=== PATIENT | male | born 1965 | race Hispanic/Latino ===

== ENCOUNTER 2018-03-10 17:59 | Observation (INO) | payer OTHER, BC ==
[2018-03-10] MEDS ORDERED: ACETAMINOPHEN 500 MG TAB PO PRN (18:12)
[2018-03-10] MEDS ORDERED: ONDANSETRON 4 MG/2 ML VIAL IV PRN (18:12)
--- OUTSIDE RECORDS SUMMARY | 2018-03-10 18:12 | XMS REPORT | Clinical Summary ---
:1965 Author Organization [facility] Address [address] [place] [id number] Phone Care Team Providers Name Role Phone Unavailable Primary Care Provider Unavailable Allergies No Known Allergies Current Medications Prescription Sig. Disp. Refills Start Date End Date Status collagenase (SANTYL) 250 Apply 30 g topically Active units/g ointment daily Left foot wound . glimepiride (AMARYL) 4 Take 4 mg by mouth Active MG tablet every morning before breakfast. sitaGLIPtin (JANUVIA) 50 Take 50 mg by mouth Active MG tablet daily. metFORMIN (GLUMETZA) Take 1,000 mg by Active 1000 MG (MOD) 24 hr mouth daily with tablet breakfast. metoprolol (LOPRESSOR) Take 50 mg by mouth Active 50 MG tablet 2 (two) times daily. montelukast (SINGULAIR) Take 10 mg by mouth Active 10 mg tablet daily. Active Problems Problem Noted Date Foot abscess, left 06/03/2016 Toe osteomyelitis, left (HCC) 06/03/2016 Essential hypertension 06/03/2016 HIV disease ([facility]) 06/03/2016 Sepsis ([facility]) 06/02/2016 Family History Medical History Relation Name Comments Cancer Father Diabetes Father COPD Mother Diabetes Mother Diabetes Sister Diabetes Sister Relation Name Status Comments Father Mother Sister Sister Social History Tobacco Use Types Packs/Day Years Used Date Light Tobacco Smoker Alcohol Use Drinks/Week oz/Week Comments Yes socially Sex Assigned at Date Recorded Not on file Last Filed Vital Signs Not on file Plan of Treatment Not on file Results Not on fileafter 03/09/2017
--- OUTSIDE RECORDS SUMMARY | 2018-03-10 18:12 | XMS REPORT ---
:1965 Author Organization [facility] Address [address] [place] [address] Dr. [place] [address] [place] [id number] Care Team Providers Name Role Phone HILDA BURKETT Unavailable Unavailable Problems This patient has no known problems. Allergies, Adverse Reactions, Alerts This patient has no known allergies or adverse reactions. Medications This patient has no known medications. Results Test Description Test Time Test Comments Text Results Atomic Results Result Comments AFB CULTURE + SMEAR 2016-07-22 17:59:00 Test Item Value Reference Range Comments CULTURE (BEAKER) (test fcki=[id number]) No acid-fast bacilli isolated in 42 days AFB SMEAR (BEAKER) (test sjpl=395) No acid fast bacilli seen AFB CULTURE + [id number] 17:58:00 Test Item Value Reference Range Comments CULTURE (BEAKER) (test No acid-fast bacilli isolated nley=2587) in 42 days AFB SMEAR (BEAKER) (test No acid fast bacilli seen odou=106) AFB CULTURE + [id number] 17:58:00 Test Item Value Reference Range Comments CULTURE (BEAKER) (test No acid-fast bacilli isolated pkxu=4470) in 42 days AFB SMEAR (BEAKER) (test No acid fast bacilli seen owin=243)
[2018-03-10 18:53] LABS: Absolute Monocytes 0.8 K/uL (0.1-1.3); Absolute Neutrophil 5.6 K/uL (1.8-8.0); Basophils % 0.3 % (0-1.3); Eosinophils % 4.7 % (0-4.4); Hematocrit 31.1 % (39.6-49.0); Lymphocytes % 29.9 % (15.3-44.8); MCH 28.4 pg (27.0-35.0); MPV 7.1 fL (7.6-11.3); Monocytes % 8.4 % (3.3-12.3)
[2018-03-10] MEDS: NA CHLORIDE 0.9% 1,000 ML IV SCH (19:00)
[2018-03-10 19:03] LABS: Magnesium 2.3 mg/dL (1.8-2.4); Potassium 5.3 mmol/L (3.5-5.1)
[2018-03-10] MEDS ORDERED: ENOXAPARIN 40 MG/0.4 ML SQ SCH (20:00)
[2018-03-10 21:58] LABS: Urine Appearance CLEAR; Urine Bilirubin NEGATIVE (NEG); Urine Blood 1+ (NEG); Urine Color YELLOW; Urine Glucose NEGATIVE (NEG); Urine Protein 2+ (NEG); Urine Specific Gravity 1.015 (1.005-1.030); Urine Urobilinogen 0.2 mg/dL (0.2-1.0)
[2018-03-10 22:11] LABS: Urine Microscopic Reflex ORDER UMIC
[2018-03-10] MEDS ORDERED: ALBUTEROL 2.5 MG/3 ML NEB SOL NEB ONE (22:12)
[2018-03-10 22:19] LABS: Urine Bacteria <20 /HPF (NONE SEEN); Urine Culture Reflex Order NOT NEEDED
[2018-03-11 03:29] VITALS: BMI 38.0
[2018-03-11] MEDS: NA CHLORIDE 0.9% 1,000 ML IV SCH ×3 (05:00→21:44)
[2018-03-11 05:33] LABS: Albumin 3.2 g/dL (3.4-5.0); Phosphorus 4.3 mg/dL (2.5-4.9); Thyroid Stimulating Hormone 1.89 uIU/mL (0.360-3.740)
--- NOTE | 2018-03-11 08:11 | RAD REPORT ---
EXAM DESCRIPTION: US - Renal Ultrasound-Complete - 03/11/2018 7:22 am CLINICAL HISTORY: Acute kidney injury COMPARISON: October 2016 FINDINGS: The right kidney measures 10.4 x 5.4 x 5.6 cm. The left kidney measures 11.0 x 6.5 x 5.9 cm. Renal cortical thickness and echogenicity are normal. No hydronephrosis or suspicious renal mass. Bladder is mostly contracted limiting assessment. No gross evidence for mass or wall thickening. IMPRESSION: No hydronephrosis or suspicious renal mass. Renal parenchymal echogenicity within normal range.
[2018-03-11] MEDS: ENOXAPARIN 30 MG/0.3 ML SQ SCH (09:00)
--- NOTE | 2018-03-11 10:51 | P.HP ---
Certification for Inpatient Patient admitted to: Inpatient With expected LOS: >2 Midnights Patient will require the following post-hospital care: None Practitioner: I am a practitioner with admitting privileges, knowledge of patient current condition, hospital course, and medical plan of care. Services: Services provided to patient in accordance with Admission requirements found in Title 42 Section 412.3 of the Code of Federal Regulations Patient History Date of Service: 03/11/18 Primary Care Provider: Konstantin Reason for admission: acute on chronic renal failure History of Present Illness: Office patient of [facility] with a history HIV. His hiv doctor was worried about his kidney function so we refer him to Dr. Melo. He was found in Lorie' s office to have stage 4 disease and an elevated potassium of 6.3. Was sent to the hospital for admission. Started on fluids for this. This morning his potassium has resolved he does not have much of an improvement of he gfr. Have called Dr. Melo and spoken about the patient. He does have a negative biopsy. However the fear of focal segmental glomerulonephritis in an HIV patient is always present. Allergies No Known Allergies Allergy (Verified 05/22/16 02:57) Home Medications: Darunavir/Cobicistat [Prezcobix 800 mg-150 mg Tablet] 1 tab PO DAILY 05/22/16 Dolutegravir Sodium [Tivicay] 50 mg PO DAILY 05/22/16 Losartan Potassium [Cozaar] 25 mg PO BID 05/22/16 Montelukast [Singulair*] 10 mg PO DAILY 05/22/16 Metoprolol Tartrate [Lopressor*] 50 mg PO BID #60 tab 05/27/16 Liraglutide [Victoza 2-Prabhakar] 1.2 mg SQ DAILY 10/23/16 - Past Medical/Surgical History Has patient received pneumonia vaccine in the past: No Diabetic: Yes -: HTN -: HIV -: NIDDM -: Domenic. 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 - Family History Father -: Diabetes, Cancer Notes: colon cancer Mother -: Lung disease, Diabetes Notes: COPD Sister -: Diabetes - Social History Smoking Status: Former smoker Alcohol use: Yes CD- Drugs: No Caffeine use: Yes Place of Residence: Home Review of Systems 10-point ROS is otherwise unremarkable Physical Examination - Vital Signs Temperature: 97.5 F Blood Pressure: 154/68 Pulse: 73 Respirations: 16 Pulse Ox (%): 94 - Physical Exam General: Alert, In no apparent distress HEENT: Atraumatic, PERRLA, Mucous membr. moist/pink, EOMI, Sclerae nonicteric Neck: Supple, 2+ carotid pulse no bruit, No LAD, Without JVD or thyroid abnormality Respiratory: Clear to auscultation bilaterally, Normal air movement Cardiovascular: Regular rate/rhythm, Normal S1 S2 Gastrointestinal: Normal bowel sounds, No tenderness Musculoskeletal: No tenderness Integumentary: No rashes Neurological: Normal gait, Normal speech, Normal strength at 5/5 x4 extr, Normal tone, Normal affect Lymphatics: No axilla or inguinal lymphadenopathy - Studies Laboratory Data (last 24 hrs) 03/11/18 04:12: Sodium 142, Potassium 5.0, BUN 48 H, Creatinine 2.60 H, Glucose 133 H, Uric Acid 7.0, Phosphorus 4.3 03/10/18 18:39: Sodium 140, Potassium 5.3 H, BUN 49 H, Creatinine 2.80 H, Glucose 151 H, Magnesium 2.3 03/10/18 18:39: WBC 9.9, Hgb 10.5 L, Hct 31.1 L, Plt Count 322 Assessment and Plan - Problems (Diagnosis) (1) CKD (chronic kidney disease) stage 4, GFR 15-29 ml/min Current Visit: No Status: Chronic Plan: His hyperkalemia has resolved. However Dr. Melo would like to keep him to prevent him worsening and ending up on dialysis. This is a reasonable concern. Will change him to inpatient and keep him one more day. (2) Asymptomatic HIV infection Current Visit: No Status: Chronic Plan: He states his viral load is undetectable. Was not reported that way to Dr. Melo. Will recheck his viral load so we can clear up any confusion. (3) Diabetes type 2, controlled Current Visit: No Status: Chronic Plan: Is on victoza as an outpatient. Will hold. do insulin sliding scale. Qualifiers: Diabetes mellitus ferry terminal agent insulin use: without fpc use Diabetes mellitus complication status: without complication Qualified Code(s): E11.9 - Type 2 diabetes mellitus without complications - Advance Directives Does patient have a Living Will: No Does patient have a Durable POA for Healthcare: No - Code Status/Comfort Care Code Status Assessed: Yes Code Status: Full Code Physician Review: Patient Assessed, Agree with Above Assessment and Plan Critical Care: No Time Spent Managing Pts Care (In Minutes): 65
[2018-03-11] MEDS ORDERED: D50W 25 GM/50 ML SYRINGE IV PRN (10:57)
[2018-03-11] MEDS ORDERED: GLUCAGON 1 MG/VIAL IM PRN (10:57)
[2018-03-11] MEDS: INSULIN -REGULAR HUMAN 50 UNIT/0.5 ML ML SQ SCH ×3 (11:30→21:00)
[2018-03-11] MEDS ORDERED: ENOXAPARIN 40 MG/0.4 ML SQ SCH (17:00)
[2018-03-11] MEDS: METOPROLOL TAR 50 MG TAB PO SCH (21:00)
--- NOTE | 2018-03-11 23:54 | CON ---
Date of Consultation: 03/11/2018 Reason For Consultation: Elevated BUN and creatinine, hypertension, and hyperkalemia. 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 The patient was in his regular state of health, visited with his Infectious Disease doctor couple of weeks ago. At that time, his creatinine was elevated to 2.8 and elevation in viral load with significant hyperkalemia of 7.1. The patient was referred back in my office with labs done 1 week ago. His creatinine was 2.6, and his potassium was still elevated at 6.1. For that reason, we directed the patient for direct admission. The patient was on spironolactone for his nephrotic range of proteinuria on top of losartan. The patient denied any nausea, any vomiting, or any diarrhea and was completely asymptomatic. Over the night, the patient was supposed to be started on IV fluid, but the patient refused to take it. Creatinine did not improve, but his potassium has been improved down to 5. Past Medical History: Includes; 1. Diabetes. 2. Hypertension. 3. HIV, on HAART medication. 4. 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 Home Medications: Include; 1. Spironolactone. 2. Supposed to be on Velcade, but he is not taking it 3. Cozaar 25 mg. 4. Singulair. 5. Lopressor. 6. Victoza. Family History: Positive for cancer and hypertension. Social History: Ex-smoker. Denied alcohol. Denied drug abuse. Current Medications In The Hospital: Include; 1. IV fluid. 2. HIV medication. 3. Normal saline. 4. Lovenox. 5. Metoprolol. 6. Zofran. Review of Systems: Head and Neck: No red eye. No ear pain. GI: No nausea, no vomiting. : No polyuria. No dysuria. No hematuria. LICENSED MENTAL HEALTH PROFESSIONAL: Not applicable. Respiratory: No shortness of breath. Cardiovascular: No chest pain. Endocrine: No polydipsia. Skin: No rash. Neurologic: No weakness. Musculoskeletal: No joint pain. Endocrine: No polydipsia. Physical Examination: General: When I saw the patient, the patient is lying in bed, not in any distress. Vital Signs: Blood pressure 145/70, pulse of 69, afebrile. Chest: Clear to auscultation. Heart: S1, S2. Regular. Abdomen: Soft, nontender, obese. Extremities: Trace edema. Neurological: Alert and oriented x3. Nonfocal. Laboratory Data: WBC 9.9, H and H 10.5/31.1, and platelets 322. Sodium 142, potassium down to 5, bicarb of 19, chloride 116, BUN 48, creatinine down to 2.6 yesterday, potassium 5.3, creatinine 2.8. GFR today 26, up from 24 yesterday. Albumin 3.2. TSH 1.8. Urinalysis; specific gravity of 1.015, negative for infection. Has rbc's of 10 and no local uria. Renal ultrasound; no obstruction. Assessment And Plan: Acute kidney injury on chronic kidney disease, secondary to prerenal superimposed with ARB and spironolactone complicated with hyperkalemia. Obstruction has been ruled out. 1. I agree with holding the losartan and spironolactone. I am going to reinforce for the patient to agree for IV hydration, and we will monitor the patient. Given hematuria, if kidney function did not improve by tomorrow on the IV fluids, nephritis and presence of human immunodeficiency virus need to be ruled out. So, we will follow up. I am going to go ahead and send for serology. 2. Hypertension, controlled, optimal. With presence of hyperkalemia and acute kidney injury, I am going keep holding losartan and hold spironolactone. 3. Hyperkalemia, resolved. Continue hydration. Keep holding losartan and spironolactone. 4. Diabetes, as by the primary. 5. Human immunodeficiency virus, as by primary. Thank you, Dr. Pryor, for allowing us to participate in the care of your patient. PALMER Voice ID: [id number] Report ID: [id number] JANET
[2018-03-12] MEDS: NA CHLORIDE 0.9% 1,000 ML IV SCH ×3 (01:00→11:00)
[2018-03-12 05:47] LABS: Albumin 3.1 g/dL (3.4-5.0); Phosphorus 3.1 mg/dL (2.5-4.9); Potassium 5.3 mmol/L (3.5-5.1)
[2018-03-12] MEDS: INSULIN -REGULAR HUMAN 50 UNIT/0.5 ML ML SQ SCH ×2 (07:30→11:30)
[2018-03-12 07:37] LABS: Urine Protein/Creatinine Ratio 1.36 ratio (<0.15)
[2018-03-12] MEDS ORDERED: FUROSEMIDE 40 MG/4 ML VIAL IV ONE (08:40)
[2018-03-12] MEDS ORDERED: GLUCAGON 1 MG/VIAL IM PRN (08:40)
[2018-03-12] MEDS ORDERED: NA CHLORIDE 0.9% 500 ML IV PRN (08:40)
[2018-03-12] MEDS ORDERED: D50W 25 GM/50 ML SYRINGE IV PRN (08:40)
[2018-03-12] MEDS ORDERED: D50W 25 GM/50 ML SYRINGE IV ONE (08:40)
[2018-03-12] MEDS ORDERED: ALBUTEROL 2.5 MG/3 ML NEB SOL NEB ONE ×2 (08:40→10:06)
[2018-03-12] MEDS ORDERED: INSULIN -REGULAR HUMAN 50 UNIT/0.5 ML ML IV ONE (08:42)
[2018-03-12] MEDS: ENOXAPARIN 30 MG/0.3 ML SQ SCH (08:44)
[2018-03-12] MEDS ORDERED: COBICISTAT PO SCH (09:00)
[2018-03-12] MEDS: METOPROLOL TAR 50 MG TAB PO SCH (09:00)
[2018-03-12] MEDS ORDERED: DARUNAVIR PO SCH (09:00)
--- NOTE | 2018-03-12 14:58 | P.DS ---
Admission Date: 03/10/18 Discharge Date: 03/12/18 Primary Care Provider: Dr. Pryor(Covering for him) Disposition: ROUTINE DISCHARGE Discharge Condition: GOOD Reason for Admission: acute on chronic renal failure Consultations: Nephrology-Dr. Gutierres Procedures: Renal ultrasound: COMPARISON: October 2016 FINDINGS: The right kidney measures 10.4 x 5.4 x 5.6 cm. The left kidney measures 11.0 x 6.5 x 5.9 cm. Renal cortical thickness and echogenicity are normal. No hydronephrosis or suspicious renal mass. Bladder is mostly contracted limiting assessment. No gross evidence for mass or wall thickening. IMPRESSION: No hydronephrosis or suspicious renal mass. Renal parenchymal echogenicity within normal range. Medical problem list: Hyperkalemia with chronic renal disease stage III B with nephrotic range proteinuria secondary to hypertension/nephrosclerosis confirmed with biopsy with 70% sclerosed glomeruli. Diabetes mellitus type 2 HIV Hypertension Hyperlipidemia Obesity, BMI-38 Brief History of Present Illness: 52-year-old male presented as a direct admit under Dr. Pryor. Patient was seen by nephrology. He was found to have elevated creatinine and hyperkalemia with potassium 7.1. Patient was admitted for further evaluation. 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 Hospital Course: Patient presented with hyperkalemia secondary to chronic renal disease. Patient with chronic renal disease stage IIIB with nephrotic range proteinuria secondary to hypertension and nephrosclerosis. Potassium improved. Losartan discontinued. At discharge patient will continue with metoprolol 50 mg 1 pill twice daily and hydralazine 25 mg 1 pill twice daily. Recommendation is for the patient follow up with nephrology in 1 week to follow this hospitalization. Recommendation to recheck lab in 1 week to monitor potassium level. Patient is to decrease potassium in his diet. Education will be provided. Recommendation on no further use of nonsteroidal anti-inflammatories. Future medications will need to be renally dosed. Patient has diabetes type 2. Patient will continue with his medication Victoza. Recommendation is to maintain blood sugars less 140 fasting and less than 200 after meals. Further adjustment can be done by his PCP. Patient has hypertension. As mentioned above medications have been adjusted. Losartan has been discontinued at discharge. Patient will continue with metoprolol 50 mg 1 pill twice daily and hydralazine 25 mg 1 pill twice daily. Recommendation is to maintain blood pressures less 150/80. Further adjustment can be done by his PCP. Patient has HIV. Patient will continue with his medication. Patient will follow up with his HIV specialist to continue to monitor and address. Patient has hyperlipidemia. This can be monitored as an outpatient. Vital Signs/Physical Exam: Temp Pulse Resp BP Pulse Ox 97.4 F 71 18 156/74 H 95 03/12/18 08:00 03/12/18 09:59 03/12/18 08:00 03/12/18 09:59 03/12/18 08:00 General: Alert, In no apparent distress, Oriented x3, Cooperative HEENT: Atraumatic Neck: Supple Respiratory: Clear to auscultation bilaterally, Normal air movement Cardiovascular: Normal pulses, Regular rate/rhythm Gastrointestinal: Normal bowel sounds, Soft and benign, Non-distended, No tenderness, No masses, No rebound, No guarding Musculoskeletal: No erythema, No tenderness, No warmth Integumentary: No tenderness/swelling, No erythema, No warmth, No cyanosis Neurological: Normal speech, Normal strength at 5/5 x4 extr, Normal tone, Normal affect Lymphatics: No axilla or inguinal lymphadenopathy Laboratory Data at Discharge: WBC 9.9 K/uL (4.3-10.9) 03/10/18 18:39 Hgb 10.5 g/dL (13.6-17.9) L 03/10/18 18:39 Hct 31.1 % (39.6-49.0) L 03/10/18 18:39 Plt Count 322 K/uL (152-406) 03/10/18 18:39 Sodium 142 mmol/L (136-145) 03/12/18 05:10 Potassium 4.6 mmol/L (3.5-5.1) 03/12/18 12:20 BUN 37 mg/dL (7-18) H 03/12/18 05:10 Creatinine 2.20 mg/dL (0.55-1.3) H 03/12/18 05:10 Glucose 116 mg/dL (74-106) H 03/12/18 05:10 Uric Acid 7.0 mg/dL (3.5-7.2) 03/11/18 04:12 Phosphorus 3.1 mg/dL (2.5-4.9) 03/12/18 05:10 Magnesium 2.3 mg/dL (1.8-2.4) 03/10/18 18:39 Home Medications: Darunavir/Cobicistat [Prezcobix 800 mg-150 mg Tablet] 1 tab PO DAILY 05/22/16 Dolutegravir Sodium [Tivicay] 50 mg PO DAILY 05/22/16 Montelukast [Singulair*] 10 mg PO DAILY 05/22/16 Metoprolol Tartrate [Lopressor*] 50 mg PO BID #60 tab 05/27/16 Liraglutide [Victoza 2-Prabhakar] 1.2 mg SQ DAILY 10/23/16 Hydralazine [Apresoline*] 25 mg PO BID #60 tab 03/12/18 New Medications: Hydralazine [Apresoline*] 25 mg PO BID #60 tab Patient Discharge Instructions: 1. Patient will follow up with his PCP in 1 week to follow up this hospitalization. 2. Patient presented with hyperkalemia secondary to chronic renal disease. Patient with chronic renal disease stage IIIB with nephrotic range proteinuria secondary to hypertension and nephrosclerosis. Potassium improved. Losartan discontinued. At discharge patient will continue with metoprolol 50 mg 1 pill twice daily and hydralazine 25 mg 1 pill twice daily. Recommendation is for the patient follow up with nephrology in 1 week to follow this hospitalization. Recommendation to recheck lab in 1 week to monitor potassium level. Patient is to decrease potassium in his diet. Education will be provided. Recommendation on no further use of nonsteroidal anti-inflammatories. Future medications will need to be renally dosed. 3. Patient has diabetes type 2. Patient will continue with his medication Victoza. Recommendation is to maintain blood sugars less 140 fasting and less than 200 after meals. Further adjustment can be done by his PCP. 4. Patient has hypertension. As mentioned above medications have been adjusted. Losartan has been discontinued at discharge. Patient will continue with metoprolol 50 mg 1 pill twice daily and hydralazine 25 mg 1 pill twice daily. Recommendation is to maintain blood pressures less 150/80. Further adjustment can be done by his PCP. 5. Patient has HIV. Patient will continue with his medication. Patient will follow up with his HIV specialist to continue to monitor and address. 6. Patient has hyperlipidemia. This can be monitored and addressed as an outpatient. Diet: Renal Activity: Ad janina Followup: Paz Gutierres MD [ACTIVE - CAN ADMIT] - Modesto Pryor MD [Primary Care Provider] - Time spent managing pt's care (in minutes): 55
[2018-03-12 15:06] VITALS: BP 116/58; TEMP 98; O2SAT 93
[2018-03-12] MEDS ORDERED: LOPRESSOR 50 MG PO SCH (21:00)
== END 2018-03-12 16:18 | disposition home or self-care (01) ==
LOC: 2ND 18:10
PROVIDERS: ADMIT Internal Medicine; ATTEND Internal Medicine
DX: E87.5 Hyperkalemia (principal); I12.9 Hypertensive chronic kidney disease with stage 1 through stage 4 chronic kidney disease, or unspecified chronic kidney disease; E11.22 Type 2 diabetes mellitus with diabetic chronic kidney disease; N18.3 Chronic kidney disease, stage 3 (moderate); Z21 Asymptomatic human immunodeficiency virus [HIV] infection status; E78.5 Hyperlipidemia, unspecified; E66.9 Obesity, unspecified; Z68.38 Body mass index [BMI] 38.0-38.9, adult
CPT/HCPCS: 36415; 76770; 80048; 80069; 81003; 81015; 82550; 82570; 82962; 83735; 84132; 84156; 84443; 84550; 85025; 94640; G0378; J1650; J7030

== ENCOUNTER 2020-09-25 22:00 | Inpatient (IN) | payer BC, OTHER ==
--- OUTSIDE RECORDS SUMMARY | 2020-09-25 22:04 | XMS REPORT | Continuity of Care Document ---
:1965 Author Organization [facility] t Address [address] [place] [address] Care Team Providers Name Role Phone Sharpless Primary Care Physician Guy Rojo MD Attending Clinician Clint Kaye MD Attending Clinician Theresa CASPER Attending Clinician Unavailable March Attending Clinician Unavailable George CASPER Attending Clinician Unavailable Tom Gamble Attending Clinician Unavailable Tom Gamble Attending Clinician Unavailable BARI BURKETT Attending Clinician Unavailable Admitting Clinician Unavailable Tom Gamble Admitting Clinician Unavailable BARI BURKETT Admitting Clinician Unavailable Payers Payer Name Policy Type Policy Effective Date Expiration Date Sour ce Number BCBSBCBS CHOICE [id number] 2019 [place] PPO/FEDERAL 00:00:00 [place] EMPL [id number] 2019-Presen tPPO Problems Condition Condition Condition Status Onset Resolution Last Treating Co mments Source Name Details Category Date Date Treatment Clinician Date 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 type 2 Type 2 00:00: Practic diabetes Diabetes 00 e mellitus Mellitus Type 2 Type 2 Problem Active [facility] diabetes Diabetes 3-31 Family mellitus Mellitus 00:00: Practi c 00 e Hyperlipid Hyperlipid Problem Active Jan baum emia 3-31 Family 00:00: Practic 00 e Essential Essential Problem Active Rodrigue armstrong hypertensi Hypertensi 3-31 Fa dary on on 00:00: Practic 00 e Seasonal Seasonal Problem Active Nik ge allergy Allergy 3-31 Family 00:00: Practic 00 e Chronic Chronic Problem Active [facility] kidney Kidney 3-31 Family disease Disease 00:00: Practic 00 e 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 3-31 Fa dary ciency ciency 00:00: Practic virus Virus 00 e infection 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 Method i 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 age-relate 00:00: st 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 Foot Foot Disease Active 2015-[address] [facility] [address] abscess, abscess, 2- [facility] - left left 00:00: Medical 00 [place] Toe Toe Disease Active 2015-[address] [facility] osteomyeli osteomyeli 2- Traci kes - tis, left tis, left 00:00: Medi [facility]ian 00 Center Essential Essential Disease Active 2015-[address] [facility] hypertensi hypertensi - Traci kes - on on 00:00: Medical 00 [place] HIV HIV Disease Active 2015-[address] [facility] disease disease 08-04 [facility] - 00:00: Medical 00 [place] Sepsis Sepsis Disease Active 2015-[address] 2- [facility] - 00:00: Medical 00 [place] Type 2 Type 2 Diagnosis Active [facility] St diabetes diabetes [facility] - mellitus mellitus Memori a without without l complicati complicati Ou tpati on, on, ent without without Clinics long-term long-term current current use of use of insulin insulin Chronic Chronic Problem Active [facility] kidney kidney [facility] - disease, disease, Memori a unspecifie unspecifie l d CKD d CKD Outpati stage stage ent Clinics Essential Essential Problem Active [facility] (primary) (primary) Luke s - hypertensi hypertensi Me moria on on l Outpati ent Clinics HIV (human HIV (human Problem Active [facility] immunodefi immunodefi Traci kes - ciency ciency Memoria virus virus l infection) infection) Ou tpati ent Clinics Mixed Mixed Problem Active [facility] hyperlipid hyperlipid Traci kes - emia emia Memoria l Outpati ent Clinics Allergies, Adverse Reactions, Alerts Allergy Allergy Status Severity Reaction(s) Onset Inactive Treating Comm ents Source Name Type Date Date Clinician No Known DA Active [facility] - Allergie 00:00: s 00 No Known DA Active [facility] Drug 08-22 Allergie 00:00: s 00 No Known DA Active U 2019-[facility] 06-25 Allergie 00:00: s 00 Family History Family Member Diagnosis Comments Start Date Stop Date Source Natural father Cancer [facility] Natural father Diabetes [facility] Natural mother COPD [facility] Natural mother Diabetes [facility] Natural sister Diabetes [facility] Social History Social Habit Start Date Stop Date Quantity Comments Source History of Cigarette Smoker [place] [facility] tobacco use History [facility] Meth odist Alcohol Std Drinks History [facility] Meth odist Alcohol Binge Tobacco use and 2020-05-28 2020-05-28 Never used Perry Rubio ethodist exposure 00:00:00 00:00:00 Alcohol intake 2020-05-28 2020-05-28 Current drinker [place] 00:00:00 00:00:00 of alcohol (finding) History [facility] 2020-03-26 2020-03-26 3 [place] Meth odist Alcohol Frequency 00:00:00 00:00:00 Alcohol Comment 2016-06-01 2016-06-[address] [facility] - 00:00:00 00:00:00 [facility] Sex Ass[birth year] At [birth year] [place] Ramiro ethodist 00:00:00 00:00:00 Smoking Status Start Date Stop Date Source Never Smoker [facility] Current some day smoker 2020-05-28 00:00:00 [place] Light tobacco smoker 2016-06-05 00:00:00 [facility] Medications Ordered Filled Start Stop Current Ordering Indication Dosage Frequency Signature Comments Components Source Medication Medication Date Date Medication? Clinician (SIG) Name Name dolutegravi 2019-06 Yes Take by Lars traore (Tivimal) 2-12 mouth. Method i 10 mg 03:04: st tablet 03 furosemide 2019-06 Yes 20mg Q.5D Take 20 mg [place] (LASIX) 20 2-12 by mouth 2 Met hodi mg tablet 03:04: (two) st 03 times a day. montelukast 2019-06 Yes 10mg QD Take 10 mg [place] (SINGULAIR) 2-12 by mouth Meth shekhar 10 mg 03:04: nightly. st tablet 03 carvediloL 2019-06 Yes 12.5mg Q.5D Take 12.5 [place] (COREG) 2-12 mg by Methodi 12.5 MG 03:04: mouth 2 st tablet 03 (two) times a day with meals. Niaspan Niaspan 2018- No [place] [address] 4-18 10-15 Konstantin at bedtime [facility] - 00:00: 00:00 Memoria 00 :00 [facility] 2018- No [place] [address] [facility] 4-18 10-15 Konstantin [facility] - 00:00: 00:00 Memoria 00 :00 [facility] ent [facility] liraglutide Yes INJECT 1.2 [place] (VICTOZA) 4-08 MG Methodi 0.6 mg/0.1 00:00: SUBCUTANEO s t mL (18 mg/3 00 USLY EVERY mL) pen DAY injector darunavir-c Yes [place] obicistat 4-08 [facility] (PREZCOBIX) 00:00: st 800-150 00 mg-mg tablet collagenase 2015-06 Yes 30g QD Apply [address] (SANTYL) 2-30 topically [facility] - 250 units/g 14:45: daily Left Medical ointment 45 foot wound Karina Smart glimepiride 2015-06 Yes 4mg Take [address] (AMARYL) 4 2-30 by mouth [facility] - MG tablet 14:45: every Medical 45 morning Center before breakfast. sitaGLIPtin 2015-06 Yes 50mg QD Take [address] (JANUVIA) 2-30 by mouth [facility] - 50 MG 14:45: daily. Medical tablet 45 Center metFORMIN 2015-06 Yes 1000mg Take 1,[address] (GLUMETZA) 2-30 mg by [facility] - 1000 MG 14:45: mouth Medical (MOD) 24 hr 45 daily with Ce nter tablet breakfast. metoprolol 2015-06 Yes 50mg Q.5D Take [address] (LOPRESSOR) 2-30 by mouth 2 Traci kes - 50 MG 14:45: (two) Medical tablet 45 times Center daily. montelukast 2015-06 Yes 10mg QD Take [address] (SINGULAIR) 2-30 by mouth Luke s - 10 mg 14:45: daily. Medical tablet 45 Center atorvastati atorvastati No 1 Q1D atorvastat [facility] n 40 mg n 40 mg in 40 mg Famil y tablet Take tablet Take tablet Practic 1 tablet 1 tablet Take 1 e every day every day tablet by oral by oral every day route as route as by oral directed. directed. route as directed. carvedilol carvedilol No 1 BID carvedilol [facility] 12.5 mg 12.5 mg 12.5 mg Family tablet Take tablet Take tablet Practic 1 tablet 1 tablet Take 1 e twice a day twice a day tablet by oral by oral twice a route as route as day by directed. directed. oral route as directed. diphenoxyla diphenoxyla No 2 QID diphenoxyl [facility] te-atropine te-atropine ate-atropi Family 2.5 2.5 ne 2.5 Practic mg-0.025 mg mg-0.025 mg mg-0.025 e tablet Take tablet Take mg tablet 2 tablets 4 2 tablets 4 Take 2 times a day times a day tablets 4 by oral by oral times a route as route as day by directed. directed. oral route as directed. furosemide furosemide No 1 Q1D furosemide [facility] 20 mg 20 mg 20 mg Family tablet Take tablet Take tablet Practic 1 tablet 1 tablet Take 1 e every day every day tablet by oral by oral every day route as route as by oral directed. directed. route as directed. Humalog Humalog No Humalog [place] KwikPen KwikPen KwikPen Family (U-100) (U-100) (U-100) Practi c Insulin 100 Insulin 100 Insulin e unit/mL unit/mL 100 subcutaneou subcutaneou unit/mL s Give s Give subcutaneo before before us Give meals using meals using before CF 1:30:TDD CF 1:30:TDD meals 50 50 using CF 1:30:TDD 50 montelukast montelukast No 1 Q1D montelukas [facility] 10 mg 10 mg t 10 mg Family tablet Take tablet Take tablet Practic 1 tablet 1 tablet Take 1 e every day every day tablet by oral by oral every day route as route as by oral directed. directed. route as directed. Prezcobix Prezcobix No 1 Q1D Prezcobix [facility] 800 mg-150 800 mg-150 800 mg-150 Family mg tablet mg tablet mg tablet Practic Take 1 Take 1 Take 1 e tablet tablet tablet every day every day every day by oral by oral by oral route as route as route as directed. directed. directed. Soliqua Soliqua No Soliqua Vill[place] e 100/33 100 100/33 100 100/33 Family unit-33 unit-33 100 Practic mcg/mL mcg/mL unit-33 e subcutaneou subcutaneou mcg/mL s insulin s insulin subcutaneo pen Give 32 pen Give 32 us insulin units in AM units in AM pen Give and and 32 units increase as increase as in AM and directed: directed: increase TDD60 TDD60 as directed: TDD60 Tivicay 50 Tivicay 50 No 1 Q1D Tivicay 50 [place] mg tablet mg tablet mg tablet Family Take 1 Take 1 Take 1 Practic tablet tablet tablet e every day every day every day by oral by oral by oral route as route as route as directed. directed. directed. Joshtoza Joshtoza Yes [place] inject [facility] Konstantin under the [facility] - skin 1.2mg Memoria daily l [facility] BD Pen BD Pen Yes [place] USE [facility] Needle Nelida Needle Nelida Konstantin DIRECTED [facility] - U/F U/F Memoria l [facility] Metoprolol Metoprolol Yes [place] TAKE [address] [facility] Tartrate Tartrate Konstantin TABLET BY L ukes - MOUTH Memoria TWICE A l DAY [facility] Singulair Singulair Yes [place] [address] Konstantin [facility] - Memoria [facility] Immunizations Ordered Immunization Filled Immunization Date Status Commen ts Source Name Name influenza, influenza, 2018-06-[address] [facility] injectable, injectable, 00:00:00 Practice quadrivalent quadrivalent Vital Signs Vital Name Observation Time Observation Value Comments Source BP Diastolic 2020-09-05 00:00:00 91 mm[Hg] [facility] Height 2020-09-05 00:00:00 71 [in_i] [facility] Family Practice BMI (Body Mass 2020-09-05 00:00:00 35 kg/m2 [facility] BP Systolic 2020-09-05 00:00:00 163 mm[Hg] [facility] Body Weight 2020-09-05 00:00:00 251 [lb_av] [facility] 02 Sat by Pulse 2020-09-06 16:51:46 98 /min Oximetry Body Mass Index 2020-09-06 16:51:46 34.9 Height 2020-09-06 16:51:46 180.34\S\71 Pulse Rate 2020-09-06 16:51:46 98 /min Respiratory Rate 2020-09-06 16:51:46 16 /min Temperature 2020-09-06 16:51:46 36.2\S\97.2 Weight 2020-09-06 16:51:46 609264.092\S\4000 02 Sat by Pulse 2020-08-27 18:48:23 98 /min Oximetry Body Mass Index 2020-08-27 18:48:23 34.9 Height 2020-08-27 18:48:23 180.34\S\71 Pulse Rate 2020-08-27 18:48:23 98 /min Respiratory Rate 2020-08-27 18:48:23 16 /min Temperature 2020-08-27 18:48:23 36.2\S\97.2 Weight 2020-08-27 18:48:23 313535.092\S\4000 Body Mass Index 2020-08-23 22:20:59 34.9 Height 2020-08-23 22:20:59 180.34\S\71 Pulse Rate 2020-08-23 22:20:59 98 /min Respiratory Rate 2020-08-23 22:20:59 16 /min Temperature 2020-08-23 22:20:59 36.2\S\97.2 Weight 2020-08-23 22:20:59 537529.092\S\4000 02 Sat by Pulse 2020-08-23 22:20:59 98 /min Oximetry 02 Sat by Pulse 2020-08-23 15:54:12 98 /min Oximetry Body Mass Index 2020-08-23 15:54:12 34.9 Height 2020-08-23 15:54:12 180.34\S\71 Pulse Rate 2020-08-23 15:54:12 98 /min Respiratory Rate 2020-08-23 15:54:12 16 /min Temperature 2020-08-23 15:54:12 36.2\S\97.2 Weight 2020-08-23 15:54:12 497762.092\S\4000 02 Sat by Pulse 2020-08-23 13:01:04 99 /min Oximetry Body Mass Index 2020-08-23 13:01:04 34.9 Height 2020-08-23 13:01:04 180.34\S\71 Pulse Rate 2020-08-23 13:01:04 91 /min Respiratory Rate 2020-08-23 13:01:04 18 /min Temperature 2020-08-23 13:01:04 36.8\S\98.2 Weight 2020-08-23 13:01:04 126460.092\S\4000 WEIGHT 2020-08-23 12:59:00 113.012686 kg HEIGHT 2020-08-23 12:59:00 180.34 cm Systolic blood 2020-05-17 12:30:00 170 mm[Hg] [place] [facility] pressure Diastolic blood 2020-05-17 12:30:00 85 mm[Hg] [place] [facility] pressure Heart rate 2020-05-17 12:30:00 84 /min [place] [facility] Body temperature 2020-05-17 12:30:00 36.28 Dawn [place] Respiratory rate 2020-05-17 12:30:00 12 /min [place] [facility] Oxygen saturation in 2020-05-17 12:30:00 98 /min [facility] Arterial blood by Pulse oximetry Body height 2020-05-17 09:54:00 181.6 cm [facility] Body weight 2020-05-17 09:54:00 115.781 kg [facility] BMI 2020-05-17 09:54:00 35.10 kg/m2 Perry Stephen Procedures Procedure Date / Time Performed Performing Clinician Sourc e PHACOEMULSIFICATION, 2020-05-17 11:31:00 Do Rojo [place] CATARACT, WITH IOL IMPLANTATION POC GLUCOSE 2020-05-17 09:42:00 RojoDo CORNEAL TOPOGRAPHY - OU - 2020-04-19 16:37:42 Do Rojo on [place] Stephen BOTH EYES IOL BIOMETRY - OU - BOTH 2020-04-19 16:37:37 Queen Do Malin n [place] Stephen EYES Plan of Care Planned Activity Planned Date Details Comments Source Future Scheduled Test 2021-03-26 DIABETES: RETINAL H [facility] 00:00:00 EYE EXAM [code = DIABETES: RETINAL EYE EXAM] Future Scheduled Test 2021-01-06 INFLUENZA VACCINE [facility] 00:00:00 [code = INFLUENZA VACCINE] Diagnostic Test 2020-09-05 glucose, Mimi Fami ly Pending 00:00:00 fingerstick, blood Practice [code = glucose, fingerstick, blood] Diagnostic Test 2020-09-05 hemoglobin A1C, Mimi F amily Pending 00:00:00 fingerstick [code = Practice hemoglobin A1C, fingerstick] Future Scheduled Test 2014 COLONOSCOPY [place] [facility] 00:00:00 SCREENING [code = COLONOSCOPY SCREENING] Future Scheduled Test 2014 SHINGLES VACCINES [facility] 00:00:00 (#1) [code = SHINGLES VACCINES (#1)] Future Scheduled Test 1982 Hepatitis C [place] [facility] 00:00:00 screening (procedure) [code = 950760841] Future Scheduled Test 1980 COVID-19 VACCINE (1) [place] [facility] 00:00:00 [code = COVID-19 VACCINE (1)] Future Scheduled Test 1974 DIABETIC FOOT EXAM [place] [facility] 00:00:00 [code = DIABETIC FOOT EXAM] Future Appointment 2020-10-06 Anna Vega 00:00:[id number]; [address], [place] [address] Encounters Start End Encounter Admission Attending Care Care Encounter Source Date/Time Date/Time Type Type Clinicians Facility Department ID 2020-09-05 2020-09-05 Salbador SRINIVASAN [place] - [id number] [facility]age 00:00:00 00:00:00 Anatoly Main - Leonid nielson MD: [id number] VM_HOU_Shad e [address], [address], [place] [address] , Ph. 2020-05-28 2020-05-28 Outpatient , [facility] [id number] [place] 00:00:00 00:00:00 DO [address] 2020-05-17 2020-05-17 [id number] [place] 00:00:00 00:00:00 DO [address] 2020-04-19 2020-04-19 Outpatient [facility] [id number] [place] 00:00:00 00:00:[address] 2020-03-26 2020-03-26 Outpatient [facility] [id number] [place] 00:00:00 00:00:00 DO [address] 2020-01-24 2020-01-24 Outpatient 3 [facility] VANDANA [id number] St. 10:30:00 23:59:00 [facility] 2020-01-24 2020-01-24 Outpatient 3 [facility] VANDANA [id number] St. 10:30:00 10:30:00 [facility]2019 817 [facility] 2018-10-18 2018-10-18 [facility] [id number] 13:47:00 13:47:00 [facility] Medicine Outpati ent Clinics 2018-09-23 2018-09-23 [facility] [id number] 08:45:00 08:45:00 [facility] Medicine Outpati ent Clinics 2018-08-04 2018-08-04 [facility] [id number] 08:30:00 08:30:00 [facility] Medicine Outpati ent Clinics 2018-03-11 2018-03-11 [facility] [id number] 10:51:00 10:51:00 [facility] Medicine Outpati ent Clinics Results Test Description Test Time Test Comments Results Result Comments Source IOL Master - OU - Both Eyes 2020-04-23 13:23:25 Test Item Value Reference Range Interpretation Comme nts Axial Length-OD (test code = 4865) 24.87 Axial Length-OS (test code = 4866) 24.99 Anterior Chamber Depth-OD (test code = 3.48 4867) Anterior Chamber Depth-OS (test code = 3.54 4868) White to White-OD (test code = 4878) 13.3 White to White-OS (test code = 4879) 12.9 TRINY (test code = TRINY) Right EyeAxial length was 24.87. White to white was 13.3. AC Depth was 3.48. Left EyeAxial length was 24.99. White to white was 12.9. AC Depth was 3.54. NotesIOL choice denoted in patient visit progress note IOL CALCULATION ORDER SHEET DATE OF TESTIN04/19/20 DATE OF SURGERY: OD OSRK PRK LASIK SILICONE OIL SCLERAL BUCKLE PKP CONTACT LENSES: DATE LAST WORN: TYPE: RGP: SOFT: DOMINANT EYE: TARGET REFRACTION: OD OS TESTING RESULTS: OD OS K1 K2 AXIS TOTAL CYL K1 K2 AXIS TOTAL CYL AUTO K IOLMASTER 40.35 41.38 97 1.03 4064 41.93 69 1.29 ATLAS GALILEI SimK GALILEI TCP AXIAL LENGTH (in mm) OD OS IOL MASTER 24.87 24.99 SONOMED/ACCUTOME IMMERSION Dr Jonah ROJO___X FINAL IOL LENS CHOICE: OD OS BACKUP LENS : OD OS [facility], [facility] - [id number] 13:23:16IOL choice denoted in patient visit progress [facility] [id number] 11:58:15 Test Item Value Reference Range Interpretation Comments Glucose POC (test 121 mg/dL 70-115 H If you con assembler arranger your code = Glucose POC) patient critically ill, the Marshal-Accu Check Infrom II meter should not be used for Glucose determination. Draw a venous Glucose and send to the main Lab for analysis. AFB CULTURE + [id number] 17:59:00 Test Item Value Reference Range Interpretation Comments CULTURE (BEAKER) (test No acid-fast bacilli code = 1095) isolated in 42 days AFB SMEAR (BEAKER) No acid fast bacilli (test code = 994) seen AFB CULTURE + [id number] 17:58:00 Test Item Value Reference Range Interpretation Comments CULTURE (BEAKER) (test No acid-fast bacilli code = 1095) isolated in 42 days AFB SMEAR (BEAKER) No acid fast bacilli (test code = 994) seen AFB CULTURE + [id number] 17:58:00 Test Item Value Reference Range Interpretation Comments CULTURE (BEAKER) (test No acid-fast bacilli code = 1095) isolated in 42 days AFB SMEAR (BEAKER) No acid fast bacilli (test code = 994) seen
[2020-09-25] MEDS ORDERED: NA CHLORIDE 0.9% 250 ML ONE (23:50)
[2020-09-25] MEDS ORDERED: VANCOMYCIN 1 GM/VIAL ONE (23:50)
[2020-09-25] MEDS ORDERED: ACETAMINOPHEN 500 MG TAB ONE (23:51)
[2020-09-26 00:22] LABS: Protime INR 1.13
[2020-09-26 00:24] LABS: Absolute Lymphocytes (CBC) 2.4 K/uL (0.7-4.9); Basophils % 0.3 % (0-1.3); Hematocrit 31.3 % (39.6-49.0); Lymphocytes % 20.2 % (15.3-44.8); MPV 7.3 fL (7.6-11.3); RBC Red Blood Cell Count 3.72 M/uL (4.33-5.43)
[2020-09-26 00:26] LABS: ALT/SGPT 26 U/L (12-78); AST/SGOT 14 U/L (15-37); Albumin 2.4 g/dL (3.4-5.0); Alkaline Phosphatase 44 U/L (45-117); BUN Blood Urea Nitrogen 62 mg/dL (7-18); Bicarbonate 21 mmol/L (21-32); Bilirubin Direct < 0.1 mg/dL (0-0.2); Bilirubin Total 0.3 mg/dL (0.2-1.0); Creatine Phosphokinase 61 U/L (39-308); Glucose Level 100 mg/dL (74-106); Potassium 4.1 mmol/L (3.5-5.1); Protein, Total 6.2 g/dL (6.4-8.2); Sodium Level 141 mmol/L (136-145)
[2020-09-26 00:27] LABS: Amylase 111 U/L (25-115); CKMB Creatine Kinase MB 1.5 ng/mL (0.3-3.6); Lipase 248 U/L (73-393); NT PRO-BNP 638 pg/mL (<125); Troponin (Emerg Dept Use Only) < 0.02 ng/mL (0.0-0.045)
--- NOTE | 2020-09-26 00:43 | EDPHYS ---
Physician Documentation [facility] Name: Chalo Harry Age: 54 yrs Sex: Male : 1965 Arrival Date: 09/25/2020 Time: 22:01 Bed 25 Private MD: ESTEPHANIA Physician Collin Kong HPI: 09/26 00:49 This 54 yrs old Male presents to ER via Wheelchair with complaints of Leg kb Swelling, Leg Pain. 00:49 The patient presents with cellulitis of the left leg. Description: erythematous, hot, kb swollen. Onset: The symptoms/episode began/occurred 3 day(s) ago. Possible cause(s): unknown. Associated signs and symptoms: Pertinent positives: drainage, erythema, swelling. Modifying factors: the symptoms are alleviated by nothing, the symptoms are aggravated by nothing. Severity of symptoms: At their worst the symptoms were moderate, in the emergency department the symptoms are unchanged. The patient has experienced similar episodes in the past, a few times. The patient has not recently seen a physician. sore to lateral left foot for 3 days with redness, swelling and heat that traveled up to knee. Sore popped today which prompted ER visit. Historical: - Allergies: 09/25 22:50 No Known Allergies; bb - Home Meds: 22:50 montelukast 10 mg oral tab 1 tab once daily [Active]; atorvastatin 40 mg oral tab 1 tab bb once daily [Active]; diphenoxylate-atropine 2.5-0.025 mg Oral tab 2 tabs once daily [Active]; carvedilol 12.5 mg oral tab [Active]; Soliqua [Active]; insulin aspart subcutaneous subcutaneous [Active]; - PMHx: 22:50 AIDS; allergies; Diabetes - NIDDM; High Cholesterol; Hypertension; bb - PSHx: 22:50 Toe amputation; retinal detachement right eye surgery; left cataract; bb - Immunization history:: Adult Immunizations up to date, Client reports receiving the 1st dose of the Covid vaccine. - Social history:: Smoking status: Patient/guardian denies using tobacco, Stopped _ months ago 6. ROS: 09/26 00:48 Cardiovascular: Negative for chest pain, palpitations, and edema, Respiratory: Negative kb for shortness of breath, cough, wheezing, and pleuritic chest pain, Abdomen/GI: Negative for abdominal pain, nausea, vomiting, diarrhea, and constipation, Neuro: Negative for headache, weakness, numbness, tingling, and seizure. MS/extremity: Positive for erythema, pain, swelling, tenderness, of the left leg. Skin: Positive for cellulitis. Exam: 00:49 Constitutional: This is a well developed, well nourished patient who is awake, alert, kb and in no acute distress. Head/Face: Normocephalic, atraumatic. Cardiovascular: Regular rate and rhythm with a normal S1 and S2. No gallops, murmurs, or rubs. No pulse deficits. Respiratory: Respirations even and unlabored. No increased work of breathing, no retractions or nasal flaring. Abdomen/GI: Soft, non-tender. No distention MS/ Extremity: Pulses equal, no cyanosis. Neurovascular intact. Full, normal range of motion. Neuro: Awake and alert, GCS 15, oriented to person, place, time, and situation. Moves all extremities. Normal gait. 00:49 Skin: cellulitis, that is moderate, on the left leg. 01:11 ECG was reviewed by the Attending Physician. jordy Vital Signs: 09/25 22:45 BP 129 / 78; Pulse 125; Resp 20 S; Temp 100.9(O); Pulse Ox 97% on R/A; Weight 113.4 kg bb (R); Height 5 ft. 11 in. (180.34 cm) (R); Pain 8/10; 09/26 00:00 BP 121 / 75; Pulse 115; Resp 19; Pulse Ox 98% ; rr5 01:00 BP 104 / 61; Pulse 105; Resp 16; Pulse Ox 95% on R/A; jb4 02:00 BP 110 / 65; Pulse 108; Resp 18; Temp 100.1(TE); Pulse Ox 98% on R/A; jb4 09/25 22:45 Body Mass Index 34.87 (113.40 kg, 180.34 cm) bb MDM: 09/25 22:52 Patient medically screened. kb 09/26 00:35 Data reviewed: vital signs, nurses notes. Data interpreted: Pulse oximetry: on room air kb is 98 %. Interpretation: normal. Counseling: I had a detailed discussion with the patient and/or guardian regarding: the historical points, exam findings, and any diagnostic results supporting the discharge/admit diagnosis, lab results, radiology results, the need for further work-up and treatment in the hospital. Physician consultation: Filipe BAINS was contacted at 00:37, regarding admission, to the medical/surgical unit. patient's condition, and will see patient in ED. 09/25 23:05 Order name: Amylase, Serum kb 09/25 23:05 Order name: Basic Metabolic Panel kb 09/25 23:05 Order name: Blood Culture Adult (2) kb 09/25 23:05 Order name: CBC with Diff kb 09/25 23:05 Order name: Ckmb kb 09/25 23:05 Order name: CPK kb 09/25 23:05 Order name: Lactate kb 09/25 23:05 Order name: LFT's; Complete Time: 00:27 kb 09/25 23:05 Order name: Lipase; Complete Time: 00:27 kb 09/25 23:05 Order name: Procalcitonin kb 09/25 23:05 Order name: Protime (+inr); Complete Time: 00:22 kb 09/25 23:05 Order name: Ptt, Activated; Complete Time: 00:22 kb 09/25 23:05 Order name: Troponin (emerg Dept Use Only); Complete Time: 00:27 kb 09/25 23:05 Order name: BNP; Complete Time: 00:27 kb 09/25 23:06 Order name: Amylase; Complete Time: 00:27 EDMS 09/25 23:06 Order name: Basic Metabolic Panel; Complete Time: 00:27 EDMS 09/25 23:06 Order name: Blood Culture EDMS 09/25 23:06 Order name: CBC with Automated Diff; Complete Time: 00:30 EDMS 09/25 23:06 Order name: CKMB Creatine Kinase MB; Complete Time: 00:27 EDMS 09/25 23:06 Order name: Creatine Phosphokinase; Complete Time: 00:27 EDMS 09/25 23:06 Order name: Lactate; Complete Time: 00:27 EDMS 09/26 00:21 Order name: Glucose, Ancillary Testing; Complete Time: 00:22 EDMS 09/26 00:34 Order name: COVID-19 : Document "Date of Symptom Onset" if Symptomatic. mw2 09/26 01:58 Order name: Hemoglobin A1c ej 09/26 02:59 Order name: Urine Dipstick-Ancillary; Complete Time: 03:34 EDMS 09/26 03:35 Order name: Urine Microscopic Only ej 09/26 05:22 Order name: Urine Dipstick-Ancillary EDMS 09/26 05:49 Order name: Basic Metabolic Panel EDMS 09/26 05:49 Order name: CBC with Automated Diff EDMS 09/25 23:05 Order name: Chest Single View XRAY kb 09/25 23:05 Order name: Accucheck; Complete Time: 00:31 kb 09/25 23:05 Order name: Cardiac monitoring; Complete Time: 00:21 kb 09/25 23:05 Order name: EKG - Nurse/Tech; Complete Time: 01:23 kb 09/25 23:05 Order name: IV Saline Lock - Large Bore; Complete Time: 00:21 kb 09/25 23:05 Order name: Labs collected and sent; Complete Time: 00:21 kb 09/25 23:05 Order name: O2 Per Protocol; Complete Time: 00:21 kb 09/25 23:05 Order name: O2 Sat Monitoring; Complete Time: 00:18 kb 09/26 01:56 Order name: Lower Extremity Arterial Bilat US ej 09/26 01:56 Order name: Extrem Venous W Compression Domenic US ej 09/26 02:14 Order name: Diet Ada 1800 Shawn; Complete Time: 05:21 ej 09/26 05:49 Order name: CONS Physician Consult EDAZ 09/26 05:49 Order name: CONS Physician Consult EDAZ 09/26 05:52 Order name: SARS-COV-2 RT PCR EDAZ 09/26 07:55 Order name: Lactate EDAZ 09/26 07:58 Order name: T4 Free EDAZ 09/26 07:58 Order name: Thyroid Stimulating Hormone EDAZ 09/26 08:19 Order name: EDAZ 09/26 08:47 Order name: EDAZ 09/26 08:57 Order name: [facility] 09/26 09:10 Order name: Glucose, Ancillary Testing EDAZ 09/26 12:22 Order name: Glucose, Ancillary Testing EDAZ 09/26 17:40 Order name: Glucose, Ancillary Testing EDAZ EC:11 Rate is 105 beats/min. Rhythm is regular. QRS G[place] is Normal. NV interval is normal. jordy QRS interval is normal. QT interval is normal. No Q waves. T waves are Normal. No ST changes noted. Clinical impression: NSR w/ Non-specific ST/T Changes and No evidence of ischemia. Interpreted by me. Reviewed by me. Administered Medications: 09/25 23:30 Drug: Tylenol 1000 mg Route: PO; rr5 23:30 Dru grams of (vancoMYCIN 1 grams, NS 0.9% 250 ml) Route: IVPB; Infused Over: 2 hrs; rr5 Site: right hand; 09/26 01:30 Follow up: Response: No adverse reaction; IV Status: Completed infusion; IV Intake: jb4 250ml 05:02 Drug: NS 0.9% 1000 ml Route: IV; Rate: 100 ml/hr; Site: right wrist; jb4 06:46 Follow up: Response: No adverse reaction; IV Status: Order to discontinue infusion; IV jb4 Intake: 175ml Disposition: 01:12 Co-signature as Attending Physician, Collin Kong MD I agree with the assessment and jordy plan of care. Disposition: 09/26/20 00:42 Hospitalization ordered by Doni Anderson for Inpatient Admission. Preliminary diagnosis is Cellulitis of left lower limb. - Bed requested for Telemetry/MedSurg (Inpatient). - Status is Inpatient Admission. aa5 - Condition is Stable. - Problem is new. - Symptoms are unchanged. Signatures: Dispatcher [employer] [facility] Norma Guerra, CHARLOTTE COBBLER MCKAY-Shauna Juárez RN RN dw Anderson, Corey, MD MD cha Ballard, Brenda, RN RN bb Lula Hussein RN RN aa5 Nathalie Saenz RN RN cg Bryson, James, RN RN jb4 Samuel Schmitz RN RN rr5 Filipe Martinez PA PA ej Corrections: (The following items were deleted from the chart) 02:38 00:42 Hospitalization Ordered by Doni Anderson MD for Inpatient Admission. Preliminary cg diagnosis is Cellulitis of left lower limb. Bed requested for Telemetry/MedSurg (Inpatient). Status is Inpatient Admission. Condition is Stable. Problem is new. Symptoms are unchanged. 05:25 00:35 CORONAVIRUS ordered. [facility] 16:44 02:38 09/26/2020 00:42 Hospitalization Ordered by Doni Anderson MD for Inpatient dw Admission. Preliminary diagnosis is Cellulitis of left lower limb. Bed requested for [facility] ER HOLD. Status is Inpatient Admission. Condition is Stable. Problem is new. Symptoms are unchanged. cg 18:06 16:44 09/26/2020 00:42 Hospitalization Ordered by Doni Anderson MD for Inpatient aa5 Admission. Preliminary diagnosis is Cellulitis of left lower limb. Bed requested for Telemetry/MedSurg (Inpatient). Status is Inpatient Admission. Condition is Stable. Problem is new. Symptoms are unchanged. dw
--- NOTE | 2020-09-26 00:43 | ER ---
Nurse's Notes [facility] Name: Chalo Harry Age: 54 yrs Sex: Male : 1965 Arrival Date: 09/25/2020 Time: 22:01 Bed 25 Private MD: Diagnosis: Cellulitis of left lower limb Presentation: 09/25 22:45 Chief complaint: Patient states: my left foot has been swollen and has developed a bb wound in the last 3 days. Coronavirus screen: At this time, the client does not indicate any symptoms associated with coronavirus-19. Ebola Screen: No symptoms or risks identified at this time. Initial Sepsis Screen: Does the patient meet any 2 criteria? Temp <36.0*C (96.8*F)) or > 38.3*C (100.9*F). HR > 90 bpm. Yes Does the patient have a suspected source of infection? Yes: Skin breakdown/wound. Risk Assessment: Do you want to hurt yourself or someone else? Patient reports no desire to harm self or others. Onset of symptoms was September 22, 2020. 22:45 Method Of Arrival: Wheelchair bb 22:45 Acuity: KESHA 3 bb Triage Assessment: 22:50 General: Appears in no apparent distress. uncomfortable, Behavior is calm, cooperative. bb Pain: Complains of pain in right foot Pain currently is 8 out of 10 on a pain scale. Neuro: Level of Consciousness is awake, alert, obeys commands, Oriented to person, place, time, situation. Respiratory: Respiratory effort is even, unlabored, Respiratory pattern is regular. Derm: Skin is pink, warm \T\ dry. Musculoskeletal: Circulation, motion, and sensation intact. Historical: - Allergies: 22:50 No Known Allergies; bb - Home Meds: 22:50 montelukast 10 mg oral tab 1 tab once daily [Active]; atorvastatin 40 mg oral tab 1 tab bb once daily [Active]; diphenoxylate-atropine 2.5-0.025 mg Oral tab 2 tabs once daily [Active]; carvedilol 12.5 mg oral tab [Active]; Soliqua [Active]; insulin aspart subcutaneous subcutaneous [Active]; - PMHx: 22:50 AIDS; allergies; Diabetes - NIDDM; High Cholesterol; Hypertension; bb - PSHx: 22:50 Toe amputation; retinal detachement right eye surgery; left cataract; bb - Immunization history:: Adult Immunizations up to date, Client reports receiving the 1st dose of the Covid vaccine. - Social history:: Smoking status: Patient/guardian denies using tobacco, Stopped _ months ago 6. Screenin:30 Abuse screen: Denies threats or abuse. Denies injuries from another. Nutritional rr5 screening: No deficits noted. Tuberculosis screening: No symptoms or risk factors identified. Fall Risk IV access (20 points). Total Padron Fall Scale indicates No Risk (0-24 pts). Assessment: 23:30 General: Appears in no apparent distress. uncomfortable, Behavior is calm, cooperative, rr5 appropriate for age. 23:30 Pain: Complains of pain in left leg Pain currently is 8 out of 10 on a pain scale. rr5 Quality of pain is described as aching, Pain began gradually, Is intermittent. Neuro: Level of Consciousness is awake, alert, obeys commands, Oriented to person, place, time, situation. Cardiovascular: Capillary refill < 3 seconds Patient's skin is warm and dry. Respiratory: Airway is patent Respiratory effort is even, unlabored, Respiratory pattern is regular, symmetrical. GI: No signs and/or symptoms were reported involving the gastrointestinal system. : No signs and/or symptoms were reported regarding the genitourinary system. EENT: No signs and/or symptoms were reported regarding the EENT system. Derm: Skin is intact, is healthy with good turgor, Skin temperature is warm. Musculoskeletal: Swelling present in left leg and redness noted. 09/26 00:30 Reassessment: Patient appears in no apparent distress at this time. Patient and/or jb4 family updated on plan of care and expected duration. Pain level reassessed. Patient is alert, oriented x 3, equal unlabored respirations, skin warm/dry/pink. 01:30 Reassessment: Patient appears in no apparent distress at this time. Patient and/or jb4 family updated on plan of care and expected duration. Pain level reassessed. Patient is alert, oriented x 3, equal unlabored respirations, skin warm/dry/pink. 02:45 Reassessment: Patient appears in no apparent distress at this time. Patient and/or jb4 family updated on plan of care and expected duration. Pain level reassessed. Patient is alert, oriented x 3, equal unlabored respirations, skin warm/dry/pink. Pt admitted to ER hold. Vital Signs: 09/25 22:45 BP 129 / 78; Pulse 125; Resp 20 S; Temp 100.9(O); Pulse Ox 97% on R/A; Weight 113.4 kg bb (R); Height 5 ft. 11 in. (180.34 cm) (R); Pain 8/10; 09/26 00:00 BP 121 / 75; Pulse 115; Resp 19; Pulse Ox 98% ; rr5 01:00 BP 104 / 61; Pulse 105; Resp 16; Pulse Ox 95% on R/A; jb4 02:00 BP 110 / 65; Pulse 108; Resp 18; Temp 100.1(TE); Pulse Ox 98% on R/A; jb4 09/25 22:45 Body Mass Index 34.87 (113.40 kg, 180.34 cm) bb ED Course: 09/25 22:01 Patient arrived in ED. cl3 22:47 Triage completed. bb 22:50 Arm band placed on Patient placed in an exam room, on a stretcher, on pulse oximetry. bb Family accompanied patient. 22:52 Norma Guerra FNP-C is PHCP. kb 22:52 Collin Kong MD is Attending Physician. kb 23:30 Samuel Schmitz RN is Primary Nurse. rr5 23:30 Inserted saline lock: 20 gauge in right hand, using aseptic technique. Blood collected. rr5 23:58 Chest Single View XRAY In Process Unspecified. EDMS 09/26 00:34 Patient has correct armband on for positive identification. Bed in low position. Call rr5 light in reach. Pulse ox on. NIBP on. 00:42 Doni Anderson MD is Hospitalizing Provider. kb 02:45 No provider procedures requiring assistance completed. Patient admitted, IV remains in jb4 place. Administered Medications: 09/25 23:30 Drug: Tylenol 1000 mg Route: PO; rr5 23:30 Dru grams of (vancoMYCIN 1 grams, NS 0.9% 250 ml) Route: IVPB; Infused Over: 2 hrs; rr5 Site: right hand; 09/26 01:30 Follow up: Response: No adverse reaction; IV Status: Completed infusion; IV Intake: jb4 250ml 05:02 Drug: NS 0.9% 1000 ml Route: IV; Rate: 100 ml/hr; Site: right wrist; jb4 06:46 Follow up: Response: No adverse reaction; IV Status: Order to discontinue infusion; IV jb4 Intake: 175ml Intake: 01:30 IV: 250ml; Total: 250ml. jb4 06:46 IV: 175ml; Total: 425ml. jb4 Outcome: 00:42 Decision to Hospitalize by Provider. kb 02:45 Admitted to ER Hold. Please see [facility] for further documentation. jb4 02:45 Condition: stable 02:45 Discharge instructions given to patient, Instructed on the need for admit, Demonstrated understanding of instructions. 18:06 Patient left the ED. aa5 Signatures: Dispatcher [employer] EDMS Norma Guerra, [employer]ING SCIENTIST-C [employer] SENSING SCIENTIST-CkMiryam Kimball RN RN bb Lula Hussein RN RN aa5 Brandon Torrez RN RN jb4 Samuel Schmitz RN RN rr5 Abdiaziz Irby cl3 Corrections: (The following items were deleted from the chart) 03:02 00:30 Response: No adverse reaction; IV Status: Completed infusion; IV Intake: 250ml [id number]
[2020-09-26 02:58] LABS: Urine Blood Trace-intact (Negative); Urine Glucose Trace (Negative); Urine Protein 3+ (Negative); Urine pH 5.5 (5.0-7.0)
[2020-09-26] MEDS ORDERED: ACETAMINOPHEN 500 MG TAB PO ONE (04:00)
[2020-09-26] MEDS ORDERED: ACETAMINOPHEN 500 MG TAB ONE (04:10)
[2020-09-26] MEDS ORDERED: NA CHLORIDE 0.9% 1,000 ML ONE (05:10)
[2020-09-26] MEDS ORDERED: MORPHINE 2 MG/ML SYR IV PRN (05:52)
--- NOTE | 2020-09-26 05:58 | P.HP ---
Certification for Inpatient Patient admitted to: Inpatient With expected LOS: >2 Midnights Patient will require the following post-hospital care: None Practitioner: I am a practitioner with admitting privileges, knowledge of patient current condition, hospital course, and medical plan of care. Services: Services provided to patient in accordance with Admission requirements found in Title 42 Section 412.3 of the Code of Federal Regulations <Filipe Martinez - Last Filed: 09/26/20 05:53> Patient History Date of Service: 09/26/20 Reason for admission: cellulitis History of Present Illness: Mr. Harry is a 54 yo male with DM, HTN, HIV here today for 3 days of left lower leg swelling and pain. He also reports fever and chills. This has happened in the past and resulted in amputation of one of his toes. WBC 11.7. H/H 10.5/31.3. BUN 62. Cr 3.9. GFR 16. Ultrasound of the legs is pending. - Past Medical/Surgical History Diabetic: Yes -: HTN -: HIV -: NIDDM -: Domenic. 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 - Family History Father -: Diabetes, Cancer Notes: colon cancer Mother -: Lung disease, Diabetes Notes: COPD Sister -: Diabetes - Social History Smoking Status: Former smoker Alcohol use: Yes CD- Drugs: No Caffeine use: Yes Place of Residence: Home <Filipe Martinez - Last Filed: 09/26/20 05:53> Date of Service: 09/26/20 <Doni Anderson - Last Filed: 09/30/20 08:49> Allergies No Known Allergies Allergy (Verified 05/22/16 02:57) Home Medications: Montelukast [Singulair*] 10 mg PO DAILY 05/22/16 Atorvastatin Calcium 40 mg PO DAILY 09/26/20 Carvedilol [Coreg] 12.5 mg PO BID 09/26/20 Diphenoxylate HCl/Atropine [Diphenoxylate-Atrop 2.5-0.025] 2 tab PO Q6HP PRN 09/26/20 Insulin Aspart [Novolog] See Protocol SQ TID 09/26/20 Insulin Glargine/Lixisenatide [Soliqua 100 Unit-33 Mcg/ml Pen] 36 units SQ DAILY 09/26/20 Review of Systems General: Chills, Sweats, As per HPI Eyes: Unremarkable ENT: Unremarkable Respiratory: Unremarkable Cardiovascular: Unremarkable Gastrointestinal: Unremarkable Genitourinary: Unremarkable Musculoskeletal: Leg Pain, As per HPI Integumentary: As per HPI Neurological: Unremarkable Lymphatics: Unremarkable <Filipe Martinez S - Last Filed: 09/26/20 05:53> Physical Examination - Physical Exam General: Alert, In no apparent distress, Oriented x3, Cooperative HEENT: Atraumatic, Normocephalic, PERRLA, Mucous membr. moist/pink, EOMI, Sclerae nonicteric Neck: Supple, 2+ carotid pulse no bruit, JVD not distended, No Thyromegaly, No LAD Respiratory: Clear to auscultation bilaterally, Normal air movement Cardiovascular: No edema, Normal pulses, Regular rate/rhythm, Normal S1 S2, No gallops, No rubs, No murmurs Capillary refill: <2 Seconds Gastrointestinal: Normal bowel sounds, Soft and benign, Non-distended, No ascites, No tenderness, No masses, No rebound, No guarding Musculoskeletal: No clubbing, No contractures, Swelling, Erythema, Tenderness, Warmth, Other (unilateral warmth ) Integumentary: No rashes, No significant lesion, No cyanosis, Skin breakdown, Tenderness/swelling, Erythema, Warmth, Other (unilateral swelling ) Neurological: Normal speech, Normal strength at 5/5 x4 extr, Normal tone, Sensation intact, Cranial nerves 3-12 intact, Normal affect Lymphatics: No axilla or inguinal lymphadenopathy - Studies Laboratory Data (last 24 hrs) 09/25/20 23:50: PT 13.0 H, INR 1.13, APTT 28.6 09/25/20 23:50: WBC 11.70 H, Hgb 10.5 L, Hct 31.3 L, Plt Count 236 09/25/20 23:50: Sodium 141, Potassium 4.1, BUN 62 H, Creatinine 3.90 H, Glucose 100, Total Bilirubin 0.3, AST 14 L, ALT 26, Alkaline Phosphatase 44 L, Amylase 111, Lipase 248 <Filipe Martinez S - Last Filed: 09/26/20 05:53> Assessment and Plan - Plan Assessment DM HTN HLD HIV Cellulitis Plan Venous ultrasound and arterial doppler pending pain control, zofran for nausea, tylenol for fever ID and nephrology consulted Discharge Plan: Home Plan to discharge in: 48 Hours - Advance Directives Does patient have a Living Will: No Does patient have a Durable POA for Healthcare: No - Code Status/Comfort Care Code Status Assessed: Yes (full code) Critical Care: No Time Spent Managing Pts Care (In Minutes): 70 <Filipe Martinez - Last Filed: 09/26/20 05:53> Date of Service: 09/26/20 Agree with findings as mentioned above. Patient with acute renal insufficiency. Also with cellulitis. Anticipate discharge once cellulitis is improved. Outpatient follow-up with HIV Clinic. <Doni Anderson - Last Filed: 09/30/20 08:49>
[2020-09-26] MEDS ORDERED: ONDANSETRON 4 MG/2 ML VIAL IV PRN (06:08)
[2020-09-26] MEDS ORDERED: NA CHLORIDE 0.9% 1,000 ML IV SCH (06:08)
[2020-09-26 06:16] LABS: Absolute Lymphocytes (CBC) 2.1 K/uL (0.7-4.9); Basophils % 0.3 % (0-1.3); Hematocrit 29.3 % (39.6-49.0); Lymphocytes % 18.1 % (15.3-44.8); MPV 7.8 fL (7.6-11.3); RBC Red Blood Cell Count 3.47 M/uL (4.33-5.43)
[2020-09-26 06:17] LABS: Potassium 4.1 mmol/L (3.5-5.1)
[2020-09-26 06:32] VITALS: BMI 34.8
[2020-09-26] MEDS: Ringers Lactate 1,000 ML IV SCH ×2 (07:00→17:00)
[2020-09-26] MEDS ORDERED: Ringers Lactate 1,000 ML IV ONE (07:13)
[2020-09-26] MEDS: INSULIN -REGULAR HUMAN 50 UNIT/0.5 ML ML SQ SCH ×4 (07:30→21:37)
[2020-09-26 07:57] LABS: Thyroid Stimulating Hormone 0.644 uIU/mL (0.360-3.740)
--- NOTE | 2020-09-26 08:18 | RAD REPORT ---
EXAM DESCRIPTION: US - Extrem Venous W Compress Domenic - 09/26/2020 7:36 am CLINICAL HISTORY: SWELLING Bilateral leg edema and swelling. COMPARISON: Extremity Venous [facility] dated 06/01/2016 TECHNIQUE: Real-time sonographic interrogation of the left and right lower extremity deep venous sys tems was performed. FINDINGS: Normal compressibility, flow augmentation, phasic flow and spontaneous flow is identified in both the left and right lower extremity deep venous systems. IMPRESSION: No sonographic evidence of left or right lower extremity deep venous thrombosis.
--- NOTE | 2020-09-26 08:32 | P.CNS ---
Date of Consult: 09/26/20 Reason for Consult: FAN/ CKD Requesting Physician: Doni Anderson Chief Complaint: cellulitis History of Present Illness: Mr. Harry is a 54 yo male with DM, HTN, HIV here today for 3 days of left lower leg swelling and pain. He also reports fever and chills. This has happened in the past and resulted in amputation of one of his toes. 00:49 This 54 yrs old Male presents to ER via Wheelchair with complaints of Leg kb Swelling, Leg Pain. 00:49 The patient presents with cellulitis of the left leg. Description: erythematous, hot, kb swollen. Onset: The symptoms/episode began/occurred 3 day(s) ago. Possible cause(s): unknown. Associated signs and symptoms: Pertinent positives: drainage, erythema, swelling. Modifying factors: the symptoms are alleviated by nothing, the symptoms are aggravated by nothing. Severity of symptoms: At their worst the symptoms were moderate, in the emergency department the symptoms are unchanged. The patient has experienced similar episodes in the past, a few times. The patient has not recently seen a physician. sore to lateral left foot for 3 days with redness, swelling and heat that traveled up to knee. Sore popped today which prompted ER visit. Allergies No Known Allergies Allergy (Verified 05/22/16 02:57) Home medications list reviewed: Yes Home Medications: Darunavir/Cobicistat [Prezcobix 800 mg-150 mg Tablet] 1 tab PO DAILY 05/22/16 Dolutegravir Sodium [Tivicay] 50 mg PO DAILY 05/22/16 Montelukast [Singulair*] 10 mg PO DAILY 05/22/16 Metoprolol Tartrate [Lopressor*] 50 mg PO BID #60 tab 05/27/16 Liraglutide [Victoza 2-Prabhakar] 1.2 mg SQ DAILY 10/23/16 Hydralazine [Apresoline*] 25 mg PO BID #60 tab 03/12/18 Atorvastatin Calcium 40 mg PO DAILY 09/26/20 Carvedilol [Coreg] 12.5 mg PO BID 09/26/20 Diphenoxylate HCl/Atropine [Diphenoxylate-Atrop 2.5-0.025] 2 tab PO Q6HP PRN 09/26/20 Insulin Aspart [Novolog] 09/26/20 Insulin Glargine/Lixisenatide [Soliqua 100 Unit-33 Mcg/ml Pen] 36 units SQ DAILY 09/26/20 - Past Medical/Surgical History Diabetic: Yes -: HTN -: HIV -: NIDDM -: Domenic. 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 - Family History Father Medical History: Diabetes, Cancer Notes: colon cancer Mother Medical History: Lung disease, Diabetes Notes: COPD Sister Medical History: Diabetes - Social History Smoking Status: Current some day smoker Alcohol use: No CD- Drugs: No Caffeine use: Yes Place of Residence: Home Review of Systems 10-point ROS is otherwise unremarkable General: Weakness, Malaise Cardiovascular: Edema Integumentary: Lesions Neurological: Weakness Physical Examination Temp Pulse Resp BP Pulse Ox 97.9 F 97 H 18 100/64 98 09/26/20 08:00 09/26/20 08:00 09/26/20 08:00 09/26/20 08:00 09/26/20 08:00 General: Oriented x3, Cooperative HEENT: Atraumatic Neck: Supple Respiratory: Clear to auscultation bilaterally Cardiovascular: Regular rate/rhythm, Edema Gastrointestinal: Soft and benign, Non-distended Musculoskeletal: No clubbing, No contractures Integumentary: No rashes, No cyanosis, Skin lesion Neurological: Normal speech Laboratory Data (last 24 hrs) 09/26/20 05:00: WBC 11.70 H, Hgb 9.5 L, Hct 29.3 L, Plt Count 204 09/26/20 05:00: Sodium 140, Potassium 4.1, BUN 66 H, Creatinine 3.97 H, Glucose 106 09/25/20 23:50: PT 13.0 H, INR 1.13, APTT 28.6 09/25/20 23:50: WBC 11.70 H, Hgb 10.5 L, Hct 31.3 L, Plt Count 236 09/25/20 23:50: Sodium 141, Potassium 4.1, BUN 62 H, Creatinine 3.90 H, Glucose 100, Total Bilirubin 0.3, AST 14 L, ALT 26, Alkaline Phosphatase 44 L, Amylase 111, Lipase 248 Imagings Data: EXAM DESCRIPTION: RAD - Chest Single View - 09/25/2020 11:58 pm CLINICAL HISTORY: SWELLING Chest pain. COMPARISON: Chest Single View dated 06/01/2016; Chest Single View dated 05/24/2016; Chest Single View dated 05/24/2016; CHEST SINGLE VIEW dated 01/12/2015 FINDINGS: Portable technique limits examination quality. The lungs are grossly clear. The heart is normal in size. No displaced fractures. IMPRESSION: No acute intrathoracic process suspected. EXAM DESCRIPTION: US - Renal Ultrasound-Complete - 09/26/2020 7:24 am CLINICAL HISTORY: CKD Flank pain COMPARISON: Renal Ultrasound-Complete dated 03/11/2018 FINDINGS: Both kidneys are normal in size, shape and echotexture. The right kidney measures 10.1 x 5.8 x 5.0 cm. No hydronephrosis, focal mass or perinephric fluid. The left kidney measures 10.4 x 5.9 x 5.4 cm. No hydronephrosis, focal mass or perinephric fluid. There is evidence of thickening of the urinary bladder. Incidentally noted are several gallstones in the gallbladder. IMPRESSION: No renal abnormality of concern visualized. Nonspecific urinary bladder wall thickening seen can be seen in cystitis or chronic inflammation. Cholelithiasis. EXAM DESCRIPTION: US - Lower Extremity Arterial Bilat - 09/26/2020 7:34 am CLINICAL HISTORY: SWELLING Leg pain and swelling. COMPARISON: Lower Extremity Artery Uni Ltd dated 05/22/2016 TECHNIQUE: Bilateral lower extremity arterial Doppler examination was performed with waveform tracing. FINDINGS: Ankle brachial indices were not performed. Right common femoral artery, superficial femoral artery, popliteal artery are triphasic. Right posterior tibial artery appears blunted and monophasic. Right dorsalis pedis artery shows elevated peak systolic velocity. Left common femoral artery, superficial femoral artery and popliteal artery appear triphasic to biphasic. Left posterior tibial artery appears occluded. Left dorsalis pedis artery is biphasic. IMPRESSION: Moderate distal peripheral vascular disease is seen in the infrapopliteal vessels bilaterally, more severe on the left. 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 EXAM DESCRIPTION: US - Extrem Venous W Compress Domenic - 09/26/2020 7:36 am CLINICAL HISTORY: SWELLING Bilateral leg edema and swelling. COMPARISON: Extremity Venous [facility] dated 06/01/2016 TECHNIQUE: Real-time sonographic interrogation of the left and right lower extremity deep venous systems was performed. FINDINGS: Normal compressibility, flow augmentation, phasic flow and sp ontaneous flow is identified in both the left and right lower extremity deep venous systems. IMPRESSION: No sonographic evidence of left or right lower extremity deep venous thrombosis. Conclusions/Impression: A/P: Continue the current POC and Medications other than the changes listed. AM Labs PRN. Recommend daily weight. Please see the orders for complete de tails. FAN may be CRS CKD IV with proteinuria -No NSAIDs -Give furosemide -Check hepatitis panel Acidosis -Start oral bicarb Hypocalcemia -Start Calcitriol HTN with CKD -Recommend metoprolol bid LE Edema -Low sodium diet -Give furosemide DM II with CKD -RISS Moderate malnutrition -Encourage nutrition Anemia in CKD -Recommend Retacrit Thank you kindly for the consultation. Case reviewed with Dr. Anderson
--- NOTE | 2020-09-26 08:40 | RAD REPORT ---
EXAM DESCRIPTION: RAD - Chest Single View - 09/25/2020 11:58 pm CLINICAL HISTORY: SWELLING Chest pain. COMPARISON: Chest Single View dated 06/01/2016; Chest Single View dated 05/24/2016; Chest Single Vie w dated 05/24/2016; CHEST SINGLE VIEW dated 01/12/2015 FINDINGS: Portable technique limits examination quality. The lungs are grossly clear. The heart is normal in size. No displaced fractures. IMPRESSION: No acute intrathoracic process suspected.
[2020-09-26] MEDS: HEPARIN 5000 UNIT/ML 1 ML VIAL SQ SCH ×2 (08:42→19:06)
--- NOTE | 2020-09-26 08:46 | RAD REPORT ---
EXAM DESCRIPTION: US - Renal Ultrasound-Complete - 09/26/2020 7:24 am CLINICAL HISTORY: CKD Flank pain COMPARISON: Renal Ultrasound-Complete dated 03/11/2018 FINDINGS: Both kidneys are normal in size, shape and echotexture. The right kidney measures 10.1 x 5.8 x 5.0 cm. No hydronephrosis, focal mass or perinephric fluid. The left kidney measures 10.4 x 5.9 x 5.4 cm. No hydronephrosis, focal mass or perinephric fluid. There is evidence of thickening of the urinary bladder. Incidentally noted are several gallstones in the gallbladder. IMPRESSION: No renal abnormality of concern visualized. Nonspecific urinary bladder wall thickening seen can be seen in cystitis or chronic inflammation. Cholelithiasis.
--- NOTE | 2020-09-26 08:57 | RAD REPORT ---
EXAM DESCRIPTION: US - Lower Extremity Arterial Bilat - 09/26/2020 7:34 am CLINICAL HISTORY: SWELLING Leg pain and swelling. COMPARISON: Lower Extremity Artery Uni Ltd dated 05/22/2016 TECHNIQUE: Bilateral lower extremity arterial Doppler examination was performed with geeta tomlinson FINDINGS: Ankle brachial indices were not performed. Right common femoral artery, superficial femoral artery, popliteal artery are triphasic. Right paper colorer ior tibial artery appears blunted and monophasic. Right dorsalis pedis artery shows elevated peak sys tolic velocity. Left common femoral artery, superficial femoral artery and popliteal artery appear triphasic to bipha sic. Left posterior tibial artery appears occluded. Left dorsalis pedis artery is biphasic. IMPRESSION: Moderate distal peripheral vascular disease is seen in the infrapopliteal vessels bilate rally, more severe on the left. 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
[2020-09-26] MEDS ORDERED: HEPARIN 5000 UNIT/ML 1 ML VIAL ONE (09:32)
[2020-09-26] MEDS ORDERED: FUROSEMIDE 40 MG/4 ML VIAL IV ONE (11:52)
[2020-09-26] MEDS ORDERED: FUROSEMIDE 40 MG/4 ML VIAL ONE (13:22)
--- NOTE | 2020-09-26 16:10 | EKG ---
Test Date: 2020-09-26 Test Time: 00:50:39 Blood Tester Fowl: ROD MEASUREMENT RESULTS: Intervals: Rate: 105 KS: 142 QRSD: 88 QT: 328 QTc: 433 Colmar: P: 44 KS: 142 QRS: 58 T: 34 INTERPRETIVE STATEMENTS: Sinus tachycardia Otherwise normal ECG Compared to ECG 06/01/2016 16:30:06 No significant changes Electronically Signed On 09-26-20 16:06:59 CDT by Harpreet Mauro
--- NOTE | 2020-09-26 16:20 | CON ---
Date of Consultation: 09/26/2020 Reason For Consultation: Elevated BUN and creatinine, anasarca. History Of Present Illness: This is a pleasant 54-year-old gentleman, well known to me from the office with significant past medical history of HIV, hypertension, diabetes complicated with neuropathy and nephropathy, chronic kidney disease secondary to diabetes nephropathy confirmed with kidney biopsy with nephrotic range of proteinuria, baseline creatinine 2.2 with GFR 27-30 when last seen in the office back in August 2019. The patient apparently was in his regular state of health. The patient had some laceration on the left dorsal of his feet, then gradually started having increase in his leg swelling with shortness of breath. For that reason, he reported to the hospital. Upon arrival to the hospital, found to have elevation in creatinine 3.9 with GFR declined to 16. For that reason, we have been consulted. The patient denied taking any nonsteroidal. No recent change in his medications. Past Medical History: Includes; 1. Hypertension. 2. HIV, on treatment. 3. Diabetes complicated with neuropathy and nephropathy. 4. Nephrotic range of proteinuria. 5. Chronic kidney disease, stage 3B/4 secondary to diabetes nephropathy confirmed with biopsy. Home Medications: Include; 1. Tylenol 2. Singulair. 3. Metoprolol. 4. Hydralazine. 5. Victoza. 6. Atorvastatin. 7. Carvedilol. 8. Insulin as above. Past Surgical History: Includes; 1. Kidney biopsy. 2. Toe amputation on the left side, fourth digit. Family History: Positive for diabetes and hypertension. Social History: Ex-smoker. Active alcohol. Denied drugs abuse. Review of Systems: Head and Neck: No red eye. No ear pain. GI: No nausea. No vomiting. : No polyuria. No dysuria. No hematuria. Ocean Export Coordinator: Not applicable. Respiratory: Has shortness of breath. Cardiovascular: Has leg swelling. Has orthopnea. Endocrine: No polydipsia. Skin: No rash. Neuro: Has neuropathy. Musculoskeletal: No joint pain. Physical Examination: General: When I saw the patient; the patient is lying in bed. Vital Signs: Blood pressure of 140/86, pulse of 99, afebrile. Chest: Crackles bilateral base. Heart: S1, S2. Systolic murmur. Abdomen: Soft, nontender. Extremities: +3 edema, erythema on the left leg. Laceration with a grade 1 ulcer on the left dorsal of left feet. Laboratory Data: WBC 11.7, H and H 9.5/29.3, platelets 204. Sodium 140, potassium 4.1, bicarb 21, BUN 66, creatinine 3.9, GFR of 16, calcium of 8. TSH 0.6. PC ratio, +3 protein on the urine. Current Medications: The patient on in the hospital include; 1. Tylenol. 2. Heparin. 3. Insulin. 4. Morphine. Assessment And Plan: 1. Acute kidney injury on chronic kidney disease, over volume. I am going to go ahead and discontinue IV fluid, start the patient on Lasix. We will send for the workup including renal ultrasound. Given the history of human immunodeficiency virus and anemia, light chain disease needs to be ruled out. We will send for full serology and we will monitor. 2. Hypertension. We will utilize the blood pressure for more diuresis. Discontinue LR, start the patient on Lasix. 3. Marginal acidosis secondary to renal failure, going to be corrected with diuresis. 4. Anasarca secondary to renal failure, nephrotic range of proteinuria. We will continue diuresis. We will send for protein creatinine. Hypothyroidism has been ruled out. 5. Human immunodeficiency virus as by primary. 6. Diabetes as by primary. 7. Cellulitis. Continue current antibiotic dose appropriate. Thank you Dr. Anderson for allowing us to participate in the care of your patient. Time spent discussing with the patient, examining the patient, [id number] with the patient, placing orders, discussing the case with our merchandise team manager including nursing, discussing the case with the other subspecialty including Cardiology and hospitalist 65 minutes. PALMER Voice ID: [id number] Report ID: [id number] JANET
--- NOTE | 2020-09-26 18:02 | CON ---
History Of Present Illness: The patient is a 54-year-old male. I was consulted for the patient tito brooks cellulitis to the left foot. As per him, he has a small blister to the left foot lateral aspect b y the fifth toe metatarsal for a couple of years, skin came off about 2 days ago, and the patient dev eloped some increased warmth and swelling and pain. Also had some fever and chills on admission. Th e patient's WBC count was 11.7 with BUN 62, creatinine 3.9. The patient also has significant history of HIV with a viral load is undetectable as per the patient. Family does not know about his conditi on, he lives with his . The patient also has non-insulin dependent diabetes mellitus, had chaz aldair to the eyes for retinopathy. Also had toe amputation of the left foot fourth digit 2 years ago for bad infection. The patient is starting to feel already better today after IV antibiotics. Has t aken some Bactrim 2 weeks ago for cough only for 3 days, which he got from his sister. Past Medical History: Diabetes mellitus, hypertension, HIV, non-insulin dependent diabetes mellitus. Past Surgical History: Surgeries include bilateral eye surgery for retinopathy, left fourth toe ampu tation for infection. Family History: Includes diabetes mellitus, colon cancer. Social History: Former smoker. Alcohol use, yes. No other drugs. Current Medications: Include vancomycin which he got 1 dose in the hospital. See MAR for other medi cations. Allergies: NO KNOWN DRUG ALLERGIES. Review of Systems: A 10-point review was performed. Physical Examination: General: This is a 54-year-old male, lying in emergency room stretcher, not in any acute distress. Vital Signs: Temperature 97.6, pulse 99, respirations 16, blood pressure 140/86. HEENT: Unremarkable. Neck: Supple. Lungs: Clear to auscultation. Heart: S1, S2. Regular. Abdomen: Soft, nontender. Bowel sounds present. Extremities: 3+ pitting edema with left foot increase in warmth and tenderness and a small open area noted on the fifth metatarsal head area on the lateral aspect. Laboratory Data: Shows WBC 11.7, hemoglobin 9.5, platelets are 204. Chemistry shows sodium 140, pot assium 4.1, chloride 112, bicarb 21, BUN 66, creatinine 3.97, glucose is 106. Assessment And Plan: Left foot cellulitis with open wounds secondary to most likely diabetes mellitu s and diabetic neuropathy. The patient also has renal failure stage IV, diabetes mellitus, diabetic retinopathy. We will recommend to continue vancomycin pending culture results as blood cultures are pending. Continue supportive care and keep leg elevated. Apply Xeroform to the open wound area and gauze wrap. We will follow the patient as needed. Can be switched to oral antibiotic on discharge a ccording to the culture reports. Thank you for consult. NF/MODL Voice ID: [id number] Report ID: [id number]
[2020-09-26] MEDS ORDERED: Pharmacy Consult 1 EA XX PRN (18:18)
[2020-09-26] MEDS: ACETAMINOPHEN 500 MG TAB PO PRN (19:05)
[2020-09-26] MEDS ORDERED: VANCOMYCIN 2 GM in NA CHLORIDE 0.9% 500 ML IVPB SCH (21:00)
[2020-09-26] MEDS: VANCOMYCIN 2 GM in NA CHLORIDE 0.9% 500 ML IVPB SCH (21:36)
[2020-09-27] MEDS: HEPARIN 5000 UNIT/ML 1 ML VIAL SQ SCH ×3 (00:45→16:26)
[2020-09-27 01:37] LABS: Urine Appearance CLOUDY (Clear); Urine Bilirubin NEGATIVE (Negative); Urine Blood 1+ (Negative); Urine Color YELLOW (Yellow); Urine Glucose TRACE (Negative); Urine Protein 3+ (Negative); Urine Urobilinogen 0.2 mg/dL (0.2-1.0); Urine pH 5.5 (5.0-7.0)
[2020-09-27 01:39] LABS: Urine Protein/Creatinine Ratio 6.91 ratio (<0.15)
[2020-09-27 01:57] LABS: Urine Amorphous Sediment 2+ /HPF (NONE SEEN); Urine Bacteria <20 /HPF (NONE SEEN); Urine Mucus SLIGHT /HPF (NONE SEEN); Urine RBC <5 /HPF (NONE SEEN); Urine Urothelial Cells <5 /HPF (NONE SEEN)
[2020-09-27 05:47] LABS: Absolute Lymphocytes (CBC) 2.1 K/uL (0.7-4.9); Basophils % 0.2 % (0-1.3); Hematocrit 24.9 % (39.6-49.0); Lymphocytes % 15.3 % (15.3-44.8); RBC Red Blood Cell Count 2.99 M/uL (4.33-5.43)
[2020-09-27 06:35] LABS: Albumin 1.7 g/dL (3.4-5.0); Bilirubin Total 0.4 mg/dL (0.2-1.0); Ferritin 473.9 ng/mL (26-388); Folic Acid, (Folate) 17.7 ng/mL (3.1-17.5); Magnesium 1.7 mg/dL (1.8-2.4); Phosphorus 3.7 mg/dL (2.5-4.9); Potassium 4.1 mmol/L (3.5-5.1); Protein, Total 5.5 g/dL (6.4-8.2)
[2020-09-27] MEDS: INSULIN -REGULAR HUMAN 50 UNIT/0.5 ML ML SQ SCH ×4 (07:30→21:39)
[2020-09-27 08:45] LABS: Blood Morphology Comment NOT SEEN (NOT SEEN); Platelet Estimate ADEQ; White Blood Cell Scan OK (OK)
[2020-09-27] MEDS ORDERED: FUROSEMIDE 40 MG/4 ML VIAL IV SCH (09:00)
[2020-09-27] MEDS: FUROSEMIDE 40 MG/4 ML VIAL IV SCH ×3 (09:34→21:39)
--- NOTE | 2020-09-27 10:03 | P.PN ---
Subjective Date of Service: 09/27/20 Chief Complaint: cellulitis Patient seen examined at bedside. States he is having some diarrhea, states he is had 2 watery bowel movements today. Patient is not on any stool softeners. Advised patient to the nursing staff know if he has 3 consecutive watery bowel movements in a day. Review of Systems 10-point ROS is otherwise unremarkable Physical Examination - Vital Signs Temperature: 99.8 F Blood Pressure: 134/62 Pulse: 111 Respirations: 16 Pulse Ox (%): 94 - Physical Exam General: In no apparent distress HEENT: Atraumatic, Normocephalic Neck: Supple, 2+ carotid pulse no bruit Respiratory: Clear to auscultation bilaterally, Normal air movement Cardiovascular: No edema, Normal pulses, Regular rate/rhythm Gastrointestinal: Normal bowel sounds, Soft and benign Musculoskeletal: No clubbing, No swelling, No contractures Integumentary: Other (Left lower extremity hyperpigmentation and swelling. Wound to the anterior aspect of patient's left foot. 4th toe amputation on left foot.) - Studies Active Medications Acetaminophen (Acetaminophen 500 Mg Tab) 500 mg PO Q4HP PRN PRN Reason: Pain scale 2-4 (Mild) Last Admin: 09/26/20 19:05 Dose: 500 mg Documented by: Furosemide (Furosemide 40 Mg/4 Ml Vial) 40 mg IV TID [facility] Last Admin: 09/27/20 09:34 Dose: 40 mg Documented by: Heparin Sodium (Porcine) (Heparin 5000 Unit/Ml 1 Ml Vial) 5,000 unit SQ Q8HR [facility] Last Admin: 09/27/20 09:34 Dose: 5,000 unit Documented by: Pharmacy Consult (Pharmacy Consult) 1 mls @ 1 mls/hr XX DAILYPRN PRN; Protocol PRN Reason: Vancomycin dose by pharmacy Vancomycin HCl 2 gm/ Sodium (Chloride) 500 mls @ 250 mls/hr IVPB Q36H [facility]; Protocol Last Admin: 09/26/20 21:36 Dose: 500 mls Documented by: Insulin Human Regular (Insulin -Regular Human 50 Unit/0.5 Ml Ml) 0 unit SQ ACHS [facility]; Protocol Last Admin: 09/27/20 07:30 Dose: Not Given Documented by: Morphine Sulfate (Morphine 2 Mg/Ml Syr) 2 mg IV Q6H PRN PRN Reason: Pain scale 5-7 (Moderate) Ondansetron HCl (Ondansetron 4 Mg/2 Ml Vial) 4 mg IV Q6HP PRN PRN Reason: NAUSEA / VOMITING Sodium Chloride (Flush Normal Saline 10 Ml) 10 ml IV BID VIJAY Last Admin: 09/27/20 09:00 Dose: 10 ml Documented by: Laboratory Last Values WBC 11.70 K/uL (4.3-10.9) H 09/26/20 05:00 RBC 3.47 M/uL (4.33-5.43) L 09/26/20 05:00 Hgb 9.5 g/dL (13.6-17.9) L 09/26/20 05:00 Hct 29.3 % (39.6-49.0) L 09/26/20 05:00 MCV 84.6 fL (80-100) 09/26/20 05:00 MCH 27.4 pg (27.0-35.0) 09/26/20 05:00 MCHC 32.4 g/dL (32.0-36.0) 09/26/20 05:00 RDW 13.5 % (12.1-15.2) 09/26/20 05:00 Plt Count 204 K/uL (152-406) 09/26/20 05:00 MPV 7.8 fL (7.6-11.3) 09/26/20 05:00 Neutrophils % 76.0 % (41.7-73.7) H 09/26/20 05:00 Lymphocytes % 18.1 % (15.3-44.8) 09/26/20 05:00 Monocytes % 5.5 % (3.3-12.3) 09/26/20 05:00 Eosinophils % 0.1 % (0-4.4) 09/26/20 05:00 Basophils % 0.3 % (0-1.3) 09/26/20 05:00 Absolute Neutrophils 8.9 K/uL (1.8-8.0) H 09/26/20 05:00 Absolute Lymphocytes 2.1 K/uL (0.7-4.9) 09/26/20 05:00 Absolute Monocytes 0.6 K/uL (0.1-1.3) 09/26/20 05:00 Absolute Eosinophils 0.0 K/uL (0-0.5) 09/26/20 05:00 Absolute Basophils 0.0 K/uL (0-0.5) 09/26/20 05:00 PT 13.0 SECONDS (9.5-12.5) H 09/25/20 23:50 INR 1.13 09/25/20 23:50 APTT 28.6 SECONDS (24.3-36.9) 09/25/20 23:50 Sodium 140 mmol/L (136-145) 09/26/20 05:00 Potassium 4.1 mmol/L (3.5-5.1) 09/26/20 05:00 Chloride 112 mmol/L (98-107) H 09/26/20 05:00 Carbon Dioxide 21 mmol/L (21-32) 09/26/20 05:00 BUN 66 mg/dL (7-18) H 09/26/20 05:00 Creatinine 3.97 mg/dL (0.55-1.3) H 09/26/20 05:00 Estimated GFR 16 mL/min (=/>90) L 09/26/20 05:00 Glucose 106 mg/dL (74-106) 09/26/20 05:00 POC Glucose 94 mg/dL (65-120) 09/26/20 00:08 Lactic Acid 0.9 mmol/L (0.4-2.0) 09/25/20 23:50 Calcium 8.0 mg/dL (8.5-10.1) L 09/26/20 05:00 Total Bilirubin 0.3 mg/dL (0.2-1.0) 09/25/20 23:50 Direct Bilirubin < 0.1 mg/dL (0-0.2) 09/25/20 23:50 AST 14 U/L (15-37) L 09/25/20 23:50 ALT 26 U/L (12-78) 09/25/20 23:50 Alkaline Phosphatase 44 U/L (45-117) L 09/25/20 23:50 Creatine Kinase 61 U/L (39-308) 09/25/20 23:50 CK-MB (CK-2) 1.5 ng/mL (0.3-3.6) 09/25/20 23:50 Rapid Troponin I < 0.02 ng/mL (0.0-0.045) 09/25/20 23:50 NT-Pro-B Natriuret Pep 638 pg/mL (<125) H 09/25/20 23:50 Serum Total Protein 6.2 g/dL (6.4-8.2) L 09/25/20 23:50 Albumin 2.4 g/dL (3.4-5.0) L 09/25/20 23:50 Globulin 3.8 g/dL (2.3-3.5) H 09/25/20 23:50 Albumin/Globulin Ratio 0.6 (1.1-1.8) L 09/25/20 23:50 Amylase 111 U/L (25-115) 09/25/20 23:50 Lipase 248 U/L (73-393) 09/25/20 23:50 Procalcitonin < 0.05 ng/mL (<0.050) 09/25/20 23:50 Urine pH 5.5 (5.0-7.0) 09/26/20 02:55 Ur Specific [place] 1.020 (1.005-1.030) 09/26/20 02:55 Glucose (UA)(Auto) Trace (Negative) 09/26/20 02:55 Urine Ketones Negative (Negative) 09/26/20 02:55 Urine Blood Trace-intact (Negative) H 09/26/20 02:55 Urine Nitrite Negative (Negative) 09/26/20 02:55 Ur Leukocyte Esterase Negative (Negative) 09/26/20 02:55 Urine RBC Cancelled 09/26/20 03:35 Urine WBC Cancelled 09/26/20 03:35 Ur Squamous Epith Cells Cancelled 09/26/20 03:35 Ur Urothelial Cells Cancelled 09/26/20 03:35 Calcium Oxalate Crystal Cancelled 09/26/20 03:35 Uric Acid Crystals Cancelled 09/26/20 03:35 Triple Phos Crystals Cancelled 09/26/20 03:35 Other Crystals Cancelled 09/26/20 03:35 Amorphous Sediment Cancelled 09/26/20 03:35 Glitter Cells Cancelled 09/26/20 03:35 Urine Bacteria Cancelled 09/26/20 03:35 Hyaline Casts Cancelled 09/26/20 03:35 Fine Granular Casts Cancelled 09/26/20 03:35 Coarse Granular Casts Cancelled 09/26/20 03:35 Waxy Casts Cancelled 09/26/20 03:35 RBC Casts Cancelled 09/26/20 03:35 WBC Casts Cancelled 09/26/20 03:35 Urine Mucus Cancelled 09/26/20 03:35 Urine Other Cancelled 09/26/20 03:35 Urine Trichomonas Cancelled 09/26/20 03:35 Urine Yeast Cancelled 09/26/20 03:35 Ur Yeast w Hyphae Cancelled 09/26/20 03:35 Urine Yeast (Budding) Cancelled 09/26/20 03:35 Urine Sperm Cancelled 09/26/20 03:35 Urine Culture Reflexed Cancelled 09/26/20 03:35 Urine Total Volume Cancelled 09/26/20 03:35 Urine Total Protein 3+ (Negative) H 09/26/20 02:55 SARS-CoV-2 RNA (RT-PCR) Negative (NEGATIVE) 09/26/20 00:43 Temp Pulse Resp BP Pulse Ox 99.8 F 111 H 16 134/62 94 09/27/20 08:00 09/27/20 09:34 09/27/20 08:00 09/27/20 09:34 09/27/20 08:00 Assessment And Plan - Plan Antibiotics: vancomycin start: 09/26 stop: 10/10 Assessment: 1. Left foot cellulitis with open wound secondary to diabetes mellitus. 2. CKD stage 4 3. 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 4. HIV Plan: 1. Continue IV vancomycin at this time. Continue to monitor trough levels goal between 10-15. Trough level should be ordered after every 4th dose. to open wound on left foot: clean with sterile saline apply Xeroform to the open area and wrapped with gauze. Change every 2 days or p.r.n. if soiled or removed. The patient can be switched to oral antibiotics on discharge-will need a total antibiotic duration of 2 weeks. Blood cultures negative. 2. Renally dose medications. 3. sugar well under 150 for proper wound management 4. viral load undetectable per patient. Do not have recent CD4 count - medical management per primary team -continue monitor CBC and BMP - continue to monitor for signs of infection Plan of care discussed with Dr. Wright Thank you for consult.
--- NOTE | 2020-09-27 11:01 | P.PN ---
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
[2020-09-27 17:46] LABS: Rheumatoid Factor NEG (NEG)
[2020-09-27] MEDS: ACETAMINOPHEN 500 MG TAB PO PRN (21:40)
[2020-09-28] MEDS: HEPARIN 5000 UNIT/ML 1 ML VIAL SQ SCH ×3 (00:43→17:00)
[2020-09-28 06:47] LABS: Albumin 1.7 g/dL (3.4-5.0); Phosphorus 3.8 mg/dL (2.5-4.9); Potassium 3.9 mmol/L (3.5-5.1)
[2020-09-28] MEDS: INSULIN -REGULAR HUMAN 50 UNIT/0.5 ML ML SQ SCH ×4 (07:30→20:46)
[2020-09-28] MEDS: FUROSEMIDE 40 MG/4 ML VIAL IV SCH ×2 (08:41→14:12)
[2020-09-28] MEDS: VANCOMYCIN 2 GM in NA CHLORIDE 0.9% 500 ML IVPB SCH (09:00)
--- NOTE | 2020-09-28 10:02 | P.PN ---
Subjective Date of Service: 09/28/20 Chief Complaint: cellulitis Reports having intermittent productive cough after he had covid infection last year. 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
--- NOTE | 2020-09-28 10:24 | P.PN ---
Subjective Date of Service: 09/28/20 Chief Complaint: cellulitis Patient seen examined at bedside. Patient had 1 episode of diarrhea this morning. Denies nausea or vomiting, has good appetite. Review of Systems 10-point ROS is otherwise unremarkable Physical Examination - Vital Signs Temperature: 99.3 F Blood Pressure: 155/75 Pulse: 104 Respirations: 16 Pulse Ox (%): 93 - Studies Temp Pulse Resp BP Pulse Ox 99.3 F 104 H 16 155/75 H 93 09/28/20 10:02 09/28/20 10:02 09/28/20 10:02 09/28/20 10:02 09/28/20 10:02 Active Medications Acetaminophen (Acetaminophen 500 Mg Tab) 500 mg PO Q4HP PRN PRN Reason: Pain scale 2-4 (Mild) Last Admin: 09/27/20 21:40 Dose: 500 mg Documented by: Furosemide (Furosemide 40 Mg/4 Ml Vial) 40 mg IV TID [facility] Last Admin: 09/28/20 08:41 Dose: 40 mg Documented by: Heparin Sodium (Porcine) (Heparin 5000 Unit/Ml 1 Ml Vial) 5,000 unit SQ Q8HR [facility] Last Admin: 09/28/20 08:40 Dose: 5,000 unit Documented by: Pharmacy Consult (Pharmacy Consult) 1 mls @ 1 mls/hr XX DAILYPRN PRN; Protocol PRN Reason: Vancomycin dose by pharmacy Vancomycin HCl 2 gm/ Sodium (Chloride) 500 mls @ 250 mls/hr IVPB Q48H [facility]JAY; Protocol Insulin Human Regular (Insulin -Regular Human 50 Unit/0.5 Ml Ml) 0 unit SQ ACHS VIJAY; Protocol Last Admin: 09/28/20 07:30 Dose: Not Given Documented by: Morphine Sulfate (Morphine 2 Mg/Ml Syr) 2 mg IV Q6H PRN PRN Reason: Pain scale 5-7 (Moderate) Ondansetron HCl (Ondansetron 4 Mg/2 Ml Vial) 4 mg IV Q6HP PRN PRN Reason: NAUSEA / VOMITING Sodium Chloride (Flush Normal Saline 10 Ml) 10 ml IV BID [facility] Last Admin: 09/27/20 21:40 Dose: 10 ml Documented by: Laboratory Last Values WBC 11.70 K/uL (4.3-10.9) H 09/26/20 05:00 RBC 3.47 M/uL (4.33-5.43) L 09/26/20 05:00 Hgb 9.5 g/dL (13.6-17.9) L 09/26/20 05:00 Hct 29.3 % (39.6-49.0) L 09/26/20 05:00 MCV 84.6 fL (80-100) 09/26/20 05:00 MCH 27.4 pg (27.0-35.0) 09/26/20 05:00 MCHC 32.4 g/dL (32.0-36.0) 09/26/20 05:00 RDW 13.5 % (12.1-15.2) 09/26/20 05:00 Plt Count 204 K/uL (152-406) 09/26/20 05:00 MPV 7.8 fL (7.6-11.3) 09/26/20 05:00 Neutrophils % 76.0 % (41.7-73.7) H 09/26/20 05:00 Lymphocytes % 18.1 % (15.3-44.8) 09/26/20 05:00 Monocytes % 5.5 % (3.3-12.3) 09/26/20 05:00 Eosinophils % 0.1 % (0-4.4) 09/26/20 05:00 Basophils % 0.3 % (0-1.3) 09/26/20 05:00 Absolute Neutrophils 8.9 K/uL (1.8-8.0) H 09/26/20 05:00 Absolute Lymphocytes 2.1 K/uL (0.7-4.9) 09/26/20 05:00 Absolute Monocytes 0.6 K/uL (0.1-1.3) 09/26/20 05:00 Absolute Eosinophils 0.0 K/uL (0-0.5) 09/26/20 05:00 Absolute Basophils 0.0 K/uL (0-0.5) 09/26/20 05:00 PT 13.0 SECONDS (9.5-12.5) H 09/25/20 23:50 INR 1.13 09/25/20 23:50 APTT 28.6 SECONDS (24.3-36.9) 09/25/20 23:50 Sodium 140 mmol/L (136-145) 09/26/20 05:00 Potassium 4.1 mmol/L (3.5-5.1) 09/26/20 05:00 Chloride 112 mmol/L (98-107) H 09/26/20 05:00 Carbon Dioxide 21 mmol/L (21-32) 09/26/20 05:00 BUN 66 mg/dL (7-18) H 09/26/20 05:00 Creatinine 3.97 mg/dL (0.55-1.3) H 09/26/20 05:00 Estimated GFR 16 mL/min (=/>90) L 09/26/20 05:00 Glucose 106 mg/dL (74-106) 09/26/20 05:00 POC Glucose 94 mg/dL (65-120) 09/26/20 00:08 Lactic Acid 0.9 mmol/L (0.4-2.0) 09/25/20 23:50 Calcium 8.0 mg/dL (8.5-10.1) L 09/26/20 05:00 Total Bilirubin 0.3 mg/dL (0.2-1.0) 09/25/20 23:50 Direct Bilirubin < 0.1 mg/dL (0-0.2) 09/25/20 23:50 AST 14 U/L (15-37) L 09/25/20 23:50 ALT 26 U/L (12-78) 09/25/20 23:50 Alkaline Phosphatase 44 U/L (45-117) L 09/25/20 23:50 Creatine Kinase 61 U/L (39-308) 09/25/20 23:50 CK-MB (CK-2) 1.5 ng/mL (0.3-3.6) 09/25/20 23:50 Rapid Troponin I < 0.02 ng/mL (0.0-0.045) 09/25/20 23:50 NT-Pro-B Natriuret Pep 638 pg/mL (<125) H 09/25/20 23:50 Serum Total Protein 6.2 g/dL (6.4-8.2) L 09/25/20 23:50 Albumin 2.4 g/dL (3.4-5.0) L 09/25/20 23:50 Globulin 3.8 g/dL (2.3-3.5) H 09/25/20 23:50 Albumin/Globulin Ratio 0.6 (1.1-1.8) L 09/25/20 23:50 Amylase 111 U/L (25-115) 09/25/20 23:50 Lipase 248 U/L (73-393) 09/25/20 23:50 Procalcitonin < 0.05 ng/mL (<0.050) 09/25/20 23:50 Urine pH 5.5 (5.0-7.0) 09/26/20 02:55 Ur Specific [place] 1.020 (1.005-1.030) 09/26/20 02:55 Glucose (UA)(Auto) Trace (Negative) 09/26/20 02:55 Urine Ketones Negative (Negative) 09/26/20 02:55 Urine Blood Trace-intact (Negative) H 09/26/20 02:55 Urine Nitrite Negative (Negative) 09/26/20 02:55 Ur Leukocyte Esterase Negative (Negative) 09/26/20 02:55 Urine RBC Cancelled 09/26/20 03:35 Urine WBC Cancelled 09/26/20 03:35 Ur Squamous Epith Cells Cancelled 09/26/20 03:35 Ur Urothelial Cells Cancelled 09/26/20 03:35 Calcium Oxalate Crystal Cancelled 09/26/20 03:35 Uric Acid Crystals Cancelled 09/26/20 03:35 Triple Phos Crystals Cancelled 09/26/20 03:35 Other Crystals Cancelled 09/26/20 03:35 Amorphous Sediment Cancelled 09/26/20 03:35 Glitter Cells Cancelled 09/26/20 03:35 Urine Bacteria Cancelled 09/26/20 03:35 Hyaline Casts Cancelled 09/26/20 03:35 Fine Granular Casts Cancelled 09/26/20 03:35 Coarse Granular Casts Cancelled 09/26/20 03:35 Waxy Casts Cancelled 09/26/20 03:35 RBC Casts Cancelled 09/26/20 03:35 WBC Casts Cancelled 09/26/20 03:35 Urine Mucus Cancelled 09/26/20 03:35 Urine Other Cancelled 09/26/20 03:35 Urine Trichomonas Cancelled 09/26/20 03:35 Urine Yeast Cancelled 09/26/20 03:35 Ur Yeast w Hyphae Cancelled 09/26/20 03:35 Urine Yeast (Budding) Cancelled 09/26/20 03:35 Urine Sperm Cancelled 09/26/20 03:35 Urine Culture Reflexed Cancelled 09/26/20 03:35 Urine Total Volume Cancelled 09/26/20 03:35 Urine Total Protein 3+ (Negative) H 09/26/20 02:55 SARS-CoV-2 RNA (RT-PCR) Negative (NEGATIVE) 09/26/20 00:43 Assessment And Plan - Plan Antibiotics: vancomycin start: 09/26 stop: 10/10 Assessment: 1. Left foot cellulitis with open wound secondary to diabetes mellitus. 2. CKD stage 4 3. 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 4. HIV Plan: 1. Continue IV vancomycin at this time. Continue to monitor trough levels goal between 10-15. Trough level should be ordered after every 4th dose--09/28 levels pending. to open wound on left foot: clean with sterile saline apply Xeroform to the open area and wrapped with gauze. Change every 2 days or p.r.n. if soiled or removed. The patient can be switched to oral antibiotics on discharge-will need a total antibiotic duration of 2 weeks. Blood cultures negative. 2. Renally dose medications. 3. sugar well under 150 for proper wound management 4. viral load undetectable per patient. Do not have recent CD4 count - medical management per primary team -continue monitor CBC and BMP - continue to monitor for signs of infection Plan of care discussed with Dr. Wright Thank you for consult.
[2020-09-28 11:54] LABS: Absolute Lymphocytes (CBC) 1.7 K/uL (0.7-4.9); Basophils % 0.3 % (0-1.3); Hematocrit 28.6 % (39.6-49.0); MPV 7.9 fL (7.6-11.3); RBC Red Blood Cell Count 3.41 M/uL (4.33-5.43)
[2020-09-28] MEDS: AMLODIPINE 5 MG TAB PO SCH (12:00)
[2020-09-28 12:18] LABS: Magnesium 1.9 mg/dL (1.8-2.4); Phosphorus 3.8 mg/dL (2.5-4.9)
[2020-09-28] MEDS: FUROSEMIDE 40 MG TABLET PO SCH (17:38)
[2020-09-28] MEDS: ATORVASTATIN 40 MG TAB PO SCH (20:45)
[2020-09-29] MEDS: HEPARIN 5000 UNIT/ML 1 ML VIAL SQ SCH ×3 (01:25→17:00)
[2020-09-29 06:28] LABS: Absolute Lymphocytes (CBC) 1.8 K/uL (0.7-4.9); Basophils % 0.2 % (0-1.3); Hematocrit 27.7 % (39.6-49.0); Lymphocytes % 15.6 % (15.3-44.8); MPV 7.3 fL (7.6-11.3); RBC Red Blood Cell Count 3.32 M/uL (4.33-5.43)
[2020-09-29 06:48] LABS: Albumin 1.6 g/dL (3.4-5.0); Magnesium 2.1 mg/dL (1.8-2.4); Phosphorus 4.4 mg/dL (2.5-4.9); Potassium 4.1 mmol/L (3.5-5.1)
[2020-09-29] MEDS: INSULIN -REGULAR HUMAN 50 UNIT/0.5 ML ML SQ SCH ×4 (07:30→21:21)
[2020-09-29] MEDS ORDERED: VANCOMYCIN 2 GM in NA CHLORIDE 0.9% 500 ML IVPB SCH (09:00)
[2020-09-29] MEDS: AMLODIPINE 5 MG TAB PO SCH (09:12)
[2020-09-29] MEDS: FUROSEMIDE 40 MG TABLET PO SCH ×2 (09:12→16:53)
[2020-09-29] MEDS: NA CHLORIDE 0.9% 1,000 ML IV SCH (15:35)
[2020-09-29 16:11] LABS: Hepatitis C Virus RNA (PCR)log <1.18 log IU/mL
[2020-09-29 18:20] LABS: HIV AG/AB 4TH GEN Reactive (Non-reactive)
--- NOTE | 2020-09-29 19:20 | PN ---
Date of Progress Note: 09/29/2020 Chief Complaint: Acute kidney injury on chronic kidney disease stage 4, nonoliguric. History Of Present Illness: The patient was started on Lasix for volume control. The patient has ch ronic kidney stage 4 secondary to diabetic nephropathy. Review of Systems: The patient denies fever or chills. Physical Examination: Lungs: Diminished breath sounds at bases. Heart: S1, S2. Abdomen: Soft, benign. Extremities: Slight edema in both legs. Laboratory Data: Hemoglobin 9.2, WBC 11.8, platelet count is 266,000. Sodium 140, potassium 4.1, ch loride 105, CO2 26, BUN 65, creatinine 4.45, glucose 143, magnesium 2.1, phosphorus 4.4, calcium 9.1. Impression And Plan: 1.Acute on chronic kidney injury, nonoliguric. The patient has underlying diabetic kidney disease a nd had biopsy done previously, which concern diabetic nephropathy. Baseline creatinine level is 2.2. The patient developed acute kidney injury. Plan is to continue diuretic as needed for volume contr ol. 2.Proteinuria secondary to diabetic nephropathy. JAGDEEP inhibitor and angiotensin receptor morales on hold due to risk of hyperkalemia with acute kidney injury. 3.Bilateral lower extremity edema. Doppler was negative for DVT. Continue Lasix. 4.Hypertension. Blood pressure is overall improving. The patient was started on amlodipine. Darshana nue current treatment. 5.Secondary hyperparathyroidism. The patient was started on vitamin D and plan is to monitor 25-hyd marilou vitamin D level and adjust treatment. 6.Human immunodeficiency virus. Management per primary team. MALAIKA/SHELBY Voice ID: [id number] Report ID: [id number]
[2020-09-29] MEDS: ATORVASTATIN 40 MG TAB PO SCH (21:23)
[2020-09-30] MEDS: HEPARIN 5000 UNIT/ML 1 ML VIAL SQ SCH ×2 (01:18→08:03)
[2020-09-30 06:14] LABS: Absolute Lymphocytes (CBC) 1.6 K/uL (0.7-4.9); Basophils % 0.4 % (0-1.3); Hematocrit 29.7 % (39.6-49.0); Lymphocytes % 20.6 % (15.3-44.8); MPV 7.8 fL (7.6-11.3); RBC Red Blood Cell Count 3.55 M/uL (4.33-5.43)
[2020-09-30 06:33] LABS: Albumin 1.6 g/dL (3.4-5.0); Magnesium 2.1 mg/dL (1.8-2.4); Phosphorus 4.2 mg/dL (2.5-4.9)
[2020-09-30] MEDS: AMLODIPINE 5 MG TAB PO SCH (08:01)
[2020-09-30] MEDS: FUROSEMIDE 40 MG TABLET PO SCH (08:01)
[2020-09-30] MEDS: NA CHLORIDE 0.9% 1,000 ML IV SCH (08:02)
[2020-09-30] MEDS: INSULIN -REGULAR HUMAN 50 UNIT/0.5 ML ML SQ SCH ×2 (08:02→10:43)
[2020-09-30 08:14] VITALS: O2SAT 95
--- NOTE | 2020-09-30 08:53 | P.PN ---
Subjective Date of Service: 09/27/20 Renal function gradually worsening. Nephrology consultation appreciated. Continue with IV antibiotic therapy and IV hydration. Wound healing to see the patient as well. Review of Systems 10-point ROS is otherwise unremarkable Physical Examination - Vital Signs Temperature: 97.4 F Blood Pressure: 144/70 Pulse: 90 Respirations: 18 Pulse Ox (%): 95 - Physical Exam General: Alert, In no apparent distress, Oriented x3 HEENT: Atraumatic, PERRLA, EOMI Neck: Supple, JVD not distended Respiratory: Clear to auscultation bilaterally, Normal air movement Cardiovascular: Regular rate/rhythm, Normal S1 S2 Gastrointestinal: Normal bowel sounds, No tenderness Musculoskeletal: No tenderness Integumentary: Tenderness/swelling, Erythema Neurological: Sensation intact, Cranial nerves 3-12 intact, Abnormal strength - Studies Medications List Reviewed: Yes Assessment & Plan - Problems (Diagnosis) (1) Cellulitis Current Visit: Yes Status: Acute (2) History of HIV infection Current Visit: Yes Status: Acute (3) Acute on chronic kidney failure Current Visit: Yes Status: Acute (4) Diabetes type 2, controlled Current Visit: No Status: Chronic Qualifiers: 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 Continue with IV antibiotic 2. Continue with local wound care 3. Wound care consultation/surgical consultation 4. Gentle IV hydration 5. Monitor CBC 6. Strict blood sugar monitoring 7. Pain control 8. Monitor renal function closely; nephrology consultation 9. GI and DVT prophylaxis Discharge Plan: Home Plan to discharge in: Greater than 2 days - Advance Directives Does patient have a Living Will: No Does patient have a Durable POA for Healthcare: No - Code Status/Comfort Care Code Status Assessed: Yes Code Status: Full Code Critical Care: No Time Spent Managing PTS Care (In Minutes): 35
--- NOTE | 2020-09-30 08:54 | P.PN ---
Date of Service: 09/28/20 Subjective Patient renal function with no significant improvement. At this time, will gently hydrate. Review of Systems 10-point ROS is otherwise unremarkable Physical Examination - Vital Signs Reviewed - Physical Exam General: Alert, In no apparent distress, Oriented x3 Respiratory: Clear to auscultation bilaterally, Normal air movement Cardiovascular: Regular rate/rhythm, Normal S1 S2 Gastrointestinal: Normal bowel sounds, No tenderness Musculoskeletal: No tenderness Integumentary: Tenderness/swelling, Erythema Neurological: Sensation intact, Cranial nerves 3-12 intact, Abnormal strength Assessment & Plan - Problems (Diagnosis) (1) Cellulitis Current Visit: Yes Status: Acute (2) History of HIV infection Current Visit: Yes Status: Acute (3) Acute on chronic kidney failure Current Visit: Yes Status: Acute (4) Diabetes type 2, controlled Current Visit: No Status: Chronic Qualifiers: Diabetes mellitus buttermaker continuous churn insulin use: without buttermaker continuous churn use Diabetes mellitus complication status: without complication Qualified Code(s): E11.9 - Type 2 diabetes mellitus without complications - Plan Continue with plan of care as mentioned below 1. Continue with IV antibiotic 2. Continue with local wound care 3. Appreciate Infectious Disease consultation 4. Gentle IV hydration 5. Monitor CBC 6. Strict blood sugar monitoring 7. Pain control 8. Monitor renal function closely; nephrology consultation appreciated 9. GI and DVT prophylaxis
--- NOTE | 2020-09-30 08:55 | P.PN ---
Date of Service: 09/29/20 Subjective Renal function seems to have plateaued. Hopefully, continues to start improving and can discharge at that time. Cellulitis seems to be pretty much improved Review of Systems 10-point ROS is otherwise unremarkable Physical Examination - Vital Signs Reviewed - Physical Exam General: Alert, In no apparent distress, Oriented x3 Respiratory: Clear to auscultation bilaterally, Normal air movement Cardiovascular: Regular rate/rhythm, Normal S1 S2 Gastrointestinal: Normal bowel sounds, No tenderness Musculoskeletal: No tenderness Integumentary: Erythema and tenderness resolved Neurological: Sensation intact, Cranial nerves 3-12 intact, Abnormal strength Assessment & Plan - Problems (Diagnosis) (1) Cellulitis Current Visit: Yes Status: Acute (2) History of HIV infection Current Visit: Yes Status: Acute (3) Acute on chronic kidney failure Current Visit: Yes Status: Acute (4) Diabetes type 2, controlled Current Visit: No Status: Chronic Qualifiers: Diabetes mellitus prison insulin use: without prison use Diabetes mellitus complication status: without complication Qualified Code(s): E11.9 - Type 2 diabetes mellitus without complications - Plan Continue with plan of care as mentioned below 1. Continue with IV antibiotic 2. Continue with local wound care 3. Appreciate Infectious Disease consultation 4. Gentle IV hydration 5. Patient ambulating without much difficulty. Cellulitis has improved 6. Strict blood sugar monitoring 7. Pain control 8. Monitor renal function closely; nephrology consultation appreciated 9. GI and DVT prophylaxis
[2020-09-30 16:50] VITALS: BP 150/76; TEMP 97.8
[2020-10-03 11:46] LABS: Vitamin D 1,25-Dihydroxy Total <8 pg/mL (18-72); Vitamin D,1,25-OH2, D2 <8 pg/mL
[2020-10-06 22:04] LABS: HBsAG Nonreactive (Nonreactive)
[2020-10-07 03:55] LABS: Albumin, (SPE) 1.9 g/dL (3.8-4.8); Alpha-1-Globulins 0.5 g/dL (0.2-0.3); Gamma Globulins 0.6 g/dL (0.8-1.7); INTERPRETATION REPORT
--- NOTE | 2020-10-15 17:19 | P.DS ---
Discharge Date: 09/30/20 Disposition: ROUTINE DISCHARGE Discharge Condition: GOOD Reason for Admission: cellulitis Consultations: Infectious disease Nephrology - Problems (1) Cellulitis Status: Acute (2) History of HIV infection Status: Acute (3) Acute on chronic kidney failure Status: Acute (4) Diabetes type 2, controlled Status: Chronic Qualifiers: Diabetes mellitus fpc insulin use: without fpc use Diabetes mellitus complication status: without complication Qualified Code(s): E11.9 - Type 2 diabetes mellitus without complications Brief History of Present Illness: Mr. Harry is a 54 yo male with DM, HTN, HIV here today for 3 days of left lower leg swelling and pain. He also reports fever and chills. This has happened in the past and resulted in amputation of one of his toes. WBC 11.7. H/H 10.5/31.3. BUN 62. Cr 3.9. GFR 16. Ultrasound of the legs is pending. Hospital Course: Patient was diuresed. Patient's lower extremity edema has improved. Patient's clinical symptoms are improving. Patient's renal function has been stable. 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 Patient with significant proteinuria. At this time, we will need to continue to follow up as an outpatient with nephrology. Also followup with infectious disease. Close outpatient follow up in 1-2 weeks. Vital Signs/Physical Exam: Temp Pulse Resp BP Pulse Ox 97.8 F 89 18 150/76 H 95 09/30/20 12:00 09/30/20 12:00 09/30/20 12:00 09/30/20 12:00 09/30/20 12:00 General: Alert, In no apparent distress, Oriented x3 Laboratory Data at Discharge: WBC 7.70 K/uL (4.3-10.9) D 09/30/20 05:48 Hgb 9.9 g/dL (13.6-17.9) L 09/30/20 05:48 Hct 29.7 % (39.6-49.0) L 09/30/20 05:48 Plt Count 305 K/uL (152-406) 09/30/20 05:48 PT 13.0 SECONDS (9.5-12.5) H 09/25/20 23:50 INR 1.13 09/25/20 23:50 APTT 28.6 SECONDS (24.3-36.9) 09/25/20 23:50 Sodium 140 mmol/L (136-145) 09/30/20 05:48 Potassium 4.0 mmol/L (3.5-5.1) 09/30/20 05:48 BUN 67 mg/dL (7-18) H 09/30/20 05:48 Creatinine 4.11 mg/dL (0.55-1.3) H 09/30/20 05:48 Glucose 247 mg/dL (74-106) H 09/30/20 05:48 Phosphorus 4.2 mg/dL (2.5-4.9) 09/30/20 05:48 Magnesium 2.1 mg/dL (1.8-2.4) 09/30/20 05:48 Total Bilirubin 0.4 mg/dL (0.2-1.0) 09/27/20 05:29 AST 13 U/L (15-37) L 09/27/20 05:29 ALT 20 U/L (12-78) 09/27/20 05:29 Alkaline Phosphatase 39 U/L (45-117) L 09/27/20 05:29 Triglycerides 100 mg/dL (<150) 09/27/20 05:29 Cholesterol 113 mg/dL (<200) 09/27/20 05:29 HDL Cholesterol 51 mg/dL (40-60) 09/27/20 05:29 Cholesterol/HDL Ratio 2.22 09/27/20 05:29 Amylase 111 U/L (25-115) 09/25/20 23:50 Lipase 248 U/L (73-393) 09/25/20 23:50 Home Medications: Montelukast [Singulair*] 10 mg PO DAILY 05/22/16 Atorvastatin Calcium 40 mg PO DAILY 09/26/20 Carvedilol [Coreg] 12.5 mg PO BID 09/26/20 Diphenoxylate HCl/Atropine [Diphenoxylate-Atrop 2.5-0.025] 2 tab PO Q6HP PRN 09/26/20 Insulin Aspart [Novolog] See Protocol SQ TID 09/26/20 Insulin Glargine/Lixisenatide [Soliqua 100 Unit-33 Mcg/ml Pen] 36 units SQ DAILY 09/26/20 Furosemide [Lasix] 40 mg PO BID #60 tab 09/30/20 Minocycline HCl 100 mg PO BID #14 capsule 09/30/20 rifAMPin [Rifampin] 300 mg PO DAILY #10 capsule 09/30/20 New Medications: Furosemide [Lasix] 40 mg PO BID #60 tab Minocycline HCl 100 mg PO BID #14 capsule rifAMPin [Rifampin] 300 mg PO DAILY #10 capsule Physician Discharge Instructions: PROBLEM: Cellulitis GOAL: Clear understanding of disease process INSTRUCTIONS: Diet: Renal Activity: Fall precautions OK TO DC IV AND DC HOME FOLLOW-UP WITH PRIMARY CARE PROVIDER IN 1-2 WEEKS FOLLOW-UP WITH training generalist and Infectious Disease physician(HIV) IN 1-2 WEEKS Also recommend follow-up with Nephrology in 1 week Repeat lab testing in 1-2 weeks to monitor renal function closely RETURN TO THE ER IF symptoms worsen CALL or TEXT DR. AGUIRRE AT [phone] IF ANY QUESTIONS REGARDING HOSPITAL STAY. PLEASE CALL THE FLOOR AT [phone] IF ANY MEDICATION OR NURSING QUESTIONS. Diet: Renal (ADA) Activity: Fall precautions Followup: Paz Gutierres MD [ACTIVE - CAN ADMIT] - (Call to make an appointment. ) Farhat Wright MD [ACTIVE - CAN ADMIT] - (Call to make an appointment. ) NONE,NONE [Primary Care Provider] - Time spent managing pt's care (in minutes): 35
== END 2020-09-30 13:22 | disposition home or self-care (01) | DRG 872 ==
LOC: ER 22:00 → ERHOLD 09-26 05:59 → 2ND 09-26 17:56
PROVIDERS: ADMIT Hospitalist; ATTEND Hospitalist
DX: A41.9 Sepsis, unspecified organism (principal); L03.116 Cellulitis of left lower limb; E87.2 Acidosis; E44.0 Moderate protein-calorie malnutrition; N17.9 Acute kidney failure, unspecified; N18.4 Chronic kidney disease, stage 4 (severe); N25.81 Secondary hyperparathyroidism of renal origin; I12.9 Hypertensive chronic kidney disease with stage 1 through stage 4 chronic kidney disease, or unspecified chronic kidney disease; E11.22 Type 2 diabetes mellitus with diabetic chronic kidney disease; E11.628 Type 2 diabetes mellitus with other skin complications; E11.319 Type 2 diabetes mellitus with unspecified diabetic retinopathy without macular edema; E11.40 Type 2 diabetes mellitus with diabetic neuropathy, unspecified; D63.1 Anemia in chronic kidney disease; E83.51 Hypocalcemia; E78.5 Hyperlipidemia, unspecified; N28.9 Disorder of kidney and ureter, unspecified; R60.9 Edema, unspecified; Z68.33 Body mass index [BMI] 33.0-33.9, adult; Z21 Asymptomatic human immunodeficiency virus [HIV] infection status; Z79.4 Long term (current) use of insulin; Z79.899 Other long term (current) drug therapy; Z87.891 Personal history of nicotine dependence; Z89.422 Acquired absence of other left toe(s); Z20.822 Contact with and (suspected) exposure to COVID-19
CPT/HCPCS: 36415; 71045; 76770; 80048; 80053; 80061; 80069; 80076; 80202; 81001; 81003; 82150; 82306; 82550; 82553; 82570; 82607; 82652; 82728; 82746; 82947; 83520; 83540; 83605; 83690; 83735; 83880; 83970; 84100; 84145; 84156; 84165; 84439; 84443; 84466; 84484; 85025; 85610; 85730; 86021; 86038; 86160; 86225; 86317; 86430; 86704; 86706; 87040; 87340; 87389; 87522; 93005; 93925; 93970; 94760; 96361; 96365; 96366; 99285; J1644; J1940; J3370; J7030; J7040; J7050; J7120; U0003

== ENCOUNTER 2021-05-12 20:29 | Emergency (ER) | payer BC ==
--- OUTSIDE RECORDS SUMMARY | 2021-05-12 20:33 | XMS REPORT | Continuity of Care Document ---
:1965 Author Organization [facility] t Address [address] [place] [address] Care Team Providers Name Role Phone ROJO Attending Clinician Unavailable Daniel_T Attending Clinician Unavailable Mavis, A Attending Clinician Unavailable Mavis, A Attending Clinician Unavailable BARI BURKETT Attending Clinician Unavailable Daniel_T Admitting Clinician Unavailable Admitting Clinician Unavailable Mavis, A Admitting Clinician Unavailable BARI BURKETT Admitting Clinician Unavailable Payers Payer Name Policy Type Policy Number Effective Date Expiration Date S shireen [id number] 2019 00:00:00 [place] Problems Condition Condition Condition Status Onset Resolution Last Treating Co mments Source Name Details Category Date Date Treatment Clinician Date Tinea Tinea Problem Active [facility] pedis Pedis 12-06 Family 00:00: Practic 00 e Hypoalbumi Hypoalbumi Problem Active [facility] nemia nemia 12-06 Family 00:00: Practic 00 e Hypocalcem Hypocalcem Problem Active [facility] ia ia 12-06 Family 00:00: Practic 00 e Morbid Morbid Problem Active [facility] obesity Obesity 12-06 00:00: Practic 00 e Anemia in Anemia in Problem Active Rodrigue patti chronic Chronic 12-06 [facility] kidney Kidney 00:00: Practic disease Disease 00 e Proteinuri Proteinuri Problem Active [facility] a a 7- Family 00:00: Practic 00 e Amputated Amputated Problem Active Rodrigue armstrong toe Toe 7 Family 00:00: Practic 00 e Obesity Obesity Problem Active [facility] 5-04 Family 00:00: Practic 00 e Cellulitis Cellulitis Problem Active [facility] of lower of Lower 5-04 Family limb Limb 00:00: Practic 00 e Neck pain Neck Pain Problem Active Rodrigue armstrong 5-04 Family 00:00: Practic 00 e COVID-19 Covid-19 Problem Active Nik burnett 5-04 Family 00:00: Practic 00 e 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 type 2 Type 2 00:00: Practic diabetes Diabetes 00 e mellitus Mellitus Type 2 Type 2 Problem Active [facility] diabetes Diabetes 3-31 Family mellitus Mellitus 00:00: Practi c 00 e Hyperlipid Hyperlipid Problem Active [facility] emia emia 3-31 Family 00:00: Practic 00 e Essential Essential Problem Active Rodrigue armstrong hypertensi Hypertensi 3-31 Fa dary on on 00:00: Practic 00 e Seasonal Seasonal Problem Active Nik burnett allergy Allergy 3-31 Family 00:00: Practic 00 e Chronic Chronic Problem Active [facility] kidney Kidney 3-31 Family disease Disease 00:00: Practic 00 e 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 00:00: Practic virus Virus 00 e infection Infection Type 2 Type [address] [facility] diabetes diabetes [facility] - mellitus mellitus [...] tpati ent Clinics Mixed Mixed Problem Active [facility] hyperlipid hyperlipid Traci collin - emia emia Memoria l [facility] ent Clinics Allergies, Adverse Reactions, Alerts Allergy Allergy Status Severity Reaction(s) Onset Inactive Treating Comm ents Source Name Type Date Date Clinician No Known DA Active [facility] 08-23 Allergie 00:00: s 00 No Known DA Active [facility] 08-22 Allergie 00:00: s 00 No Known DA [facility] Allergie 00:00: s 00 Social History Smoking Status Start Date Stop Date Source Never Smoker [facility] Medications Ordered Filled Start Stop Current Ordering Indication Dosage Frequency Signature Comments Components Source Medication Medication Date Date Medication? Clinician (SIG) Name Name Corbin Alaniz 2019- No [place] [address] [facility] 4-18 10-15 Konstantin at bedtime [facility] - 00:00: 00:00 Memoria 00 :00 l [facility] ent Clinics [facility] 2018- No [place] [address] [facility] 4-18 10-15 Konstantin [facility] - 00:00: 00:00 Memoria 00 :00 [facility] ent [facility] albuterol albuterol No albuterol [place] sulfate HFA sulfate HFA sulfate Family 90 90 HFA 90 Practic mcg/actuati mcg/actuati mcg/actuat e on aerosol on aerosol ion inhaler inhaler aerosol INHALE 2 INHALE 2 inhaler PUFFS BY PUFFS BY INHALE 2 MOUTH EVERY MOUTH EVERY PUFFS BY 4 HOURS 4 HOURS MOUTH NEEDED NEEDED EVERY 4 HOURS NEEDED atorvastati atorvastati No atorvastat [facility] n 40 mg n 40 mg in 40 mg Famil y tablet TAKE tablet TAKE tablet Practic 1 TABLET BY 1 TABLET BY TAKE 1 e MOUTH EVERY MOUTH EVERY TABLET BY DAY DAY MOUTH EVERY DAY BD Nelida 2nd BD Nelida 2nd No BD Nelida [place] Gen Pen Gen Pen 2nd Gen Family Needle 32 Needle 32 Pen Needle Practic gauge x gauge x 32 gauge x e " USE " USE " USE DAILY DAILY DAILY bromphenira bromphenira No bromphenir [place] mine-pseudo mine-pseudo amine-pseu Family ephedrine-D ephedrine-D doephedrin Practic M 2 mg-30 M 2 mg-30 e-DM 2 e mg-10 mg/5 mg-10 mg/5 mg-30 mL oral mL oral mg-10 mg/5 syrup TAKE syrup TAKE mL oral 10 ML BY 10 ML BY syrup TAKE MOUTH EVERY MOUTH EVERY 10 ML BY 4 TO 6 4 TO 6 MOUTH HOURS HOURS EVERY 4 TO NEEDED NEEDED 6 HOURS NEEDED carvedilol carvedilol carvedilol [facility] 12.5 mg 12.5 mg 12.5 mg Family tablet TAKE tablet TAKE tablet Practic 1 TABLET BY 1 TABLET BY TAKE 1 e MOUTH TWICE MOUTH TWICE TABLET BY DAILY DAILY MOUTH TWICE DAILY clotrimazol clotrimazol No clotrimazo [facility] e 1 % e 1 % le 1 % [facility] topical topical topical Practi c cream REGINALDO cream REGINALDO cream REGINALDO e EXT AA BID EXT AA BID EXT AA BID diclofenac diclofenac No diclofenac [facility] 1 % topical 1 % topical 1 % F amily gel REGINALDO AA gel REGINALDO AA topical Practic BID BID gel REGINALDO AA e BID diphenoxyla diphenoxyla No 2 QID diphenoxyl [facility] te-atropine te-atropine ate-atropi [facility] 2.5 2.5 ne 2.5 Practic mg-0.025 mg mg-0.025 mg mg-0.025 e tablet Take tablet Take mg tablet 2 tablets 4 2 tablets 4 Take 2 times a day times a day tablets 4 by oral by oral times a route as route as day by directed. directed. oral route as directed. ergocalcife ergocalcife No ergocalcif [facility] enzo giraldo ryan [facility] (vitamin (vitamin (vitamin Pra ctic D2) 1,250 D2) 1,250 D2) 1,250 e mcg (50,000 mcg (50,000 mcg unit) unit) (50,000 capsule TK capsule TK unit) 1 CAPSULE 1 CAPSULE capsule TK PO Q MONTH PO Q MONTH 1 CAPSULE PO Q MONTH fluticasone fluticasone fluticason [facility] propionate propionate e Fam haylee 50 50 propionate Practic mcg/actuati mcg/actuati 50 e on nasal on nasal mcg/actuat spray,suspe spray,suspe ion nasal nsion nsion spray,susp SPRAYS SPRAYS ension TWICE IEN TWICE IEN SPRAYS QHS QHS TWICE IEN QHS FreeStyle FreeStyle No FreeStyle [place] Lien 14 Lien 14 Lien 14 Fam haylee Day Waller Day Waller Day Waller Practic USE DEVICE USE DEVICE USE DEVICE e DIRECTED DIRECTED DIRECTED FreeStyle FreeStyle No FreeStyle [place] Lien 14 Lien 14 Lien 14 Fam haylee Day Sensor Day Sensor Day Sensor Practic kit USE kit USE kit USE e DIRECTED DIRECTED DIRECTED furosemide furosemide No furosemide [facility] 40 mg 40 mg 40 mg Family tablet TAKE tablet TAKE tablet Practic 1 TABLET BY 1 TABLET BY TAKE 1 e MOUTH EVERY MOUTH EVERY TABLET BY DAY DAY MOUTH EVERY DAY gentamicin gentamicin No gentamicin [facility] 0.3 % eye 0.3 % eye 0.3 % eye Family drops drops drops Practic INSTILL 1 INSTILL 1 INSTILL 1 e DROP INTO DROP INTO DROP INTO RIGHT EYE RIGHT EYE RIGHT EYE FOUR TIMES FOUR TIMES FOUR TIMES DAILY FOR 5 DAILY FOR 5 DAILY FOR DAYS DAYS 5 DAYS ketorolac ketorolac No ketorolac [facility] 0.4 % eye 0.4 % eye 0.4 % eye Family drops drops drops Practic INSTILL 1 INSTILL 1 INSTILL 1 e DROP INTO DROP INTO DROP INTO RIGHT EYE RIGHT EYE RIGHT EYE FOUR TIMES FOUR TIMES FOUR TIMES DAILY DAILY DAILY montelukast montelukast No montelukas [facility] 10 mg 10 mg t 10 mg Family tablet TAKE tablet TAKE tablet Practic 1 TABLET BY 1 TABLET BY TAKE 1 e MOUTH EVERY MOUTH EVERY TABLET BY DAY DAY MOUTH EVERY DAY moxifloxaci moxifloxaci No moxifloxac [facility] n 0.5 % eye n 0.5 % eye in 0.5 % Family drops drops eye drops Practic INSTILL 1 INSTILL 1 INSTILL 1 e DROP IN DROP IN DROP IN AFFECTED AFFECTED AFFECTED EYE(S) FOUR EYE(S) FOUR EYE(S) TIMES DAILY TIMES DAILY FOUR TIMES DAILY NovoFine NovoFine No NovoFine Rodrigue patti Plus 32 Plus 32 Plus 32 Family gauge x gauge x gauge x Practi c 6" needle 6" needle 06/13" e U SC QD UTD U SC QD UTD needle U SC QD UTD prednisolon prednisolon No prednisolo [place] e acetate 1 e acetate 1 ne acetate Family % eye % eye 1 % eye Practic drops,suspe drops,suspe drops,susp e nsion nsion ension INSTILL 1 INSTILL 1 INSTILL 1 DROP RIGHT DROP RIGHT DROP RIGHT EYE FOUR EYE FOUR EYE FOUR TIMES DAILY TIMES DAILY TIMES DAILY Prezcobix Prezcobix No Prezcobix [facility] 800 mg-150 800 mg-150 800 mg-150 Family mg tablet mg tablet mg tablet Practic Take 1 Take 1 Take 1 e tablet tablet tablet every day every day every day by oral by oral by oral route as route as route as directed. directed. directed. Tivicay 50 Tivicay 50 No Tivicay 50 [place] mg tablet mg tablet mg tablet Family Take 1 Take 1 Take 1 Practic tablet tablet tablet e every day every day every day by oral by oral by oral route as route as route as directed. directed. directed. Tresiba Tresiba No Tresiba Vill[place] e FlexTouch FlexTouch FlexTouch Family U-200 U-200 U-200 Practic insulin 200 insulin 200 insulin e unit/mL (3 unit/mL (3 200 mL) mL) unit/mL (3 subcutaneou subcutaneou mL) s pen TAKE s pen TAKE subcutaneo 40 UNITS 40 UNITS us pen EVERY EVERY TAKE 40 MORNING AND MORNING AND UNITS INCREASE INCREASE EVERY DIRECTED DIRECTED MORNING AND INCREASE DIRECTED Trulicity 3 Trulicity 3 No 3mg Q1W Trulicity [place] mg/0.5 mL mg/0.5 mL 3 mg/0.5 F amily subcutaneou subcutaneou mL P ractic s pen s pen subcutaneo e injector injector us pen Inject 3 mg Inject 3 mg injector every week every week Inject 3 by by mg every subcutaneou subcutaneou week by s route. s route. subcutaneo us route. Victoza Victoza Yes [place] inject [facility] Konstantin under the [facility] - skin 1.2mg Memoria daily l [facility] ent Clinics BD Pen BD Pen Yes [place] USE [facility] Needle Nelida Needle Nelida Konstantin DIRECTED [facility] - U/F U/F [facility]oria l [facility] ent Clinics Metoprolol Metoprolol Yes [place] TAKE [address] [facility] Tartrate Tartrate Konstantin TABLET BY L ukes - MOUTH Memoria TWICE A l DAY [facility] ent Clinics Singulair Singulair Yes [place] [address] [facility] Konstantin [facility] - Memoria l [facility] ent Clinics Immunizations Ordered Immunization Filled Immunization Date Status Commen ts Source Name Name COVID-19, mRNA, COVID-19, mRNA, 2020-10-11 Completed [facility] Family LNP-S, PF, 100 LNP-S, PF, 100 00:00:00 Practi ce mcg/0.5 mL dose mcg/0.5 mL dose COVID-19 PS Non-US COVID-19 PS Non-US 2020-09-12 Completed [facility] Vaccine Vaccine 00:00:00 Practice (EpiVacCorona) (EpiVacCorona) influenza, influenza, 2018-06-08 Completed [facility] injectable, injectable, 00:00:00 Practice quadrivalent quadrivalent Vital Signs Vital Name Observation Time Observation Value Comments Source BP Diastolic 2021-03-13 00:00:00 89 mm[Hg] [facility] Height 2021-03-13 00:00:00 71 [in_i] [facility] BMI (Body Mass Index) 2021-03-13 00:00:00 34 kg/m2 [facility] BP Systolic 2021-03-13 00:00:00 156 mm[Hg] [facility] Body Weight 2021-03-13 00:00:00 243.8 [lb_av] [facility] Family Practice BP Diastolic 2020-12-06 00:00:00 77 mm[Hg] [facility] Family Practice Height 2020-12-06 00:00:00 71 [in_i] [facility] BMI (Body Mass Index) 2020-12-06 00:00:00 34.4 kg/m2 [facility] BP Systolic 2020-12-06 00:00:00 119 mm[Hg] [facility] Body Weight 2020-12-06 00:00:00 246.4 [lb_av] [facility] Practice BP Diastolic 2020-10-09 00:00:00 78 mm[Hg] [facility] Family Practice Height 2020-10-09 00:00:00 71 [in_i] [facility] BMI (Body Mass Index) 2020-10-09 00:00:00 33.9 kg/m2 [facility] Family Practice BP Systolic 2020-10-09 00:00:00 124 mm[Hg] [facility] Practice Body Weight 2020-10-09 00:00:00 243.4 [lb_av] [facility] BP Diastolic 2020-09-05 00:00:00 91 mm[Hg] [facility] Family Practice Height 2020-09-05 00:00:00 71 [in_i] [facility] BMI (Body Mass Index) 2020-09-05 00:00:00 35 kg/m2 [facility] BP Systolic 2020-09-05 00:00:00 163 mm[Hg] [facility] Practice Body Weight 2020-09-05 00:00:00 251 [lb_av] [facility] 02 Sat by Pulse 2020-09-06 16:51:46 98 /min Oximetry Body Mass Index 2020-09-06 16:51:46 34.9 Height 2020-09-06 16:51:46 180.34\\S\\71 Pulse Rate 2020-09-06 16:51:46 98 /min Respiratory Rate 2020-09-06 16:51:46 16 /min Temperature 2020-09-06 16:51:46 36.2\\S\\97.2 Weight 2020-09-06 16:51:46 957676.092\\S\\4000 02 Sat by Pulse 2020-08-27 18:48:23 98 /min Oximetry Body Mass Index 2020-08-27 18:48:23 34.9 Height 2020-08-27 18:48:23 180.34\\S\\71 Pulse Rate 2020-08-27 18:48:23 98 /min Respiratory Rate 2020-08-27 18:48:23 16 /min Temperature 2020-08-27 18:48:23 36.2\\S\\97.2 Weight 2020-08-27 18:48:23 730086.092\\S\\4000 Body Mass Index 2020-08-23 22:20:59 34.9 Height 2020-08-23 22:20:59 180.34\\S\\71 Pulse Rate 2020-08-23 22:20:59 98 /min Respiratory Rate 2020-08-23 22:20:59 16 /min Temperature 2020-08-23 22:20:59 36.2\\S\\97.2 Weight 2020-08-23 22:20:59 610482.092\\S\\4000 02 Sat by Pulse 2020-08-23 22:20:59 98 /min Oximetry 02 Sat by Pulse 2020-08-23 15:54:12 98 /min Oximetry Body Mass Index 2020-08-23 15:54:12 34.9 Height 2020-08-23 15:54:12 180.34\\S\\71 Pulse Rate 2020-08-23 15:54:12 98 /min Respiratory Rate 2020-08-23 15:54:12 16 /min Temperature 2020-08-23 15:54:12 36.2\\S\\97.2 Weight 2020-08-23 15:54:12 029792.092\\S\\4000 02 Sat by Pulse 2020-08-23 13:01:04 99 /min Oximetry Body Mass Index 2020-08-23 13:01:04 34.9 Height 2020-08-23 13:01:04 180.34\\S\\71 Pulse Rate 2020-08-23 13:01:04 91 /min Respiratory Rate 2020-08-23 13:01:04 18 /min Temperature 2020-08-23 13:01:04 36.8\\S\\98.2 Weight 2020-08-23 13:01:04 536265.092\\S\\4000 WEIGHT 2020-08-23 12:59:00 113.864091 kg HEIGHT 2020-08-23 12:59:00 180.34 cm Procedures This patient has no known procedures. Plan of Care Planned Activity Planned Date Details Comments Source Diagnostic Test 2021-03-13 glucose, fingerstick, Rodrigue patti Family Pending 00:00:00 blood [code = Practice glucose, fingerstick, blood] Diagnostic Test 2021-03-13 hemoglobin A1C, [facility] Pending 00:00:00 fingerstick [code = Practice hemoglobin A1C, fingerstick] Diagnostic Test 2021-03-13 microalbumin/creatini Rodrigue [facility] Family Pending 00:00:00 ne, mass ratio, urine Practi ce [code = microalbumin/creatini ne, mass ratio, urine] Diagnostic Test 2021-03-13 CMP, serum or plasma Vill age Family Pending 00:00:00 [code = CMP, serum or Practi ce plasma] Diagnostic Test 2021-03-13 TSH, serum or plasma Vill age Family Pending 00:00:00 [code = TSH, serum or Practi ce plasma] Diagnostic Test 2021-03-13 CBC w/ auto diff [facility] Family Pending 00:00:00 [code = CBC w/ auto Practice diff] Diagnostic Test 2021-03-13 T4, free, serum [code Rodrigue patti Day Pending 00:00:00 = T4, free, serum] Practice Diagnostic Test 2021-03-13 lipid panel, serum Anna Day Pending 00:00:00 [code = lipid panel, Practic e serum] Future Appointment 2021-06-13 Salbador Robles, Talat [facility] 00:00:[address] Practice [address], [place] [address] Future Appointment 2021-05-30 Talat Vega [facility] 10:00:[address] Practice [address], [place] [address] Encounters Start End Encounter Admission Attending Care Care Encounter Source Date/Time Date/Time Type Type Clinicians Facility Department ID 2021-03-22 2021-03-22 Outpatient [facility] [id number] [place] 00:00:00 00:00:00 [facility]LEXANDRA [facility] 2021-03-15 2021-03-15 Outpatient Daniel_T VFP VFP [id number] [address] [place] [address] 06:40:00 06:40:00 [id number] Family Practic e 2021-03-13 2021-03-13 Outpatient Daniel_T VFP VFP [id number] [address] [place] [address] 11:00:00 11:00:00 [id number] Family Practic e 2021-03-13 2021-03-13 Salbador VFP [place] - [id number] V illage 00:00:00 00:00:00 Terry [facility] Family RoblesAnatoly - Practi nisreen NICOLE: [id number] VM_[email or web address]_Tu e [address] [address] , Ph. 2021-01-18 2021-01-18 Outpatient Daniel_T VFP VFP [id number] [address] [place] [address] 03:12:00 03:12:00 [id number] Family Practic e 2021-01-18 2021-01-18 Outpatient [facility] [id number] [place] 00:00:00 00:00:00 ALEXANDRA Crawford [facility] 2020-12-15 2020-12-15 Outpatient Daniel_T VFP VFP [id number] [address] [place] [address] 02:24:00 02:24:00 [id number] Family Practic e 2020-12-14 2020-12-14 Outpatient [facility] [id number] [place] 00:00:00 00:00:00 ALEXANDRA [address] 2020-12-13 2020-12-13 Outpatient [facility] [id number] [place] 00:00:00 00:00:00 ALEXANDRA [address] 2020-12-08 2020-12-08 Outpatient Daniel_T VFP VFP [id number] [address] [place] [address] 10:38:00 10:38:00 [id number] Family Practic e 2020-12-06 2020-12-06 Outpatient Daniel_T VFP VFP [id number] [address] [place] [address] 05:49:00 05:49:00 [id number] Family Practic e 2020-12-06 2020-12-06 Salbador VFP [place] - [id number] V illage 00:00:00 [facility] Family RoblesAnatoly - Prackaylee nielson MD: [id number] José Miguel contreras [address] [address] , Ph. 2020-11-12 2020-11-12 Outpatient [facility] [id number] [place] 00:00:00 00:00:00 ALEXANDRA [address] 2020-10-10 2020-10-10 Outpatient Daniel_T VFP VFP [id number] [address] [place] [address] 09:31:00 09:31:00 [id number] Family Practic e 2020-10-09 2020-10-09 Outpatient Daniel_T VFP VFP [id number] [address] [place] [address] 05:34:00 05:34:00 [id number] Family Practic e 2020-10-09 2020-10-09 Salbador VFP [place] - [id number] V illage 00:00:00 00:00:00 Terry [facility] Family RoblesAnatoly - Prackaylee nielson MD: [id number] José Miguel contreras [address] [address] , Ph. 2020-09-08 2020-09-08 Outpatient Daniel_T VFP VFP [id number] 20 [facility] 07:26:00 07:26:00 [id number] Family Practic e 2020-09-05 2020-09-05 Outpatient Daniel_T VFP VFP [id number] [facility] 02:22:00 02:22:00 [id number] Family Practic e 2020-09-05 2020-09-05 Salbador VFP [place] - [id number] V illage 00:00:00 00:00:00 Terry [facility] Family Robles, Anatoly - Leonid nielson MD: [id number] VM_HOU_Shad e [address] [facility], [address], [place] [address] , Ph. 2020-08-30 2020-08-30 Outpatient Daniel_T VFP VFP [id number] [facility] 04:05:00 04:05:00 [id number] Family Practic e 2020-05-28 2020-05-28 Outpatient [facility] [id number] [place] 00:00:00 00:00:00 ALEXANDRA [address] 2020-05-17 2020-05-17 Outpatient [facility] [id number] [place] 00:00:00 00:00:00 ALEXANDRA [address] 2020-04-19 2020-04-19 Outpatient [facility] [id number] [place] 00:00:00 00:00:[address] 2020-03-26 2020-03-26 Outpatient [facility] [id number] [place] 00:00:00 00:00:00 ALEXANDRA [address] 2020-01-24 2020-01-24 Outpatient 3 Edmund Gamble [facility] [id number] St. 10:30:00 23:59:00 Mavis Edmund [facility] 2020-01-24 2020-01-24 Outpatient 3 Edmund Gamble [facility] [id number] [facility]. 10:30:00 10:30:00 Edmund Gamble 2019 817 [facility] 2018-10-18 2018-10-18 [place] [facility] [id number] 13:47:00 13:47:00 [facility] Out[facility] Clinics 2018-09-23 2018-09-23 Outpatient Smita Ordoñezt [id number] 08:45:00 08:45:00 [facility] Outpat[facility] ent Clinics 2018-08-04 2018-08-04 [place] [id number] 08:30:00 08:30:00 [facility] Outpat[facility] ent Clinics 2018-03-11 2018-03-11 Outpatient [place] [id number] 10:51:00 10:51:00 [facility] Results Test Description Test Time Test Comments Results Result Comments Source POC Glucose 2020-01-24 11:58:15 Test Item Value Reference Range Interpretation Comme nts Glucose POC (test code = 121 mg/dL 70-115 H If you consider your patient Glucose POC) critically ill, the Marshal-Accu Check Infrom II meter should not be used for Glucose det ermination. Draw a venous Glucose and send to the main Lab for analysi s. AFB CULTURE + [id number] 17:59:00 Test Item Value Reference Range Interpretation Comments CULTURE (BEAKER) (test No acid-fast bacilli code = 1095) isolated in 42 days AFB SMEAR (BEAKER) No acid fast bacilli (test code = 994) seen AFB CULTURE + [id number] 17:58:00 Test Item Value Reference Range Interpretation Comments CULTURE (BEAKER) (test No acid-fast bacilli code = 1095) isolated in 42 days AFB SMEAR (BEAKER) No acid fast bacilli (test code = 994) seen AFB CULTURE + [id number] 17:58:00 Test Item Value Reference Range Interpretation Comments CULTURE (BEAKER) (test No acid-fast bacilli code = 1095) isolated in 42 days AFB SMEAR (BEAKER) No acid fast bacilli (test code = 994) seen
[2021-05-12] MEDS ORDERED: TETANUS & DIPHTHERIA TOX,ADULT 0.5 ML VIAL ONE (21:32)
--- NOTE | 2021-05-12 21:44 | EDPHYS ---
Physician Documentation [facility] Name: Chalo Harry Age: 55 yrs Sex: Male : 1965 Arrival Date: 05/12/2021 Time: 20:34 Bed 7 Private MD: ED Physician Wellington Castaneda HPI: 05/12 21:43 This 55 yrs old Male presents to ER via Ambulatory with complaints of Hand pm1 Burn, Abscess. 21:43 The patient presents with a burn as a result of Hot soup, at home, is located on the pm1 dorsal aspect of proximal phalanx of left thumb. Onset: The symptoms/episode began/occurred yesterday. Burn type and severity: 2nd degree: approximately 0.1% total body surface area of second degree injury, of the dorsal aspect of proximal phalanx of left thumb and dorsum of left hand. The patient has not experienced similar symptoms in the past. The patient has not recently seen a physician. Patient also complaining of abscess that was present to his right side of neck. Coworker scratched it and expressed it yesterday. Historical: - Allergies: 21:10 No Known Allergies; vg1 - Home Meds: 21:10 atorvastatin 40 mg Oral tab 1 tab once daily [Active]; carvedilol 12.5 mg Oral tab vg1 [Active]; furosemide Oral [Active]; Trulicity [Active]; 21:15 ciprofloxacin 500 mg/5 mL oral sumc [Active]; vg1 - PMHx: 21:10 AIDS; allergies; Diabetes - NIDDM; High Cholesterol; Hypertension; vg1 - Immunization history:: Client reports receiving the 2nd dose of the Covid vaccine. - Social history:: Smoking status: Patient reports the use of cigarette tobacco products, denies chronic smoking, but will smoke occasionally. ROS: 21:43 Constitutional: Negative for fever, chills, and weight loss, Cardiovascular: Negative pm1 for chest pain, palpitations, and edema, Respiratory: Negative for shortness of breath, cough, wheezing, and pleuritic chest pain, Abdomen/GI: Negative for abdominal pain, nausea, vomiting, diarrhea, and constipation, MS/Extremity: Negative for injury and deformity. 21:43 Skin: Positive for burn, of the dorsum of left hand and dorsal aspect of proximal phalanx of left thumb, Abscess to right side of neck. 21:43 All other systems are negative. Exam: 21:43 Constitutional: This is a well developed, well nourished patient who is awake, alert, pm1 and in no acute distress. Head/Face: Normocephalic, atraumatic. 21:43 Cardiovascular: Exam negative for acute changes, Rate: normal, Rhythm: regular, Pulses: no pulse deficits are appreciated. 21:43 Respiratory: Exam negative for acute changes, respiratory distress, shortness of breath. 21:43 Abdomen/GI: Exam negative for acute changes, Inspection: abdomen appears normal, Palpation: abdomen is soft and non-tender, in all quadrants. 21:43 Skin: Appearance: normal except for affected area, injury, burn(s), 2nd degree burn injury covers approximately 0.1% of the total body surface area, and is located on the dorsum of left hand and dorsal aspect of proximal phalanx of left thumb. 21:43 Neuro: Exam negative for acute changes, Orientation: is normal, Mentation: is normal, Motor: is normal, moves all fours. 21:43 Skin: 1 cm x 1 cm phlegmon present in the right side of anterior neck. Needle pm1 aspiration negative for drainage and purulence. No surrounding cellulitis. Vital Signs: 21:06 BP 156 / 72; Pulse 87; Resp 16; Temp 98.5; Pulse Ox 100% ; Weight 110.22 kg; Height 5 vg1 ft. 11 in. (180.34 cm); Pain 0/10; 21:22 BP 139 / 74; Pulse 80; Resp 18; Pulse Ox 100% on R/A; tw5 21:06 Body Mass Index 33.89 (110.22 kg, 180.34 cm) vg1 MDM: 21:22 Patient medically screened. pm1 21:39 Data reviewed: vital signs. Data interpreted: Pulse oximetry: on room air is 100 %. pm1 Interpretation: normal. Counseling: I had a detailed discussion with the patient and/or guardian regarding: the historical points, exam findings, and any diagnostic results supporting the discharge/admit diagnosis, the need for outpatient follow up, a family practitioner, to return to the emergency department if symptoms worsen or persist or if there are any questions or concerns that arise at home. Administered Medications: 21:33 Drug: Tetanus-Diphtheria Toxoid Adult 0.5 ml {Channel Lip Stiffener Insoles: [email or web address]. Exp: tw5 10/19/2022. Lot #: [id number]. } Route: IM; Site: right deltoid; 21:46 Follow up: Response: No adverse reaction as6 Disposition: 05/13 04:36 Co-signature as Attending Physician, Wellington Castaneda MD. 7 Disposition Summary: 05/12/21 21:43 Discharge Ordered Location: Home pm1 Problem: new pm1 Symptoms: have improved pm1 Condition: Stable pm1 Diagnosis - Burn of second degree of back of left hand, initial encounter pm1 - Phlegmon right side of neck pm1 - Folliculitis right side of neck pm1 Followup: pm1 - With: Emergency Department - When: As needed - Reason: Worsening of condition Followup: pm1 - With: Private Physician - When: 2 - 3 days - Reason: Recheck today's complaints, Continuance of care, Re-evaluation by your physician Discharge Instructions: - Discharge Summary Sheet pm1 - Burn Care, Adult pm1 - Folliculitis pm1 Forms: - Medication Reconciliation Form pm1 - Thank You Letter pm1 - Antibiotic Education pm1 - Prescription Opioid Use pm1 Prescriptions: - bacitracin - Apply to affected area 1 application by TOPICAL route every 8 hours; 1 tube; pm1 Refills: 0, Product Selection Permitted - Bactrim DS 800-160 mg Oral Tablet - take 1 tablet by ORAL route every 12 hours for 10 days; 20 tablet; Refills: 0, pm1 Product Selection Permitted Signatures: Luis Coronado NP [employer]IGH [employer] COACH pm1 Briseida Saenz RN RN 1 Wellington Castaneda MD MD 7 Sharon Vazquez 5 Dion Beard RN as6
--- NOTE | 2021-05-12 21:44 | ER ---
Nurse's Notes [facility] Name: Chalo Harry Age: 55 yrs Sex: Male : 1965 Arrival Date: 05/12/2021 Time: 20:34 Bed 7 Private MD: Diagnosis: Burn of second degree of back of left hand, initial encounter;Folliculitis right side of neck Presentation: 05/12 21:06 Chief complaint: Patient states: warming chili last night and as pt was taking bowl out vg1 accidently hit it again microwave and it spilled onto Left thumb. Pt appears to have a blister, about the size of a half dollar. Coronavirus screen: Vaccine status: Patient reports being unvaccinated. Client denies travel out of the [place] in the last 14 days. Ebola Screen: Patient negative for fever greater than or equal to 101.5 degrees Fahrenheit, and additional compatible Ebola Virus Disease symptoms. Initial Sepsis Screen: Does the patient meet any 2 criteria? No. Patient's initial sepsis screen is negative. Does the patient have a suspected source of infection? No. Patient's initial sepsis screen is negative. Risk Assessment: Do you want to hurt yourself or someone else? Patient reports no desire to harm self or others. Onset of symptoms was May 11, 2021. 21:06 Method Of Arrival: Ambulatory vg1 21:06 Acuity: KESHA 3 vg1 Triage Assessment: 21:15 General: Appears in no apparent distress. comfortable, Behavior is calm, cooperative. vg1 Pain: Denies pain. Respiratory: Airway is patent Respiratory effort is even, unlabored. Injury Description: Burn was sustained 1 day ago. Historical: - Allergies: 21:10 No Known Allergies; vg1 - Home Meds: 21:10 atorvastatin 40 mg Oral tab 1 tab once daily [Active]; carvedilol 12.5 mg Oral tab vg1 [Active]; furosemide Oral [Active]; Trulicity [Active]; 21:15 ciprofloxacin 500 mg/5 mL oral sumc [Active]; vg1 - PMHx: 21:10 AIDS; allergies; Diabetes - NIDDM; High Cholesterol; Hypertension; vg1 - Immunization history:: Client reports receiving the 2nd dose of the Covid vaccine. - Social history:: Smoking status: Patient reports the use of cigarette tobacco products, denies chronic smoking, but will smoke occasionally. Screenin:55 Abuse screen: Denies threats or abuse. Denies injuries from another. Nutritional tw5 screening: No deficits noted. Tuberculosis screening: No symptoms or risk factors identified. Fall Risk None identified. Assessment: 21:22 Pain: Denies pain. Neuro: Level of Consciousness is awake, alert, obeys commands, tw5 Oriented to person, place, time, situation. Derm:. Injury Description: Burn was sustained 1 day ago. half dollar sized blister. Vital Signs: 21:06 BP 156 / 72; Pulse 87; Resp 16; Temp 98.5; Pulse Ox 100% ; Weight 110.22 kg; Height 5 vg1 ft. 11 in. (180.34 cm); Pain 0/10; 21:22 BP 139 / 74; Pulse 80; Resp 18; Pulse Ox 100% on R/A; tw5 21:06 Body Mass Index 33.89 (110.22 kg, 180.34 cm) vg1 ED Course: 20:34 Patient arrived in ED. mr 21:10 Triage completed. vg1 21:15 Federico Hadley, ZORAIDA is Primary Nurse. mr2 21:15 Arm band placed on. vg1 21:22 Luis Coronado NP is PHCP. pm1 21:22 Wellington Castaneda MD is Attending Physician. pm1 21:55 Patient has correct armband on for positive identification. tw5 21:55 No provider procedures requiring assistance completed. Patient did not have IV access tw5 during this emergency room visit. Administered Medications: 21:33 Drug: Tetanus-Diphtheria Toxoid Adult 0.5 ml {Customer Counter Representative: [employer]. Exp: tw5 10/19/2022. Lot #: [id number]. } Route: IM; Site: right deltoid; 21:46 Follow up: Response: No adverse reaction as6 Outcome: 21:43 Discharge ordered by . pm1 21:55 Discharged to home ambulatory. tw5 21:55 Condition: good 21:55 Discharge instructions given to patient, Instructed on discharge instructions, follow up and referral plans. medication usage, Demonstrated understanding of instructions, follow-up care, medications, Prescriptions given X 2. 21:55 Patient left the ED. tw5 Signatures: Neelam Alamo mr Luis Coronado, [employer] INSPECTOR pm1 Briseida Saenz RN RN vg1 Federico Hadley, RN RN mr2 Sharon Vazquez tw5 Dion Beard, RN RN as6
[2021-05-12 22:15] VITALS: TEMP 98.5; O2SAT 100
[2021-05-12 22:16] VITALS: BP 139/74
== END 2021-05-12 21:55 | disposition home or self-care (01) ==
LOC: ER 20:29
DX: T23.262A Burn of second degree of back of left hand, initial encounter (principal); T23.212A Burn of second degree of left thumb (nail), initial encounter; L02.11 Cutaneous abscess of neck; L73.9 Follicular disorder, unspecified; T31.0 Burns involving less than 10% of body surface; X12.XXXA Contact with other hot fluids, initial encounter; Z23 Encounter for immunization
CPT/HCPCS: 90471; 90714; 99283

== ENCOUNTER 2021-10-30 19:40 | Inpatient (IN) | payer BC ==
--- OUTSIDE RECORDS SUMMARY | 2021-10-30 19:44 | XMS REPORT | Continuity of Care Document ---
:1965 Author Organization [facility] t Address [address] [place] [address] Care Team Providers Name Role Phone Sharpless Primary Care Physician Claudia Attending Clinician Unavailable Guy Nova MD Attending Clinician Clint Kaye MD Attending Clinician Tom Gamble Attending Clinician Unavailable Tom Gamble Attending Clinician Unavailable BARI BURKETT Attending Clinician Unavailable Claudia Admitting Clinician Unavailable Admitting Clinician Unavailable Tom Gamble Admitting Clinician Unavailable BARI BURKETT Admitting Clinician Unavailable Payers Payer Name Policy Type Policy Number Effective Date Expiration Date S shireen [place] [id number] 2019 00:00:00 [place] Problems Condition Condition Condition Status Onset Resolution Last Treating Co mments Source Name Details Category Date Date Treatment Clinician Date Neuropathy Neuropathy Problem Active [facility] 3-29 Family 00:00: Practic 00 e 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 8-13 st mellitus mellitus 00:00: Hospit a with with 00 l stable 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, eyes, without without long-term long-term current current use of use of insulin insulin Right Right Disease Active [facility] posterior posterior 8-13 st capsular capsular 00:00: Hospit a opacificat opacificat 00 l ion ion Tinea Tinea Problem Active [facility] pedis Pedis 12-06 Family 00:00: Practic 00 e Hypoalbumi Hypoalbumi Problem Active [facility] nemia nemia 12-06 Family 00:00: Practic 00 e Hypocalcem Hypocalcem Problem Active [facility] ia ia 12-06 Family 00:00: Practic 00 e Morbid Morbid Problem Active [facility] obesity Obesity 12-06 Family 00:00: Practic 00 e Anemia in Anemia in Problem Active Rodrigue patti chronic Chronic 12-06 Family kidney Kidney 00:00: Practic disease Disease 00 e Proteinuri Proteinuri Problem Active [facility] a a 12-06 Family 00:00: Practic 00 e Amputated Amputated Problem Active Rodrigue armstrong toe Toe 12-06 Family 00:00: Practic 00 e Obesity Obesity Problem Active [facility] 5-04 Family 00:00: Practic 00 e Cellulitis Cellulitis Problem Active [facility] of lower of Lower 504 Family limb Limb 00:00: Practic 00 e Neck pain Neck Pain Problem Active Rodrigue armstrong 5-04 Family 00:00: Practic 00 e COVID-19 Covid-19 Problem Active Zaragoza ge 5-04 Family 00:00: Practic 00 e 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 type 2 Type 2 00:00: Practic diabetes Diabetes 00 e mellitus Mellitus Type 2 Type 2 Problem Active [facility] diabetes Diabetes 3-31 Family mellitus Mellitus 00:00: Practi c 00 e Hyperlipid Hyperlipid Problem Active [facility] emia emia 3 Family 00:00: Practic 00 e Essential Essential Problem Active Rodrigue armstrong hypertensi Hypertensi 3-31 Fa dary on on 00:00: Practic 00 e Seasonal Seasonal Problem Active 2021-0 Azragoza ge allergy Allergy 3-31 Family 00:00: Practic 00 e Chronic Chronic Problem Active [facility] kidney Kidney 3-31 Family disease Disease 00:00: Practic 00 e 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 00:00: Practic virus Virus e infection Infection Foot Foot Disease Active 2015-[address] [facility] [address] abscess, abscess, 08[facility] left 00:[facility]: Medical 00 Stephan Toe Toe Disease Active 2015-[address] osteomyeli osteomyeli 08-04 [facility] tis, left tis, left 00:00: Medi christian 00 Center Essential Essential Disease Active 2015-[address] hypertensi hypertensi 08-04 Traci kes on on 00:00: Medical 00 Center HIV HIV Disease Active 2015-[address] [facility] disease disease 08-04 [facility] 00:00: Medical 00 Stephan Sepsis Sepsis Disease Active 2015-[address] 08-03 [facility] 00:[facility]: Medical 00 Stephan 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 - [facility] without without St complicati complicati [facility] on, on, Medical without without Center long-term long-term current current use of use of insulin insulin Chronic Chronic Problem Active Common kidney kidney Spirit disease, disease, - [facility] unspecifie unspecifie St d CKD d CKD [facility] stage stage [facility] Essential Essential Problem Active Com mon (primary) (primary) Spir it hypertensi hypertensi - CHI on on [facility] 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 Sp lluvia ciency ciency - CHI virus virus St infection) infection) [facility] Mixed Mixed Problem Active Common hyperlipid hyperlipid Sp lluvia emia emia - [facility] Allergies, Adverse Reactions, Alerts Allergy Allergy Status Severity Reaction(s) Onset Inactive Treating Comm ents Source Name Type Date Date Clinician No Known DA Active U [facility] Drug 3-18 Allergie 00:00: s 00 No Known DA Active U [facility] Drug 3-17 Allergie 00:00: s 00 No Known DA Active U 2019-06 [facility] Drug 1-18 Allergie 00:00: s 00 No Known Drug Active [facility] Family History Family Member Diagnosis Comments Start Date Stop Date Source Natural father Diabetes [facility] Natural father Cancer [facility] Natural mother COPD [facility] Natural mother Diabetes [facility] Natural sister Diabetes [facility] Social History Social Habit Start Date Stop Date Quantity Comments Source History of Cigarette Smoker [facility] t tobacco use Hospital History SDOH [facility] Std Hospital Drinks History SDAL [facility] Binge Hospital History SDAL [facility] Alcohol Comment Hospital Alcohol intake 2021-03-22 2021-03-22 Current drinker [facility] dist 00:00:00 00:00:00 of alcohol Hospital (finding) History SDOH 2020-05-28 2020-05-28 3 [facility] Alcohol Frequency 00:00:00 00:00:00 Hospita l Tobacco use and 2020-03-26 2020-03-26 Smokeless tobacco Mi thodist exposure 00:00:00 00:00:00 non-user Hospital Sex Ass[birth year] At [birth year] [facility] 00:00:00 00:00:00 Hospital Smoking Status Start Date Stop Date Source Never Smoker [facility] P sabiha Occasional tobacco smoker 2020-03-26 00:00:00 [facility] tobacco smoker 2016-06-01 00:00:00 [facility] Medications Ordered Filled Start Stop Current Ordering Indication Dosage Frequency Signature Comments Components Source Medication Medication Date Date Medication? Clinician (SIG) Name Name delmis Yes Take by Met baljit r (Tivicay) [address] 10 mg 16:08: Hospita tablet 47 l furosemide Yes 20mg Q.5D Take 20 mg M ethodi (LASIX) [address] mg tablet 16:08: (two) Hospita 47 times a l day. montelukast Yes 10mg QD Take 10 mg [facility] (SINGULAIR) 7-[address] 10 mg 16:08: nightly. Hospita tablet 47 l carvediloL Yes 12.5mg Q.5D Take 12.5 [facility] (COREG) 7-[address] 12.5 MG 16:08: mouth 2 Hospita tablet 47 (two) l times a day with meals. Corbin Alaniz 2019- No [place] 1 tablet Common 09-23 Konstantin at bedtime Spirit 00:00: 00:00 - CHI 00 :00 [facility] Ananda Gilmanga 2018-0 2019- No [place] 1 Comm on 09-23 Konstantin Spirit 00:00: 00:00 - CHI 00 :00 [facility] liraglutide Yes INJECT 1.2 [facility] (VICTOZA) 4-[address] 0.6 mg/0.1 00:00: SUBCUTANEO H ospita mL (18 mg/3 00 USLY EVERY l mL) pen DAY injector darunavir-c Yes Method i obicistat 4-08 st (PREZCOBIX) 00:00: Hospit a 800-150 00 l mg-mg tablet collagenase 2015-06 Yes 30g QD Apply [address] (SANTYL) 2-30 topically [facility] 250 units/g 14:45: daily Left Medical ointment 45 foot wound Cente r . glimepiride 2015-06 Yes 4mg Take [address] (AMARYL) 4 2-30 by mouth [facility] MG tablet 14:45: every Medical 45 morning Center before breakfast. sitaGLIPtin 2015-06 Yes 50mg QD Take [address] (JANUVIA) 2-30 by mouth [facility] 50 MG 14:45: daily. Medical tablet 45 Center metFORMIN 2015-06 Yes 1000mg Take 1,[address] (GLUMETZA) 2-30 mg by [facility] 1000 MG 14:45: mouth Medical (MOD) 24 hr 45 daily with Ce nter tablet breakfast. metoprolol 2015-06 Yes 50mg Q.5D Take [address] (LOPRESSOR) 2-30 by mouth 2 Traci kes 50 MG 14:45: (two) Medical tablet 45 times Center daily. montelukast 2015-06 Yes 10mg QD Take [address] (SINGULAIR) 2-30 by mouth Luke s 10 mg 14:45: daily. Medical tablet 45 Center collagenase 2015-06 Yes 30g QD Apply [address] (SANTYL) 2-30 topically [facility] 250 units/g 14:45: daily Left Medical ointment 45 foot wound Cente r . glimepiride 2015-06 Yes 4mg Take [address] (AMARYL) 4 2-30 by mouth [facility] MG tablet 14:45: every Medical 45 morning Center before breakfast. sitaGLIPtin 2015-06 Yes 50mg QD Take [address] (JANUVIA) 2-30 by mouth [facility] 50 MG 14:45: daily. Medical tablet 45 Center metFORMIN 2015-06 Yes 1000mg Take 1,[address] (GLUMETZA) 2-30 mg by [facility] 1000 MG 14:45: mouth Medical (MOD) 24 hr 45 daily with Ce nter tablet breakfast. metoprolol 2015-06 Yes 50mg Q.5D Take [address] (LOPRESSOR) 2-30 by mouth 2 Traci kes 50 MG 14:45: (two) Medical tablet 45 times Center daily. montelukast 2015-06 Yes 10mg QD Take [address] (SINGULAIR) 2-30 by mouth Luke s 10 mg 14:45: daily. Medical tablet 45 Center Victoza Victoza Yes [place] inject Commo n Konstantin under the Spirit skin 1.2mg - CHI daily [facility] BD Pen BD Pen Yes [place] USE Common Needle Nelida Needle Nelida Konstantin DIRECTED Spirit U/F U/F - [facility] Metoprolol Metoprolol Yes [place] TAKE 1 Common Tartrate Tartrate Konstantin TABLET BY S pirit MOUTH - CHI TWICE A [facility] Singulair Singulair Yes [place] 1 tablet Common Konstantin Spirit - CH[facility] atorvastati atorvastati No atorvastat [facility] n 40 mg n 40 mg in [...] " USE " USE DAILY DAILY DAILY carvedilol carvedilol No carvedilol [facility] 12.5 mg 12.5 mg 12.5 mg Family tablet TAKE tablet TAKE tablet Practic 1 TABLET BY 1 TABLET BY TAKE 1 e MOUTH TWICE MOUTH TWICE TABLET BY DAILY DAILY MOUTH TWICE DAILY fluticasone fluticasone No fluticason [facility] propionate propionate e Fam haylee 50 50 propionate Practic mcg/actuati mcg/actuati 50 e on nasal on nasal mcg/actuat spray,suspe spray,suspe ion nasal nsion nsion spray,susp SPRAYS SPRAYS ension TWICE IEN TWICE IEN SPRAYS QHS QHS TWICE IEN QHS FreeStyle FreeStyle No FreeStyle [facility] Lien 14 Lien 14 Lien 14 Fam haylee Day [place] Day [place] Day [place] Practic USE DEVICE USE DEVICE USE DEVICE e DIRECTED DIRECTED DIRECTED FreeStyle FreeStyle No FreeStyle [facility] Lien 2 Lien 2 Lien 2 Family Sensor kit Sensor kit Sensor kit Practic USE DAILY USE DAILY USE DAILY e DIRECTED DIRECTED BUT CHANGE BUT CHANGE DIRECTED EVERY 14 EVERY 14 BUT CHANGE DAYS DAYS EVERY 14 DAYS furosemide furosemide No furosemide [facility] 40 mg 40 mg 40 mg Family tablet TAKE tablet TAKE tablet Practic 1 TABLET BY 1 TABLET BY TAKE 1 e MOUTH EVERY MOUTH EVERY TABLET BY DAY DAY MOUTH EVERY DAY Metanx Metanx No 1capsul BID Metanx [facility] e (algal oil) (algal oil) e(s) (algal Family 3 mg-35 3 mg-35 oil) 3 Practic mg-2 mg-2 mg-35 mg-2 e mg-90.314 mg-90.314 mg-90.314 mg capsule mg capsule mg capsule Take 1 Take 1 Take 1 capsule capsule capsule twice a day twice a day twice a by oral by oral day by route for route for oral route 90 days. 90 days. for 90 days. montelukast montelukast No montelukas [facility] 10 mg 10 mg t 10 mg Family tablet TAKE tablet TAKE tablet Practic 1 TABLET BY 1 TABLET BY TAKE 1 e MOUTH EVERY MOUTH EVERY TABLET BY DAY DAY MOUTH EVERY DAY NovoFine NovoFine No NovoFine Rodrigue patti Plus 32 Plus 32 Plus 32 Family gauge x gauge x gauge x Practi c 1/6" needle 6" needle 6" e U SC QD UTD U SC QD UTD needle U SC QD UTD Prezcobix Prezcobix No Prezcobix [facility] 800 mg-150 800 mg-150 800 mg-150 Family mg tablet mg tablet mg tablet Practic TAKE 1 TAKE 1 TAKE 1 e TABLET BY TABLET BY TABLET BY MOUTH EVERY MOUTH EVERY MOUTH DAY DAY EVERY DAY Soliqua Soliqua No Soliqua [facility] e 100/33 100 100/33 100 100/33 Family unit-33 unit-33 100 Practic mcg/mL mcg/mL unit-33 e subcutaneou subcutaneou mcg/mL s insulin s insulin subcutaneo pen pen us insulin pen Tivicay 50 Tivicay 50 No Tivicay 50 Village mg tablet mg tablet mg tablet Family TAKE 1 TAKE 1 TAKE 1 Practic TABLET BY TABLET BY TABLET BY e MOUTH EVERY MOUTH EVERY MOUTH DAY DAY EVERY DAY Trulicity 3 Trulicity 3 No 3mg Q1W Trulicity [facility] mg/0.5 mL mg/0.5 mL 3 mg/0.5 F amily subcutaneou subcutaneou mL P ractic s pen s pen subcutaneo e injector injector us pen Inject 3 mg Inject 3 mg injector every week every week Inject 3 by by mg every subcutaneou subcutaneou week by s route for s route for subcutaneo 90 days. 90 days. us route for 90 days. Immunizations Ordered Immunization Filled Immunization Date Status Commen ts Source Name Name influenza, influenza, 2021-05-08 Completed [facility] injectable, injectable, 00:00:00 Practice quadrivalent quadrivalent MODERNA COVID-19 2020-10-12 Completed [facility] t MRNA VACCINATION 00:00:00 Hospital COVID-19, mRNA, COVID-19, mRNA, 2020-10-11 Completed [facility] age Family LNP-S, PF, 100 LNP-S, PF, 100 00:00:00 Practi ce mcg/0.5 mL dose mcg/0.5 mL dose (Moderna) (Moderna) Non-US Vaccine Non-US Vaccine 2020-09-12 Completed [facility] e Family COVID-19 PS COVID-19 PS 00:00:00 Practice (EpiVacCorona) (EpiVacCorona) Influenza, 2018-06-08 Completed [facility] Quadrivalent 00:00:00 Hospital influenza, influenza, 2018-06-08 Completed [facility] injectable, injectable, 00:00:00 Practice quadrivalent quadrivalent Vital Signs Vital Name Observation Time Observation Value Comments Source BP Diastolic 2021-09-03 00:00:00 81 mm[Hg] [facility] Practice Height 2021-09-03 00:00:00 71 [in_i] [facility] BMI (Body Mass 2021-09-03 00:00:00 33.3 kg/m2 [facility] Practice BP Systolic 2021-09-03 00:00:00 151 mm[Hg] [facility] Body Weight 2021-09-03 00:00:00 239 [lb_av] [facility] Height 2021-05-30 00:00:00 71 [in_i] [facility] BMI (Body Mass 2021-05-30 00:00:00 35 kg/m2 [facility] Body Weight 2021-05-30 00:00:00 250.6 [lb_av] [facility] BP Diastolic 2021-03-13 00:00:00 89 mm[Hg] [facility] Height 2021-03-13 00:00:00 71 [in_i] [facility] BMI (Body Mass 2021-03-13 00:00:00 34 kg/m2 [facility] BP Systolic 2021-03-13 00:00:00 156 mm[Hg] [facility] Body Weight 2021-03-13 00:00:00 243.8 [lb_av] [facility] BP Diastolic 2020-12-06 00:00:00 77 mm[Hg] [facility] Height 2020-12-06 00:00:00 71 [in_i] [facility] BMI (Body Mass 2020-12-06 00:00:00 34.4 kg/m2 [facility] BP Systolic 2020-12-06 00:00:00 119 mm[Hg] [facility] Body Weight 2020-12-06 00:00:00 246.4 [lb_av] [facility] BP Diastolic 2020-10-09 00:00:00 78 mm[Hg] [facility] Height 2020-10-09 00:00:00 71 [in_i] [facility] BMI (Body Mass 2020-10-09 00:00:00 33.9 kg/m2 [facility] BP Systolic 2020-10-09 00:00:00 124 mm[Hg] [facility] Body Weight 2020-10-09 00:00:00 243.4 [lb_av] [facility] BP Diastolic 2020-09-05 00:00:00 91 mm[Hg] [facility] Height 2020-09-05 00:00:00 71 [in_i] [facility] BMI (Body Mass 2020-09-05 00:00:00 35 kg/m2 [facility] e Family Index) Practice BP Systolic 2020-09-05 00:00:00 163 mm[Hg] [facility] Practice Body Weight 2020-09-05 00:00:00 251 [lb_av] [facility] Practice Height/Length 2021-06-25 12:42:11 180.3 cm Measured Weight Dosing 2021-06-25 12:42:11 118 kg Height/Length 2021-06-25 11:56:08 180.3 cm Measured Weight Dosing 2021-06-25 11:56:08 118 kg Height/Length 2020-01-24 12:24:25 Measured Weight Dosing 2020-01-24 12:24:25 Systolic blood 2020-12-13 13:45:00 139 mm[Hg] [facility] pressure Diastolic blood 2020-12-13 13:45:00 81 mm[Hg] [facility] pressure Heart rate 2020-12-13 13:45:00 95 /min [facility] Body temperature 2020-12-13 13:45:00 37.28 [facility] Respiratory rate 2020-12-13 13:45:00 20 /min [facility] Oxygen saturation in 2020-12-13 13:45:00 98 /min [facility] Arterial blood by Pulse oximetry Body height 2020-12-13 13:04:00 180.3 cm [facility] Body weight 2020-12-13 13:04:00 108.047 kg [facility] BMI 2020-12-13 13:04:00 33.22 kg/m2 [facility] 02 Sat by Pulse 2020-09-06 16:51:46 98 /min Oximetry Body Mass Index 2020-09-06 16:51:46 34.9 Height 2020-09-06 16:51:46 180.34\\S\\71 Pulse Rate 2020-09-06 16:51:46 98 /min Respiratory Rate 2020-09-06 16:51:46 16 /min Temperature 2020-09-06 16:51:46 36.2\\S\\97.2 Weight 2020-09-06 16:51:46 040246.092\\S\\4000 02 Sat by Pulse 2020-08-27 18:48:23 98 /min Oximetry Body Mass Index 2020-08-27 18:48:23 34.9 Height 2020-08-27 18:48:23 180.34\\S\\71 Pulse Rate 2020-08-27 18:48:23 98 /min Respiratory Rate 2020-08-27 18:48:23 16 /min Temperature 2020-08-27 18:48:23 36.2\\S\\97.2 Weight 2020-08-27 18:48:23 069727.092\\S\\4000 Body Mass Index 2020-08-23 22:20:59 34.9 Height 2020-08-23 22:20:59 180.34\\S\\71 Pulse Rate 2020-08-23 22:20:59 98 /min Respiratory Rate 2020-08-23 22:20:59 16 /min Temperature 2020-08-23 22:20:59 36.2\\S\\97.2 Weight 2020-08-23 22:20:59 767365.092\\S\\4000 02 Sat by Pulse 2020-08-23 22:20:59 98 /min Oximetry Body Mass Index 2020-08-23 15:54:12 34.9 Height 2020-08-23 15:54:12 180.34\\S\\71 Pulse Rate 2020-08-23 15:54:12 98 /min Respiratory Rate 2020-08-23 15:54:12 16 /min Temperature 2020-08-23 15:54:12 36.2\\S\\97.2 Weight 2020-08-23 15:54:12 677738.092\\S\\4000 02 Sat by Pulse 2020-08-23 15:54:12 98 /min Oximetry 02 Sat by Pulse 2020-08-23 13:01:04 99 /min Oximetry Body Mass Index 2020-08-23 13:01:04 34.9 Height 2020-08-23 13:01:04 180.34\\S\\71 Pulse Rate 2020-08-23 13:01:04 91 /min Respiratory Rate 2020-08-23 13:01:04 18 /min Temperature 2020-08-23 13:01:04 36.8\\S\\98.2 Weight 2020-08-23 13:01:04 787332.092\\S\\4000 WEIGHT 2020-08-23 12:59:00 113.864960 kg HEIGHT 2020-08-23 12:59:00 180.34 cm Procedures Procedure Date / Time Performing Clinician Source Performed YAG CAPSULOTOMY - OD - 2021-03-22 15:51:45 [facility] RIGHT EYE Sinus Surgery Procedure 2021-03-08 00:00:00 [facility] PHACOEMULSIFICATION, 2020-12-13 13:09:00 [facility] CATARACT, WITH IOL IMPLANTATION POC GLUCOSE 2020-12-13 12:52:00 [facility] CORNEAL TOPOGRAPHY ATLAS 2020-11-12 15:46:10 [facility] - OU - BOTH EYES IOL BIOMETRY - OU - BOTH 2020-11-12 15:46:06 [facility] EYES Cataract Surgery [facility] Plan of Care Planned Activity Planned Date Details Comments Source Diagnostic Test 2021-09-03 glucose, [facility] Fami ly Pending 00:00:00 fingerstick, blood Practice [code = glucose, fingerstick, blood] Diagnostic Test 2021-09-03 hemoglobin A1C, [facility] F amily Pending 00:00:00 fingerstick [code = Practice hemoglobin A1C, fingerstick] Future Scheduled Test 2021-07-09 COLONOSCOPY [facility] 14:18:19 SCREENING [code = COLONOSCOPY SCREENING] Future Scheduled Test 2021-07-09 SHINGLES VACCINES [facility] 14:18:19 (#1) [code = SHINGLES VACCINES (#1)] Future Scheduled Test 2021-07-09 COVID-19 VACCINE (2 [facility] 14:18:19 - Moderna risk 4-dose series) [code = COVID-19 VACCINE (2 - Moderna risk 4-dose series)] Future Scheduled Test 2021-07-09 INFLUENZA VACCINE [facility] 14:18:19 [code = INFLUENZA VACCINE] Future Scheduled Test 2021-07-09 DIABETES: RETINAL [facility] 14:18:19 EYE EXAM [code = DIABETES: RETINAL EYE EXAM] Future Scheduled Test 2021-07-09 DIABETIC FOOT EXAM [facility] 14:18:19 [code = DIABETIC FOOT EXAM] Future Scheduled Test 2021-07-09 Hepatitis C [facility] 14:18:19 screening (procedure) [code = 881038691] Future Appointment 2022-03-06 [facility] 10:00:[id number], [place] [address] Encounters Start End Encounter Admission Attending Care Care Encounter Source Date/Time Date/Time Type Type Clinicians Facility Department ID 2021-09-09 2021-09-09 Outpatient Daniel_T VFP VFP [id number] [address] [place] [address] 02:52:00 02:52:00 [id number] Family Practic e 2021-09-03 2021-09-03 Outpatient Daniel_T VFP VFP [id number] [address] [place] [address] 03:18:00 03:18:00 [id number] Family Practic e 2021-09-03 2021-09-03 Sal[place] VFP [place] - [id number] V illage 00:00:00 00:00:00 [facility] Anatoly Rob[facility] - Prackaylee nielson MD: [id number] VM_HOU_Shad e [address], [address], [place] [address] , Ph. 2021-08-14 2021-08-14 Outpatient Daniel_T VFP VFP [id number] [address] [place] [address] 10:35:00 10:35:00 [id number] Family Practic e 2021-08-14 2021-08-14 Outpatient Daniel_T VFP VFP [id number] [address] [place] [address] 10:35:00 10:35:00 [id number] Family Practic e 2021-06-14 2021-06-14 Outpatient Daniel_T VFP VFP [id number] [address] [place] [address] 08:21:00 08:21:00 [id number] Family Practic e 2021-05-30 2021-05-30 Outpatient Daniel_T VFP VFP [id number] [address] [place] [address] 12:07:00 12:07:00 [id number] Family Practic e 2021-05-30 2021-05-30 Sal[place]ador VFP [place] - [id number] V illage 00:00:00 00:00:00 [facility] Family [facility] - Practi c MD: [id number] VM_[email or web address]_Tu e [address] [facility] [address], [address], [place] [address] , Ph. 2021-03-22 2021-03-22 Procedure Nova, 1.2.840.1 [id number] [facility] 09:57:39 10:52:50 [place] [address] [place] 3.430.2.7 Hospit a .3.019184 l .8 2021-03-22 2021-03-22 Travel 1.2.840.1 [id number] [facility] 00:00:00 00:00:[address] 3.430.2.7 0.2.7.3.698 Ho spita .3.272755 084.8 l .8 2021-03-15 2021-03-15 Outpatient Daniel_T VFP VFP [id number] [address] [place] [address] 06:40:00 06:40:00 [id number] Family Mehran e 2021-03-13 2021-03-13 Outpatient Daniel_T VFP VFP [id number] [address] [place] [address] 11:00:00 11:00:00 [id number] Family Mehran e 2021-03-13 2021-03-13 Sal[place] VFP [place] - [id number] V illage 00:00:00 00:00:00 [facility] Family [facility] - Practi c MD: [id number] VM_[email or web address]_Tu e Shadow [facility] [address], [place] [address] , Ph. 2021-01-25 2021-01-25 Telephone Nova, 1.2.840.1 [id number] [facility] 00:00:00 00:00:[address] [facility] 3.430.2.7 Hospit a .3.668557 l .8 2021-01-18 2021-01-18 Office Nova, 1.2.840.1 [id number] [facility] 09:20:01 10:06:50 [place] [address] [place] 3.430.2.7 Hospit a .3.061660 l .8 2021-01-18 2021-01-18 Outpatient Daniel_T VFP VFP [id number] 3-20 [facility] 03:12:00 03:12:00 [id number] [facility] 2021-01-18 2021-01-18 Travel 1.2.840.1 [id number] Methodi 00:00:00 00:00:[address] 3.430.2.7 0.2.7.3.698 Ho spita .3.624847 084.8 l .8 2020-12-21 2020-12-21 [facility], 1.2.840.1 [id number] 2100 [id number] Methodi 00:00:00 00:00:[address] [place] 3.430.2.7 Hospit a .3.002627 l .8 2020-12-15 2020-12-15 Outpatient Daniel_T VFP VFP [id number] [facility] 02:24:00 02:24:00 [id number] [facility] 2020-12-14 2020-12-14 Office Nova, 1.2.840.1 [id number] [facility] 08:47:49 09:15:43 [place] [address] [place] 3.430.2.7 Hospit a .3.153395 l .8 2020-12-13 2020-12-13 [facility], 1.2.840.1 [id number] Methodi 06:39:00 09:16:00 [place] [address].1.[address] [place] 3.430.2.7 Hospit a .3.030700 l .8 2020-12-13 2020-12-13 Surgery [facility], 1.2.840.1 [id number] Methodi 08:15:00 09:00:[address] [place] 3.430.2.7 Hospit a .3.537812 l .8 2020-12-13 2020-12-13 Anesthesia Vargas, 1.2.840.1 [id number] Methodi 08:09:00 08:42:00 Event Derek 13883.1.[address] [place]illo 3.430.2.7 Hospi ta .3.358112 l .8 2020-12-13 2020-12-13 Travel 1.2.840.1 1.2.686.536 [id number] Methodi 00:00:00 00:00:[address] 3.430.2.7 0.2.7.3.698 Ho spita .3.031683 084.8 l .8 2020-12-12 2020-12-12 Telephone [facility], 1.2.840.1 [id number] Methodi 00:00:00 00:00:[address] [place] 3.430.2.7 Hospit a .3.975914 l .8 2020-12-08 2020-12-08 Outpatient Daniel_T VFP VFP [id number] [address] [place] [address] 10:38:00 10:38:00 [id number] [facility] Mehran e 2020-12-06 2020-12-06 Outpatient Daniel_T VFP VFP [id number] [address] [place] [address] 05:49:00 05:49:00 [id number] Family Mehran e 2020-12-06 2020-12-06 [place] [facility] [place] - [id number] V illage 00:00:00 00:00:00 [facility] Family RoblesAnatoly - Practi nisreen NICOLE: [id number] MITA_MARISOL_Tu e [facility], [address], [place] [address] , Ph. 2020-11-12 2020-11-12 Office [facility], 1.2.840.1 [id number] Methodi 09:50:22 11:30:10 [place] [address] [place] 3.430.2.7 Hospit a .3.899213 l .8 2020-11-12 2020-11-12 Travel 1.2.840.1 1.2.657.000 [id number] Methodi 00:00:00 00:00:[address] 3.430.2.7 0.2.7.3.698 Ho spita .3.474862 084.8 l .8 2020-10-30 2020-10-30 Travel 1.2.840.1 1.2.870.513 [id number] Methodi 00:00:00 00:00:[address] 3.430.2.7 0.2.7.3.698 Ho spita .3.582095 084.8 l .8 2020-10-29 2020-10-29 Telephone [facility], 1.2.840.1 [id number] Methodi 00:00:00 00:00:[address] [place] 3.430.2.7 Hospit a .3.101723 l .8 2020-10-10 2020-10-10 Outpatient Daniel_T VFP VFP [id number] [address] [place] [address] 09:31:00 09:31:00 [id number] Family Practic e 2020-10-09 2020-10-09 Outpatient Daniel_T VFP VFP [id number] [address] [place] [address] 05:34:00 05:34:00 [id number] Family Practic e 2020-10-09 2020-10-09 [place] VFP [place] - [id number] V illage 00:00:00 00:00:00 [facility] Family RoblesAnatoly - Leonid nielson MD: [id number] VM_MARISOL_Tu e [facility], [address], [place] [address] , Ph. 2020-09-08 2020-09-08 Outpatient Daniel_T VFP VFP [id number] [address] [place] [address] 07:26:00 07:26:00 [id number] Family Practic e 2020-09-05 2020-09-05 Outpatient Daniel_T VFP VFP [id number] [address] [place] [address] 02:22:00 02:22:00 [id number] Family Practic e 2020-09-05 2020-09-05 [place] VFP [place] - [id number] V illage 00:00:00 00:00:00 [facility] Family RoblesAnatoly - Prackaylee nielson MD: [id number] VM_MARISOL_Tu e [facility] [address], [address], [place] [address] , Ph. 2020-08-30 2020-08-30 Outpatient Daniel_T VFP VFP [id number] [address] [place] [address] 04:05:00 04:05:00 [id number] Family Practic e 2020-01-24 2020-01-24 [facility] VANDANA [id number] St. 10:30:00 23:59:00 [facility] 2020-01-24 2020-01-24 Outpatient 3 [facility] VANDANA [id number] St. 10:30:00 10:30:00 [facility]2019 817 [facility] 2018-10-18 2018-10-18 [facility] [id number] Common 13:47:00 13:47:00 [facility] [address] [facility] 2018-09-23 2018-09-23 [facility] 25 [id number] Common 08:45:00 08:45:00 [facility] [address] [facility] 2018-08-04 2018-08-04 [facility] [id number] Common 08:30:00 08:30:00 [facility] [address] [facility] 2018-03-11 2018-03-11 [facility] [id number] Common 10:51:00 10:51:00 [facility] [address] [facility] Results Test Description Test Time Test Comments Results Result Comments Source Hemoglobin A1c measurement device panel 2021-09-03 13:22:43 Test Item Value Reference Range Interpretation Comme nts Hemoglobin A1C Fingerstick: (test code = Hemoglobin A1C Fingerstick :) [facility]4 [facility] Capillary [id number] 13:19:40 Test Item Value Reference Range Interpretation Comments Blood Glucose: mg/dl (test code = Blood 100 Glucose: mg/dl) [facility] [id number] 10:24:11 Test Item Value Reference Range Interpretation Comments Hemoglobin A1C Fingerstick: (test code 6.4 = Hemoglobin A1C Fingerstick:) [facility] [Mass/volume] in Capillary [id number] 10:23:38 Test Item Value Reference Range Interpretation Comments Blood Glucose: mg/dl (test code = Blood 180 Glucose: mg/dl) [facility] [id number] 12:53:31 Test Item Value Reference Range Interpretation Comments POC glucose (test code 112 mg/dL 65-99 H [facility] Name: = [id number] Quick Device ID: [id number] able: [facility] 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 Draw a venous Glucose and send to the main Lab for analysis. AFB CULTURE + [id number] 17:59:00 Test Item Value Reference Range Interpretation Comments CULTURE (BEAKER) (test No acid-fast bacilli code = 1095) isolated in 42 days AFB SMEAR (BEAKER) No acid fast bacilli (test code = 994) seen AFB CULTURE + [id number] 17:58:00 Test Item Value Reference Range Interpretation Comments CULTURE (BEAKER) (test No acid-fast bacilli code = 1095) isolated in 42 days AFB SMEAR (BEAKER) No acid fast bacilli (test code = 994) seen AFB CULTURE + [id number] 17:58:00 Test Item Value Reference Range Interpretation Comments CULTURE (BEAKER) (test No acid-fast bacilli code = 1095) isolated in 42 days AFB SMEAR (BEAKER) No acid fast bacilli (test code = 994) seen
[2021-10-30 20:08] LABS: Absolute Lymphocytes (CBC) 2.3 K/uL (0.7-4.9); Hematocrit 29.4 % (39.6-49.0); Lymphocytes % 27.9 % (15.3-44.8); MPV 6.9 fL (7.6-11.3); RBC Red Blood Cell Count 3.54 M/uL (4.33-5.43)
--- NOTE | 2021-10-30 20:46 | RAD REPORT ---
EXAM DESCRIPTION: RAD - Chest Single View - 10/30/2021 8:40 pm CLINICAL HISTORY: fall, hypotension Chest pain. COMPARISON: Chest Single View dated 09/25/2020; Chest Single View dated 06/01/2016; Chest Single View dated 05/24/2016; Chest Single View dated 05/24/2016 FINDINGS: Portable technique limits examination quality. The lungs are grossly clear. The heart is normal in size. No displaced fractures. IMPRESSION: No acute intrathoracic process suspected.
[2021-10-30 20:47] LABS: Magnesium 2.1 mg/dL (1.8-2.4); Potassium 3.9 mmol/L (3.5-5.1)
[2021-10-30] MEDS ORDERED: NA CHLORIDE 0.9% 1,000 ML ONE ×2 (21:15→23:04)
--- NOTE | 2021-10-30 21:34 | P.HP ---
Certification for Inpatient Patient admitted to: Inpatient With expected LOS: >2 Midnights Patient will require the following post-hospital care: None Practitioner: I am a practitioner with admitting privileges, knowledge of patient current condition, hospital course, and medical plan of care. 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 Patient reports has been feeling very weak over the course of the last 1 week or so had a fall today got dizzy/lightheaded prior to falling to the ground. Patient was evaluated by EMS initially his pressure was 70/30 he was given IV fluids his blood pressure improved significantly he is evaluated in the ER his labs were significant for a creatinine of 10.8 his baseline is around 4 his GFR is decreased from around 15-5 currently bicarb on chemistry is 19 urinalysis is pending ED provider wishes to admit for acute renal failure Allergies No Known Allergies Allergy (Verified 05/22/16 02:57) Home Medications: Montelukast [Singulair*] 10 mg PO DAILY 05/22/16 Atorvastatin Calcium 40 mg PO DAILY 09/26/20 Carvedilol [Coreg] 12.5 mg PO BID 09/26/20 Diphenoxylate HCl/Atropine [Diphenoxylate-Atrop 2.5-0.025] 2 tab PO Q6HP PRN 09/26/20 Insulin Aspart [Novolog Penfill] See Protocol SQ TID 09/26/20 Insulin Glargine/Lixisenatide [Soliqua 100 Unit-33 Mcg/ml Pen] 36 units SQ DAILY 09/26/20 Furosemide [Lasix] 40 mg PO BID #60 tab 09/30/20 Minocycline HCl 100 mg PO BID #14 capsule 09/30/20 rifAMPin [Rifampin] 300 mg PO DAILY #10 capsule 09/30/20 - Past Medical/Surgical History Diabetic: Yes -: HTN -: HIV -: Diabetes type 2insulin-dependent -: CKD 4 -: Domenic. 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 moist/pink, EOMI, Sclerae nonicteric Neck: Supple, 2+ carotid pulse no bruit, No LAD, Without JVD or thyroid abnormality Respiratory: Clear to auscultation bilaterally, Normal air movement Cardiovascular: Regular rate/rhythm, Normal S1 S2, Edema (Nonpitting edema bilateral lower extremities) Capillary refill: <2 Seconds Gastrointestinal: Normal bowel sounds, No tenderness Musculoskeletal: No tenderness Integumentary: No rashes Neurological: Normal speech, Normal strength at 5/5 x4 extr, Normal tone, Normal affect Lymphatics: No axilla or inguinal lymphadenopathy - Studies Laboratory Data (last 24 hrs) 10/30/21 19:48: WBC 8.4, Hgb 9.6 L, Hct 29.4 L, Plt Count 287 10/30/21 19:48: Sodium 145, Potassium 3.9, BUN 95 H, Creatinine 10.80 H*, Glucose 180 H, Magnesium 2.1 Assessment and Plan - Plan Assessment: Acute worsening of CKD 4 with acute renal failure Diabetes type 2insulin-dependent Hypertension Hyperlipidemia HIV Plan: Acute worsening of CKD 4 with acute renal failure: Creatinine increased from 4- 10, GFR decreased from 15-5 patient reports generalized weakness over the course of the last 1 week was hypotensive on scene with blood pressure of 70/30 patient given IV fluids in the ER will continue gentle hydration.the evening obtain nephrology consult, renal ultrasound. Patient CKD4 was deemed secondary to diabetic nephropathy previously. Appreciate further input from nephrology. Strict intake/output Diabetes type 2insulin-dependent: A [facility] Accu-Chek, sliding scale insulin Hypertension: Obtain and continue medication, adjust as necessary for renal function. Hyperlipidemia: Continue home meds HIV: Continue home medication, will need to follow with HIV clinic at discharge DVT PPX: Heparin Code status: Full Discharge Plan: Home Plan to discharge in: 48 Hours - Advance Directives Does patient have a Living Will: No Does patient have a Durable POA for Healthcare: No - Code Status/Comfort Care Code Status Assessed: Yes (Full code) Critical Care: No Time Spent Managing Pts Care (In Minutes): 55
--- NOTE | 2021-10-30 21:43 | EDPHYS ---
Physician Documentation [facility] Name: Chalo Harry Age: 56 yrs Sex: Male : 1965 Arrival Date: 10/30/2021 Time: 19:42 Bed 26 Private MD: ED Physician Lanre Mart HPI: 10/30 22:29 This 56 yrs old Male presents to ER via EMS with complaints of Fall Injury. jr8 22:31 Onset: The symptoms/episode began/occurred acutely, today. Severity of symptoms: At jr8 their worst the symptoms were moderate, in the emergency department the symptoms have improved. The patient has not experienced similar symptoms in the past. The patient has not recently seen a physician. Patient stated that he was getting up to go to the bathroom and started to feel weak. Fell to his knees and then tried to get up and fell 2 more times. Denies loss of consciousness but EMS was called at that time. EMS found that patient was hypotensive in the 70s systolic. Patient was given fluids prior to arrival which normalized his pressure. EMS stated that he was pale and clammy on scene. Patient denied any chest pain or shortness of breath. Stated that he was slightly dizzy. Took his blood pressure medicine around 3 PM today. It wasn't until around 5 that he started to feel bad. Denies recent illness or heat exposure. Historical: - PMHx: 21:05 AIDS; allergies; Diabetes - NIDDM; High Cholesterol; Hypertension; sm5 ROS: 22:31 Eyes: Negative for injury, pain, redness, and discharge, ENT: Negative for injury, jr8 pain, and discharge, Neck: Negative for injury, pain, and swelling, Cardiovascular: Negative for chest pain, palpitations, and edema, Respiratory: Negative for shortness of breath, cough, wheezing, and pleuritic chest pain, Abdomen/GI: Negative for abdominal pain, nausea, vomiting, diarrhea, and constipation, Back: Negative for injury and pain, MS/Extremity: Negative for injury and deformity. 22:31 Skin: Positive for abrasion(s), of the right leg. 22:31 Neuro: Positive for dizziness, weakness. Exam: 22:31 Constitutional: This is a well developed, well nourished patient who is awake, alert, jr8 and in no acute distress. Eyes: Pupils equal round and reactive to light, extra-ocular motions intact. Lids and lashes normal. Conjunctiva and sclera are non-icteric and not injected. Cornea within normal limits. Periorbital areas with no swelling, redness, or edema. Neck: Trachea midline, no thyromegaly or masses palpated, and no cervical lymphadenopathy. Supple, full range of motion without nuchal rigidity, or vertebral point tenderness. No Meningismus. Cardiovascular: Regular rate and rhythm with a normal S1 and S2. No gallops, murmurs, or rubs. Normal PMI, no JVD. No pulse deficits. Respiratory: Lungs have equal breath sounds bilaterally, clear to auscultation and percussion. No rales, rhonchi or wheezes noted. No increased work of breathing, no retractions or nasal flaring. Abdomen/GI: Soft, non-tender, with normal bowel sounds. No distension or tympany. No guarding or rebound. No evidence of tenderness throughout. Back: No spinal tenderness. No costovertebral tenderness. Full range of motion. Skin: Warm, dry with normal turgor. Normal color with no rashes, no lesions, and no evidence of cellulitis. Neuro: Awake and alert, GCS 15, oriented to person, place, time, and situation. Cranial nerves II-XII grossly intact. Motor strength 5/5 in all extremities. Sensory grossly intact. 22:31 Musculoskeletal/extremity: Extremities: grossly normal except: noted in the right leg: Patient has abrasion and small skin avulsion to the right anterior knee with mild pain to palpation. Full range of motion present without pain., ROM: intact in all extremities, Circulation is intact in all extremities. Sensation intact. Vital Signs: 19:43 BP 127 / 72; Pulse 84; Resp 18; Temp 98.5(O); Pulse Ox 97% on R/A; Weight 102.97 kg; tw5 Height 5 ft. 11 in. (180.34 cm); Pain 0/10; 19:43 Body Mass Index 31.66 (102.97 kg, 180.34 cm) tw5 [place] Coma Score: 19:43 Eye Response: spontaneous(4). Verbal Response: oriented(5). Motor Response: obeys tw5 commands(6). Total: 15. Trauma Score (Adult): 19:43 Eye Response: spontaneous(1); Verbal Response: oriented(1); Motor Response: obeys tw5 commands(2); Systolic BP: > 89 mm Hg(4); Respiratory Rate: 10 to 29 per min(4); Aneta Score: 15; Trauma Score: 12 MDM: 19:49 Patient medically screened. [facility] :31 Data reviewed: vital signs, nurses notes, lab test result(s), EKG, radiologic studies, [facility] plain films. Data interpreted: Pulse oximetry: on room air is 97 %. Interpretation: normal. Counseling: I had a detailed discussion with the patient and/or guardian regarding: the historical points, exam findings, and any diagnostic results supporting the discharge/admit diagnosis, lab results, radiology results, the need for further work-up and treatment in the hospital. 10/30 19:51 Order name: Basic Metabolic Panel; Complete Time: 20:57 [facility] 10/30 19:51 Order name: CBC with Diff; Complete Time: 20:31 [facility] 10/30 19:51 Order name: Magnesium; Complete Time: 20:57 [facility] 10/30 19:51 Order name: Troponin HS; Complete Time: 20:57 [facility] 10/30 21:00 Order name: CPK; Complete Time: 21:48 la1 10/30 21:02 Order name: COVID-19 SARS RT PCR (Document "Date of Onset" if Symptomatic); Complete la1 Time: 22:29 10/30 19:51 Order name: XRAY Chest (1 view); Complete Time: 20:57 [facility] 10/30 21:09 Order name: Urine Microscopic Only [facility] 10/30 23:18 Order name: Glucose, Ancillary Testing; Complete Time: 23:18 [facility] 10/31 00:14 Order name: Urinalysis W/Microscopic; Complete Time: 00:26 [facility] 10/31 03:39 Order name: CBC with Automated Diff; Complete Time: 12:13 [facility] 10/31 03:55 Order name: Comprehensive Metabolic Panel; Complete Time: 12:13 [facility] 10/31 07:57 Order name: Glucose, Ancillary Testing; Complete Time: 12:13 [facility] 10/31 11:37 Order name: Glucose, Ancillary Testing; Complete Time: 12:13 [facility] 10/30 19:51 Order name: EKG; Complete Time: 19:52 [facility] 10/30 19:51 Order name: Cardiac monitoring; Complete Time: 19:57 8 10/30 19:51 Order name: EKG - Nurse/Tech; Complete Time: 19:54 8 10/30 19:51 Order name: IV Saline Lock; Complete Time: 19:54 8 10/30 19:51 Order name: Labs collected and sent; Complete Time: 19:57 8 10/30 19:51 Order name: O2 Per Protocol; Complete Time: 19:55 [facility] 10/30 19:51 Order name: O2 Sat Monitoring; Complete Time: 19:55 [facility] 10/30 20:59 Order name: Stone Protocol CT; Complete Time: 21:48 la1 10/31 08:30 Order name: US; Complete Time: 12:13 [facility] 10/31 10:56 Order name: Diet Renal; Complete Time: 10:57 dh3 Administered Medications: 21:49 Drug: NS 0.9% 1000 ml Route: IV; Rate: 1000 ml; Site: left forearm; tw5 Disposition: 11/01 07:00 Co-signature as Attending Physician, Lanre Mart MD. rn Disposition Summary: 10/30/21 21:43 Hospitalization Ordered Hospitalization Status: Inpatient Admission 8 Provider: Paresh Archuleta [facility] Condition: Fair [facility] Problem: new [facility] Symptoms: are unchanged 8 Bed/Room Type: Standard [facility] Location: Telemetry/MedSurg (Inpatient)(10/31/21 16:04) [facility] Room Assignment: [facility](10/31/21 16:04) [facility] Diagnosis - Acute kidney failure, unspecified [facility] Forms: - Medication Reconciliation Form 8 - SBAR form 8 Signatures: Dispatcher [employer] EDLanre العراقي MD MD rn Roszak, Josh, PA PA jr8 Devin Lau, RESEARCH ANTHROPOLOGIST-C RESEARCH ANTHROPOLOGIST-Cla1 Nathalie Saenz, RN RN Torsten Avery RN RN ja1 Sharon Vazquez tw5 Carlene Jacobs RN RN 5 Corrections: (The following items were deleted from the chart) 10/30 21:49 21:43 Telemetry/MedSurg (Inpatient) jr8 cg 21:49 21:43 jr8 cg 10/31 01:56 10/30 21:09 Urine Dipstick-Ancillary ordered. jr8 ag7 10/31 16:04 10/30 21:49 [facility] ER [facility] cg ja1 10/31 16:04 10/30 21:49 [facility] ja[facility]
--- NOTE | 2021-10-30 21:43 | RAD REPORT ---
EXAM DESCRIPTION: CT - Stone Protocol - 10/30/2021 9:24 pm CLINICAL HISTORY: Flank pain. Renal ischemia or infarction COMPARISON: Biopsy Renal dated 10/23/2016 TECHNIQUE: Axial images were obtained without oral or IV contrast. Lack of contrast limits solid org an and vascular assessment. The foiow-un-qety spans the entirety of the system partially obscuring uppermost abdomen and lung bases. Coronal reformatted images were obtained and reviewed. All CT scans are performed using dose optimization technique as appropriate and may include automated exposure control or mA/KV adjustment according to patient size. FINDINGS: The lower lung juan are clear. Imaged portions of the liver and spleen show no suspicious findings on non-contrast imaging. The panc reas and adrenal glands are normal. No pathologic lymphadenopathy in the abdomen or pelvis. No renal stones seen. Heavy intrarenal vascular calcifications. Moderate urinary bladder wall thicken ing. No bowel obstruction, free air, free fluid or abscess. Normal appendix noted. No significant bony abnormality. IMPRESSION: No urinary tract stones or obstructive uropathy. Significant bilateral renal atheroscler otic calcifications. Moderate urinary bladder wall thickening could indicate urinary tract infection.
--- NOTE | 2021-10-30 21:43 | ER ---
Nurse's Notes [facility] Name: Chalo Harry Age: 56 yrs Sex: Male : 1965 Arrival Date: 10/30/2021 Time: 19:42 Bed 26 Private MD: Diagnosis: Acute kidney failure, unspecified Presentation: 10/30 19:43 Chief complaint: EMS states: "He had reported fallling several times today. No syncopal tw5 episodes. His last fall was about 45 min ago. He is complaining of this pain in the back of his neck as well.". Care prior to arrival: IV initiated. 18 GA, in the left forearm, 1100 NS. Mechanism of Injury: Fall from standing position. Trauma event details: Injury occurred in the [facility], Injury occurred: at home. Injury occurred: October 30, 2021 Injury occurred at: 19:00. 19:43 Acuity: KESHA 3 tw5 19:43 Method Of Arrival: EMS: [facility] tw5 22:24 Coronavirus screen: At this time, the client does not indicate any symptoms associated sm5 with coronavirus-19. Ebola Screen: No symptoms or risks identified at this time. Initial Sepsis Screen: Does the patient meet any 2 criteria? No. Patient's initial sepsis screen is negative. Does the patient have a suspected source of infection? No. Patient's initial sepsis screen is negative. Risk Assessment: Do you want to hurt yourself or someone else? Patient reports no desire to harm self or others. Onset of symptoms was October 30, 2021. Trauma Activation: Alert Physician: ED Physician; Name: ; Notified At: ; Arrived At: Physician: General Surgeon; Name: ; Notified At: ; Arrived At: Physician: Radiology; Name: ; Notified At: ; Arrived At: Physician: Respiratory; Name: ; Notified At: ; Arrived At: Physician: Lab; Name: ; Notified At: ; Arrived At: Historical: - PMHx: 21:05 AIDS; allergies; Diabetes - NIDDM; High Cholesterol; Hypertension; sm5 Screenin:05 Abuse screen: Denies threats or abuse. Denies injuries from another. Tuberculosis sm5 screening: No symptoms or risk factors identified. 22:25 Nutritional screening: No deficits noted. Fall Risk Fall in past 12 months (25 points). sm5 No secondary diagnosis (0 pts). IV access (20 points). Ambulatory Aid- None/Bed Rest/Nurse Assist (0 pts). Gait- Normal/Bed Rest/Wheelchair (0 pts) Mental Status- Oriented to own ability (0 pts). Primary Survey: 19:43 NO uncontrolled hemorrhage observed. A: The client is awake and alert. The airway is tw5 patent. Breathing/Chest: Spontaneous respiratory effort, equal unlabored respirations, breath sounds clear bilaterally, regular pattern, symmetrical chest rise and fall. Circulation: No external hemorrhage present. Regular and strong central pulse, skin warm/dry/normal color. Disability Pupils are equal, round, reactive to light and accommodation. Exposure/Environment: Obvious injury(ies) are noted at this time: abrasion to right knee. 22:24 Reassessment Alertness and Airway: Awake and alert. The airway is patent. Breathing: sm5 Spontaneous respiratory effort, equal unlabored respirations, breath sounds clear bilaterally, regular pattern with symmetrical chest rise and fall. Circulation: No external hemorrhage noted. Regular and strong central pulse, skin warm/dry/normal color. Disability: Alert. Secondary Survey: 20:00 HEENT: No deficits noted. Gastrointestinal: No deficits noted. : No deficits noted. sm5 Musculoskeletal: No deficits noted. Assessment: 19:43 Reassessment:. General: Appears in no apparent distress. uncomfortable, Behavior is tw5 calm, cooperative, appropriate for age. Pain:. Vital Signs: 19:43 BP 127 / 72; Pulse 84; Resp 18; Temp 98.5(O); Pulse Ox 97% on R/A; Weight 102.97 kg; tw5 Height 5 ft. 11 in. (180.34 cm); Pain 0/10; 19:43 Body Mass Index 31.66 (102.97 kg, 180.34 cm) tw5 Aneta Coma Score: 19:43 Eye Response: spontaneous(4). Verbal Response: oriented(5). Motor Response: obeys tw5 commands(6). Total: 15. Trauma Score (Adult): 19:43 Eye Response: spontaneous(1); Verbal Response: oriented(1); Motor Response: obeys tw5 commands(2); Systolic BP: > 89 mm Hg(4); Respiratory Rate: 10 to 29 per min(4); Hereford Score: 15; Trauma Score: 12 ED Course: 19:42 Patient arrived in ED. sm5 19:43 Patient has correct armband on for positive identification. EKG done, by ED staff, tw5 reviewed by Palmer BAINS. 19:45 Triage completed. tw5 19:49 Palmer Magallon PA is PHCP. jr8 19:49 Lanre Mart MD is Attending Physician. jr8 19:53 Carlene Jacobs, RN is Primary Nurse. sm5 20:41 XRAY Chest (1 view) In Process Unspecified. EDMS 21:19 COVID-19 SARS RT PCR (Document "Date of Onset" if Symptomatic) Sent. tw5 21:[address] In Process Unspecified. EDMS 21:42 Paresh Archuleta MD is Hospitalizing Provider. jr8 22:24 No provider procedures requiring assistance completed. sm5 22:25 Arm band placed on right wrist. sm5 22:25 Patient maintains SpO2 saturation greater than 95% on room air. 5 22:25 Thermoregulation: warm blanket given to patient. 5 10/31 01:54 Urine Microscopic Only Sent. ag7 Administered Medications: 10/30 21:49 Drug: NS 0.9% 1000 ml Route: IV; Rate: 1000 ml; Site: left forearm; tw5 Intake: 19:43 PO: 0ml; Total: 0ml. tw5 Output: 19:43 Urine: 0ml; Total: 0ml. tw5 Outcome: 21:43 Decision to Hospitalize by Provider. 8 22:25 Patient's length of stay in the Emergency Department was greater than 2 hours. [facility] 10/31 17:19 Patient left the ED. ld1 Signatures: Dispatcher [employer] EDWV Palmer Magallon PA PA jr8 Rosy Lynn RN RN ld1 Sharon Vazquez tw5 Carlene Jacobs, RN RN 5 Arpita Garrido RN RN ag7
[2021-10-30] MEDS: NA CHLORIDE 0.9% 1,000 ML IV SCH (22:46)
[2021-10-30] MEDS ORDERED: ONDANSETRON 4 MG/2 ML VIAL IV PRN (22:46)
[2021-10-31 00:13] LABS: Urine Appearance CLEAR (Clear); Urine Bilirubin NEGATIVE (Negative); Urine Blood 1+ (Negative); Urine Color YELLOW (Yellow); Urine Glucose 2+ (Negative); Urine Protein 3+ (Negative); Urine Urobilinogen 0.2 mg/dL (0.2-1.0)
[2021-10-31 00:15] LABS: Urine Bacteria <20 /HPF (NONE SEEN); Urine RBC <5 /HPF (NONE SEEN)
[2021-10-31 03:29] LABS: Absolute Lymphocytes (CBC) 2.6 K/uL (0.7-4.9); Hematocrit 28.3 % (39.6-49.0); Lymphocytes % 25.3 % (15.3-44.8); MPV 6.9 fL (7.6-11.3); RBC Red Blood Cell Count 3.39 M/uL (4.33-5.43)
[2021-10-31 03:54] LABS: Albumin 2.1 g/dL (3.4-5.0); Bilirubin Total 0.2 mg/dL (0.2-1.0); Potassium 4.1 mmol/L (3.5-5.1); Protein, Total 5.5 g/dL (6.4-8.2)
[2021-10-31] MEDS: INSULIN -REGULAR HUMAN 50 UNIT/0.5 ML ML SQ SCH ×4 (07:30→22:23)
--- NOTE | 2021-10-31 07:52 | EKG ---
Test Date: 2021-10-30 Test Time: 19:40:57 House Wrecker: RAYSA MEASUREMENT RESULTS: Intervals: Rate: 99 LA: 168 QRSD: 88 QT: 382 QTc: 490 [place]: P: 56 LA: 168 QRS: 80 T: 36 INTERPRETIVE STATEMENTS: Normal sinus rhythm Septal infarct, age undetermined Abnormal ECG Compared to ECG 09/26/2020 00:50:39 Myocardial infarct finding now present Sinus tachycardia no longer present Electronically Signed On 10-31-21 07:51:54 CDT by Harpreet Mauro
[2021-10-31] MEDS ORDERED: PNEUMOCOCCAL VACCINE 0.5 ML IMVAC ONE ×2 (08:00→14:33)
--- NOTE | 2021-10-31 08:29 | RAD REPORT ---
EXAM DESCRIPTION: US - Renal Ultrasound-Complete - 10/30/2021 11:47 pm CLINICAL HISTORY: ARF COMPARISON: Renal Ultrasound-Complete dated 09/26/2020 FINDINGS: The right kidney is mildly echogenic. The right kidney measures 10.1 x 5.3 x 4.7 cm. No hydronephrosis, focal mass or perinephric fluid. Sm all 15 mm benign right renal cyst. The left kidney measures 11.4 x 5.3 x 4.2 cm. No hydronephrosis, focal mass or perinephric fluid. The urinary bladder is incompletely distended without gross abnormality seen. IMPRESSION: Mildly echogenic right kidney compatible with underlying medical renal disease. Small benign right renal cyst.
[2021-10-31] MEDS: NA CHLORIDE 0.9% 1,000 ML IV SCH (12:06)
--- NOTE | 2021-10-31 13:04 | CON ---
Date of Consultation: 10/31/2021 Reason For Consultation: Elevated BUN and creatinine and fluid management. History Of Present Illness: This is a pleasant 56-year-old gentleman, well known to me from the [facility] with significant past medical history of hypertension, HIV, diabetes complicated with retinopathy, neuropathy and nephropathy, chronic kidney disease stage 4 secondary to diabetes nephropathy, normal size kidney, confirmed with kidney biopsy back with nephrosclerosis , the patient's baseli ne creatinine around 2.2. With nephrotic range of proteinuria, the patient last seen back in [facility] last year. Reviewing the record, last creatinine 2.7, GFR of 25. According to the patient, the pa penelope was in his regular state of health. 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 In the last few weeks, the patient is feeling weak and tired wi th hesitancy in the urine. Yesterday, he collapsed, upon arrival to the hospital found to be hypoten sive and elevation in BUN and creatinine, creatinine 10.8 with GFR of 5. Reviewing the record, last creatinine we have back in September 2020 of 4.1. At that time, the GFR of 10. That is creatinine I hav e in the office 2.7 with GFR of 25 in August 2019. Past Medical History: Includes; 1.Diabetes complicated with neuropathy, retinopathy, and nephropathy. 2.HIV. 3.Hypertension. 4.Chronic kidney disease, stage 4 secondary to diabetes nephropathy confirmed with biopsy. Past Surgical History: Left toe amputation. Family History: Positive for diabetes and hypertension and cancer. Social History: Denied smoking, denied drinking, denied drug abuse. Review of Systems: Head and Neck: He is lightheaded. GI: Has decreased intake. : Has hesitancy. No hematuria. Aquatics Specialist: Not applicable. Respiratory: No shortness of breath. Cardiovascular: No chest pain. Endocrine: No polydipsia. Skin: No rash. Neuro: Has neuropathy. Has fall. Musculoskeletal: Generalized fatigue. Physical Examination: General: When I saw the patient; the patient is lying in bed, comfortable on room air, lying flat. Vital Signs: Blood pressure 125/68, pulse of 96, afebrile. Chest: Clear to auscultation. Heart: S1, S2. Regular. Abdomen: Soft, nontender. Extremity: Trace edema. Neurological: Alert, oriented x3. No focal. No tremor. Laboratory Data: Back in September 2020; creatinine 4.1, GFR of 15. On admission; sodium 145, potassium 3.9, bicarb 19, BUN 95, creatinine 10.8, GFR of 5, calcium 7.3, magnesium 2.1. Sodium 144, potassiu m 4.1, bicarb 19, BUN 98, creatinine 10.7, GFR of 5, calcium 7.2, albumin 2.1. Corrected calcium is 8.8. Urinalysis; specific gravity 1.020. Renal ultrasound was done showing 10.1/11.4, echogenic, sm all benign renal cyst. Current Medications: The patient on include normal saline 75 per hour, insulin. Assessment And Plan: 1.Acute kidney injury on chronic kidney disease, advanced, mostly progression to end-stage renal dis ease. No uremic symptoms, no hyperkalemia, marginal acidosis. I had long discussion with the patien t that if kidney function did not improve, the patient may need to be initiated on renal replacement therapy. Discussed the option of renal replacement therapy. We will follow up. We will continue hy dration. We will follow up the lab tomorrow. If kidney function did not improve, again the patient needs to be initiated on renal replacement therapy and we will follow up. 2.Acidosis, non-anion gap metabolic acidosis, stable. I will start the patient on oral bicarb. 3.Hypocalcemia, possible secondary to secondary hyperparathyroidism. I will send for vitamin D and PTH. 4.Anemia of chronic kidney disease. We will send further workup. 5.Hypertension, controlled, currently hypotension. Hold all blood pressure medications. Hold diure sis. 6.Diabetes as by primary. MA/MODL Voice ID: [id number] Report ID: [id number]
[2021-10-31] MEDS ORDERED: NA CHLORIDE 0.9% 1,000 ML ONE (14:33)
--- NOTE | 2021-10-31 16:03 | P.PN ---
Subjective Date of Service: 10/31/21 Chief Complaint: Acute renal failure Subjective: No new changes, No C/O voiced (Making urine) Physical Examination - Vital Signs Temperature: 98.6 F Blood Pressure: 165/81 Pulse: 96 Respirations: 14 Pulse Ox (%): 98 - Studies Laboratory Data (last 24 hrs) 10/30/21 19:48: WBC 8.4, Hgb 9.6 L, Hct 29.4 L, Plt Count 287 10/30/21 19:48: Sodium 145, Potassium 3.9, BUN 95 H, Creatinine 10.80 H*, Glucose 180 H, Magnesium 2.1 Assessment And Plan Physician Review: Patient Assessed, Agree with Above Assessment and Plan Physician Review Additional Text: - Physical Exam General: Alert, In no apparent distress, Oriented x3 HEENT: Atraumatic, PERRLA, Mucous membr. moist/pink, EOMI, Sclerae nonicteric Neck: Supple, 2+ carotid pulse no bruit, No LAD, Without JVD or thyroid abnormality Respiratory: Clear to auscultation bilaterally, Normal air movement Cardiovascular: Regular rate/rhythm, Normal S1 S2, Edema (Nonpitting edema bilateral lower extremities) Capillary refill: <2 Seconds Gastrointestinal: Normal bowel sounds, No tenderness Musculoskeletal: No tenderness Integumentary: No rashes Neurological: Normal speech, Normal strength at 5/5 x4 extr, Normal tone, Normal affect Lymphatics: No axilla or inguinal lymphadenopathy - Studies Laboratory Data (last 24 hrs) 10/30/21 19:48: WBC 8.4, Hgb 9.6 L, Hct 29.4 L, Plt Count 287 10/30/21 19:48: Sodium 145, Potassium 3.9, BUN 95 H, Creatinine 10.80 H*, Gluc ose 180 H, Magnesium 2.1 Assessment and Plan Acute worsening of CKD 4/ESRD Metabolic acidosis Diabetes type 2insulin-dependent Hypertension Hyperlipidemia HIV Plan: Volume status controlled, on gentle IV fluid Follow nephrology, will need dialysis initiation Continue Accu-Chek with insulin sliding scale Add amlodipine for adequate blood pressure control follow with HIV clinic at discharge DVT PPX: Heparin Code status: Full Discharge Plan: Home Plan to discharge in: 48 Hours - Advance Directives Does patient have a Living Will: No Does patient have a Durable POA for Healthcare: No
[2021-10-31] MEDS: AMLODIPINE 2.5 MG TAB PO SCH (18:08)
[2021-10-31] MEDS ORDERED: HYDRALAZINE HCL 20 MG/ML VIAL IV PRN (20:52)
[2021-11-01] MEDS: NA CHLORIDE 0.9% 1,000 ML IV SCH (01:15)
[2021-11-01 02:39] LABS: Urine Appearance Clear (Clear); Urine Bilirubin Negative (Negative); Urine Blood 1+ (Negative); Urine Color Yellow (Yellow); Urine Glucose 2+ (Negative); Urine Protein 3+ (Negative); Urine Urobilinogen 0.2 mg/dL (0.2-1.0)
[2021-11-01 02:42] LABS: Urine Microscopic Reflex ORDER UMIC
[2021-11-01 02:46] LABS: Urine Bacteria <20 /HPF (NONE SEEN); Urine Mucus 1+ /HPF (NONE SEEN)
[2021-11-01 02:54] LABS: UR PROTEIN 536.5 mg/dL (<11.9); Urine Protein/Creatinine Ratio 9.25 ratio (<0.15)
[2021-11-01 05:51] LABS: Absolute Lymphocytes (CBC) 2.6 K/uL (0.7-4.9); Hematocrit 28.1 % (39.6-49.0); Lymphocytes % 31.9 % (15.3-44.8); MPV 6.6 fL (7.6-11.3)
[2021-11-01 06:40] LABS: Albumin 2.1 g/dL (3.4-5.0); Bilirubin Total 0.3 mg/dL (0.2-1.0); Ferritin 270.2 ng/mL (26-388); Folic Acid, (Folate) 4.4 ng/mL (3.1-17.5); Phosphorus 5.4 mg/dL (2.5-4.9); Potassium 4.1 mmol/L (3.5-5.1); Protein, Total 5.7 g/dL (6.4-8.2); Uric Acid 6.7 mg/dL (3.5-7.2)
[2021-11-01] MEDS: INSULIN -REGULAR HUMAN 50 UNIT/0.5 ML ML SQ SCH ×4 (07:30→19:59)
[2021-11-01] MEDS: AMLODIPINE 2.5 MG TAB PO SCH (09:13)
--- NOTE | 2021-11-01 13:39 | P.PN ---
Subjective Date of Service: 11/01/21 Chief Complaint: Acute renal failure Subjective: No new changes Physical Examination - Vital Signs Temperature: 99.1 F Blood Pressure: 169/83 Pulse: 98 Respirations: 16 Pulse Ox (%): 98 - Physical Exam General: In no apparent distress HEENT: Atraumatic, Normocephalic Neck: Supple Gastrointestinal: Soft and benign, No guarding Musculoskeletal: No clubbing Integumentary: No warmth Neurological: Normal speech, Normal tone Urinary: Other (no bladder distention) External genitalia: Deferred Rectal: Deferred Assessment And Plan - Plan 1. Acute kidney injury on advanced chronic kidney disease vs progressive CKD. PTH sig elevated c/w advanced CKD at baseline. No sig renal recovery. No emergent indication for HD but close to needing to start chronic HD. Renal diet 2. AGMA/NAGMA 2/2 renal failure. Cont oral bicarb. 3. Secondary HPTH. iPTH sig elevated at 725. Start Calcitriol po daily. Fu 25OHD. 4. Normocytic anemia. Iron panel showed no iron def. Give Retacrit dose on 11/02, then q 2 wks while not on dialysis. 5. Hypertension. Cont current BP med regimen. 6. DM2. Mngt per primary team. Physician Review: Patient Assessed, Agree with Above Assessment and Plan
--- NOTE | 2021-11-01 14:01 | P.PN ---
Subjective Date of Service: 11/01/21 Chief Complaint: Acute renal failure Subjective: No C/O voiced Physical Examination - Vital Signs Temperature: 99.1 F Blood Pressure: 169/83 Pulse: 98 Respirations: 16 Pulse Ox (%): 98 Assessment And Plan Physician Review: Patient Assessed, Agree with Above Assessment and Plan Physician Review Additional Text: - Physical Exam General: Alert, In no apparent distress, Oriented x3 HEENT: Atraumatic, PERRLA, Mucous membr. moist/pink, EOMI, Sclerae nonicteric Neck: Supple, 2+ carotid pulse no bruit, No LAD, Without JVD or thyroid abnorma lity Respiratory: Clear to auscultation bilaterally, Normal air movement Cardiovascular: Regular rate/rhythm, Normal S1 S2, Edema (Nonpitting edema bi lateral lower extremities) Capillary refill: <2 Seconds Gastrointestinal: Normal bowel sounds, No tenderness Musculoskeletal: No tenderness Integumentary: No rashes Neurological: Normal speech, Normal strength at 5/5 x4 extr, Normal tone, Normal affect Lymphatics: No axilla or inguinal lymphadenopathy - Studies Laboratory Data (last 24 hrs) 10/30/21 19:48: WBC 8.4, Hgb 9.6 L, Hct 29.4 L, Plt Count 287 10/30/21 19:48: Sodium 145, Potassium 3.9, BUN 95 H, Creatinine 10.80 H*, Glucose 180 H, Magnesium 2.1 Assessment and Plan Acute worsening of CKD 4/ESRD Metabolic acidosis Diabetes type 2insulin-dependent Hypertension Hyperlipidemia HIV Plan: Follow plan for hemodialysis today Follow nephrology Continue blood pressure regimenstarted on amlodipine Continue diabetic regimen with Accu-Chek with insulin sliding scale follow with HIV clinic at discharge DVT PPX: Heparin Code status: Full Discharge Plan: Home Plan to discharge in: 48 Hours - Advance Directives Does patient have a Living Will: No Does patient have a Durable POA for Healthcare: No 11/01/21 14:00 11/01/21 14:01
[2021-11-01] MEDS ORDERED: AMLODIPINE 2.5 MG TAB PO ONE (16:00)
[2021-11-01 16:13] LABS: Arterial Blood Carboxyhemoglob 0.8 % (0-1.5); Blood Gas Oxyhemoglobin 93.3 % (94-97); Blood O2 Saturation 95.8 % (92-98.5)
[2021-11-01] MEDS: carvediloL 6.25 MG TAB PO SCH (20:52)
[2021-11-01 22:46] VITALS: BMI 31.6
[2021-11-02] MEDS ORDERED: EPOETIN ALFA-EPBX 4,000 UNIT/ML VIAL SQ SCH (06:00)
[2021-11-02 06:06] LABS: Bilirubin Total 0.2 mg/dL (0.2-1.0); Potassium 4.2 mmol/L (3.5-5.1); Protein, Total 5.4 g/dL (6.4-8.2)
[2021-11-02] MEDS: INSULIN -REGULAR HUMAN 50 UNIT/0.5 ML ML SQ SCH ×4 (07:30→20:43)
--- NOTE | 2021-11-02 09:56 | P.PN ---
Subjective Date of Service: 11/02/21 Chief Complaint: Acute renal failure Subjective: No new changes, Other (No c/o nausea/vomiting/SOB.) Physical Examination - Vital Signs Temperature: 98.6 F Blood Pressure: 146/81 Pulse: 92 Respirations: 16 Pulse Ox (%): 99 - Physical Exam General: In no apparent distress HEENT: Atraumatic, Normocephalic Neck: Supple Respiratory: Other (symmetric chest expansion) Cardiovascular: No rubs, No murmurs Gastrointestinal: Soft and benign Musculoskeletal: No clubbing Integumentary: No warmth Neurological: Normal speech, Normal tone Urinary: Other (No bladder distention) External genitalia: Deferred Rectal: Deferred Assessment And Plan - Plan 1. Acute kidney injury on advanced chronic kidney disease vs progressive CKD. PTH sig elevated c/w advanced CKD at baseline. No sig renal recovery. No emergent indication for HD but close to needing to start chronic HD. Renal diet. Discussed renal replacement therapy options & kidney transplant today. Dietitian consulted for renal + DM diet education. NPO after MN tonight in case he becomes agreeable to have TDC placed tomorrow & initiate chronic dialysis. 2. AGMA/NAGMA 2/2 renal failure. Cont oral bicarb. 3. Secondary HPTH. iPTH sig elevated at 725. Start Calcitriol po daily. Start D3 repletion as below. 4. Vit D deficiency. Start D3 5T IU po daily. Recheck serum 25OHD level in 3 mos. 5. Normocytic anemia. Iron panel showed no iron def. Give Retacrit dose on 11/02, then q 2 wks while not on dialysis. 6. Hypertension. Cont current BP med regimen. 7. DM2. Mngt per primary team. Physician Review: Patient Assessed, Agree with Above Assessment and Plan
[2021-11-02] MEDS ORDERED: SODIUM BICARB 325 MG TAB PO SCH (10:30)
[2021-11-02] MEDS ORDERED: WATER FOR INJ,STERILE 1,000 ML with NA BICARB 8.4% 150 MEQ IV SCH ×2 (11:00)
[2021-11-02] MEDS ORDERED: WATER FOR INJ STERILE IV SCH ×2 (11:00)
[2021-11-02] MEDS ORDERED: NA BICARB IV SCH ×2 (11:00)
[2021-11-02] MEDS: AMLODIPINE 5 MG TAB PO SCH (11:11)
[2021-11-02] MEDS: CALCITROL 0.25 MCG CAP PO SCH (11:11)
[2021-11-02] MEDS: EPOETIN ALFA 10,000 UNIT/ML VIAL SQ SCH (11:12)
[2021-11-02] MEDS: carvediloL 6.25 MG TAB PO SCH ×2 (11:12→21:38)
--- NOTE | 2021-11-02 11:26 | P.PN ---
Subjective Date of Service: 11/02/21 Chief Complaint: Acute renal failure Subjective: No new changes (No nausea or vomiting, making urine well) Physical Examination - Vital Signs Temperature: 98.6 F Blood Pressure: 146/81 Pulse: 92 Respirations: 16 Pulse Ox (%): 99 Assessment And Plan Physician Review: Patient Assessed, Agree with Above Assessment and Plan Physician Review Additional Text: - Physical Exam General: Alert, In no apparent distress, Oriented x3 HEENT: Atraumatic, PERRLA, Mucous membr. moist/pink, EOMI, Sclerae nonicteric Neck: Supple, 2+ carotid pulse no bruit, No LAD, Without JVD or thyroid abnormality Respiratory: Clear to auscultation bilaterally, Normal air movement Cardiovascular: Regular rate/rhythm, Normal S1 S2, Edema (Nonpitting edema bilateral lower extremities) Capillary refill: <2 Seconds Gastrointestinal: Normal bowel sounds, No tenderness Musculoskeletal: No tenderness Integumentary: No rashes Neurological: Normal speech, Normal strength at 5/5 x4 extr, Normal tone, Normal affect Lymphatics: No axilla or inguinal lymphadenopathy - Studies Laboratory Data (last 24 hrs) 10/30/21 19:48: WBC 8.4, Hgb 9.6 L, Hct 29.4 L, Plt Count 287 10/30/21 19:48: Sodium 145, Potassium 3.9, BUN 95 H, Creatinine 10.80 H*, Glucose 180 H, Magnesium 2.1 Assessment and Plan Acute worsening of CKD 4/ESRD Metabolic acidosis Diabetes type 2insulin-dependent Hypertension Hyperlipidemia HIV Secondary hyperparathyroidism Vitamin D D25 [place] deficiency Plan: -Still advanced CKD with marginal improvement, renal team deferring initiation of dialysis for now -Since patient is asymptomatic, continue to monitor - persistent metabolic acidosisincrease sodium bicarb to 1950 mg every 8 hours Continue bicarb drip Plan for discharge when serum bicarb above 20 H&H stable follow initiation of erythropoietin as outpatient We will start patient on cholecalciferol rather than calcitriol since 25- hydroxy vitamin D is low Continue blood pressure regimenstarted on amlodipine Continue diabetic regimen with Accu-Chek with insulin sliding scale follow with HIV clinic at discharge DVT PPX: Heparin Code status: Full Discharge Plan: Home Plan to discharge in: 48 Hours - Advance Directives Does patient have a Living Will: No Does patient have a Durable POA for Healthcare: No Time Spent Managing PTS Care (In Minutes): 35
[2021-11-02] MEDS: SODIUM BICARB 325 MG TAB PO SCH (17:54)
[2021-11-03] MEDS: SODIUM BICARB 325 MG TAB PO SCH ×3 (00:18→18:07)
[2021-11-03] MEDS: EPOETIN ALFA 10,000 UNIT/ML VIAL SQ SCH (06:09)
[2021-11-03 06:22] LABS: Phosphorus 5.2 mg/dL (2.5-4.9); Potassium 3.8 mmol/L (3.5-5.1)
[2021-11-03] MEDS: INSULIN -REGULAR HUMAN 50 UNIT/0.5 ML ML SQ SCH ×4 (07:30→21:00)
[2021-11-03] MEDS: AMLODIPINE 5 MG TAB PO SCH (08:57)
[2021-11-03] MEDS: VITAMIN D 5,000 UNIT CAP PO SCH (08:58)
[2021-11-03] MEDS: carvediloL 6.25 MG TAB PO SCH (08:58)
[2021-11-03] MEDS: CALCITROL 0.25 MCG CAP PO SCH (08:59)
--- NOTE | 2021-11-03 12:27 | P.PN ---
Subjective Date of Service: 11/03/21 Chief Complaint: Acute renal failure Subjective: No new changes (Patient is frustrated with being in the hospital and receiving conflicting decision from nephrology Awaiting decision on whether to initiate hemodialysis or not) Physical Examination - Vital Signs Temperature: 98.1 F Blood Pressure: 152/69 Pulse: 95 Respirations: 19 Pulse Ox (%): 96 Assessment And Plan Physician Review: Patient Assessed, Agree with Above Assessment and Plan Physician Review Additional Text: - Physical Exam General: Alert, In no apparent distress, Oriented x3 HEENT: Atraumatic, PERRLA, Mucous membr. moist/pink, EOMI, Sclerae nonicteric Neck: Supple, 2+ carotid pulse no bruit, No LAD, Without JVD or thyroid abnormality Respiratory: Clear to auscultation bilaterally, Normal air movement Cardiovascular: Regular rate/rhythm, Normal S1 S2, Edema (Nonpitting edema bilateral lower extremities) Capillary refill: <2 Seconds Gastrointestinal: Normal bowel sounds, No tenderness Musculoskeletal: No tenderness Integumentary: No rashes Neurological: Normal speech, Normal strength at 5/5 x4 extr, Normal tone, Normal affect Lymphatics: No axilla or inguinal lymphadenopathy - Studies Laboratory Data (last 24 hrs) 10/30/21 19:48: WBC 8.4, Hgb 9.6 L, Hct 29.4 L, Plt Count 287 10/30/21 19:48: Sodium 145, Potassium 3.9, BUN 95 H, Creatinine 10.80 H*, Glucose 180 H, Magnesium 2.1 Assessment and Plan Acute worsening of CKD 4/ESRD Metabolic acidosis Diabetes type 2insulin-dependent Hypertension Hyperlipidemia HIV Secondary hyperparathyroidism Vitamin D D25 [place] deficiency Plan: -Still fluctuating decision on dialysis initiation by nephrology 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 -Since marked azotemia, persistent metabolic acidosis with advanced CKD patient definitely needs decision and initiation of dialysis now although asymptomatic for uremia Metabolic acidosis improving, continue high-dose sodium bicarb tabs as well as bicarb drip H&H stable -follow initiation of erythropoietin as outpatient start patient on cholecalciferol rather than calcitriol since 25-hydroxy vitamin D is low Continue blood pressure regimenstarted on amlodipine Continue diabetic regimen with Accu-Chek with insulin sliding scale follow with HIV clinic at discharge DVT PPX: Heparin Code status: Full Discharge Plan: Home Plan to discharge in: 48 Hours - Advance Directives Does patient have a Living Will: No Does patient have a Durable POA for Healthcare: No 11/03/21 12:25 Time Spent Managing PTS Care (In Minutes): 35
[2021-11-03 12:30] LABS: Protime INR 1.05
[2021-11-03] MEDS: carvediloL 12.5 MG TAB PO SCH (21:32)
--- NOTE | 2021-11-03 22:41 | P.PN ---
Subjective Date of Service: 11/04/21 Chief Complaint: Acute renal failure Subjective: Other (No c/o N/V/SOB.) Physical Examination - Vital Signs Temperature: 98.3 F Blood Pressure: 170/79 Pulse: 97 Respirations: 18 Pulse Ox (%): 95 - Physical Exam General: In no apparent distress HEENT: Atraumatic, Normocephalic Neck: Supple, JVD not distended Respiratory: Other (symmetric chest expansion) Cardiovascular: No rubs, No murmurs Gastrointestinal: Soft and benign, No guarding Musculoskeletal: No clubbing Integumentary: No warmth Neurological: Normal speech, Normal tone Urinary: Other (no bladder distention) External genitalia: Deferred Rectal: Deferred Assessment And Plan - Plan 1. Acute kidney injury on advanced chronic kidney disease vs progressive CKD. PTH sig elevated c/w advanced CKD at baseline. No sig renal recovery. Renal diet. Discussed renal replacement therapy options & kidney transplant on 11/03. Dietitian consulted for renal + DM diet education. Pt now agreeable w/ initiating chronic dialysis. NPO after MN tonight. TDC placement tomorrow AM. Will start HD tomorrow after TDC placed. Case mngt consulted for outpt HD plac ement at [facility]. Pt also interested in transitioning to home HD or PD at some point. 2. AGMA/NAGMA 2/2 renal failure. Cont oral bicarb. 3. Secondary HPTH. iPTH sig elevated at 725. Started on Calcitriol po daily. Started on D3 repletion as below. 4. Vit D deficiency. Started on D3 5T IU po daily. Recheck serum 25OHD level in 3 mos. 5. Normocytic anemia. Iron panel showed no iron def. Received Retacrit dose on 11/02. 6. Hypertension. Cont current BP med regimen. 7. DM2. Mngt per primary team. Physician Review: Patient Assessed, Agree with Above Assessment and Plan
[2021-11-04] MEDS: SODIUM BICARB 325 MG TAB PO SCH ×3 (01:00→17:49)
[2021-11-04 03:58] LABS: Absolute Lymphocytes (CBC) 3.1 K/uL (0.7-4.9); Hematocrit 26.6 % (39.6-49.0); Lymphocytes % 34.1 % (15.3-44.8); MPV 6.5 fL (7.6-11.3); RBC Red Blood Cell Count 3.25 M/uL (4.33-5.43)
[2021-11-04 04:17] LABS: Albumin 2.1 g/dL (3.4-5.0); Magnesium 1.9 mg/dL (1.8-2.4); Phosphorus 5.6 mg/dL (2.5-4.9)
[2021-11-04] MEDS ORDERED: CEFAZOLIN 1 GM in NA CHLORIDE 0.9% 50 ML IVPB SCH (07:00)
[2021-11-04] MEDS: EPOETIN ALFA 10,000 UNIT/ML VIAL SQ SCH (07:13)
[2021-11-04] MEDS ORDERED: NS 0.9% VIAL 10 ML ONE (07:16)
[2021-11-04] MEDS ORDERED: LIDOCAINE 1% MPF 5 ML VIAL ONE (07:16)
[2021-11-04] MEDS ORDERED: NA CHLORIDE 0.9% 100 ML ONE (07:17)
[2021-11-04] MEDS ORDERED: HEPARIN 5000 UNIT/ML 1 ML VIAL ONE (07:17)
[2021-11-04] MEDS: INSULIN -REGULAR HUMAN 50 UNIT/0.5 ML ML SQ SCH ×4 (07:30→21:02)
[2021-11-04] MEDS ORDERED: NA CHLORIDE 0.9% 500 ML ONE (07:34)
[2021-11-04] MEDS ORDERED: CEFAZOLIN SODIUM 1 GM/VIAL ONE (07:45)
[2021-11-04] MEDS ORDERED: propofoL 200 MG/20 ML VIAL IV ONE (07:52)
[2021-11-04] MEDS ORDERED: FENTANYL CITR 100 MCG/2 ML ONE (07:53)
[2021-11-04] MEDS ORDERED: LIDOCAINE 2% MPF 5 ML VIAL ONE (07:53)
--- NOTE | 2021-11-04 07:57 | RAD REPORT ---
EXAM DESCRIPTION: RAD - Chest Pa And Lat (2 Views) - 11/04/2021 6:25 am CLINICAL HISTORY: rule out pulmo TB, needed for outpt HD placement COMPARISON: Chest Single View dated 10/30/2021; Chest Single View dated 09/25/2020; Chest Single View dated 06/01/2016; Chest Single View dated 05/24/2016 FINDINGS: Lines: None. Lungs: No evidence of edema or pneumonia. Pleural: No significant pleural effusions or pneumothorax. Cardiac: The heart size is within normal limits. Bones: No acute fractures. Other: IMPRESSION: No acute cardiopulmonary disease. No radiographic evidence of TB infection.
--- NOTE | 2021-11-04 08:06 | P.CNS ---
Date of Consult: 11/04/21 Reason for consult: Patient is dialysis History of present illness: 56-year-old gentleman with diabetes, hypertension and chronic renal disease presented to the emergency room with flareup of his kidney disease. Patient has agreed for dialysis and is going to need it for long-term. I was consulted to place a catheter in. Patient denies any sore throat, runny nose, cough, headaches, dizziness, chest pain fever or chills. Patient denies nausea, vomiting, diarrhea, constipation, blood per rectum, dysuria and hematuria. Review of systems: Otherwise unremarkable Past medical history: Hypertension, HIV, diabetes, chronic renal disease and now with end-stage renal disease Past surgical history: Bilateral eye surgery and toe amputation Allergies: None Social history: Patient does not smoke or drink alcohol Family history: Colon cancer in the mother Vital signs: Stable, afebrile Physical exam: Awake alert oriented x3 Head and neck exam: No masses Chest: Clear Heart: S1-S2 Abdomen: Soft Extremity: Neurovascular intact, nontender Neuro: Nonfocal Diagnostic data: Reviewedplatelets and INR are within normal limits Assessment: End-stage renal disease Plan/recommendation: Placement of tunneled dialysis catheter. Patient understands risk benefits alternatives and agrees to procedure. CC: Dr. Yu's office
--- NOTE | 2021-11-04 08:55 | P.OP ---
Date of Service: 11/04/21 Preop diagnosis: End-stage renal disease Postop diagnosis: Same Procedure performed: Right IJ Tesio catheter placement, interpretation of intraoperative fluoroscopy Surgeon: Apolinar Kim MD Dermatology Nurse Practitioner: None Estimated blood loss: Minimal Specimen: None Findings: Normal anatomy Anesthesia: General Complications: None Drains: None Fluids and blood products: Not applicable Disposition: Recovery room Operative note: Patient brought to the OR and placed in supine position. General anesthesia begun. Patient prepped and draped in the usual sterile fashion. Lidocaine 1% infiltrated locally. 18-gauge needle used to access the right IJ vein. Guidewire passed and position confirmed with fluoroscopy. Counterincision made on the right anterior chest. A tunneling device used to tunnel the catheter between the 2 wounds. Seldinger technique used. Tip of the catheter placed in the SVC and right atrial junction under fluoroscopy. Catheter flushed with heparin and packed with heparin with good blood flow.. 3- 0 chromic used to reapproximate subcutaneous tissue and closed skin. 3-0 nylon used to secure the tube to the chest wall. Sterile dressing applied. Patient awakened and taken to recovery room in good general condition. A chest x-ray has been ordered. CC: Dr. Yu's office
[2021-11-04] MEDS: AMLODIPINE 5 MG TAB PO SCH (09:00)
[2021-11-04] MEDS: carvediloL 12.5 MG TAB PO SCH ×2 (09:00→21:01)
[2021-11-04] MEDS: VITAMIN D 5,000 UNIT CAP PO SCH (09:00)
[2021-11-04] MEDS: CALCITROL 0.25 MCG CAP PO SCH (09:00)
[2021-11-04] MEDS ORDERED: BUPIVACAINE 0.5% PF 10 ML VIAL SQ ONE (09:03)
[2021-11-04] MEDS ORDERED: HYDROCODONE/APAP 5/325 MG TAB PO PRN (09:04)
--- NOTE | 2021-11-04 09:48 | RAD REPORT ---
EXAM DESCRIPTION: RAD - Fluoroscopy <1 Hour - 11/04/2021 9:36 am CLINICAL HISTORY: Device placement central venous catheter placement FINDINGS: A central venous catheter was placed with 1 limb into the superior vena cava and the other the right atrium. 3 fluoroscopic spot images are submitted. Fluoroscopy time .1 minutes The examination was performed by Dr. Kim
--- NOTE | 2021-11-04 09:49 | RAD REPORT ---
EXAM DESCRIPTION: Annie Single View11/04/2021 9:33 am CLINICAL HISTORY: Device placement/central venous catheter placement IMPRESSION: Central venous catheter with 1 tip in the SVC and the other the right atrium. No pneumothorax
--- NOTE | 2021-11-04 20:14 | P.PN ---
Subjective Date of Service: 11/04/21 Subjective: No new changes, No C/O voiced, Improving Review of Systems 10-point ROS is otherwise unremarkable Physical Examination - Vital Signs Temperature: 98.0 F Blood Pressure: 142/67 Pulse: 95 Respirations: 14 Pulse Ox (%): 96 - Physical Exam General: Alert, In no apparent distress, Oriented x3 Respiratory: Clear to auscultation bilaterally, Normal air movement Cardiovascular: Regular rate/rhythm, Normal S1 S2 Gastrointestinal: Normal bowel sounds, No tenderness Musculoskeletal: No tenderness Integumentary: No rashes Neurological: Normal speech, Normal tone, Normal affect Lymphatics: No axilla or inguinal lymphadenopathy - Studies Medications List Reviewed: Yes Assessment & Plan - Problems (Diagnosis) (1) Acute on chronic kidney failure Current Visit: No Status: Acute (2) History of HIV infection Current Visit: No Status: Acute (3) Status post amputation of lesser toe Current Visit: No Status: Acute (4) Diabetes type 2, controlled Current Visit: No Status: Chronic Qualifiers: Diabetes mellitus intermediate insulin use: without intermediate use Diabetes mellitus complication status: without complication Qualified Code(s): E11.9 - Type 2 diabetes mellitus without complications - Plan Plan: 1. Hemodialysis access catheter 2. Arrange for hemodialysis 3. Monitor lab 4. Continue with antivirals 5. GI DVT prophylaxis - Advance Directives Does patient have a Living Will: No Does patient have a Durable POA for Healthcare: No Physician Review: Patient Assessed, Agree with Above Assessment and Plan
--- NOTE | 2021-11-05 00:17 | PN ---
Date of Progress Note: 11/04/2021 Chief Complaint: Acute kidney injury, fluid overload. Subjective: The patient developed acute kidney injury on advanced chronic kidney. The patient has p rogressive renal failure. He was initiated on dialysis via dialysis catheter. Review of Systems: The patient denies fever or chills. Objective: Lungs: Diminished breath sounds at bases. Heart: S1, S2. Abdomen: Soft, benign. Extremities: Slight edema. Impression And Plan: 1.Acute kidney injury on chronic kidney disease. The patient has progressive chronic kidney disease , likely this represents new baseline. The patient has fluid overload. There is no evidence of cyrus l function recovery. The patient will require dialysis for volume control and metabolic clearance. The patient has advanced chronic kidney disease likely due to diabetic kidney disease. The patient m ay be a candidate for kidney biopsy when azotemia is well controlled. 2.Metabolic acidosis secondary to advanced renal failure. Continue bicarbonate tablets and advance treatment with dialysis and adjust electrolytes. 3.Secondary intact PTH. Continue calcitriol. Monitor vitamin D and start vitamin D3 according to l ab results. 4.Hypertension. Continue blood pressure medication regimen. Advance blood pressure medication according to blood pressure log. 5.Diabetes mellitus, per Primary Team. Continue insulin. EB/MODL Voice ID: [id number] Report ID: [id number]
[2021-11-05] MEDS: SODIUM BICARB 325 MG TAB PO SCH ×3 (01:27→18:06)
[2021-11-05 04:09] LABS: Albumin 2.1 g/dL (3.4-5.0); Phosphorus 4.5 mg/dL (2.5-4.9)
--- NOTE | 2021-11-05 04:48 | P.PN ---
Subjective Date of Service: 11/05/21 Chief Complaint: Acute renal failure Subjective: No new changes Physical Examination - Vital Signs Temperature: 98.2 F Blood Pressure: 119/65 Pulse: 90 Respirations: 19 Pulse Ox (%): 99 - Physical Exam General: In no apparent distress HEENT: Atraumatic, Normocephalic Neck: Supple, JVD not distended Respiratory: Other (Symmetric chest expansion) Cardiovascular: No rubs, No murmurs Gastrointestinal: Soft and benign, No guarding Musculoskeletal: No clubbing Integumentary: No warmth Neurological: Normal speech, Normal tone Urinary: Other (No bladder distention) External genitalia: Deferred Rectal: Deferred - Studies Medications List Reviewed: Yes Assessment And Plan - Plan 1. Acute kidney injury on advanced chronic kidney disease vs progressive CKD. PTH sig elevated c/w advanced CKD at baseline. No sig renal recovery. Renal diet. Discussed renal replacement therapy options & kidney transplant on 11/03. Renal + DM diet education received c/o dietitian. Pt started on chronic HD on 11/04. Received HD today. HD access: TDC. 2. AGMA/NAGMA 2/2 renal failure. Cont oral bicarb. 3. Secondary HPTH. iPTH sig elevated at 725. Started on Calcitriol po daily. Started on D3 repletion as below. 4. Vit D deficiency. Started on D3 5T IU po daily. Recheck serum 25OHD level in 3 mos. 5. Normocytic anemia. Iron panel showed no iron def. Received Retacrit dose on 11/02. 6. Hypertension. Cont current BP med regimen. 7. DM2. Mngt per primary team. 8. Dispo. Dc today. Next HD tomorrow at [facility]. Pt also interested in transitioning to home HD or PD at some point. Refer to [facility]. Physician Review: Patient Assessed, Agree with Above Assessment and Plan
[2021-11-05] MEDS: INSULIN -REGULAR HUMAN 50 UNIT/0.5 ML ML SQ SCH ×3 (07:30→16:23)
[2021-11-05] MEDS: AMLODIPINE 5 MG TAB PO SCH (09:00)
[2021-11-05] MEDS: carvediloL 12.5 MG TAB PO SCH (09:00)
[2021-11-05] MEDS: CALCITROL 0.25 MCG CAP PO SCH (09:03)
[2021-11-05] MEDS: VITAMIN D 5,000 UNIT CAP PO SCH (09:04)
[2021-11-05 12:04] VITALS: O2SAT 97
[2021-11-05 19:29] LABS: Hepatitis C Virus RNA (PCR)log <1.18 log IU/mL
[2021-11-08 11:24] LABS: HBsAG Nonreactive (Nonreactive)
[2021-11-12 09:10] LABS: Albumin, (SPE) 2.5 g/dL (3.8-4.8); Alpha-1-Globulins 0.3 g/dL (0.2-0.3); Alpha-2-Globulins 0.9 g/dL (0.5-0.9); Gamma Globulins 0.8 g/dL (0.8-1.7); INTERPRETATION REPORT; Vitamin D 1,25-Dihydroxy Total <8 pg/mL (18-72); Vitamin D,1,25-OH2, D2 <8 pg/mL
[2021-11-16 23:51] VITALS: BP 142/67; TEMP 98
--- NOTE | 2021-11-16 23:53 | P.DS ---
Discharge Date: 11/05/21 Disposition: ROUTINE DISCHARGE Discharge Condition: GOOD Reason for Admission: Acute renal failure - Problems (1) Acute on chronic kidney failure Status: Acute (2) History of HIV infection Status: Acute (3) Status post amputation of lesser toe Status: Acute (4) Diabetes type 2, controlled Status: Chronic Qualifiers: Diabetes mellitus termite technician insulin use: without termite technician use Diabetes mellitus complication status: without complication Qualified Code(s): E11.9 - Type 2 diabetes mellitus without complications Brief History of Present Illness: 56-year-old male with 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 Patient reports has been feeling very weak over the course of the last 1 week or so had a fall today got dizzy/lightheaded prior to falling to the ground. Patient was evaluated by EMS initially his pressure was 70/30 he was given IV fluids his blood pressure improved significantly he is evaluated in the ER his labs were significant for a creatinine of 10.8 his baseline is around 4 his GFR is decreased from around 15-5 currently bicarb on chemistry is 19 urinalysis is pending ED provider wishes to admit for acute renal failure Hospital Course: We were able to arrange for hemodialysis. Patient has a chair time. Patient is clinically doing well. Patient has done well during hospital stay. Clinically, patient is much better. At this time, patient is stable for discharge home. Patient will follow-up with consultants and PCP as an outpatient. Vital Signs/Physical Exam: Temp Pulse Resp BP Pulse Ox 98.0 F 95 H 14 142/67 H 96 11/16/21 23:51 11/16/21 23:51 11/16/21 23:51 11/16/21 23:51 11/16/21 23:51 General: Alert, In no apparent distress, Oriented x3 Laboratory Data at Discharge: WBC 9.1 K/uL (4.3-10.9) 11/04/21 03:28 Hgb 9.0 g/dL (13.6-17.9) L 11/04/21 03:28 Hct 26.6 % (39.6-49.0) L 11/04/21 03:28 Plt Count 286 K/uL (152-406) 11/04/21 03:28 PT 11.6 SECONDS (9.5-12.5) 11/03/21 12:04 INR 1.05 11/03/21 12:04 APTT 31.4 SECONDS (24.3-36.9) 11/03/21 12:04 Sodium 141 mmol/L (136-145) 11/05/21 03:11 Potassium 4.0 mmol/L (3.5-5.1) 11/05/21 03:11 BUN 68 mg/dL (7-18) H 11/05/21 03:11 Creatinine 8.20 mg/dL (0.55-1.3) H* D 11/05/21 03:11 Glucose 136 mg/dL (74-106) H 11/05/21 03:11 Uric Acid 6.7 mg/dL (3.5-7.2) 11/01/21 05:27 Phosphorus 4.5 mg/dL (2.5-4.9) 11/05/21 03:11 Magnesium 1.9 mg/dL (1.8-2.4) 11/04/21 03:28 Total Bilirubin 0.2 mg/dL (0.2-1.0) 11/02/21 05:15 AST 11 U/L (15-37) L 11/02/21 05:15 ALT 20 U/L (12-78) 11/02/21 05:15 Alkaline Phosphatase 53 U/L (45-117) 11/02/21 05:15 Home Medications: Atorvastatin Calcium 40 mg PO BEDTIME 10/31/21 Dulaglutide [Trulicity] 1.5 mg SQ EVERY 7TH DAY 10/31/21 Montelukast Sodium 10 mg PO DAILY 10/31/21 Calcitrol [Rocaltrol*] 0.25 mcg PO DAILY #30 cap 11/05/21 Hydrocodone 5/APAP 325 [[place] 5/325*] 1 tab PO Q6H PRN #30 tab 11/05/21 Na Bicarb Tab [Sodium Bicarb 325 MG Tab*] 1,950 mg PO Q8HR #120 tab 11/05/21 Midodrine HCl [Proamatine*] 5 mg PO TID 14 Days #42 tab 11/11/21 Darunavir/Cobicistat [Prezcobix 800 mg-150 mg Tablet] 1 each PO DAILY 11/15/21 Dolutegravir Sodium [Tivicay] 50 mg PO DAILY 11/15/21 New Medications: Hydrocodone 5/APAP 325 [[place] 5/325*] 1 tab PO Q6H PRN #30 tab PRN Reason: Pain Scale 5-7 (Moderate) Calcitrol [Rocaltrol*] 0.25 mcg PO DAILY #30 cap Na Bicarb Tab [Sodium Bicarb 325 MG Tab*] 1,950 mg PO Q8HR #120 tab Physician Discharge Instructions: -DC IV and DC home -Follow-up with PCP in 1 to 2 weeks -Follow-up with nephrology for hemodialysis -Please call Dr. Anderson at [phone] if any questions regarding hospital stay -Please call nursing station at [phone] if any nursing or medication questions -Return to the emergency room if symptoms worsen Diet: Renal Activity: Fall precautions Followup: Paz Gutierres MD [ACTIVE - CAN ADMIT] - (Follow up per scheduled Dialysis time) Time spent managing pt's care (in minutes): 35
== END 2021-11-05 18:55 | disposition home or self-care (01) | DRG 674 ==
LOC: ER 19:40 → ERHOLD 21:26 → 2ND 10-31 16:20
PROVIDERS: ADMIT Internal Medicine; ATTEND Internal Medicine
PROC: 02HV33Z Insertion of Infusion Device into Superior Vena Cava, Percutaneous Approach (ICD-10-PCS; 2021-11-04)
PROC: 5A1D70Z Performance of Urinary Filtration, Intermittent, Less than 6 Hours Per Day (ICD-10-PCS; 2021-11-04)
PROC: 0JH63XZ Insertion of Tunneled Vascular Access Device into Chest Subcutaneous Tissue and Fascia, Percutaneous Approach (ICD-10-PCS; principal; 2021-11-04 08:00)
PROC: 5A1D70Z Performance of Urinary Filtration, Intermittent, Less than 6 Hours Per Day (ICD-10-PCS; 2021-11-05)
DX: N17.9 Acute kidney failure, unspecified (principal); I12.0 Hypertensive chronic kidney disease with stage 5 chronic kidney disease or end stage renal disease; B20 Human immunodeficiency virus [HIV] disease; E87.2 Acidosis; N18.6 End stage renal disease; N25.81 Secondary hyperparathyroidism of renal origin; E11.22 Type 2 diabetes mellitus with diabetic chronic kidney disease; E11.21 Type 2 diabetes mellitus with diabetic nephropathy; Z79.899 Other long term (current) drug therapy; Z23 Encounter for immunization; E78.5 Hyperlipidemia, unspecified; E11.319 Type 2 diabetes mellitus with unspecified diabetic retinopathy without macular edema; E11.40 Type 2 diabetes mellitus with diabetic neuropathy, unspecified; D63.1 Anemia in chronic kidney disease; E55.9 Vitamin D deficiency, unspecified; Z89.429 Acquired absence of other toe(s), unspecified side; Z20.822 Contact with and (suspected) exposure to COVID-19
CPT/HCPCS: 36415; 71045; 71046; 74176; 76000; 76377; 76770; 80048; 80053; 80069; 81001; 81003; 81015; 82306; 82550; 82570; 82607; 82652; 82728; 82746; 82805; 82947; 83540; 83735; 83970; 84156; 84165; 84466; 84484; 84550; 85025; 85044; 85610; 85730; 86704; 86706; 86803; 87340; 87522; 90471; 90732; 90935; 93005; 99284; C1752; J0360; J0690; J1644; J1815; J2250; J2704; J3010; J7030; J7040; U0003

== ENCOUNTER 2021-11-09 11:32 | Inpatient (IN) | payer BC ==
--- OUTSIDE RECORDS SUMMARY | 2021-11-09 11:36 | XMS REPORT | Continuity of Care Document ---
:1965 Author Organization [facility] t Address [address] [place] [address] Care Team Providers Name Role Phone Sharpless [...] Policy Number Effective Date Expiration Date S ourjose [id number] 2019 00:00:00 [place] ([place] Problems Condition Condition [...] l ion ion Tinea Tinea Problem Active [facility] pedis Pedis 12-06 Family 00:00: Practic 00 e Hypoalbumi Hypoalbumi Problem Active [facility] illage nemia nemia 12-06 Family 00:00: Practic 00 e Hypocalcem Hypocalcem Problem Active V illage ia ia 12-06 Family 00:00: Practic 00 e Morbid Morbid Problem Active [facility] obesity Obesity 12-06 Family 00:00: Practic 00 e Anemia in Anemia in Problem Active Rodrigue armstrong chronic Chronic 12-06 Family kidney Kidney 00:00: Practic disease Disease 00 e Proteinuri Proteinuri Problem Active V illage a a 12-06 Family 00:00: Practic 00 e Amputated Amputated Problem Active Rodrigue armstrong toe Toe 12-06 Family 00:00: Practic 00 e Obesity Obesity Problem Active [facility] 504 Family 00:00: Practic 00 e Cellulitis Cellulitis Problem Active V illage of lower of Lower 504 Family limb Limb 00:00: Practic 00 e Neck pain Neck Pain Problem Active Rodrigue armstrong 5-04 Family 00:00: Practic 00 e COVID-19 Covid-19 Problem Active Nik ge 5-04 Family 00:00: Practic 00 e 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 type 2 Type 2 00:00: Practic diabetes Diabetes 00 e mellitus Mellitus Type 2 Type 2 Problem Active [facility] diabetes Diabetes 3-31 Family mellitus Mellitus 00:00: [...] Practic virus Virus 00 e infection Infection Foot Foot Disease Active 2015-[address] [facility] abscess, [facility], 08[facility] left [facility] 00 [place] Toe Toe Disease Active 2015-[address] osteomyeli osteomyeli 08-04 [facility] tis, left tis, left 00:00: Medi christian 00 Center Essential Essential Disease Active 2015-[address] hypertensi hypertensi 08-04 [facility] on on 00:00: Medical 00 Center HIV HIV Disease Active 2015-[address] [facility] disease disease 08-04 [facility] 00:[facility]: [facility] 00 [place] Sepsis Sepsis Disease Active 2015-[address] 08[facility]03 [facility] Medical 00 [place] 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 - [facility] without without St complicati complicati [facility] on, on, Medical without without Center long-term long-term current current use of use of insulin insulin Chronic Chronic Problem Active Common kidney kidney Spirit disease, disease, - [facility]I unspecifie unspecifie St d CKD d CKD [facility] stage stage [facility] Essential Essential Problem Active Com mon (primary) (primary) Spir it hypertensi hypertensi - CHI on on [facility] 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 Sp lluvia ciency ciency - CHI virus virus St infection) infection) [facility] Mixed Mixed Problem Active Common hyperlipid hyperlipid Sp lluvia emia emia - CHI [facility] Allergies, Adverse Reactions, Alerts Allergy Allergy Status Severity Reaction(s) Onset Inactive Treating Comm ents Source Name Type Date Date Clinician No Known DA Active U [facility] Drug 3-18 Allergie 00:00: s 00 No Known DA Active U [facility] Drug 3-17 Allergie 00:00: s 00 No Known DA Active U 2019-06 [facility] Drug 1-18 Allergie 00:00: s 00 No Known Drug Active [facility] Family History Family Member Diagnosis Comments Start Date Stop Date Source Natural father Diabetes [facility] Natural father Cancer [facility] Natural mother COPD [facility] Natural mother Diabetes [facility] Natural sister Diabetes [facility] Social History Social Habit Start Date Stop Date Quantity Comments Source History of Cigarette Smoker Methodis t tobacco use Hospital History SDOH Scientologist Alcohol Std Hospital Drinks History SDOH Scientologist Alcohol Binge Hospital History SDOH Scientologist Alcohol Comment Hospital Alcohol intake 2021-03-22 2021-03-22 Current drinker [facility] 00:00:00 00:00:00 of alcohol Hospital (finding) History SDOH 2020-05-28 2020-05-28 3 Scientologist Alcohol Frequency 00:00:00 00:00:00 Hospita l Tobacco use and 2020-03-26 2020-03-26 Smokeless tobacco [facility] exposure 00:00:00 00:00:00 non-user Hospital Sex Ass[birth year] At [birth year] Scientologist 00:00:00 00:00:00 Hospital Smoking Status Start Date Stop Date Source Never Smoker [facility] sabiha Occasional tobacco smoker 2020-03-26 00:00:00 [facility] Light tobacco smoker 2016-06-01 00:00:00 [facility] Medications Ordered Filled Start Stop Current Ordering Indication Dosage Frequency Signature Comments Components Source Medication Medication Date Date Medication? Clinician (SIG) Name Name delmis Yes Take by Met baljit traore (Tivicay) 7-[address] 10 mg 16:08: Hospita tablet [...] (two) l times a day with meals. delmis Yes Take by Met baljit traore (Tivicay) 7-[address] 10 mg 16:08: Hospita tablet 47 l furosemide Yes 20mg Q.5D Take 20 mg M ethodi (LASIX) 20 7-[address] mg tablet 16:08: (two) Hospita 47 times a l day. montelukast Yes 10mg QD Take 10 mg Methodi (SINGULAIR) 7-[address] 10 mg 16:08: nightly. Hospita tablet 47 l carvediloL Yes 12.5mg Q.5D Take 12.5 Methodi (COREG) 7-[address] 12.5 MG 16:08: mouth 2 Hospita tablet 47 (two) l times a day with meals. Niam[place]an Niaspan 2018- No [place] 1 tablet Common 09-23 Konstantin at bedtime Spirit 00:00: 00:00 - CHI 00 :00 [facility] Farxinm Farxiga 2018- No [place] 1 Comm on 09-23 Konstantin Spirit 00:00: 00:00 - CHI 00 :00 [facility] liraglutide Yes INJECT 1.2 Methodi (VICTOZA) 4-[address] 0.6 mg/0.1 00:00: SUBCUTANEO H ospita mL (18 mg/3 00 USLY EVERY l mL) pen DAY injector darunavir-c Yes Method i obicistat 4-08 st (PREZCOBIX) 00:00: Hospit a 800-150 00 l mg-mg tablet liraglutide Yes INJECT 1.2 Methodi (VICTOZA) 4-08 [...] 50 MG 14:45: daily. Medical tablet 45 [place] metFORMIN 2015-06 Yes 1000mg Take 1,000 CHI [...] Left Medical ointment 45 foot wound Karina r . glimepiride 2015-06 Yes 4mg Take [...] 10 mg 14:45: daily. Medical tablet 45 [place] Babita Jc Yes [place] inject Commo n Konstantin under the Spirit skin 1.2mg - CHI daily [facility] BD Pen BD Pen Yes [place] USE Common Needle Nelida Needle Nelida Konstantin DIRECTED Spirit U/F U/F - CHI [facility] Metoprolol Metoprolol Yes [place] TAKE 1 Common Tartrate Tartrate Konstantin TABLET BY S pirit MOUTH - CHI TWICE A [facility] Singulair Singulair Yes [place] 1 tablet Common Konstantin Spirit - CHI [facility] atorvastati atorvastati No atorvastat Village n 40 [...] Lien 14 Lien 14 Fam haylee Day Fairchance Day Fairchance Day Fairchance Practic USE DEVICE USE DEVICE USE DEVICE e DIRECTED DIRECTED DIRECTED FreeStyle FreeStyle No FreeStyle [place] Lien 2 Lien 2 Lien 2 Family Sensor kit Sensor kit Sensor kit Practic USE DAILY USE DAILY USE DAILY e DIRECTED DIRECTED BUT CHANGE BUT CHANGE DIRECTED EVERY 14 EVERY 14 BUT CHANGE DAYS DAYS EVERY 14 DAYS furosemide furosemide No furosemide [place] 40 mg 40 mg 40 mg Family [...] days. for 90 days. montelukast montelukast [facility] 10 mg t 10 mg Family tablet TAKE tablet TAKE tablet Practic 1 TABLET BY 1 TABLET BY TAKE 1 e MOUTH EVERY MOUTH EVERY TABLET BY DAY DAY MOUTH EVERY DAY NovoFine NovoFine No NovoFine Rodrigue patti Plus 32 Plus 32 Plus 32 Family gauge x gauge x gauge x Practi c 06/13" needle 06/13" needle 06/13" e U SC QD UTD U SC QD UTD needle U SC QD UTD Prezcobix Prezcobix No Prezcobix [facility] 800 mg-150 800 mg-150 800 mg-150 Family [...] Source Name Name influenza, influenza, 2021-05-08 Completed [facility] injectable, injectable, 00:00:00 Practice quadrivalent quadrivalent MODERNA COVID-19 2020-10-12 Completed Methodis t MRNA VACCINATION 00:00:00 Hospital MODERNA COVID-19 2020-10-12 Completed Methodis t MRNA VACCINATION 00:00:00 Hospital COVID-19, mRNA, COVID-19, mRNA, 2020-10-11 Completed [facility] Family LNP-S, PF, 100 LNP-S, PF, 100 00:00:00 Practi ce mcg/0.5 mL dose mcg/0.5 mL dose (Moderna) (Moderna) Non-US Vaccine Non-US Vaccine 2020-09-12 Completed [facility] COVID-19 PS COVID-19 PS 00:00:00 Practice (EpiVacCorona) (EpiVacCorona) Influenza, 2018-06-08 Completed Scientologist Quadrivalent 00:00:00 Hospital Influenza, 2018-06-08 Completed Scientologist Quadrivalent 00:00:00 Hospital influenza, influenza, 2018-06-08 Completed [facility] injectable, injectable, 00:00:00 Practice quadrivalent quadrivalent Vital Signs Vital Name Observation Time Observation Value Comments Source BP Diastolic 2021-09-03 00:00:00 81 mm[Hg] [facility] Practice Height 2021-09-03 00:00:00 71 [in_i] [facility] Practice BMI (Body Mass 2021-09-03 00:00:00 33.3 kg/m2 [facility] Index) Practice BP Systolic 2021-09-03 00:00:00 151 mm[Hg] [facility] Practice Body Weight 2021-09-03 00:00:00 239 [lb_av] [facility] Height 2021-05-30 00:00:00 71 [in_i] [facility] Practice BMI (Body Mass 2021-05-30 00:00:00 35 kg/m2 [facility] Index) Practice Body Weight 2021-05-30 00:00:00 250.6 [lb_av] [facility] Practice BP Diastolic 2021-03-13 00:00:00 89 mm[Hg] [facility] Practice Height 2021-03-13 00:00:00 71 [in_i] [facility] Practice BMI (Body Mass 2021-03-13 00:00:00 34 [...] Family Practice Height 2020-09-05 00:00:00 71 [in_i] [facility] BMI (Body Mass 2020-09-05 00:00:00 35 kg/m2 [facility] Index) Practice BP Systolic 2020-09-05 00:00:00 163 mm[Hg] [facility] Body Weight 2020-09-05 00:00:00 251 [lb_av] [facility] Weight Dosing 2021-06-25 12:42:11 118 kg Height/Length 2021-06-25 12:42:11 180.3 cm Measured Height/Length 2021-06-25 11:56:08 180.3 cm Measured Weight Dosing 2021-06-25 11:56:08 118 kg Height/Length 2020-01-24 12:24:25 Measured Weight Dosing 2020-01-24 12:24:25 Systolic blood 2020-12-13 13:45:00 139 mm[Hg] [facility] pressure Diastolic blood 2020-12-13 13:45:00 81 mm[Hg] [facility] pressure Heart rate 2020-12-13 13:45:00 95 /min [facility] Body temperature 2020-12-13 13:45:00 37.28 Dawn [facility] Respiratory rate 2020-12-13 13:45:00 20 /min [facility] Oxygen saturation in 2020-12-13 13:45:00 98 /min [facility] Arterial blood by Pulse oximetry Body height 2020-12-13 13:04:00 180.3 cm [facility] Body weight 2020-12-13 13:04:00 108.047 kg [facility] BMI 2020-12-13 13:04:00 33.22 kg/m2 [facility] 02 Sat by Pulse 2020-09-06 16:51:46 98 /min Oximetry Body Mass Index 2020-09-06 16:51:46 34.9 Height 2020-09-06 16:51:46 180.34\\S\\71 Pulse Rate 2020-09-06 16:51:46 98 /min Respiratory Rate 2020-09-06 16:51:46 16 /min Temperature 2020-09-06 16:51:46 36.2\\S\\97.2 Weight 2020-09-06 16:51:46 337285.092\\S\\4000 02 Sat by Pulse 2020-08-27 18:48:23 98 /min Oximetry Body Mass Index 2020-08-27 18:48:23 34.9 Height 2020-08-27 18:48:23 180.34\\S\\71 Pulse Rate 2020-08-27 18:48:23 98 /min Respiratory Rate 2020-08-27 18:48:23 16 /min Temperature 2020-08-27 18:48:23 36.2\\S\\97.2 Weight 2020-08-27 18:48:23 036058.092\\S\\4000 Body Mass Index 2020-08-23 22:20:59 34.9 Height 2020-08-23 22:20:59 180.34\\S\\71 Pulse Rate 2020-08-23 22:20:59 98 /min Respiratory Rate 2020-08-23 22:20:59 16 /min Temperature 2020-08-23 22:20:59 36.2\\S\\97.2 Weight 2020-08-23 22:20:59 479710.092\\S\\4000 02 Sat by Pulse 2020-08-23 22:20:59 98 /min Oximetry 02 Sat by Pulse 2020-08-23 15:54:12 98 /min Oximetry Body Mass Index 2020-08-23 15:54:12 34.9 Height 2020-08-23 15:54:12 180.34\\S\\71 Pulse Rate 2020-08-23 15:54:12 98 /min Respiratory Rate 2020-08-23 15:54:12 16 /min Temperature 2020-08-23 15:54:12 36.2\\S\\97.2 Weight 2020-08-23 15:54:12 099061.092\\S\\4000 02 Sat by Pulse 2020-08-23 13:01:04 99 /min Oximetry Body Mass Index 2020-08-23 13:01:04 34.9 Height 2020-08-23 13:01:04 180.34\\S\\71 Pulse Rate 2020-08-23 13:01:04 91 /min Respiratory Rate 2020-08-23 13:01:04 18 /min Temperature 2020-08-23 13:01:04 36.8\\S\\98.2 Weight 2020-08-23 13:01:04 411914.092\\S\\4000 WEIGHT 2020-08-23 12:59:00 113.539871 kg HEIGHT 2020-08-23 12:59:00 180.34 cm Procedures Procedure Date / Time Performing Clinician Source Performed YAG CAPSULOTOMY - OD - 2021-03-22 15:51:45 [facility] RIGHT EYE Sinus Surgery Procedure 2021-03-08 00:00:00 Vill age [facility] Practice PHACOEMULSIFICATION, 2020-12-13 13:09:00 [facility] WITH IOL IMPLANTATION POC GLUCOSE 2020-12-13 12:52:00 [facility] Do [facility] CORNEAL TOPOGRAPHY ATLAS 2020-11-12 15:46:10 [facility] - OU - BOTH EYES IOL BIOMETRY - OU - BOTH 2020-11-12 15:46:06 [facility] EYES Cataract Surgery [facility] Plan of Care Planned Activity Planned Date Details Comments Source Diagnostic Test 2021-09-03 glucose, [facility] Fami ly Pending 00:00:00 fingerstick, blood Practice [code = glucose, fingerstick, blood] Diagnostic Test 2021-09-03 hemoglobin A1C, [facility] F amily Pending 00:00:00 fingerstick [code = Practice hemoglobin A1C, fingerstick] Future Scheduled Test 2021-07-09 COLONOSCOPY [facility] 14:18:19 SCREENING [code = COLONOSCOPY SCREENING] Future Scheduled Test 2021-07-09 SHINGLES VACCINES [facility] 14:18:19 (#1) [code = SHINGLES VACCINES (#1)] Future Scheduled Test 2021-07-09 COVID-19 VACCINE ([address] [place] [address] 14:18:19 - Moderna risk 4-dose series) [code = COVID-19 VACCINE (2 - Moderna risk 4-dose series)] Future Scheduled Test 2021-07-09 INFLUENZA VACCINE [facility] 14:18:19 [code = INFLUENZA VACCINE] Future Scheduled Test 2021-07-09 DIABETES: RETINAL [facility] 14:18:19 EYE EXAM [code = DIABETES: RETINAL EYE EXAM] Future Scheduled Test 2021-07-09 DIABETIC FOOT EXAM [facility] 14:18:19 [code = DIABETIC FOOT EXAM] Future Scheduled Test 2021-07-09 Hepatitis C [facility] 14:18:19 screening (procedure) [code = 986336695] Future Scheduled Test 2021-07-09 COLONOSCOPY [facility] 14:18:19 SCREENING [code = COLONOSCOPY SCREENING] Future Scheduled Test 2021-07-09 SHINGLES VACCINES [facility] 14:18:19 (#1) [code = SHINGLES VACCINES (#1)] Future Scheduled Test 2021-07-09 COVID-19 VACCINE ([address] [place] [address] 14:18:19 - Moderna risk 4-dose series) [code = COVID-19 VACCINE (2 - Moderna risk 4-dose series)] Future Scheduled Test 2021-07-09 INFLUENZA VACCINE [facility] 14:18:19 [code = INFLUENZA VACCINE] Future Scheduled Test 2021-07-09 DIABETES: RETINAL [facility] 14:18:19 EYE EXAM [code = DIABETES: RETINAL EYE EXAM] Future Scheduled Test 2021-07-09 DIABETIC FOOT EXAM [facility] 14:18:19 [code = DIABETIC FOOT EXAM] Future Scheduled Test 2021-07-09 Hepatitis C [facility] 14:18:19 screening (procedure) [code = [id number]] Future Appointment 2022-03-06 Salbador RoblesAnna diane [facility] 10:00:00 [id number], [place] [address] Encounters Start End Encounter Admission Attending Care Care Encounter Source Date/Time Date/Time Type Type Clinicians Facility Department ID 2021-09-09 2021-09-09 Outpatient Daniel_T VFP VFP [id number] [address] 02:52:00 02:52:00 [id number] Family Practic e 2021-09-03 2021-09-03 Outpatient Daniel_T VFP VFP [id number] [address] [place] [address] 03:18:00 03:18:00 [id number] Family Practic e 2021-09-03 2021-09-03 Salbador VFP [place] - [id number] V illage 00:00:00 00:00:00 [facility] Family RoblesAnatoly - Leonid nielson MD: [id number] VM_HOU_Shad e [address] [address] [place] [address], [place] [address] , Ph. 2021-08-14 2021-08-14 Outpatient Daniel_T VFP VFP [id number] [address] 10:35:00 10:35:00 [id number] Family Practic e 2021-08-14 2021-08-14 Outpatient Daniel_T VFP VFP [id number] [address] 10:35:00 10:35:00 [id number] Family Practic e 2021-06-14 2021-06-14 Outpatient Daniel_T VFP VFP [id number] [address] 08:21:00 08:21:00 [id number] Family Practic e 2021-05-30 2021-05-30 Outpatient Daniel_T VFP VFP [id number] [address] [place] [address] 12:07:00 12:07:00 [id number] Family Practic e 2021-05-30 2021-05-30 Salbador VFP [place] - [id number] V illage 00:00:00 00:00:00 [facility] Family RoblesAnatoly MD: [id number] VM_MARISOL_Parthavaughn e [address] [place] [facility], [address], [place] [address] , Ph. 2021-03-22 2021-03-22 Procedure Nova, 1.2.840.1 [id number] Methodi 09:57:39 10:52:50 [place] [address].[address] [place] 3.430.2.7 Hospit a .3.591385 l .8 2021-03-22 2021-03-22 Travel 1.2.840.1 1.2.881.411 [id number] [facility]i 00:00:00 00:00:[address] 3.430.2.7 0.2.7.3.698 Ho spita .3.537910 084.8 l .8 2021-03-15 2021-03-15 Outpatient Daniel_T VFP VFP [id number] [address] [place] [address] 06:40:00 06:40:00 [id number] Family Practic e 2021-03-13 2021-03-13 Outpatient Daniel_T VFP VFP [id number] [address] [place] [address] 11:00:00 11:00:00 [id number] Family Practic e 2021-03-13 2021-03-13 Salbador VFP [place] - [id number] V illage 00:00:00 00:00:00 [facility] Family RoblesAnatoly MD: [id number] MITA_MARISOL_Tu e [address] [place] [facility] [facility], [address] [address] , Ph. 2021-01-25 2021-01-25 Telephone Nova, 1.2.840.1 [id number] Method[facility] 00:00:00 00:00:[address] [place] 3.430.2.7 Hospit a .3.124812 l .8 2021-01-18 2021-01-18 Office Nova, 1.2.840.1 [id number] [facility]i 09:20:01 10:06:[place] [address] [place] 3.430.2.7 Hospit a .3.886729 l .8 2021-01-18 2021-01-18 Outpatient Daniel_T VFP VFP [id number] 320 [facility] 03:12:00 03:12:00 [id number] Family Mehran contreras 2021-01-18 2021-01-18 Travel 1.2.840.1 1.2.681.632 [id number] Methodi 00:00:00 00:00:[address] 3.430.2.7 0.2.7.3.698 spita .3.818244 084.8 l .8 2020-12-21 2020-12-21 [place] Nova, 1.2.840.1 [id number] 2100 [id number] [facility]i 00:00:00 00:00:[address] [place] 3.430.2.7 Hospit a .3.346114 l .8 2020-12-15 2020-12-15 Outpatient Daniel_T VFP VFP [id number] 320 [facility] 02:24:00 02:24:00 [id number] Family Mehran contreras 2020-12-14 2020-12-14 Office Nova, 1.2.840.1 [id number] Methodi 08:47:49 09:15:[place] [address] [place] 3.430.2.7 Hospit a .3.206514 l .8 2020-12-13 2020-12-13 Hospital Nova, 1.2.840.1 [id number] Methodi 06:39:00 09:16:00 [place] [address] [place] 3.430.2.7 Hospit a .3.816710 l .8 2020-12-13 2020-12-13 Surgery Nova, 1.2.840.1 [id number] Methodi 08:15:00 09:00:[address] [place] 3.430.2.7 Hospit a .3.433316 l .8 2020-12-13 2020-12-13 Anesthesia Vargas, 1.2.840.1 [id number] Methodi 08:09:00 08:42:00 Event Derek 90590.1.[address] [place] 3.430.2.7 Hospi ta .3.396093 l .8 2020-12-13 2020-12-13 Travel 1.2.840.1 1.2.154.087 [id number] Methodi 00:00:00 00:00:[address] 3.430.2.7 0.2.7.3.698 Ho spita .3.247498 084.8 l .8 2020-12-12 2020-12-12 Telephone Nova, 1.2.840.1 [id number] Methodi 00:00:00 00:00:[address] [place] 3.430.2.7 Hospit a .3.298408 l .8 2020-12-08 2020-12-08 Outpatient Daniel_T VFP VFP [id number] [address] [place] [address] 10:38:00 10:38:00 [id number] Family Practic e 2020-12-06 2020-12-06 Outpatient Daniel_T VFP VFP [id number] [address] [place] [address] 05:49:00 05:49:00 [id number] Family Practic e 2020-12-06 2020-12-06 Salbador VFP [place] - [id number] V illage 00:00:00 00:00:00 [facility] Family RoblesAnatoly - Practi nisreen NICOLE: [id number] MITA_MARISOL_Tu e [place] [address] [place] [facility] [place] [facility], [address], [place] [address] , Ph. 2020-11-12 2020-11-12 Office Nova, 1.2.840.1 [id number] Methodi 09:50:22 11:30:10 [place] [address] [place] 3.430.2.7 Hospit a .3.680224 l .8 2020-11-12 2020-11-12 Travel 1.2.840.1 1.2.503.112 [id number] Methodi 00:00:00 00:00:[address] 3.430.2.7 0.2.7.3.698 Ho spita .3.290045 084.8 l .8 2020-10-30 2020-10-30 Travel 1.2.840.1 1.2.757.722 [id number] Methodi 00:00:00 00:00:[address] 3.430.2.7 0.2.7.3.698 Ho spita .3.515880 084.8 l .8 2020-10-29 2020-10-29 Telephone Nova, 1.2.840.1 [id number] [id number] Methodi 00:00:00 00:00:[address] [place] 3.430.2.7 Hospit a .3.768225 l .8 2020-10-10 2020-10-10 Outpatient Travis_T VFP VFP [id number] [address] [place] [address] 09:31:00 09:31:00 [id number] Family Practic e 2020-10-09 2020-10-09 Outpatient Travis_T VFP VFP [id number] [address] [place] [address] 05:34:00 05:34:00 [id number] Family Practic e 2020-10-09 2020-10-09 Salbador VFP [place] - [id number] V illage 00:00:00 00:00:00 [facility] Family TravisAnatoly - Prackaylee nielson MD: [id number] MITA_Sky contreras [address] [place] [address], [place] [address] , Ph. 2020-09-08 2020-09-08 Outpatient Daniel_T VFP VFP [id number] 20 [facility] 07:26:00 07:26:00 [id number] Family Practic e 2020-09-05 2020-09-05 Outpatient Daniel_T VFP VFP [id number] [address] [place] [address] 02:22:00 02:22:00 [id number] Family Practic e 2020-09-05 2020-09-05 Salbador VFP [place] - [id number] V illage 00:00:00 00:00:00 [facility] Family RoblesAnatoly - Leonid nielson MD: [id number] VM_HOU_Shad e [address] [place] [address], [place] [address] , Ph. 2020-08-30 2020-08-30 Outpatient Daniel_T VFP VFP [id number] [facility] 04:05:00 04:05:00 [id number] Family Practic e 2020-05-28 2020-05-28 Outpatient [facility] [id number] 040 [place] 00:00:00 00:00:[address] DO [address] 2020-05-17 2020-05-17 Outpatient [facility] [id number] 409 [place] 00:00:00 00:00:[address] DO [address] 2020-04-19 2020-04-19 Outpatient [facility] [id number] 340 [place] 00:00:00 00:00:[address] 2020-03-26 2020-03-26 Outpatient [facility] [id number] 604 [place] 00:00:00 00:00:00 DO [address] 2020-01-24 2020-01-24 Outpatient 3 [facility] [id number] St. 10:30:00 23:59:00 Edmund Gamble [facility] 2020-01-24 2020-01-24 Outpatient 3 Edmund Gamble [facility] [id number] St. 10:30:00 10:30:00 Edmund Gamble 0818 [facility] 2018-10-18 2018-10-18 Outpatient [facility] [id number] Common 13:47:00 13:47:[address] [facility] 2018-09-23 2018-09-23 Outpatient [facility] [id number] Common 08:45:00 08:45:[address] [facility] 2018-08-04 2018-08-04 [id number] Common 08:30:00 08:30:[address] [facility] 2018-03-11 2018-03-11 [facility] [place] [id number] Common 10:51:00 10:51:[address] [facility] [address] [facility] Results Test Description Test Time Test Comments Results Result Comments Source HEPATITIS B SURFACE ANTIBODY 2021-11-04 17:11:26 Test Item Value Reference Range Interpretation Comme nts HEPATITIS B SURFACE ANTIBODY (BEAKER) (test code = 647) 1140.4 mIU/ mL <8.0 H [employer] Delivery Driver ID - RMOperator ID - RMOperator ID - RMOperator ID - RMOperator ID - RMOperator ID - RMHEPATITIS B CORE ANTIBODY, [id number] 16:31:12 Test Item Value Reference Range Interpretation Comments HEPATITIS B CORE TOTAL ANTIBODY Reactive Nonreactive A (BEAKER) (test code = 497) [employer] Delivery Driver ID - RMOperator ID - RMOperator ID - RMHEPATITIS B SURFACE ANTIGEN 2021-11-04 15:04:06 Test Item Value Reference Range Interpretation Comments HEPATITIS B SURFACE ANTIGEN (2) Nonreactive Nonreactive (BEAKER) (test code = 2585) Specimen is considered negative for HBsAg.HEPATITIS B SURFACE [id number] 21:39:47 Test Item Value Reference Range Interpretation Comments HEPATITIS B SURFACE ANTIBODY 1187.5 mIU/mL <8.0 H (BEAKER) (test code = 647) [employer] Delivery Driver ID - BSOperator ID - BSHEPATITIS B CORE ANTIBODY, [id number] 21:39:42 Test Item Value Reference Range Interpretation Comments HEPATITIS B CORE TOTAL ANTIBODY Reactive Nonreactive A (BEAKER) (test code = 497) [employer] Delivery Driver ID - BSOperator ID - BSOperator ID - BSHEPATITIS B SURFACE ANTIGEN 2021-11-01 20:57:29 Test Item Value Reference Range Interpretation Comments HEPATITIS B SURFACE ANTIGEN (2) Nonreactive Nonreactive (BEAKER) (test code = 2585) Specimen is considered negative for HBsAg.Hemoglobin A1c measurement device [id number] 13:22:43 Test Item Value Reference Range Interpretation Comments Hemoglobin A1C Fingerstick: (test code 5.4 = Hemoglobin A1C Fingerstick:) [facility] [Mass/volume] in Capillary [id number] 13:19:40 Test Item Value Reference Range Interpretation Comments Blood Glucose: mg/dl (test code = Blood 100 Glucose: mg/dl) [facility] HealthHemoglobin A1c measurement device [id number] 10:24:11 Test Item Value Reference Range Interpretation Comments Hemoglobin A1C Fingerstick: (test code 6.4 = Hemoglobin A1C Fingerstick:) [facility]ucose [Mass/volume] in Capillary [id number] 10:23:38 Test Item Value Reference Range Interpretation Comments Blood Glucose: mg/dl (test code = Blood 180 Glucose: mg/dl) [facility] [id number] 12:53:31 Test Item Value Reference Range Interpretation Comments POC glucose (test code 112 mg/dL 65-99 H Opera tor Name: = 34587-0) [employer] Device ID: [id number] able: [facility] Notified program management specialist Interpretation Abnormal (test code = 03192-6) [facility] [id number] 12:53:31 Test Item Value Reference Range Interpretation Comments POC glucose (test code 112 mg/dL 65-99 H Opera tor Name: = 24227-1) [employer] Device ID: [id number] able: [facility] Notified program management specialist Interpretation Abnormal (test code = 81396-2) [facility] [id number] 11:58:15 Test Item Value Reference Range Interpretation Comments Glucose POC (test 121 mg/dL 70-115 H If you con speech lang path your code = Glucose POC) patient critically ill, the Marshal-Accu Check Infrom II meter should not be used for Glucose determination. Draw a venous Glucose and send to the main Lab for analysis. [employer] CULTURE + [id number] 17:59:00 Test Item Value Reference Range Interpretation Comments CULTURE (BEAKER) (test No acid-fast bacilli code = 1095) isolated in 42 days AFB SMEAR (BEAKER) No acid fast bacilli (test code = 994) seen [employer] CULTURE + [id number] 17:58:00 Test Item Value Reference Range Interpretation Comments CULTURE (BEAKER) (test No acid-fast bacilli code = 1095) isolated in 42 days AFB SMEAR (BEAKER) No acid fast bacilli (test code = 994) seen [employer] CULTURE + [id number] 17:58:00 Test Item Value Reference Range Interpretation Comments CULTURE (BEAKER) (test No acid-fast bacilli code = 1095) isolated in 42 days AFB SMEAR (BEAKER) No acid fast bacilli (test code = 994) seen
[2021-11-09 12:20] LABS: Absolute Lymphocytes (CBC) 2.4 K/uL (0.7-4.9); Hematocrit 35.4 % (39.6-49.0); Lymphocytes % 28.6 % (15.3-44.8); MPV 6.8 fL (7.6-11.3); RBC Red Blood Cell Count 4.17 M/uL (4.33-5.43)
[2021-11-09 12:31] LABS: Protime INR 1.12
[2021-11-09] MEDS ORDERED: NA CHLORIDE 0.9% 1,000 ML ONE (12:32)
[2021-11-09 12:49] LABS: Albumin 2.6 g/dL (3.4-5.0); Bilirubin Direct 0.2 mg/dL (0-0.2); Bilirubin Total 0.4 mg/dL (0.2-1.0); Troponin High Sensitivity 16.5 pg/mL (<58.9)
[2021-11-09 13:01] LABS: Potassium 3.7 mmol/L (3.5-5.1)
--- NOTE | 2021-11-09 13:20 | RAD REPORT ---
EXAM DESCRIPTION: Annie Single View11/09/2021 12:03 pm CLINICAL HISTORY: Cough COMPARISON: October 2021 FINDINGS: The lungs appear clear of acute infiltrate. The heart is normal size. Central venous cath eters is tip in superior cava IMPRESSION: No acute abnormalities displayed
--- NOTE | 2021-11-09 13:44 | RAD REPORT ---
EXAM DESCRIPTION: CT - Head C Spine Mpr Wo Con - 11/09/2021 1:29 pm CLINICAL HISTORY: Head and neck injury status post fall. Head and neck pain COMPARISON: None. TECHNIQUE: Computed axial tomography of the head and cervical spine was obtained. Sagittal and coronal reconstruction was performed. All CT scans are performed using dose optimization technique as appropriate and may include automated exposure control or mA/KV adjustment according to patient size. FINDINGS: An intracranial bleed is not seen. The ventricles are normal in caliber. An extra-axial fl uid collection is not noted. Almost complete opacification right maxillary sinus probably chronic. Mild to moderate opacification frontal, left maxillary and ethmoid. This likely indicates chronic sinusitis A cervical fracture is not visualized. No dislocation is noted. IMPRESSION: No acute intracranial abnormality is seen. A cervical fracture is not visualized. If the patient continues to have symptoms to suggest intracra nial /spinal cord pathology then MRI would be recommended
--- NOTE | 2021-11-09 14:12 | ER ---
Nurse's Notes [facility] Name: Chalo Harry Age: 56 yrs Sex: Male : 1965 Arrival Date: 11/09/2021 Time: 11:34 Bed 7 Private MD: Diagnosis: Fall on same level, unspecified;Dizziness and giddiness;End stage renal disease-on HD;Anemia, unspecified;Orthostatic hypotension;Chronic sinusitis, unspecified Presentation: 11/09 11:45 Chief complaint: Patient states: Low BP, fatigue, body aches, neck pain after dialysis ll1 today. Just got out of hospital . Coronavirus screen: Vaccine status: Patient reports receiving the 2nd dose of the covid vaccine. Client denies travel out of the [place] in the last 14 days. At this time, the client does not indicate any symptoms associated with coronavirus-19. Ebola Screen: Patient denies travel to an Ebola-affected area in the 21 days before illness onset. Initial Sepsis Screen: Does the patient meet any 2 criteria? HR > 90 bpm. No. Patient's initial sepsis screen is negative. Does the patient have a suspected source of infection? No. Patient's initial sepsis screen is negative. Risk Assessment: Do you want to hurt yourself or someone else? Patient reports no desire to harm self or others. Onset of symptoms was November 09, 2021. 11:45 Method Of Arrival: Wheelchair ll1 11:45 Acuity: KESHA 3 ll1 Triage Assessment: 11:47 General: Appears ill, Behavior is cooperative, appropriate for age. Pain: Complains of ll1 pain in neck Pain currently is 5 out of 10 on a pain scale. Quality of pain is described as aching. Neuro: Reports dizziness, weakness. Cardiovascular: Reports fatigue, lightheadedness. Musculoskeletal: Reports pain in body aches. Historical: - Allergies: 11:46 No Known Allergies; ll1 - PMHx: 11:46 allergies; Diabetes - NIDDM; High Cholesterol; Hypertension; AIDS; dialysis; ll1 - PSHx: 11:46 R chest dialysis access; ll1 - Immunization history:: Client reports receiving the 2nd dose of the Covid vaccine. - Social history:: Smoking status: Patient reports the use of cigarette tobacco products, denies chronic smoking, but will smoke occasionally. - Family history:: not pertinent. Screenin:21 Abuse screen: Denies threats or abuse. Nutritional screening: No deficits noted. vg1 Tuberculosis screening: No symptoms or risk factors identified. Fall Risk No fall in past 12 months (0 pts). No secondary diagnosis (0 pts). IV access (20 points). Ambulatory Aid- None/Bed Rest/Nurse Assist (0 pts). Gait- Normal/Bed Rest/Wheelchair (0 pts) Mental Status- Oriented to own ability (0 pts). Total Padron Fall Scale indicates No Risk (0-24 pts). Assessment: 12:21 General: Appears uncomfortable, Behavior is calm, cooperative. Pain: Complains of pain vg1 in head and neck Pain currently is 5 out of 10 on a pain scale. Neuro: Solo Agitation-Sedation Scale (RASS): 0 - Alert and Calm Level of Consciousness is awake, alert, obeys commands, Oriented to person, place, time, situation, Reports dizziness upon standing. Cardiovascular: Denies chest pain, nausea, shortness of breath, Patient's skin is warm and dry. Respiratory: Airway is patent Respiratory effort is even, unlabored. GI: Abdomen is round non-distended, Patient currently denies nausea, vomiting. : No signs and/or symptoms were reported regarding the genitourinary system. EENT: No signs and/or symptoms were reported regarding the EENT system. Derm: Skin is intact, is healthy with good turgor. Musculoskeletal: Circulation, motion, and sensation intact. 13:30 Reassessment: Patient appears in no apparent distress at this time. No changes from vg1 previously documented assessment. Patient and/or family updated on plan of care and expected duration. Pain level reassessed. Patient is alert, oriented x 3, equal unlabored respirations, skin warm/dry/pink. 14:30 Reassessment: Patient appears in no apparent distress at this time. Patient and/or vg1 family updated on plan of care and expected duration. Pain level reassessed. Patient is alert, oriented x 3, equal unlabored respirations, skin warm/dry/pink. 16:30 Reassessment: Patient appears in no apparent distress at this time. Patient and/or vg1 family updated on plan of care and expected duration. Pain level reassessed. Patient is alert, oriented x 3, equal unlabored respirations, skin warm/dry/pink. 17:38 Reassessment: Patient appears in no apparent distress at this time. Pt resting with vg1 eyes closed. Vital Signs: 11:45 BP 134 / 79; Pulse 103; Resp 18; Temp 99.0; Pulse Ox 99% on R/A; Weight 104.33 kg; ll1 Height 5 ft. 11 in. (180.34 cm); Pain 5/10; 14:00 BP 134 / 85 Supine; Pulse 94; Resp 16; Pulse Ox 98% on R/A; dong 14:05 BP 104 / 72 Sitting; Pulse 99; Resp 18; Pulse Ox 98% on R/A; dong 14:08 BP 64 / 54 LA Standing; Pulse 99; Resp 18; Pulse Ox 98% ; dong 14:10 BP 73 / 48 RA Standing; Pulse 105; Resp 20; Pulse Ox 96% on R/A; dong 15:46 BP 143 / 85; Pulse 85; ss 15:58 BP 148 / 88; Pulse 95; Resp 17; Pulse Ox 95% on R/A; dong 17:00 BP 143 / 92; Pulse 88; Resp 16; Pulse Ox 95% on R/A; vg1 11:45 Body Mass Index 32.08 (104.33 kg, 180.34 cm) ll1 ED Course: 11:34 Patient arrived in ED. jj6 11:46 Triage completed. ll1 11:47 Arm band placed on Patient placed in an exam room, on a stretcher. ll1 11:49 Collin Kong MD is Attending Physician. jordy 12:05 XRAY Chest (1 view) In Process Unspecified. EDMS 12:17 Briseida Saenz RN is Primary Nurse. vg1 12:21 Patient has correct armband on for positive identification. Bed in low position. Call vg1 light in reach. Side rails up X2. Adult w/ patient. Client placed on continuous cardiac and pulse oximetry monitoring. NIBP monitoring applied. bus driver/monitor on. 12:21 No provider procedures requiring assistance completed. Inserted saline lock: 20 gauge vg1 in right hand, using aseptic technique. ,using aseptic technique. completed by Ericka CONWAY Blood collected. 13:31 CT Head C Spine In Process Unspecified. EDMS 14:56 Doni Anderson MD is Hospitalizing Provider. [facility] 16:58 COVID-19 SARS RT PCR (Document "Date of Onset" if Symptomatic) Sent. dong 19:05 Primary Nurse role handed off by Briseida Saenz RN tw5 19:05 Sharon Vazquez is Primary Nurse. tw5 Administered Medications: 12:35 Drug: NS 0.9% 250 ml Route: IV; Rate: bolus; Site: right hand; dong 12:49 Follow up: IV Status: Completed infusion; IV Intake: 250ml vg1 12:49 Drug: NS 0.9% 1000 ml Route: IV; Rate: 75 ml/hr; Site: right hand; vg1 15:26 Drug: Rocephin (cefTRIAXone) 1 grams Route: IV; Rate: per protocol; Site: right hand; dong 15:26 Follow up: IV Status: Completed infusion dong 15:26 Drug: Augmentin (Amoxicillin-Clavulanate) 875 mg Route: PO; dong 15:26 Follow up: Response: No adverse reaction dong Medication: 12:21 VIS not applicable for this client. vg1 Intake: 12:49 IV: 250ml; Total: 250ml. vg1 Outcome: 14:12 Discharge ordered by . jordy 14:58 Decision to Hospitalize by Provider. jordy 21:02 Patient left the ED. tw5 Signatures: Dispatcher [employer] EDMS Collin Kong MD MD cha Smirch, Shelby, RN ZORAIDA Briseida Saenz RN RN 1 Dandy Irby, ZORAIDA RN 1 Sharon Vazquez tw5 Mari Hinesj6 Ericka Ramirez RN RN
--- NOTE | 2021-11-09 14:13 | EDPHYS ---
Physician Documentation [facility] Name: Chalo Harry Age: 56 yrs Sex: Male : 1965 Arrival Date: 11/09/2021 Time: 11:34 Bed 7 Private MD: ESTEPHANIA Physician Collin Kong HPI: 11/09 12:44 This 56 yrs old Male presents to ER via Wheelchair with complaints of Post jordy Diaylsis, patient stating generalized weakness, low blood pressure, head/neck pain. 12:44 fall 13 days ago. Details of fall: The patient fell from an upright position. Onset: jordy The symptoms/episode began/occurred just prior to arrival, this morning. Associated injuries: The patient sustained injury to the head, neck injury. The patient presents with dizziness, feeling faint, generalized weakness. Modifying factors: The symptoms are alleviated by lying down, the symptoms are aggravated by standing up. Associated signs and symptoms: Pertinent positives: headache. Severity of symptoms: At their worst the symptoms were mild. Historical: - Allergies: 11:46 No Known Allergies; ll1 - PMHx: 11:46 allergies; Diabetes - NIDDM; High Cholesterol; Hypertension; AIDS; dialysis; ll1 - PSHx: 11:46 R chest dialysis access; ll1 - Immunization history:: Client reports receiving the 2nd dose of the Covid vaccine. - Social history:: Smoking status: Patient reports the use of cigarette tobacco products, denies chronic smoking, but will smoke occasionally. - Family history:: not pertinent. ROS: 12:44 Constitutional: Negative for fever, chills, and weight loss, Eyes: Negative for injury, jordy pain, redness, and discharge, ENT: Negative for injury, pain, and discharge, Neck: Negative for injury, pain, and swelling, Cardiovascular: Negative for chest pain, palpitations, and edema, Respiratory: Negative for shortness of breath, cough, wheezing, and pleuritic chest pain, Abdomen/GI: Negative for abdominal pain, nausea, vomiting, diarrhea, and constipation, Back: Negative for injury and pain, : Negative for injury, bleeding, discharge, and swelling, MS/Extremity: Negative for injury and deformity, Skin: Negative for injury, rash, and discoloration, Psych: Negative for depression, anxiety, suicide ideation, homicidal ideation, and hallucinations, Allergy/Immunology: Negative for hives, rash, and allergies, Endocrine: Negative for neck swelling, polydipsia, polyuria, polyphagia, and marked weight changes, Hematologic/Lymphatic: Negative for swollen nodes, abnormal bleeding, and unusual bruising. 12:44 Neuro: Positive for dizziness, weakness. Exam: 12:44 Constitutional: This is a well developed, well nourished patient who is awake, alert, jordy and in no acute distress. Head/Face: Normocephalic, atraumatic. Eyes: Pupils equal round and reactive to light, extra-ocular motions intact. Lids and lashes normal. Conjunctiva and sclera are non-icteric and not injected. Cornea within normal limits. Periorbital areas with no swelling, redness, or edema. ENT: Nares patent. No nasal discharge, no septal abnormalities noted. Tympanic membranes are normal and external auditory canals are clear. Oropharynx with no redness, swelling, or masses, exudates, or evidence of obstruction, uvula midline. Mucous membranes moist. Neck: Trachea midline, no thyromegaly or masses palpated, and no cervical lymphadenopathy. Supple, full range of motion without nuchal rigidity, or vertebral point tenderness. No Meningismus. Chest/axilla: Normal chest wall appearance and motion. Nontender with no deformity. No lesions are appreciated. Cardiovascular: Regular rate and rhythm with a normal S1 and S2. No gallops, murmurs, or rubs. Normal PMI, no JVD. No pulse deficits. Respiratory: Lungs have equal breath sounds bilaterally, clear to auscultation and percussion. No rales, rhonchi or wheezes noted. No increased work of breathing, no retractions or nasal flaring. Abdomen/GI: Soft, non-tender, with normal bowel sounds. No distension or tympany. No guarding or rebound. No evidence of tenderness throughout. Back: No spinal tenderness. No costovertebral tenderness. Full range of motion. Skin: Warm, dry with normal turgor. Normal color with no rashes, no lesions, and no evidence of cellulitis. MS/ Extremity: Pulses equal, no cyanosis. Neurovascular intact. Full, normal range of motion. Neuro: Awake and alert, GCS 15, oriented to person, place, time, and situation. Cranial nerves II-XII grossly intact. Motor strength 5/5 in all extremities. Sensory grossly intact. Cerebellar exam normal. Normal gait. Psych: Awake, alert, with orientation to person, place and time. Behavior, mood, and affect are within normal limits. 12:49 ECG was reviewed by the Attending Physician. [facility] Vital Signs: 11:45 BP 134 / 79; Pulse 103; Resp 18; Temp 99.0; Pulse Ox 99% on R/A; Weight 104.33 kg; ll1 Height 5 ft. 11 in. (180.34 cm); Pain 5/10; 14:00 BP 134 / 85 Supine; Pulse 94; Resp 16; Pulse Ox 98% on R/A; dong 14:05 BP 104 / 72 Sitting; Pulse 99; Resp 18; Pulse Ox 98% on R/A; dong 14:08 BP 64 / 54 LA Standing; Pulse 99; Resp 18; Pulse Ox 98% ; dong 14:10 BP 73 / 48 RA Standing; Pulse 105; Resp 20; Pulse Ox 96% on R/A; dong 15:46 BP 143 / 85; Pulse 85; ss 15:58 BP 148 / 88; Pulse 95; Resp 17; Pulse Ox 95% on R/A; dong 17:00 BP 143 / 92; Pulse 88; Resp 16; Pulse Ox 95% on R/A; vg1 11:45 Body Mass Index 32.08 (104.33 kg, 180.34 cm) ll1 MDM: 11:49 Patient medically screened. [facility] 12:48 Differential Diagnosis altered mental status, sepsis. Differential diagnosis: closed jordy head injury, contusion, fracture, sprain, strain, cardiac arrhythmia, CVA, head injury, hypovolemia, idiopathic dizziness, near-syncope, sepsis. Data reviewed: vital signs, nurses notes, lab test result(s), EKG, radiologic studies, CT scan, plain films. Data interpreted: satellite project site monitor: rate is 103 beats/min, rhythm is regular, Pulse oximetry: on room air is 99 %. Test interpretation: by ED physician or midlevel provider: ECG, plain radiologic studies. Counseling: I had a detailed discussion with the patient and/or guardian regarding: the historical points, exam findings, and any diagnostic results supporting the discharge/admit diagnosis. Counseling: I had a detailed discussion with the patient and/or guardian regarding: lab results, radiology results. 11/09 11:51 Order name: Basic Metabolic Panel; Complete Time: 13:12 jordy 06/04 11:51 Order name: CBC with Diff; Complete Time: 13:12 [facility] 11/09 11:51 Order name: LFT's; Complete Time: 13:12 [facility] 11/09 11:51 Order name: Magnesium; Complete Time: 13:12 [facility] 11/09 11:51 Order name: NT PRO-BNP; Complete Time: 13:12 [facility] 11/09 11:51 Order name: PT-INR; Complete Time: 13:12 [facility] 11/09 11:51 Order name: Troponin HS; Complete Time: 13:12 [facility] 11/09 11:51 Order name: Lipase; Complete Time: 13:12 [facility] 11/09 15:32 Order name: CBC with Automated Diff EDMS 11/09 15:32 Order name: CBC with Automated Diff EDMS 11/09 15:32 Order name: Comprehensive Metabolic Panel EDMS 11/09 15:32 Order name: Comprehensive Metabolic Panel EDMS 11/09 16:09 Order name: COVID-19 SARS RT PCR (Document "Date of Onset" if Symptomatic) 11/09 17:34 Order name: SARS-COV-2 RT PCR EDCT 11/09 11:51 Order name: XRAY Chest (1 view); Complete Time: 14:07 [facility] 11/09 11:51 Order name: EKG; Complete Time: 11:52 [facility] 11/09 11:51 Order name: Cardiac monitoring; Complete Time: 12:17 [facility] 11/09 11:51 Order name: EKG - Nurse/Tech; Complete Time: 12:17 [facility] 11/09 11:51 Order name: IV Saline Lock; Complete Time: 12:17 [facility] 11/09 11:51 Order name: Labs collected and sent; Complete Time: 12:17 [facility] 11/09 11:51 Order name: O2 Per Protocol; Complete Time: 12:17 [facility] 11/09 11:51 Order name: O2 Sat Monitoring; Complete Time: 12:17 [facility] 11/09 12:38 Order name: CT Head C Spine; Complete Time: 14:07 [facility] 11/09 15:32 Order name: CONS Physician Consult EDCT 11/09 15:32 Order name: Renal EDMS 11/09 19:30 Order name: Urine Dipstick-Ancillary EDMS 11/09 14:09 Order name: Orthostatics; Complete Time: 15:24 [facility] EC:49 Rate is 95 beats/min. Rhythm is regular. QRS University is Normal. QRS interval is normal. QT jordy interval is normal. No Q waves. T waves are Normal. No ST changes noted. Clinical impression: NSR w/ Non-specific ST/T Changes and No evidence of ischemia. Interpreted by me. Reviewed by me. Administered Medications: 12:35 Drug: NS 0.9% 250 ml Route: IV; Rate: bolus; Site: right hand; dong 12:49 Follow up: IV Status: Completed infusion; IV Intake: 250ml vg1 12:49 Drug: NS 0.9% 1000 ml Route: IV; Rate: 75 ml/hr; Site: right hand; vg1 15:26 Drug: Rocephin (cefTRIAXone) 1 grams Route: IV; Rate: per protocol; Site: right hand; dong 15:26 Follow up: IV Status: Completed infusion dong 15:26 Drug: Augmentin (Amoxicillin-Clavulanate) 875 mg Route: PO; dong 15:26 Follow up: Response: No adverse reaction dong Disposition Summary: 11/09/21 14:58 Hospitalization Ordered Hospitalization Status: Observation jordy Provider: Doni Anderson cha Location: Telemetry/MedSurg (observation)(11/09/21 14:58) jordy Condition: Fair(11/09/21 14:58) jordy Problem: new(11/09/21 14:58) jordy Symptoms: have improved(11/09/21 14:58) jordy Bed/Room Type: Standard [facility] Room Assignment: [facility](11/09/21 19:38) Diagnosis - Fall on same level, unspecified(11/09/21 14:58) jordy - Dizziness and giddiness(11/09/21 14:58) jordy - End stage renal disease - on HD(11/09/21 14:58) jordy - Anemia, unspecified jordy - Orthostatic hypotension jordy - Chronic sinusitis, unspecified(11/09/21 14:59) jordy Forms: - Medication Reconciliation Form jordy - SBAR form jordy Signatures: Dispatcher [employer] EDMS Fatou Olivas RN RN mw Anderson, Corey, MD MD cha Garcia, Victoria, RN RN vg1 Dandy Irby RN RN ll1 Edel-StagerEricka RN RN dong Corrections: (The following items were deleted from the chart) 14:53 14:12 Home jordy jordy 14:53 14:12 new jordy jordy 14:53 14:12 have improved jordy jordy :53 14:12 Stable jordy jordy :53 14:12 Weakness jordy jordy :53 14:12 Dizziness and giddiness jordy jordy :53 14:12 Fall on same level, unspecified jordy jordy :53 14:12 End stage renal disease - on HD jordy jordy 14:53 14:16 Chronic sinusitis, unspecified jordy jordy 19:38 14:58 jordy mw
[2021-11-09] MEDS ORDERED: AMOX/K CLAV 875 MG TAB ONE (14:35)
[2021-11-09] MEDS ORDERED: CEFTRIAXONE 1000 MG/VIAL ONE (14:35)
[2021-11-09] MEDS ORDERED: ACETAMINOPHEN 500 MG TAB PO PRN (15:17)
[2021-11-09] MEDS ORDERED: MORPHINE 2 MG/ML SYR IV PRN (15:17)
[2021-11-09] MEDS ORDERED: ONDANSETRON 4 MG/2 ML VIAL IV PRN (15:17)
[2021-11-09] MEDS ORDERED: HYDROCODONE/APAP 5/325 MG TAB PO PRN (15:30)
[2021-11-09 19:30] LABS: Urine Blood 1+ (Negative); Urine Glucose Trace (Negative); Urine Protein 3+ (Negative); Urine pH 6.5 (5.0-7.0)
[2021-11-09] MEDS: SODIUM BICARB 325 MG TAB PO SCH (22:07)
[2021-11-09] MEDS: ATORVASTATIN 40 MG TAB PO SCH (22:11)
[2021-11-09 23:42] VITALS: BMI 31.9
[2021-11-10] MEDS: SODIUM BICARB 325 MG TAB PO SCH ×2 (00:22→09:00)
[2021-11-10 06:17] LABS: Absolute Lymphocytes (CBC) 2.5 K/uL (0.7-4.9); Hematocrit 32.2 % (39.6-49.0); Lymphocytes % 33.2 % (15.3-44.8); RBC Red Blood Cell Count 3.82 M/uL (4.33-5.43)
[2021-11-10 06:31] LABS: Albumin 2.5 g/dL (3.4-5.0); Bilirubin Total 0.3 mg/dL (0.2-1.0); Potassium 3.9 mmol/L (3.5-5.1); Protein, Total 6.2 g/dL (6.4-8.2)
--- NOTE | 2021-11-10 09:40 | P.CNS ---
Date of Consult: 11/10/21 Reason for Consult: ESRD , fluid and electrolytes mangement Chief Complaint: Dizzziness History of Present Illness: A 56 Y/o man with PMHx of ESRD started on HD in 10/2021 via Rt IJ tunneled catheter , DM with retinopathy and neuropathy, PVD Amd HX of HIV pt presented for dizziness after completing his dialysis treatment yesterday, pt felt dizzy , with headache , BP was low , pt didnt take his BP meds yesteday , can remember how much fluid pulled with dialysis, in ER BP 65/55 denied chest pain , palpitation, nausea or vomiting General: AAOX3 , NAD HEENT: Atraumatic, Normocephalic Neck: Supple, no elevated JVD Respiratory: no CTAB. No rales or wheezes Cardiovascular: No rubs, No murmurs Gastrointestinal: Soft and benign, Non-distended Musculoskeletal: No clubbing Integumentary: No warmth Neurological: Normal tone, Sensation intact Lymphatics: No axilla or inguinal lymphadenopathy Total time Spent 45 minutes including documentation, reviewing labs , placing orders and discussing plan of care with medical team Allergies No Known Allergies Allergy (Verified 05/22/16 02:57) Home Medications: Atorvastatin Calcium 40 mg PO BEDTIME 10/31/21 Dulaglutide [Trulicity] 1.5 mg SQ EVERY 7TH DAY 10/31/21 Furosemide [Lasix*] 40 mg PO DAILY 10/31/21 Montelukast Sodium 10 mg PO DAILY 10/31/21 Amlodipine [Norvasc*] 5 mg PO DAILY #30 tab 11/05/21 Calcitrol [Rocaltrol*] 0.25 mcg PO DAILY #30 cap 11/05/21 Hydrocodone 5/APAP 325 [[place] 5/325*] 1 tab PO Q6H PRN #30 tab 11/05/21 Na Bicarb Tab [Sodium Bicarb 325 MG Tab*] 1,950 mg PO Q8HR #120 tab 11/05/21 carvediloL [Coreg*] 12.5 mg PO BID #60 tab 11/05/21 - Past Medical/Surgical History Diabetic: Yes -: HTN -: HIV -: Diabetes type 2insulin-dependent -: CKD 4 -: Domenic. 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 Psychosocial/ Personal History: Patient lives at home with family - Family History Father Medical History: Diabetes, Cancer Notes: colon cancer Mother Medical History: Lung disease, Diabetes Notes: COPD Sister Medical History: Diabetes - Social History Smoking Status: Current some day smoker Alcohol use: No CD- Drugs: No Caffeine use: No Place of Residence: Home Review of Systems 10-point ROS is otherwise unremarkable Eyes: Unremarkable ENT: Unremarkable Respiratory: Unremarkable Cardiovascular: Light Headedness Gastrointestinal: Unremarkable Genitourinary: Unremarkable Musculoskeletal: Unremarkable Neurological: Unremarkable Physical Examination Temp Pulse Resp BP Pulse Ox 98.6 F 89 15 123/71 89 L 11/10/21 08:00 11/10/21 08:00 11/10/21 08:00 11/10/21 08:00 11/10/21 08:00 Laboratory Data (last 24 hrs) 11/09/21 12:11: PT 12.3, INR 1.12 11/09/21 12:11: WBC 8.2, Hgb 11.4 L, Hct 35.4 L D, Plt Count 210 D 11/09/21 12:11: Sodium 134 L, Potassium 3.7, BUN 31 H D, Creatinine 5.47 H* D, Glucose 193 H, Magnesium 2.0, Total Bilirubin 0.4, AST 29, ALT 29, Alkaline Phosphatase 72, Lipase 303
[2021-11-10] MEDS: MONTELUKAST 10 MG TAB PO SCH (09:53)
[2021-11-10] MEDS: CALCITROL 0.25 MCG CAP PO SCH (09:53)
--- NOTE | 2021-11-10 10:44 | P.HP ---
Certification for Inpatient Patient admitted to: Observation With expected LOS: <2 Midnights Patient will require the following post-hospital care: None Practitioner: I am a practitioner with admitting privileges, knowledge of patient current condition, hospital course, and medical plan of care. Services: Services provided to patient in accordance with Admission requirements found in Title 42 Section 412.3 of the Code of Federal Regulations Patient History Date of Service: 11/09/21 Reason for admission: Dizzziness History of Present Illness: 69-year-old gentleman who came to the hospital for hemodialysis. Patient was admitted because he was orthostatic after his dialysis session. Concern for too much swelling was removed. We will hold off on his blood pressure medications. We will make adjustments to his blood pressure medications going forward. Anticipate discharge home tomorrow if his hemodynamics are stable. We will consult nephrology as well for further recommendation. May need to add midodrine. Allergies No Known Allergies Allergy (Verified 05/22/16 02:57) Home Medications: Atorvastatin Calcium 40 mg PO BEDTIME 10/31/21 Dulaglutide [Trulicity] 1.5 mg SQ EVERY 7TH DAY 10/31/21 Furosemide [Lasix*] 40 mg PO DAILY 10/31/21 Montelukast Sodium 10 mg PO DAILY 10/31/21 Amlodipine [Norvasc*] 5 mg PO DAILY #30 tab 11/05/21 Calcitrol [Rocaltrol*] 0.25 mcg PO DAILY #30 cap 11/05/21 Hydrocodone 5/APAP 325 [[place] 5/325*] 1 tab PO Q6H PRN #30 tab 11/05/21 Na Bicarb Tab [Sodium Bicarb 325 MG Tab*] 1,950 mg PO Q8HR #120 tab 11/05/21 carvediloL [Coreg*] 12.5 mg PO BID #60 tab 11/05/21 - Past Medical/Surgical History Has patient received pneumonia vaccine in the past: No Diabetic: Yes -: HTN -: HIV -: Diabetes type 2insulin-dependent -: ESDR -: Domenic. 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 Psychosocial/ Personal History: Patient lives at home with family - Family History Father Medical History: Diabetes, Cancer Notes: colon cancer Mother Medical History: Lung disease, Diabetes Notes: COPD Sister Medical History: Diabetes - Social History Smoking Status: Former smoker Alcohol use: No CD- Drugs: No Caffeine use: No Place of Residence: Home Review of Systems 10-point ROS is otherwise unremarkable Physical Examination - Vital Signs Temperature: 98.6 F Blood Pressure: 123/71 Pulse: 89 Respirations: 15 Pulse Ox (%): 89 - Physical Exam General: Alert, In no apparent distress, Oriented x3 HEENT: Atraumatic, PERRLA, Mucous membr. moist/pink, EOMI, Sclerae nonicteric Neck: Supple, 2+ carotid pulse no bruit, No LAD, Without JVD or thyroid abnormality Respiratory: Clear to auscultation bilaterally, Normal air movement Cardiovascular: Regular rate/rhythm, Normal S1 S2, No murmurs Gastrointestinal: Normal bowel sounds, Soft and benign, Non-distended, No tenderness Musculoskeletal: No clubbing, No tenderness Integumentary: No rashes Neurological: Normal gait, Normal speech, Normal strength at 5/5 x4 extr, Normal tone, Normal affect Lymphatics: No axilla or inguinal lymphadenopathy - Studies Laboratory Data (last 24 hrs) 11/09/21 12:11: PT 12.3, INR 1.12 11/09/21 12:11: WBC 8.2, Hgb 11.4 L, Hct 35.4 L D, Plt Count 210 D 11/09/21 12:11: Sodium 134 L, Potassium 3.7, BUN 31 H D, Creatinine 5.47 H* D, Glucose 193 H, Magnesium 2.0, Total Bilirubin 0.4, AST 29, ALT 29, Alkaline Phosphatase 72, Lipase 303 Assessment & Plan - Problems (Diagnosis) (1) ESRD (end stage renal disease) Current Visit: Yes Status: Acute (2) Orthostatic hypotension Current Visit: Yes Status: Acute (3) History of HIV infection Current Visit: No Status: Acute (4) Diabetes type 2, controlled Current Visit: No Status: Chronic Qualifiers: Diabetes mellitus intermission coordinator insulin use: without intermission coordinator use Diabetes mellitus complication status: without complication Qualified Code(s): E11.9 - Type 2 diabetes mellitus without complications - Plan Plan: 1. Patient was given some fluid in the ER x1. Monitor his volume status 2. Nephrology consultation 3. Strict blood sugar control 4. Adjust antihypertensive 5. Midodrine to regimen 6. GI DVT prophylaxis Discharge Plan: Home Plan to discharge in: 24 Hours - Advance Directives Does patient have a Living Will: No Does patient have a Durable POA for Healthcare: No - Code Status/Comfort Care Code Status Assessed: Yes Code Status: Full Code Critical Care: No Time Spent Managing PTS Care (In Minutes): 45
[2021-11-10] MEDS ORDERED: MIDODRINE HCL 5 MG TABLET PO ONE (11:00)
--- NOTE | 2021-11-10 12:51 | EKG ---
Test Date: 2021-11-09 Test Time: 12:09:44 Food And Beverage Director: GISSELL MEASUREMENT RESULTS: Intervals: Rate: 95 DE: 160 QRSD: 88 QT: 358 QTc: 449 [place]: P: 55 DE: 160 QRS: 63 T: 26 INTERPRETIVE STATEMENTS: Normal sinus rhythm Normal ECG Compared to ECG 10/30/2021 19:40:57 Myocardial infarct finding no longer present Electronically Signed On 11-10-21 12:50:47 CDT by Slade Louie
[2021-11-10] MEDS ORDERED: PNEUMOCOCCAL VACCINE 0.5 ML IMVAC ONE (13:00)
[2021-11-10] MEDS: MIDODRINE HCL 5 MG TABLET PO SCH ×2 (15:04→20:28)
[2021-11-10] MEDS: ATORVASTATIN 40 MG TAB PO SCH (20:28)
[2021-11-10] MEDS ORDERED: ENOXAPARIN 30 MG/0.3 ML SQ ONE (21:00)
--- NOTE | 2021-11-10 23:51 | P.PN ---
Subjective Date of Service: 11/10/21 Subjective: No new changes, No C/O voiced, Improving Review of Systems 10-point ROS is otherwise unremarkable Physical Examination - Vital Signs Temperature: 98.1 F Blood Pressure: 129/67 Pulse: 89 Respirations: 12 Pulse Ox (%): 96 - Physical Exam General: Alert, In no apparent distress, Oriented x3 HEENT: Atraumatic, PERRLA, EOMI Neck: Supple, JVD not distended Respiratory: Clear to auscultation bilaterally, Normal air movement Cardiovascular: Regular rate/rhythm, Normal S1 S2, No murmurs Gastrointestinal: Normal bowel sounds, Soft and benign, Non-distended, No tenderness Musculoskeletal: No clubbing, No swelling, No tenderness Neurological: Sensation intact, Cranial nerves 3-12 intact - Studies Laboratory Data (last 24 hrs) 11/10/21 05:49: Sodium 138, Potassium 3.9, BUN 41 H, Creatinine 7.34 H* D, Glucose 97, Total Bilirubin 0.3, AST 19, ALT 28, Alkaline Phosphatase 64 11/10/21 05:49: WBC 7.4, Hgb 10.6 L, Hct 32.2 L, Plt Count 206 Medications List Reviewed: Yes Assessment & Plan - Problems (Diagnosis) (1) ESRD (end stage renal disease) Current Visit: Yes Status: Acute (2) Orthostatic hypotension Current Visit: Yes Status: Acute (3) History of HIV infection Current Visit: No Status: Acute (4) Diabetes type 2, controlled Current Visit: No Status: Chronic Qualifiers: Diabetes mellitus computer terminal operator insulin use: without computer terminal operator use Diabetes mellitus complication status: without complication Qualified Code(s): E11.9 - Type 2 diabetes mellitus without complications - Plan Plan: 1. Patient is still orthostatic; holding blood pressure medications and started on midodrine 2. Check procalcitonin level 3. Appreciate nephrology consultation 4. Possible hemodialysis in a.m. 5. Monitor volume status closely 6. GI DVT prophylaxis Discharge Plan: Home Plan to discharge in: Greater than 2 days - Advance Directives Does patient have a Living Will: No Does patient have a Durable POA for Healthcare: No - Code Status/Comfort Care Code Status: Full Code Critical Care: No Time Spent Managing PTS Care (In Minutes): 45
[2021-11-11] MEDS: MONTELUKAST 10 MG TAB PO SCH (09:23)
[2021-11-11] MEDS: MIDODRINE HCL 5 MG TABLET PO SCH ×2 (09:24→14:08)
[2021-11-11] MEDS: CALCITROL 0.25 MCG CAP PO SCH (09:24)
--- NOTE | 2021-11-11 11:59 | P.DS ---
Admission Date: 11/10/21 Discharge Date: 11/11/21 Disposition: ROUTINE DISCHARGE Discharge Condition: GOOD Reason for Admission: Dizzziness Consultations: Nephrology. Brief History of Present Illness: 69-year-old gentleman who came to the hospital for hemodialysis. Patient was admitted because he was orthostatic after his dialysis session. Concern for too much swelling was removed. We will hold off on his blood pressure medications. We will make adjustments to his blood pressure medications going forward. Anticipate discharge home tomorrow if his hemodynamics are stable. We will consult nephrology as well for further recommendation. May need to add midodrine. Hospital Course: Patient has remained stable since admission. he had added midodrine doses to the present regimen and his blood pressure stabilized. As of this morning morning blood pressure remained significantly stable and electrolytes are within acceptable. He is on TTS dialysis schedule we will defer dialysis procedure to treating lime trimmer as they are been consulted. He will be discharged home in stable condition to continue outpatient dialysis as per lime trimmer recommendation. Vital Signs/Physical Exam: Temp Pulse Resp BP Pulse Ox 98.8 F 93 H 17 150/77 H 95 11/11/21 08:00 11/11/21 08:00 11/11/21 08:00 11/11/21 08:00 11/11/21 08:00 General: Alert, Oriented x3 HEENT: Atraumatic, Normocephalic Neck: Supple Respiratory: Normal air movement Cardiovascular: Regular rate/rhythm, Normal S1 S2 Gastrointestinal: Soft and benign Musculoskeletal: No swelling Integumentary: No breakdown Neurological: Normal speech, Normal strength at 5/5 x4 extr Laboratory Data at Discharge: WBC 7.4 K/uL (4.3-10.9) 11/10/21 05:49 Hgb 10.6 g/dL (13.6-17.9) L 11/10/21 05:49 Hct 32.2 % (39.6-49.0) L 11/10/21 05:49 Plt Count 206 K/uL (152-406) 11/10/21 05:49 PT 12.3 SECONDS (9.5-12.5) 11/09/21 12:11 INR 1.12 11/09/21 12:11 Sodium 138 mmol/L (136-145) 11/10/21 05:49 Potassium 3.9 mmol/L (3.5-5.1) 11/10/21 05:49 BUN 41 mg/dL (7-18) H 11/10/21 05:49 Creatinine 7.34 mg/dL (0.55-1.3) H* D 11/10/21 05:49 Glucose 97 mg/dL (74-106) 11/10/21 05:49 Magnesium 2.0 mg/dL (1.8-2.4) 11/09/21 12:11 Total Bilirubin 0.3 mg/dL (0.2-1.0) 11/10/21 05:49 AST 19 U/L (15-37) 11/10/21 05:49 ALT 28 U/L (12-78) 11/10/21 05:49 Alkaline Phosphatase 64 U/L (45-117) 11/10/21 05:49 Lipase 303 U/L (73-393) 11/09/21 12:11 Home Medications: Atorvastatin Calcium 40 mg PO BEDTIME 10/31/21 Dulaglutide [Trulicity] 1.5 mg SQ EVERY 7TH DAY 10/31/21 Furosemide [Lasix*] 40 mg PO DAILY 10/31/21 Montelukast Sodium 10 mg PO DAILY 10/31/21 Amlodipine [Norvasc*] 5 mg PO DAILY #30 tab 11/05/21 Calcitrol [Rocaltrol*] 0.25 mcg PO DAILY #30 cap 11/05/21 Hydrocodone 5/APAP 325 [[place] 5/325*] 1 tab PO Q6H PRN #30 tab 11/05/21 Na Bicarb Tab [Sodium Bicarb 325 MG Tab*] 1,950 mg PO Q8HR #120 tab 11/05/21 carvediloL [Coreg*] 12.5 mg PO BID #60 tab 11/05/21 Diet: Renal Activity: Ad janina Followup: Unknown,U [Primary Care Provider] -
[2021-11-11 16:48] VITALS: BP 124/66; TEMP 99.4
[2021-11-11 18:40] VITALS: O2SAT 96
--- NOTE | 2021-11-12 01:53 | PN ---
Date of Progress Note: 11/11/2021 Chief Complaint: End-stage renal disease. Subjective: The patient recently started chronic hemodialysis. He is currently admitted for hypoten brittanie and dizziness. The patient after completion of dialysis treatment on Thursday was dizzy and was complaining of headache. Blood pressure was on low side. The patient did not take blood pressure me dication prior to dialysis and the patient was complaining of some generalized weakness. He denies c hest pain, palpitations, nausea, or vomiting. Review of Systems: Denies fever or chills. The patient is feeling better. Objective: Lungs: Clear to auscultation bilaterally. Heart: S1, S2. Abdomen: Soft. Benign. Extremities: No edema. Impression And Plan: 1.End-stage renal disease. Dialysis will be done tomorrow. 2.Hypertension. Monitor blood pressure. Adjust medication to prevent hypotensive episodes. 3.Human Immunodeficiency Virus, per Primary Team. 4.Anemia of chronic kidney disease. Monitor hemoglobin level and adjust RAMON. Currently hemoglobin is 11.4. The patient does not need RAMON. 5.Renal osteodystrophy. Continue renal diet. EB/MODL Voice ID: [id number] Report ID: [id number]
== END 2021-11-11 18:00 | disposition home or self-care (01) | DRG 312 ==
LOC: ER 11:32 → ERHOLD 15:17 → 2ND 20:21 → OBSVTOIN 11-10 18:29
PROVIDERS: ADMIT Hospitalist; ATTEND Hospitalist
DX: I95.1 Orthostatic hypotension (principal); N18.6 End stage renal disease; I12.0 Hypertensive chronic kidney disease with stage 5 chronic kidney disease or end stage renal disease; B20 Human immunodeficiency virus [HIV] disease; E11.22 Type 2 diabetes mellitus with diabetic chronic kidney disease; D63.1 Anemia in chronic kidney disease; N25.0 Renal osteodystrophy; Z99.2 Dependence on renal dialysis; Z79.899 Other long term (current) drug therapy; Z89.422 Acquired absence of other left toe(s); Z20.822 Contact with and (suspected) exposure to COVID-19
CPT/HCPCS: 36415; 70450; 71045; 72125; 80048; 80053; 80076; 81003; 82947; 83690; 83735; 83880; 84484; 85025; 85610; 93005; 96374; 96375; 99284; G0378; J1650; J7030; U0003

== ENCOUNTER 2022-01-06 21:02 | Emergency (ER) | payer BC ==
[2022-01-06 23:36] LABS: Protime INR 1.04
[2022-01-06 23:38] LABS: Absolute Lymphocytes (CBC) 2.9 K/uL (0.7-4.9); Hematocrit 33.1 % (39.6-49.0); Lymphocytes % 26.5 % (15.3-44.8)
[2022-01-06 23:57] LABS: Magnesium 2.4 mg/dL (1.8-2.4); Troponin High Sensitivity 15.1 pg/mL (<58.9)
[2022-01-07 01:33] LABS: Urine Blood Trace-intact (Negative); Urine Glucose Negative (Negative); Urine Protein 3+ (Negative)
[2022-01-07 02:13] LABS: Urine Bacteria <20 /HPF (<20); Urine RBC <5 /HPF (None Seen)
[2022-01-07 05:20] VITALS: TEMP 97.2
[2022-01-07 05:31] VITALS: BP 155/83; O2SAT 98
--- NOTE | 2022-01-07 08:48 | EKG ---
Test Date: 2022-01-07 Test Time: 01:29:48 Rrts: ARASH MEASUREMENT RESULTS: Intervals: Rate: 88 ME: 166 QRSD: 88 QT: 356 QTc: 430 [place]: P: 55 ME: 166 QRS: 43 T: 41 INTERPRETIVE STATEMENTS: Normal sinus rhythm Septal infarct, age undetermined Abnormal ECG Compared to ECG 01/06/2022 22:49:13 No significant changes Electronically Signed On 01-07-22 08:46:29 CDT by Harpreet Mauro
--- NOTE | 2022-01-07 08:48 | EKG ---
Test Date: 2022-01-06 Test Time: 22:49:13 Video Recorder Mechanic: ARASH MEASUREMENT RESULTS: Intervals: Rate: 86 MT: 170 QRSD: 90 QT: 358 QTc: 428 [place]: P: 26 MT: 170 QRS: 34 T: 59 INTERPRETIVE STATEMENTS: Normal sinus rhythm Septal infarct, age undetermined Lateral injury pattern ACUTE NE / STEMI Abnormal ECG Compared to ECG 11/09/2021 12:09:44 Myocardial infarct finding now present Electronically Signed On 01-07-22 08:46:38 CDT by Harpreet Mauro
--- NOTE | 2022-01-07 10:45 | RAD REPORT ---
EXAM DESCRIPTION: RAD - Chest Single View - 01/06/2022 10:36 pm CLINICAL HISTORY: 6 years Male, [place] COMPARISON: Chest radiograph dated 11/06/2021 FINDINGS: Removal of right IJ hemodialysis catheter. No focal lung consolidation. No pleural effusion. No pneumothorax. Cardiomediastinal silhouette is unchanged. No acute osseous abnormality. IMPRESSION: No acute cardiopulmonary disease. Electronically signed by: Scot Walton DO 01/06/2022 11:03 PM CDT Due to temporary technical issues with the PACS/Fluency reporting system, reports are being signed by the in house radiologists without review as a courtesy to insure prompt reporting. The interpreting radiologist is fully responsible for the content of the report.
--- OUTSIDE RECORDS SUMMARY | 2022-01-07 11:19 | XMS REPORT | Continuity of Care Document ---
:1965 Author Organization [facility] t Address [address] [place] [address] Care Team Providers Name Role Phone Sharpless Primary Care Physician Sahra Tong Anavella Attending Clinician Unava ilable [id number] Attending Clinician Unavailable Edmund Gamble Attending Clinician Unavailable Claudia Attending Clinician Unavailable Do Rojo MD Attending Clinician Derek Kaye MD Attending Clinician [phone] Edmund Gamble Attending Clinician Unavailable Edmund Gamble Attending Clinician Unavailable HILDA BURKETT Attending Clinician Unavailable Dale Tong Anav Admitting Clinician Unavailable [id number] Admitting Clinician Unavailable Claudia Admitting Clinician Unavailable DO ROJO Admitting Clinician Unavailable Edmund Gamble Admitting Clinician Unavailable HILDA BURKETT Admitting Clinician Unavailable Payers Payer Name Policy Type Policy Number Effective Date Expiration Date S ource BCTP BCTP [id number] [place] [id number] 2019 00:00:00 [place] Problems Condition Condition [...] l ion ion Tinea Tinea Problem Active [facility] pedis Pedis 12-06 Family 00:00: Practic 00 e Hypoalbumi Hypoalbumi Problem Active [facility] nemia nemia 12-06 Family 00:00: Practic 00 e Hypocalcem Hypocalcem Problem Active [facility] ia ia 12-06 Family 00:00: Practic 00 e Morbid Morbid Problem Active [facility] obesity Obesity 12-06 Family 00:00: Practic 00 e Anemia in Anemia in Problem Active Rodrigue armstrong chronic Chronic 12-06 Family kidney Kidney 00:00: Practic disease Disease 00 e Proteinuri Proteinuri Problem Active [facility] a a 12-06 Family 00:00: Practic 00 e Amputated Amputated Problem Active Rodrigue armstrong toe Toe 12-06 Family 00:00: Practic 00 e Obesity Obesity Problem Active [facility] 10-09 Family 00:00: Practic 00 e Cellulitis Cellulitis Problem Active [facility] of lower of Lower 10-09 Family limb Limb 00:00: Practic 00 e Neck pain Neck Pain Problem Active Rodrigue martineze 5- Family 00:00: Practic 00 e COVID-19 Covid-19 Problem Active Nik ge 5 Family 00:00: Practic 00 e 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 type 2 Type 2 00:00: Practic diabetes Diabetes 00 e mellitus Mellitus Type 2 Type 2 Problem Active [facility] diabetes Diabetes 3-31 Family mellitus Mellitus 00:00: Practi c 00 e Hyperlipid Hyperlipid Problem Active [facility] emia emia 3-31 Family 00:00: Practic 00 e Essential Essential Problem Active Rodrigue armstrong hypertensi Hypertensi 3-31 Fa dary on on 00:00: Practic 00 e Seasonal Seasonal Problem Active Nik ge allergy Allergy 3-31 Family 00:00: Practic 00 e Chronic Chronic Problem Active [facility] kidney Kidney 3-31 Family disease Disease 00:00: Practic 00 e 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 3-31 Fa dary ciency ciency 00:00: Practic virus Virus e infection Infection Foot Foot Disease Active 2015-[address] [facility] [address] abscess[facility] Toe Toe Disease Active 2015-[address] [facility] osteomyeli osteomyeli - [facility] tis, left tis, left 00:00: Medi christian 00 Center Essential Essential Disease Active 2015-[address] hypertensi hypertensi 2- Traci kes on on 00:00: Medical 00 Center HIV HIV Disease Active 2015-[address] [facility] disease disease 08[facility]04 [facility] Sepsis Sepsis Disease Active 2015-[address] [facility] 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 Sp lluvia ciency ciency - CHI virus virus St infection) infection) [facility] Mixed Mixed Problem Active Common hyperlipid hyperlipid Sp lluvia emia emia - CHI [facility] Allergies, Adverse Reactions, Alerts Allergy Allergy Status Severity Reaction(s) Onset Inactive Treating Comm ents Source Name Type Date Date Clinician No Known DA Active [facility] Allergie 00:00: s 00 No Known DA Active [facility] 3[facility]17 Allergie 00:00: s 00 No Known DA Active U 2019-06 [facility] 1-18 Allergie 00:00: s 00 No Known Drug Active [facility] Family History Family Member Diagnosis Comments Start Date Stop Date Source Natural father Diabetes [facility] Natural father Cancer [facility] Natural mother COPD [facility] Natural mother Diabetes [facility] Natural sister Diabetes [facility] Social History Social Habit Start Date Stop Date Quantity Comments Source History of Cigarette Smoker [facility]is t tobacco use Hospital History [facility] Drinks History [facility] History [facility] Comment [facility] Alcohol intake 2021-03-22 2021-03-22 Current drinker [facility] 00:00:00 00:00:00 of alcohol Hospital (finding) History [facility] 2020-05-28 2020-05-28 3 [facility] Frequency 00:00:00 00:00:00 Hospita l Tobacco use and 2020-03-26 2020-03-26 [facility] non-user Hospital Sex Ass[birth year] At [birth year] [facility] 00:[facility]00 Hospital Smoking Status Start Date Stop Date Source Never Smoker [facility] Occasional tobacco smoker 2020-03-26 00:00:00 [facility] Light tobacco smoker 2016-06-01 00:00:00 [facility] Medications Ordered Filled Start Stop Current Ordering Indication Dosage Frequency Signature Comments Components Source Medication Medication Date Date Medication? Clinician (SIG) Name Name dolutegravi Yes Take by Met baljit traore (Tivicay) [address] 10 mg 16:08: Hospita tablet 47 l furosemide Yes 20mg Q.5D Take 20 mg M ethodi (LASIX) 20 7-[address] mg tablet 16:08: (two) Hospita 47 times a l day. montelukast Yes 10mg QD Take 10 mg Methodi (SINGULAIR) 7-[address] 10 mg 16:08: nightly. Hospita tablet 47 l carvediloL 0 Yes 12.5mg Q.5D Take 12.5 Methodi (COREG) 7-[address] 12.5 MG 16:08: mouth 2 Hospita tablet 47 (two) l times a day with meals. dolutegravi Yes Take by Met hodi r (Tivicay) 7-[address] 10 mg 16:08: Hospita tablet 47 l furosemide Yes 20mg Q.5D Take 20 mg M ethodi (LASIX) 20 7-[address] mg tablet 16:08: (two) Hospita 47 times a l day. montelukast Yes 10mg QD Take 10 mg Methodi (SINGULAIR) -[address] 10 mg 16:08: nightly. Hospita tablet 47 l carvediloL 0 Yes 12.5mg Q.5D Take 12.5 Methodi (COREG) 7-[address] 12.5 MG 16:08: mouth 2 Hospita tablet 47 (two) l times a day with meals. Niaspan Niaspan 2019- No [place] 1 tablet Common 09-23 Konstantin at bedtime Spirit 00:00: 00:00 - CHI 00 :00 [facility] 2019- No [place] 1 Comm on 09-23 Konstantin Spirit 00:00: 00:00 - CHI 00 :00 [facility] liraglutide Yes INJECT 1.2 Methodi (VICTOZA) [...] EVERY l mL) pen DAY injector darunavir-c 0 Yes Method i obicistat 4-08 st (PREZCOBIX) [...] Medical tablet 45 Center atorvastati atorvastati No atorvastat [place] n 40 [...] DAILY DAILY DAILY carvedilol carvedilol No carvedilol [facility] 12.5 mg 12.5 mg 12.5 mg Family tablet TAKE tablet TAKE tablet Practic 1 TABLET BY 1 TABLET BY TAKE 1 e MOUTH TWICE MOUTH TWICE TABLET BY DAILY DAILY MOUTH TWICE DAILY fluticasone [facility]ut[facility] propionate propionate e Fam haylee 50 50 propionate Practic mcg/actuati mcg/actuati 50 e on nasal on nasal mcg/actuat spray,suspe spray,suspe ion nasal nsion nsion spray,susp SPRAYS SPRAYS ension TWICE IEN TWICE IEN SPRAYS QHS QHS TWICE IEN QHS FreeStyle FreeStyle No FreeStyle [facility] Lien 14 Lien 14 Lien 14 Fam haylee Day Augusta Day Augusta Day Augusta Practic USE DEVICE USE DEVICE USE DEVICE e DIRECTED DIRECTED DIRECTED FreeStyle FreeStyle No FreeStyle [facility] Lien 2 Lien 2 Lien 2 Family Sensor kit Sensor kit Sensor kit Practic USE DAILY USE DAILY USE DAILY e DIRECTED DIRECTED BUT CHANGE BUT CHANGE DIRECTED EVERY 14 EVERY 14 BUT CHANGE DAYS DAYS EVERY 14 DAYS furosemide furosemide No furosemide [facility] 40 mg 40 mg 40 mg Family [...] days. for 90 days. montelukast montelukast No monteluej [facility] 10 mg 10 mg t 10 mg [...] SC QD UTD Prezcobix Prezcobix No Prezcobix [facility] 800 mg-150 800 mg-150 800 mg-150 Family mg tablet mg tablet mg tablet Practic TAKE 1 TAKE 1 TAKE 1 e TABLET BY TABLET BY TABLET BY MOUTH EVERY MOUTH EVERY MOUTH DAY DAY EVERY DAY Soliqua Soliqua No Soliqua Vill[facility] e 100/33 100 100/33 100 100/33 100 Family unit-33 unit-33 unit-33 Practi c mcg/mL mcg/mL mcg/mL e subcutaneou subcutaneou subcutaneo s insulin s insulin us insulin pen pen pen Tivicay 50 Tivicay 50 No Tivicay [...] 90 days. us route for 90 days. Victoza Victoza Yes [place] inject Commo n Konstantin under the Spirit skin 1.2mg - CHI daily [facility] BD Pen BD Pen Yes [place] USE Common Needle Nelida Needle Nelida Konstantin DIRECTED Spirit U/F U/F - CHI [facility] Metoprolol Metoprolol Yes [place] TAKE 1 Common Tartrate Tartrate Konstantin TABLET BY S pirit MOUTH - CHI TWICE A [facility] Singulair Singulair Yes [place] 1 tablet Common Konstantin Spirit - CHI [facility] Immunizations Ordered Immunization Filled Immunization Date Status Commen ts Source Name Name influenza, influenza, 2021-05-08 Completed [place] [place] injectable, injectable, 00:00:00 Practice quadrivalent quadrivalent MODERNA [...] 00:00:00 Practice (EpiVacCorona) (EpiVacCorona) Influenza, 2018-06-08 Completed [facility]00 [facility] Influenza, 2018-06-08 Completed [facility] 00:00:00 Hospital influenza, influenza, 2018-06-08 Completed [place] [place] injectable, injectable, 00:00:00 Practice quadrivalent quadrivalent Vital Signs Vital Name Observation Time Observation Value Comments Source BP Diastolic 2021-09-03 00:00:00 81 mm[Hg] [place] [place] [facility] Height 2021-09-03 00:00:00 71 [in_i] [place] [place] [facility] BMI (Body Mass 2021-09-03 00:00:00 33.3 kg/m2 [facility] Index) Practice BP Systolic 2021-09-03 00:00:00 151 mm[Hg] [place] [place] [facility] Body Weight 2021-09-03 00:00:00 239 [lb_av] [place] [place] [facility] Height 2021-05-30 00:00:00 71 [in_i] [place] [place] Practice BMI (Body Mass 2021-05-30 00:00:00 35 [...] 2020-09-05 00:00:00 251 [lb_av] [facility] Height/Length 2021-06-25 12:42:11 180.3 cm Measured Weight Dosing 2021-06-25 12:42:11 118 kg Height/Length 2021-06-25 11:56:08 180.3 cm Measured Weight Dosing 2021-06-25 11:56:08 118 kg Height/Length 2020-01-24 12:24:25 Measured Weight Dosing 2020-01-24 12:24:25 Systolic blood 2020-12-13 13:45:00 139 mm[Hg] [facility] pressure Diastolic blood 2020-12-13 13:45:00 81 mm[Hg] [facility] pressure Heart rate 2020-12-13 13:45:00 95 /min [facility] Body temperature 2020-12-13 13:45:00 37.28 Dawn [facility] Respiratory rate 2020-12-13 13:45:00 20 /min [facility] Oxygen saturation in 2020-12-13 13:45:00 98 /min [facility] Arterial blood by Pulse oximetry Body height 2020-12-13 13:04:00 180.3 cm [facility] Body weight 2020-12-13 13:04:00 108.047 kg [facility] BMI 2020-12-13 13:04:00 33.22 kg/m2 [facility] 02 Sat by Pulse 2020-09-06 16:51:46 98 /min Oximetry Body Mass Index 2020-09-06 16:51:46 34.9 Height 2020-09-06 16:51:46 180.34\\S\\71 Pulse Rate 2020-09-06 16:51:46 98 /min Respiratory Rate 2020-09-06 16:51:46 16 /min Temperature 2020-09-06 16:51:46 36.2\\S\\97.2 Weight 2020-09-06 16:51:46 141880.092\\S\\4000 02 Sat by Pulse 2020-08-27 18:48:23 98 /min Oximetry Body Mass Index 2020-08-27 18:48:23 34.9 Height 2020-08-27 18:48:23 180.34\\S\\71 Pulse Rate 2020-08-27 18:48:23 98 /min Respiratory Rate 2020-08-27 18:48:23 16 /min Temperature 2020-08-27 18:48:23 36.2\\S\\97.2 Weight 2020-08-27 18:48:23 082186.092\\S\\4000 Body Mass Index 2020-08-23 22:20:59 34.9 Height 2020-08-23 22:20:59 180.34\\S\\71 Pulse Rate 2020-08-23 22:20:59 98 /min Respiratory Rate 2020-08-23 22:20:59 16 /min Temperature 2020-08-23 22:20:59 36.2\\S\\97.2 Weight 2020-08-23 22:20:59 507295.092\\S\\4000 02 Sat by Pulse 2020-08-23 22:20:59 98 /min Oximetry 02 Sat by Pulse 2020-08-23 15:54:12 98 /min Oximetry Body Mass Index 2020-08-23 15:54:12 34.9 Height 2020-08-23 15:54:12 180.34\\S\\71 Pulse Rate 2020-08-23 15:54:12 98 /min Respiratory Rate 2020-08-23 15:54:12 16 /min Temperature 2020-08-23 15:54:12 36.2\\S\\97.2 Weight 2020-08-23 15:54:12 082402.092\\S\\4000 02 Sat by Pulse 2020-08-23 13:01:04 99 /min Oximetry Body Mass Index 2020-08-23 13:01:04 34.9 Height 2020-08-23 13:01:04 180.34\\S\\71 Pulse Rate 2020-08-23 13:01:04 91 /min Respiratory Rate 2020-08-23 13:01:04 18 /min Temperature 2020-08-23 13:01:04 36.8\\S\\98.2 Weight 2020-08-23 13:01:04 113828.092\\S\\4000 WEIGHT 2020-08-23 12:59:00 113.677351 kg HEIGHT 2020-08-23 12:59:00 180.34 cm Procedures Procedure Date / Time Performing Clinician Source Performed [id number] 2021-11-23 00:00:00 ENCPL YAG CAPSULOTOMY - OD - 2021-03-22 15:51:45 [facility] RIGHT EYE Sinus Surgery Procedure 2021-03-08 00:00:00 [facility] PHACOEMULSIFICATION, 2020-12-13 13:09:00 [place] [facility] CATARACT, WITH IOL IMPLANTATION POC GLUCOSE 2020-12-13 12:52:00 [facility] CORNEAL TOPOGRAPHY ATLAS 2020-11-12 15:46:10 [facility] - OU - BOTH EYES IOL BIOMETRY - OU - BOTH 2020-11-12 15:46:06 [facility] EYES Cataract Surgery [facility] Plan of Care Planned Activity Planned Date Details Comments Source Diagnostic Test 2021-09-03 glucose, [facility] Lopezi ly Pending 00:00:00 fingerstick, blood Practice [code = glucose, fingerstick, blood] Diagnostic Test 2021-09-03 hemoglobin A1C, [facility] Maty amily Pending 00:00:00 fingerstick [code = Practice hemoglobin A1C, fingerstick] Future Scheduled Test 2021-07-09 COLONOSCOPY [facility] 14:18:19 SCREENING [code = COLONOSCOPY SCREENING] Future Scheduled Test 2021-07-09 SHINGLES VACCINES [facility] 14:18:19 (#1) [code = SHINGLES VACCINES (#1)] Future Scheduled Test 2021-07-09 COVID-19 VACCINE ([address] [place] [address] 14:18:19 - Moderna risk 4-dose series) [code = COVID-19 VACCINE (2 - Moderna risk 4-dose series)] Future Scheduled Test 2021-07-09 INFLUENZA VACCINE [facility] 14:18:19 [code = INFLUENZA VACCINE] Future Scheduled Test 2021-07-09 DIABETES: RETINAL [facility] 14:18:19 EYE EXAM [code = DIABETES: RETINAL EYE EXAM] Future Scheduled Test 2021-07-09 DIABETIC FOOT EXAM [facility] 14:18:19 [code = DIABETIC FOOT EXAM] Future Scheduled Test 2021-07-09 Hepatitis C [facility] 14:18:19 screening (procedure) [code = 238689024] Future Scheduled Test 2021-07-09 COLONOSCOPY Method [facility] 14:18:19 SCREENING [code = COLONOSCOPY SCREENING] Future Scheduled Test 2021-07-09 SHINGLES VACCINES [facility] 14:18:19 (#1) [code = SHINGLES VACCINES (#1)] Future Scheduled Test 2021-07-09 COVID-19 VACCINE (2 [facility] 14:18:19 - Moderna risk 4-dose series) [code = COVID-19 VACCINE (2 - Moderna risk 4-dose series)] Future Scheduled Test 2021-07-09 INFLUENZA VACCINE [facility] 14:18:19 [code = INFLUENZA VACCINE] Future Scheduled Test 2021-07-09 DIABETES: RETINAL [facility] 14:18:19 EYE EXAM [code = DIABETES: RETINAL EYE EXAM] Future Scheduled Test 2021-07-09 DIABETIC FOOT EXAM [facility] 14:18:19 [code = DIABETIC FOOT EXAM] Future Scheduled Test 2021-07-09 Hepatitis C Method [facility] 14:18:19 screening (procedure) [code = 093151445] Future Appointment 2022-03-06 Anna Vega 10:00:00 [id number] [facility] [place] [address], [place] [address] Encounters Start End Encounter Admission Attending Care Care Encounter Source Date/Time Date/Time Type Type Clinicians Facility Department ID 2021-11-21 Outpatient 3 [facility] ENCPL CRD [id number] ENCPL 09:15:09 brant, 0616 Sahra 2021-11-20 Outpatient 3 [id number] E[facility] REF [id number] E[facility] 08:42:00 0615 2020-08-23 [id number] 12:30:00 Edmund 15 2021-11-23 2021-11-29 Inpatient 3 [facility] ENCPL OTH [id number] ENCPL 02:29:00 13:20:00 hez, 0618 Anavelyoseph 2021-09-09 2021-09-09 Outpatient Daniel_T VFP VFP [id number] 08-25 [facility] 02:52:00 02:52:00 [id number] Family Practic e 2021-09-03 2021-09-03 Outpatient Daniel_T VFP VFP [id number] [address] [place] [address] 03:18:00 03:18:00 [id number] Family Practic e 2021-09-03 2021-09-03 [place] VFP [place] - [id number] V illage 00:00:00 00:00:00 [facility] - Practi c MD: [id number] VM_HOU_Shad e Shadow ow [facility], [address] [address] , Ph. 2021-08-14 2021-08-14 Outpatient Daniel_T VFP VFP [id number] [address] [place] [address] 10:35:00 10:35:00 [id number] Family Practic e 2021-08-14 2021-08-14 Outpatient Daniel_T VFP VFP [id number] [address] [place] [address] 10:35:00 10:35:00 [id number] Family Practic e 2021-06-14 2021-06-14 Outpatient Daniel_T VFP VFP [id number] [address] [place] [address] 08:21:00 08:21:00 [id number] Family Practic e 2021-05-30 2021-05-30 Outpatient Daniel_T VFP VFP [id number] [address] [place] [address] 12:07:00 12:07:00 [id number] Family Practic e 2021-05-30 2021-05-30 Sal[place] VFP [place] - [id number] V illage 00:00:00 00:00:00 [facility], Medical - Practi c MD: [id number] VM_HOU_Shad e Shadow ow [facility], [address] [address] , Ph. 2021-03-22 2021-03-22 Procedure Rojo, 1.2.840.1 [id number] 2100 [id number] Methodi 09:57:39 10:52:50 [place] [address].1.[address] [place] [address] 3.430.2.7 Hospit a .3.362096 l .8 2021-03-22 2021-03-22 Travel 1.2.840.1 1.2.068.956 [id number] Methodi 00:00:00 00:00:[address] 3.430.2.7 0.2.7.3.698 Ho spita .3.173197 084.8 l .8 2021-03-15 2021-03-15 Outpatient Daniel_T VFP VFP [id number] [address] [place] [address] 06:40:00 06:40:00 [id number] Family Practic e 2021-03-13 2021-03-13 Outpatient Daniel_T VFP VFP [id number] [address] [place] [address] 11:00:00 11:00:00 [id number] Family Practic e 2021-03-13 2021-03-13 [place] VFP [place] - [id number] V illage 00:00:00 00:00:00 [facility], Anatoly - Leonid nielson MD: [id number] VM_HOU_Shad e Shadow [facility], [address], [place] [address] , Ph. 2021-01-25 2021-01-25 Telephone Rojo, 1.2.840.1 [id number] 2100 [id number] Methodi 00:00:00 00:00:[address] [place] 3.430.2.7 Hospit a .3.692351 l .8 2021-01-18 2021-01-18 Office Rojo, 1.2.840.1 [id number] Methodi 09:20:01 10:06:50 [place] [address] [place] 3.430.2.7 Hospit a .3.240289 l .8 2021-01-18 2021-01-18 Outpatient Daniel_T VFP VFP [id number] [address] [place] [address] 03:12:00 03:12:00 [id number] Family Practic e 2021-01-18 2021-01-18 Travel 1.2.840.1 1.2.356.101 [id number] Methodi 00:00:00 00:00:[address] 3.430.2.7 0.2.7.3.698 Ho spita .3.212616 084.8 l .8 2020-12-21 2020-12-21 Telephone [place], 1.2.840.1 [id number] 2100 [id number] Methodi 00:00:00 00:00:[address] [place] 3.430.2.7 Hospit a .3.209795 l .8 2020-12-15 2020-12-15 Outpatient Travis_T VFP VFP [id number] 3-20 [facility] 02:24:00 02:24:00 [id number] Family Practic e 2020-12-14 2020-12-14 Office Rojo, 1.2.840.1 [id number] Methodi 08:47:49 09:15:[place] [address] [place] 3.430.2.7 Hospit a .3.031653 l .8 2020-12-13 2020-12-13 Hospital [place], 1.2.840.1 [id number] Methodi 06:39:00 09:16:[place] [address].[address] [place] 3.430.2.7 Hospit a .3.230944 l .8 2020-12-13 2020-12-13 Surgery [place], 1.2.840.1 [id number] Methodi 08:15:00 09:00:[address] [place] 3.430.2.7 Hospit a .3.849797 l .8 2020-12-13 2020-12-13 Anesthesia Vargas, 1.2.840.1 [id number] Methodi 08:09:00 08:42:00 Event Derek 55102.1.[address] Jaramillo 3.430.2.7 Hospi ta .3.456846 l .8 2020-12-13 2020-12-13 Travel 1.2.840.1 1.2.685.003 1122 [id number] Methodi 00:00:00 00:00:[address] 3.430.2.7 0.2.7.3.698 Ho spita .3.236103 084.8 l .8 2020-12-12 2020-12-12 Telephone Rojo, 1.2.840.1 [id number] [id number] Methodi 00:00:00 00:00:[address] [place] 3.430.2.7 Hospit a .3.820521 l .8 2020-12-08 2020-12-08 Outpatient Daniel_T VFP VFP [id number] 20 [facility] 10:38:00 10:38:00 [id number] Family Practic e 2020-12-06 2020-12-06 Outpatient Daniel_T VFP VFP [id number] [address] [place] [address] 05:49:00 05:49:00 [id number] Family Practic e 2020-12-06 2020-12-06 [place] VFP [place] - [id number] V illage 00:00:00 00:00:00 [facility], Medical - Practi nisreen NICOLE: [id number] VM_HOU_Shavaughn e [facility], [address], [place] [address] , Ph. 2020-11-12 2020-11-12 Office Rojo, 1.2.840.1 [id number] Methodi 09:50:22 11:30:[place] [address] [place] 3.430.2.7 Hospit a .3.713699 l .8 2020-11-12 2020-11-12 Travel 1.2.840.1 1.2.828.769 [id number] Methodi 00:00:00 00:00:[address] 3.430.2.7 0.2.7.3.698 Ho spita .3.968678 084.8 l .8 2020-10-30 2020-10-30 Travel 1.2.840.1 1.2.411.840 [id number] [id number] Methodi 00:00:00 00:00:[address] 3.430.2.7 0.2.7.3.698 Ho spita .3.691720 084.8 l .8 2020-10-29 2020-10-29 Telephone , 1.2.840.1 [id number] 2100 [id number] Methodi 00:00:00 00:00:[address] [place] 3.430.2.7 Hospit a .3.985979 l .8 2020-10-10 2020-10-10 Outpatient Daniel_T VFP VFP [id number] [address] [place] [address] 09:31:00 09:31:00 [id number] Family Practic e 2020-10-09 2020-10-09 Outpatient Daniel_T VFP VFP [id number] [address] [place] [address] 05:34:00 05:34:00 [id number] Family Practic e 2020-10-09 2020-10-09 [place] VFP [place] - [id number] V illage 00:00:00 00:00:00 [facility] Frairemelissa Medical - Prackaylee nielson MD: [id number] VM_MARISOL_Tu contreras Shadow ow [facility], [address] [address] , Ph. 2020-09-08 2020-09-08 Outpatient Daniel_T VFP VFP [id number] [address] [place] [address] 07:26:00 07:26:00 [id number] Family Practic e 2020-09-05 2020-09-05 Outpatient Daniel_T VFP VFP [id number] [address] [place] [address] 02:22:00 02:22:00 [id number] Family Practic e 2020-09-05 2020-09-05 [place] VFP [place] - [id number] V illage 00:00:00 00:00:00 [facility] RoblesAnatoly - Prackaylee nielson MD: [id number] VM_MARISOL_Tu e Shadow ow [place] [facility], [address] [address] , Ph. 2020-08-30 2020-08-30 Outpatient Daniel_T VFP VFP [id number] [facility] 04:05:00 04:05:00 [id number] Family Practic e 2020-05-28 2020-05-28 Outpatient , [facility] [id number] [place] 00:00:00 00:00:[address] 2020-05-17 2020-05-17 Outpatient , [facility] [id number] [place] 00:00:00 00:00:00 DO [address] 2020-04-26 2020-04-26 Outpatient [facility] [id number] [facility] 14:10:00 14:10:00 Edmund 16 2020-04-19 2020-04-19 Outpatient [facility] [id number] [place] 00:00:00 00:00:[address] 2020-03-26 2020-03-26 Outpatient , [facility] [id number] [place] 00:00:00 00:00:00 DO [address] 2020-01-24 2020-01-24 Outpatient 3 Edmund Gamble [facility] [id number] [facility] 10:30:00 23:59:00 [facility] 2020-01-24 2020-01-24 Outpatient 3 Edmund Gamble [facility] [id number] St. 10:30:00 10:30:00 Mavis Edmund 2019 817 [facility] 2018-10-18 2018-10-18 Out[facility] [id number] [place] 13:47:00 13:47:00 t [facility] [address] [facility] 2018-09-23 2018-09-23 Out[facility] [id number] [place] 08:45:00 08:45:00 t [facility] [address] [facility] 2018-08-04 2018-08-04 Outpatient [facility] [id number] Common 08:30:00 08:30:00 t [facility] [address] [facility] it Road [facility] 2018-03-11 2018-03-11 Outpatient [facility] [id number] Common 10:51:00 10:51:00 t [facility] [address] [facility] Results Test Description Test Time Test Comments Results Result Comments Source HEPATITIS B SURFACE ANTIBODY 2021-11-04 17:11:26 Test Item Value Reference Range Interpretation Comme nts HEPATITIS B SURFACE ANTIBODY (BEAKER) (test code = 647) 1140.4 mIU/ mL <8.0 H Hris Developer ID - RMOperator ID - RMOperator ID - RMOperator ID - RMOperator ID - RMOperator ID - RMHEPATITIS B CORE ANTIBODY, [id number] 16:31:12 Test Item Value Reference Range Interpretation Comments HEPATITIS B CORE TOTAL ANTIBODY Reactive Nonreactive A (BEAKER) (test code = 497) Hris Developer ID - RMOperator ID - RMOperator ID - RMHEPATITIS B SURFACE ANTIGEN 2021-11-04 15:04:06 Test Item Value Reference Range Interpretation Comments HEPATITIS B SURFACE ANTIGEN (2) Nonreactive Nonreactive (BEAKER) (test code = 2585) Specimen is considered negative for HBsAg.HEPATITIS B SURFACE [id number] 21:39:47 Test Item Value Reference Range Interpretation Comments HEPATITIS B SURFACE ANTIBODY 1187.5 mIU/mL <8.0 H (BEAKER) (test code = 647) Hris Developer ID - BSOperator ID - BSHEPATITIS B CORE ANTIBODY, [id number] 21:39:42 Test Item Value Reference Range Interpretation Comments HEPATITIS B CORE TOTAL ANTIBODY Reactive Nonreactive A (BEAKER) (test code = 497) Hris Developer ID - BSOperator ID - BSOperator ID - BSHEPATITIS B SURFACE ANTIGEN 2021-11-01 20:57:29 Test Item Value Reference Range Interpretation Comments HEPATITIS B SURFACE ANTIGEN (2) Nonreactive Nonreactive (BEAKER) (test code = 2585) Specimen is considered negative for HBsAg.Hemoglobin A1c measurement device [id number] 13:22:43 Test Item Value Reference Range Interpretation Comments Hemoglobin A1C Fingerstick: (test code 5.4 = Hemoglobin A1C Fingerstick:) [facility] in Capillary [id number] 13:19:40 Test Item Value Reference Range Interpretation Comments Blood Glucose: mg/dl (test code = Blood 100 Glucose: mg/dl) [facility] measurement device [id number] 10:24:11 Test Item Value Reference Range Interpretation Comments Hemoglobin A1C Fingerstick: (test code 6.4 = Hemoglobin A1C Fingerstick:) [facility] [Mass/volume] in Capillary [id number] 10:23:38 Test Item Value Reference Range Interpretation Comments Blood Glucose: mg/dl (test code = Blood 180 Glucose: mg/dl) [facility] [id number] 12:53:31 Test Item Value Reference Range Interpretation Comments POC glucose (test code 112 mg/dL 65-99 H Opera tor Name: = 10360-9) [employer] Device ID: [id number] able: [facility] Notified radiology tech Interpretation Abnormal (test code = 49089-9) [facility] [id number] 12:53:31 Test Item Value Reference Range Interpretation Comments POC glucose (test code 112 mg/dL 65-99 H Opera tor Name: = 12620-1) [employer] Device ID: [id number] able: [facility] Notified radiology tech Interpretation Abnormal (test code = 16225-6) [facility] [id number] 11:58:15 Test Item Value Reference Range Interpretation Comments Glucose POC (test 121 mg/dL 70-115 H If you con glass mold repairer your code = Glucose POC) patient critically ill, the Marshal-Accu Check Infrom II meter should not be used for Glucose determination. Draw a venous Glucose and send to the main Lab for analysis. AFB CULTURE + [id number] 17:59:00 Test Item Value Reference Range Interpretation Comments CULTURE (BEAKER) (test No acid-fast bacilli code = 1095) isolated in 42 days AFB SMEAR (BEAKER) No acid fast bacilli (test code = 994) seen AFB CULTURE + [id number] 17:58:00 Test Item Value Reference Range Interpretation Comments CULTURE (BEAKER) (test No acid-fast bacilli code = 1095) isolated in 42 days AFB SMEAR (BEAKER) No acid fast bacilli (test code = 994) seen AFB CULTURE + [id number] 17:58:00 Test Item Value Reference Range Interpretation Comments CULTURE (BEAKER) (test No acid-fast bacilli code = 1095) isolated in 42 days AFB SMEAR (BEAKER) No acid fast bacilli (test code = 994) seen
--- NOTE | 2022-01-07 14:10 | RAD REPORT ---
EXAM DESCRIPTION: CT - Head Brain Wo Cont - 01/07/2022 4:12 am CLINICAL HISTORY: 56 years Male general weakness COMPARISON: CT head 11/15/2021. TECHNIQUE: Noncontrast CT of the head. This exam was performed according to our departmental dose-optimization program, which includes autom ated exposure control, adjustment of the mA and/or kV according to patient size and/or use of iterati ve reconstruction technique. FINDINGS: Parenchyma: No acute hemorrhage, large territorial infarction, or mass effect. Mild diffus e cortical volume loss. Ventricles and extra-axial spaces: Appropriate for age and degree of volume loss. Visualized paranasal sinuses: Complete opacification the right maxillary sinus. Near complete opacifi cation of the left maxillary sinus. Mild mucosal thickening in the bilateral ethmoid sinuses. Mastoid air cells: Clear. Bones: No acute focal abnormality. Additional comment: Bilateral lens surgery. IMPRESSION: 1. No acute intracranial findings. 2. Paranasal sinus disease as above. Electronically signed by: James Mena MD 01/07/2022 12:26 AM CDT Due to temporary technical issues with the PACS/FlueNcy reporting system, reports are being signed by the in house radiologists without review as a courtesy to insure prompt reporting. The interpreting radiologist is fully responsible for the content of the report.
--- NOTE | 2022-01-08 09:59 | ER ---
Nurse's Notes [facility] Name: Chalo Harry Age: 56 yrs Sex: Male : 1965 Arrival Date: 01/06/2022 Time: 21:04 Bed 6 Private MD: Diagnosis: Weakness-generalized Presentation: 01/06 21:26 Chief complaint: Patient states: I haven't been feeling right all day today , feeling iw run down, has not gotten any sleep in past couple days , I can;t go to sleep, I feel tingly all over , I did a tele visit today and was told to come to ER of he felt sick, denies diarrhea or vomtiing, I'm diabetic and on dialysis ,denies fever , feels cold. Coronavirus screen: Client presents with at least one sign or symptom that may indicate coronavirus-19. Ebola Screen: Patient negative for fever greater than or equal to 101.5 degrees Fahrenheit, and additional compatible Ebola Virus Disease symptoms Patient denies exposure to infectious person. Patient denies travel to an Ebola-affected area in the 21 days before illness onset. No symptoms or risks identified at this time. 21:26 Method Of Arrival: Wheelchair iw 21:30 Initial Sepsis Screen: Does the patient meet any 2 criteria? No. Patient's initial iw sepsis screen is negative. Does the patient have a suspected source of infection? No. Patient's initial sepsis screen is negative. Risk Assessment: Do you want to hurt yourself or someone else? Patient reports no desire to harm self or others. Onset of symptoms was January 06, 2022. 21:30 Acuity: KESHA 3 iw Historical: - Allergies: 21:30 No Known Allergies; iw - PMHx: 21:30 AIDS; allergies; Diabetes - NIDDM; Dialysis; High Cholesterol; Hypertension; iw - PSHx: 21:30 R chest dialysis access; iw - Immunization history:: Adult Immunizations up to date. - Social history:: Smoking status: Patient denies any tobacco usage or history of. Screenin:13 Abuse screen: Denies threats or abuse. Denies injuries from another. Nutritional lp1 screening: No deficits noted. Tuberculosis screening: No symptoms or risk factors identified. Fall Risk None identified. Assessment: 23:00 General: Appears in no apparent distress. Behavior is appropriate for age. Pain: Denies lp1 pain. Neuro: Level of Consciousness is awake, alert, obeys commands, Oriented to person, place, time, situation, Gait is steady, Reports paresthesias to general body, since this morning. Cardiovascular: Patient's skin is warm and dry. Respiratory: Respiratory effort is even, unlabored. GI: No signs and/or symptoms were reported involving the gastrointestinal system. : No signs and/or symptoms were reported regarding the genitourinary system. EENT: No signs and/or symptoms were reported regarding the EENT system. Derm: Skin is intact, Skin is dry, Skin is normal. Musculoskeletal: No deficits noted. 01/07 00:38 Reassessment: Patient appears in no apparent distress at this time. Patient is alert, lp1 oriented x 3, equal unlabored respirations, skin warm/dry/pink. Patient's sister at bedside. 01:38 Reassessment: Patient appears in no apparent distress at this time. Patient resting, lp1 eyes closed, respirations even, unlabored; Sister at bedside. Vital Signs: 01/06 21:26 BP 159 / 88; Pulse 94; Resp 16; Temp 97.2; Pulse Ox 100% on R/A; Weight 94.8 kg; Height iw 5 ft. 11 in. (180.34 cm); 23:00 BP 174 / 86; Pulse 90; Resp 14; Pulse Ox 99% on R/A; lp1 23:43 BP 164 / 79; Pulse 91; Resp 13; Pulse Ox 98% on R/A; lp1 01/07 00:38 BP 154 / 74; Pulse 83; Resp 13; Pulse Ox 98% on R/A; Pain 0/10; lp1 01:43 BP 174 / 78; Pulse 91; Resp 16; Pulse Ox 95% on R/A; lp1 02:26 BP 155 / 83; Pulse 84; Resp 12; Pulse Ox 98% on R/A; lp1 01/06 21:26 Body Mass Index 29.15 (94.80 kg, 180.34 cm) iw ED Course: 01/06 21:04 Patient arrived in ED. bp1 21:30 Triage completed. iw 21:30 Arm band placed on. iw 22:38 XRAY Chest (1 view) In Process Unspecified. EDMS 22:40 Collin Valles PA is PHCP. cp 22:40 iRtesh Cooper MD is Attending Physician. cp 23:12 Brook Ruvalcaba, RN is Primary Nurse. lp1 23:12 Missed attempt(s): 20 gauge in right antecubital area. Inserted saline lock: 22 gauge lp1 in right forearm, using aseptic technique. Blood collected. 23:13 Patient has correct armband on for positive identification. Bed in low position. Call lp1 light in reach. Client placed on continuous cardiac and pulse oximetry monitoring. NIBP monitoring applied. 23:25 COVID swab sent to lab. lp1 23:37 No provider procedures requiring assistance completed. lp1 08 00:11 CT Head Brain wo Cont In Process Unspecified. EDMS 02:32 IV discontinued, No redness/swelling at site. Pressure dressing applied. lp1 Administered Medications: No medications were administered Medication: 01/06 23:13 VIS not applicable for this client. lp1 Output: 08 01:22 Urine: 700ml (Voided); Total: 700ml. lp1 Outcome: 02:17 Discharge ordered by MD. cp 02:32 Discharged to home via wheelchair, with family. lp1 02:32 Condition: good 02:32 Discharge instructions given to patient, family, Instructed on discharge instructions, follow up and referral plans. Demonstrated understanding of instructions, follow-up care. 02:32 Patient left the ED. lp1 Signatures: Dispatcher [employer] Tiffani Pruitt RN RN Brook Ruvalcaba RN RN lp1 Collin Valles PA PA Renetta Akers bp1
--- NOTE | 2022-01-08 09:59 | EDPHYS ---
Physician Documentation [facility] Name: Chalo Harry Age: 56 yrs Sex: Male : 1965 Arrival Date: 01/06/2022 Time: 21:04 Bed 6 Private MD: ED Physician Ritesh Cooper HPI: 01/06 23:15 This 56 yrs old Male presents to ER via Wheelchair with complaints of cp Weakness, Doesn't Feel Right. 23:15 The patient presents to the emergency department with weakness of the entire body, cp generalized weakness. Onset: The symptoms/episode began/occurred today. 23:15 Associated signs and symptoms: Pertinent positives: paresthesias, Pertinent negatives: cp altered mental status, dizziness, fever, headache, neck stiffness, syncope. Severity of symptoms: in the emergency department the symptoms are unchanged despite home interventions. Patient reports difficulty sleeping over past couple nights. Historical: - Allergies: 21:30 No Known Allergies; iw - PMHx: 21:30 AIDS; allergies; Diabetes - NIDDM; Dialysis; High Cholesterol; Hypertension; iw - PSHx: 21:30 R chest dialysis access; iw - Immunization history:: Adult Immunizations up to date. - Social history:: Smoking status: Patient denies any tobacco usage or history of. ROS: 23:20 Constitutional: Negative for body aches, chills, fever, poor PO intake. cp 23:20 Cardiovascular: Negative for chest pain, palpitations. cp 23:20 Respiratory: Negative for cough, shortness of breath, wheezing. 23:20 Neuro: Positive for tingling, weakness, Negative for altered mental status, dizziness, headache, syncope. 23:20 Abdomen/GI: Negative for abdominal pain, vomiting, diarrhea, constipation. cp 23:20 : Negative for urinary symptoms. 23:20 Skin: Negative for cellulitis, rash. 23:20 All other systems are negative. Exam: 22:55 ECG was reviewed by the Attending Physician. cp 23:25 Constitutional: The patient appears in no acute distress, alert, awake, cp non-diaphoretic, non-toxic, well developed, well nourished. 23:25 Head/Face: Normocephalic, atraumatic. cp 23:25 Eyes: Periorbital structures: appear normal, Pupils: equal, round, and reactive to light and accomodation, Extraocular movements: intact throughout, Conjunctiva: normal, no exudate, no injection, Sclera: no appreciated abnormality, Lids and lashes: appear normal, bilaterally. 23:25 ENT: External ear(s): are unremarkable, Nose: is normal, Mouth: Lips: moist, Oral mucosa: pink and intact, moist, Posterior pharynx: Airway: no evidence of obstruction, patent. 23:25 Neck: ROM/movement: is normal, is supple, without pain, no range of motions limitations. 23:25 Chest/axilla: Inspection: normal, Palpation: is normal, no crepitus, no tenderness. 23:25 Cardiovascular: Rate: normal, Rhythm: regular, Edema: is not appreciated, JVD: is not appreciated. 23:25 Respiratory: the patient does not display signs of respiratory distress, Respirations: normal, no use of accessory muscles, no retractions, labored breathing, is not present, Breath sounds: are clear throughout, no decreased breath sounds, no stridor, no wheezing. 23:25 Abdomen/GI: Inspection: abdomen appears normal, Palpation: abdomen is soft and non-tender, in all quadrants. 23:25 Neuro: Orientation: to person, place \\T\\ time. Mentation: is normal, Cerebellar function: Romberg testing is negative, Motor: moves all fours, strength is normal, Sensation: no obvious gross deficits. 01/07 01:33 ECG was reviewed by the Attending Physician. cp Vital Signs: 01/06 21:26 BP 159 / 88; Pulse 94; Resp 16; Temp 97.2; Pulse Ox 100% on R/A; Weight 94.8 kg; Height iw 5 ft. 11 in. (180.34 cm); 23:00 BP 174 / 86; Pulse 90; Resp 14; Pulse Ox 99% on R/A; lp1 23:43 BP 164 / 79; Pulse 91; Resp 13; Pulse Ox 98% on R/A; lp1 01/07 00:38 BP 154 / 74; Pulse 83; Resp 13; Pulse Ox 98% on R/A; Pain 0/10; lp1 01:43 BP 174 / 78; Pulse 91; Resp 16; Pulse Ox 95% on R/A; lp1 02:26 BP 155 / 83; Pulse 84; Resp 12; Pulse Ox 98% on R/A; lp1 01/06 21:26 Body Mass Index 29.15 (94.80 kg, 180.34 cm) iw MDM: 01/06 22:50 Patient medically screened. 01/07 02:15 Data reviewed: vital signs, nurses notes, lab test result(s), EKG, radiologic studies, cp CT scan, plain films. Test interpretation: by ED physician or midlevel provider: ECG, plain radiologic studies. Counseling: I had a detailed discussion with the patient and/or guardian regarding: the historical points, exam findings, and any diagnostic results supporting the discharge/admit diagnosis, lab results, radiology results, the need for outpatient follow up, an deliverer food, nephrology, to return to the emergency department if symptoms worsen or persist or if there are any questions or concerns that arise at home. Response to treatment: the patient's symptoms have markedly improved after treatment, VSS. Patient sleeping in exam room. Will discharge to home for continued monitoring. 01/06 21:34 Order name: Basic Metabolic Panel; Complete Time: 23:59 01/07 00:00 Interpretation: Normal except: GLUC 158; BUN 85; CRE 9.76; GFR 6. 01/06 21:34 Order name: CBC with Diff; Complete Time: 23:59 01/07 00:00 Interpretation: Normal except: RBC 3.80; HGB 11.0; HCT 33.1; RDW 16.8; MPV 7.0. 01/06 21:34 Order name: Troponin HS; Complete Time: 23:59 01/06 23:05 Order name: PT-INR; Complete Time: 23:59 01/06 21:34 Order name: XRAY Chest (1 view) 01/06 23:12 Order name: COVID-19 SARS RT PCR (Document "Date of Onset" if Symptomatic); Complete cp Time: 00:50 01/07 00:50 Interpretation: Reviewed. 01/06 23:21 Order name: Glucose, Ancillary Testing; Complete Time: 23:59 EDMS 01/06 23:34 Order name: Urine Microscopic Only; Complete Time: 02:14 01/07 02:14 Interpretation: Reviewed. 01/06 23:34 Order name: CT Head Brain wo Cont cp 01/06 23:42 Order name: NT PRO-BNP; Complete Time: 23:59 EDMS 01/07 00:00 Interpretation: Abnormal: NT PRO-BNP 1421. cp 01/06 23:42 Order name: Magnesium; Complete Time: 23:59 EDMS 01/07 01:33 Order name: Urine Dipstick-Ancillary; Complete Time: 01:50 EDMS 01/07 01:50 Interpretation: Normal except: UBLD Trace-intact; UPROT 3+. cp 01/06 21:34 Order name: EKG; Complete Time: 21:37 iw 01/06 21:34 Order name: Cardiac monitoring; Complete Time: 23:12 iw 01/06 21:34 Order name: EKG - Nurse/Tech; Complete Time: 23:12 iw 01/06 21:34 Order name: IV Saline Lock; Complete Time: 23:12 iw 01/06 21:34 Order name: Labs collected and sent; Complete Time: 23:12 iw 01/06 21:34 Order name: O2 Per Protocol; Complete Time: 23:12 iw 01/06 21:34 Order name: O2 Sat Monitoring; Complete Time: 23:12 iw 01/06 23:34 Order name: Urine Dipstick-Ancillary (obtain specimen); Complete Time: 01:36 cp 01/07 00:50 Order name: EKG - Nurse/Tech; Complete Time: 01:31 cp EC/01 22:55 Rate is 86 beats/min. Rhythm is regular. OK interval is normal. QRS interval is normal. cp QT interval is normal. T waves are Inverted in lead aVR. Interpreted by me. Reviewed by me. 01/07 01:33 Rate is 88 beats/min. Rhythm is regular. OK interval is normal. QRS interval is normal. cp QT interval is normal. T waves are Inverted in lead aVR. Interpreted by me. Reviewed by me. Administered Medications: No medications were administered Disposition: 06:12 Co-signature as Attending Physician, Ritesh Cooper MD I agree with the assessment and kdr plan of care. Disposition Summary: 01/07/22 02:17 Discharge Ordered Location: Home cp Problem: new cp Symptoms: have improved cp Condition: Stable cp Diagnosis - Weakness - generalized cp Followup: cp - With: Private Physician - When: Today - Reason: dialysis Discharge Instructions: - Discharge Summary Sheet cp - Weakness cp Forms: - Medication Reconciliation Form cp - Thank You Letter cp - Antibiotic Education cp - Prescription Opioid Use cp Signatures: Dispatcher [employer] [facility] Ritesh Cooper MD MD kdr Tiffani Kasper RN RN iw Brook Ruvalcaba RN RN lp1 Collin Valles PA PA cp Corrections: (The following items were deleted from the chart) 01/06 23:42 23:08 MAGNESIUM+C.LAB.BRZ ordered. [facility] 23:42 23:08 PROBNP+C.LAB.BRZ ordered. [facility] 01/07 02:17 02:17 Muscle weakness (generalized) cp cp 16:10 01/06 23:20 Neuro: Positive for weakness, Negative for altered mental status, cp dizziness, headache, numbness, syncope, cp 01/07 16:15 02:14 Data reviewed: vital signs, nurses notes, lab test result(s), EKG, radiologic cp studies, CT scan, plain films, cp 16:15 02:14 Test interpretation: by ED physician or midlevel provider: ECG, plain radiologic cp studies, cp 16:15 02:14 Counseling: I had a detailed discussion with the patient and/or guardian cp regarding: the historical points, exam findings, and any diagnostic results supporting the discharge/admit diagnosis, lab results, radiology results, the need for outpatient follow up, an deliverer food, nephrology, to return to the emergency department if symptoms worsen or persist or if there are any questions or concerns that arise at home, cp 16:15 02:14 Response to treatment: the patient's symptoms have markedly improved after cp treatment, VSS. Patient sleeping in exam room. Will discharge to home for continued monitoring, cp
== END 2022-01-07 02:32 | disposition home or self-care (01) ==
LOC: ER 21:02
DX: R53.1 Weakness (principal); R20.2 Paresthesia of skin; I10 Essential (primary) hypertension; E11.9 Type 2 diabetes mellitus without complications; Z99.2 Dependence on renal dialysis; Z21 Asymptomatic human immunodeficiency virus [HIV] infection status
CPT/HCPCS: 93005 ×2; 85025; 80048; 36415; 83735; 85610; 82947; 84484; 83880; 70450; 71045; U0003; 81003; 81015; 99284

== ENCOUNTER 2022-01-08 20:39 | Emergency (ER) | payer BC ==
--- OUTSIDE RECORDS SUMMARY | 2022-01-08 20:42 | XMS REPORT | Continuity of Care Document ---
:1965 Author Organization [facility] t Address [address] [place] [address] Care Team Providers Name Role Phone Sharpless Primary Care Physician Sahra Tong Anavella Attending Clinician Unava ilable [id number] Attending Clinician Unavailable Edmund Gamble Attending Clinician Unavailable Claudia Attending Clinician Unavailable Do Rojo MD Attending Clinician Derek Kaye MD Attending Clinician [phone] Edmund Gamble Attending Clinician Unavailable Edmund Gamble Attending Clinician Unavailable HILDA BURKETT Attending Clinician Unavailable Dale Tong Anav Admitting Clinician Unavailable [id number] Admitting Clinician Unavailable Claudia Admitting Clinician Unavailable DO ROJO Admitting Clinician Unavailable Edmund Gamble Admitting Clinician Unavailable HILDA BURKETT Admitting Clinician Unavailable Payers Payer Name Policy Type Policy Number Effective Date Expiration Date S ource BCTP BCT[place] [id number] [place] [id number] 2019 00:[place]:00 [place] Problems Condition Condition [...] ion Tinea Tinea Problem Active [facility] pedis Pedis 12-06 Family 00:00: Practic 00 e Hypoalbumi Hypoalbumi Problem Active [facility] nemia nemia 12-06 Family 00:00: Practic 00 e Hypocalcem Hypocalcem Problem Active [facility] ia ia 12-06 Family 00:00: Practic 00 e Morbid Morbid Problem Active [facility] obesity Obesity 12-06 Family 00:00: Practic [...] 2 Type 2 Problem Active [facility] diabetes Diabetes 3-31 Family mellitus Mellitus 00:00: Practi c 00 e Hyperlipid Hyperlipid Problem Active [facility] emia emia 3-31 Family 00:00: Practic 00 e Essential Essential Problem Active Rodrigue armstrong hypertensi Hypertensi 3-31 Fa dary on on 00:00: Practic 00 e Seasonal Seasonal Problem Active Nik ge allergy Allergy 3-31 Family 00:00: Practic 00 e Chronic Chronic Problem Active [facility] kidney Kidney 3-31 Family disease Disease 00:00: Practic 00 e 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 00:00: Practic virus Virus e infection Infection Foot Foot Disease Active 2015-[address] [facility] abscess[facility] Toe Toe Disease Active 2015-[address] osteomyeli osteomyeli - [facility] tis, left tis, left 00:00: Medi [...] - [facility] without without St complicati complicati [facility] on, on, Medical without without Center long-term long-term current current use of use of insulin insulin Chronic Chronic Problem Active Common kidney kidney Spirit disease, disease, - [facility] unspecifie unspecifie St d CKD d CKD [facility] stage stage [facility] Essential Essential Problem Active Com mon (primary) (primary) Spir it hypertensi hypertensi - [facility]I on on [facility] 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 Family History Family Member Diagnosis Comments Start Date Stop Date Source Natural father Diabetes [facility] Natural father Cancer [facility] Natural mother COPD [facility] Natural mother Diabetes [facility] Natural sister Diabetes [facility] Social History Social Habit Start Date Stop Date Quantity Comments Source History of Cigarette Smoker Methodis t tobacco use Hospital History [facility] Drinks History [facility] Worship Alcohol Binge Hospital History [facility] Worship Alcohol Comment Hospital Alcohol intake 2021-03-22 2021-03-22 Current drinker [facility] dist 00:00:00 00:00:00 of alcohol Hospital (finding) History [facility] 2020-05-28 2020-05-28 3 Worship Alcohol Frequency 00:00:00 00:00:00 Hospita l Tobacco use and 2020-03-26 2020-03-26 [facility]-user Hospital Sex Ass[birth year] At [birth year] W[facility] 00:00:00 00:00:00 Hospital Smoking Status Start Date Stop Date Source Never Smoker [facility] Occasional tobacco smoker 2020-03-26 00:00:00 [facility] Light tobacco smoker 2016-06-01 00:00:00 [facility] Medications Ordered Filled Start Stop Current [...] Spirit 00:00: 00:00 - [facility]I 00 :00 [facility] 2019- No [place] 1 Comm on 09-23 Konstantin Spirit 00:00: 00:00 - CHI 00 :00 [facility] liraglutide Yes INJECT 1.2 Methodi (VICTOZA) [...] the Spirit skin 1.2mg - CHI daily [facility] BD Pen BD Pen Yes [place] USE Common Needle Nelida Needle Nelida Konstantin DIRECTED Spirit U/F U/F - [facility] Metoprolol Metoprolol Yes [place] TAKE 1 Common Tartrate Tartrate Konstantin TABLET BY S pirit MOUTH - CHI TWICE A [facility] Singulair Singulair Yes [place] 1 tablet Common Konstantin Spirit - [facility] atorvastati atorvastati No atorvastat [place] n [...] Lien 14 Lien 14 Fam haylee Day [place] Practic USE DEVICE USE DEVICE USE DEVICE e DIRECTED DIRECTED DIRECTED FreeStyle FreeStyle No FreeStyle [facility] Lien 2 Lien 2 Lien 2 Family Sensor kit Sensor kit Sensor kit Practic USE DAILY USE DAILY USE DAILY e DIRECTED DIRECTED BUT CHANGE BUT CHANGE DIRECTED EVERY 14 EVERY 14 BUT CHANGE DAYS DAYS EVERY 14 DAYS furosemide furosemide No furosemide [facility] 40 mg 40 mg 40 mg [...] days. for 90 days. [facility] 10 mg t 10 mg Family tablet TAKE tablet TAKE tablet Practic 1 TABLET BY 1 TABLET BY TAKE 1 e MOUTH EVERY MOUTH EVERY TABLET BY DAY DAY MOUTH EVERY DAY NovoFine NovoFine No NovoFine Rodrigue patti Plus 32 Plus 32 Plus 32 Family gauge x gauge x gauge x Practi c 1/6" needle /6" needle 06/13" e U SC QD UTD U SC QD UTD needle U SC QD UTD Prezcobix Prezcobix No Prezcobix [facility] 800 mg-150 800 mg-150 800 mg-150 [...] Source Name Name influenza, influenza, 2021-05-08 Completed [facility] injectable, injectable, 00:00:00 Practice quadrivalent quadrivalent MODERNA COVID-19 2020-10-12 Completed Methodis t MRNA VACCINATION 00:00:00 Hospital MODERNA COVID-19 2020-10-12 Completed Methodis t MRNA VACCINATION 00:00:00 Hospital COVID-19, mRNA, COVID-19, mRNA, 2020-10-11 Completed [facility] Family LNP-S, PF, 100 LNP-S, PF, 100 00:00:00 Practi ce mcg/0.5 mL dose mcg/0.5 mL dose (Moderna) (Moderna) Non-US Vaccine Non-US Vaccine 2020-09-[address] [facility] Family COVID-19 PS COVID-19 PS 00:00:00 Practice (EpiVacCorona) (EpiVacCorona) Influenza, 2018-06-08 Completed [facility] Quadrivalent 00:00:00 Hospital Influenza, 2018-06-08 Completed [facility] Quadrivalent 00:00:00 [facility] influenza, influenza, 2018-06-08 Completed [facility] injectable, injectable, 00:00:00 Practice quadrivalent quadrivalent Vital Signs Vital Name Observation Time Observation Value Comments Source BP Diastolic 2021-09-03 00:00:00 81 mm[Hg] [facility] Practice Height 2021-09-03 00:00:00 71 [in_i] [facility] Practice BMI (Body Mass 2021-09-03 00:00:00 33.3 kg/m2 [facility] Family Index) Practice BP Systolic 2021-09-03 00:00:00 151 mm[Hg] [facility] Body Weight 2021-09-03 00:00:00 239 [lb_av] [facility] Height 2021-05-30 00:00:00 71 [in_i] [facility] BMI (Body Mass 2021-05-30 00:00:00 35 kg/m2 [...] 12:24:25 Systolic blood 2020-12-13 13:45:00 139 mm[Hg] [facility] pressure Diastolic blood 2020-12-13 13:45:00 81 mm[Hg] [facility] pressure Heart rate 2020-12-13 13:45:00 95 /min [facility] Body temperature 2020-12-13 13:45:00 37.28 Dawn [facility] Respiratory rate 2020-12-13 13:45:00 20 /min [facility] Oxygen saturation in 2020-12-13 13:45:00 98 /min [facility] Arterial blood by Pulse oximetry Body height 2020-12-13 13:04:00 180.3 cm [facility] Body weight 2020-12-13 13:04:00 108.047 kg [facility] BMI 2020-12-13 13:04:00 33.22 kg/m2 [facility] 02 Sat by Pulse 2020-09-06 16:51:46 98 /min Oximetry Body Mass Index 2020-09-06 16:51:46 34.9 Height 2020-09-06 16:51:46 180.34\\S\\71 Pulse Rate 2020-09-06 16:51:46 98 /min Respiratory Rate 2020-09-06 16:51:46 16 /min Temperature 2020-09-06 16:51:46 36.2\\S\\97.2 Weight 2020-09-06 16:51:46 167419.092\\S\\4000 02 Sat by Pulse 2020-08-27 18:48:23 98 /min Oximetry Body Mass Index 2020-08-27 18:48:23 34.9 Height 2020-08-27 18:48:23 180.34\\S\\71 Pulse Rate 2020-08-27 18:48:23 98 /min Respiratory Rate 2020-08-27 18:48:23 16 /min Temperature 2020-08-27 18:48:23 36.2\\S\\97.2 Weight 2020-08-27 18:48:23 701847.092\\S\\4000 Body Mass Index 2020-08-23 22:20:59 34.9 Height 2020-08-23 22:20:59 180.34\\S\\71 Pulse Rate 2020-08-23 22:20:59 98 /min Respiratory Rate 2020-08-23 22:20:59 16 /min Temperature 2020-08-23 22:20:59 36.2\\S\\97.2 Weight 2020-08-23 22:20:59 955472.092\\S\\4000 02 Sat by Pulse 2020-08-23 22:20:59 98 /min Oximetry 02 Sat by Pulse 2020-08-23 15:54:12 98 /min Oximetry Body Mass Index 2020-08-23 15:54:12 34.9 Height 2020-08-23 15:54:12 180.34\\S\\71 Pulse Rate 2020-08-23 15:54:12 98 /min Respiratory Rate 2020-08-23 15:54:12 16 /min Temperature 2020-08-23 15:54:12 36.2\\S\\97.2 Weight 2020-08-23 15:54:12 933201.092\\S\\4000 02 Sat by Pulse 2020-08-23 13:01:04 99 /min Oximetry Body Mass Index 2020-08-23 13:01:04 34.9 Height 2020-08-23 13:01:04 180.34\\S\\71 Pulse Rate 2020-08-23 13:01:04 91 /min Respiratory Rate 2020-08-23 13:01:04 18 /min Temperature 2020-08-23 13:01:04 36.8\\S\\98.2 Weight 2020-08-23 13:01:04 555058.092\\S\\4000 WEIGHT 2020-08-23 12:59:00 113.934930 kg HEIGHT 2020-08-23 12:59:00 180.34 cm Procedures Procedure Date / Time Performing Clinician Source Performed [id number] 2021-11-23 00:00:00 ENCPL YAG CAPSULOTOMY - OD - 2021-03-22 15:51:45 [facility] RIGHT EYE Sinus Surgery Procedure 2021-03-08 00:00:00 [facility] PHACOEMULSIFICATION, 2020-12-13 13[place]09:00 [place] [facility] CATARACT, WITH IOL IMPLANTATION POC GLUCOSE 2020-12-13 12:52:00 [facility] CORNEAL TOPOGRAPHY ATLAS 2020-11-12 15:46:10 [facility] - OU - BOTH EYES IOL BIOMETRY - OU - BOTH 2020-11-12 15:46:06 [facility] EYES Cataract Surgery [facility] Plan of Care Planned Activity Planned Date Details Comments Source Diagnostic Test 2021-09-03 glucose, [facility] Lopezi ly Pending 00:00:00 fingerstick, blood Practice [code = glucose, fingerstick, blood] Diagnostic Test 2021-09-03 hemoglobin A1C, [facility] Maty amily Pending 00:00:00 fingerstick [code = Practice hemoglobin A1C, fingerstick] Future Scheduled Test 2021-07-09 COLONOSCOPY Method [facility] 14:18:19 SCREENING [code = COLONOSCOPY SCREENING] Future Scheduled Test 2021-07-09 SHINGLES VACCINES [facility] 14:18:19 (#1) [code = SHINGLES VACCINES (#1)] Future Scheduled Test 2021-07-09 COVID-19 VACCINE ([address] [place] [address] 14:18:19 - Moderna risk 4-dose series) [code = COVID-19 VACCINE (2 - Moderna risk 4-dose series)] Future Scheduled Test 2021-07-09 INFLUENZA VACCINE [facility] 14:18:19 [code = INFLUENZA VACCINE] Future Scheduled Test 2021-07-09 DIABETES: RETINAL [facility] 14:18:19 EYE EXAM [code = DIABETES: RETINAL EYE EXAM] Future Scheduled Test 2021-07-09 DIABETIC FOOT EXAM [facility] 14:18:19 [code = DIABETIC FOOT EXAM] Future Scheduled Test 2021-07-09 Hepatitis C Method [facility] 14:18:19 screening (procedure) [code = 496889075] Future Scheduled Test 2021-07-09 COLONOSCOPY Method [facility] 14:18:19 SCREENING [code = COLONOSCOPY SCREENING] Future Scheduled Test 2021-07-09 SHINGLES VACCINES [facility] 14:18:19 (#1) [code = SHINGLES VACCINES (#1)] Future Scheduled Test 2021-07-09 COVID-19 VACCINE (2 [facility] 14:18:19 - Moderna risk 4-dose series) [code = COVID-19 VACCINE (2 - Moderna risk 4-dose series)] Future Scheduled Test 2021-07-09 INFLUENZA VACCINE [facility] 14:18:19 [code = INFLUENZA VACCINE] Future Scheduled Test 2021-07-09 DIABETES: RETINAL [facility] 14:18:19 EYE EXAM [code = DIABETES: RETINAL EYE EXAM] Future Scheduled Test 2021-07-09 DIABETIC FOOT EXAM [facility] 14:18:19 [code = DIABETIC FOOT EXAM] Future Scheduled Test 2021-07-09 Hepatitis C Method [facility] 14:18:19 screening (procedure) [code = 332534498] Future Appointment 2022-03-06 Anna Vega 10:00:00 [id number] [facility] [address], [place] [address] Encounters Start End Encounter Admission Attending Care Care Encounter Source Date/Time Date/Time Type Type Clinicians Facility Department ID 2021-11-21 Outpatient 3 [facility] ENCPL CRD [id number] ENCPL 09:15:09 brant, 0616 Sahra 2021-11-20 Outpatient 3 [id number] ENCPL REF [id number] ENCPL 08:42:00 0615 2020-08-23 [facility] [id number] [facility] 12:30:00 Edmund 15 2021-11-23 2021-11-29 Inpatient 3 [facility] ENCPL OTH [id number] ENCPL 02:29:00 13:20:00 hez, 0618 Anavelyoseph 2021-09-09 2021-09-09 Outpatient Daniel_T VFP VFP [id number] 08-25 [facility] 02:52:00 02:52:00 [id number] Family Practic e 2021-09-03 2021-09-03 Outpatient Daniel_T VFP VFP [id number] [address] [place] [address] 03:18:00 03:18:00 [id number] Family Practic e 2021-09-03 2021-09-03 Sal[place]ador VFP [place] - [id number] V illage 00:00:00 00:00:00 [facility] - Practi c MD: [id number] VM_HOU_Shad e Shadow ow [facility], [address], [place] [address] , Ph. 2021-08-14 2021-08-14 Outpatient Daniel_T VFP VFP [id number] [address] [place] [address] 10:35:00 10:35:00 [id number] Family Practic e 2021-08-14 2021-08-14 Outpatient Daniel_T VFP VFP [id number] [address] [place] [address] 10:35:00 10:35:00 [id number] Family Practic e 2021-06-14 2021-06-14 Outpatient Daniel_T VFP VFP [id number] [address] [place] [address] 08:21:00 08:21:00 [id number] Family Practic e 2021-05-30 2021-05-30 Outpatient Daniel_T VFP VFP [id number] [address] [place] [address] 12:07:00 12:07:00 [id number] Family Practic e 2021-05-30 2021-05-30 Salbador VFP [place] - [id number] V illage 00:00:00 00:00:00 [facility] [place], Medical - Practi c MD: [id number] VM_HOU_Shad e Shadow ow [facility], [address], [place] [address] , Ph. 2021-03-22 2021-03-22 Procedure Rojo, 1.2.840.1 [id number] 2100 [id number] Methodi 09:57:39 10:52:[place] [address] [place] [address] 3.430.2.7 Hospit a .3.158205 l .8 2021-03-22 2021-03-22 Travel 1.2.840.1 1.2.483.342 2510 [id number] Methodi 00:00:00 00:00:[address] 3.430.2.7 0.2.7.3.698 Ho spita .3.325850 084.8 l .8 2021-03-15 2021-03-15 Outpatient Daniel_T VFP VFP [id number] [address] [place] [address] 06:40:00 06:40:00 [id number] Family Practic e 2021-03-13 2021-03-13 Outpatient Daniel_T VFP VFP [id number] [address] [place] [address] 11:00:00 11:00:00 [id number] Family Practic e 2021-03-13 2021-03-13 Sal[place]ador VFP [place] - [id number] V illage 00:00:00 00:00:00 [facility] [place], Anatoly - Leonid nielson MD: [id number] VM_HOU_Shad e Shadow [facility], [address], [place] [address] , Ph. 2021-01-25 2021-01-25 Telephone Rojo, 1.2.840.1 [id number] 2100 [id number] Methodi 00:00:00 00:00:[address] [place] 3.430.2.7 Hospit a .3.957179 l .8 2021-01-18 2021-01-18 Office Rojo, 1.2.840.1 [id number] Methodi 09:20:01 10:06:50 [place] [address] [place] 3.430.2.7 Hospit a .3.390740 l .8 2021-01-18 2021-01-18 Outpatient Daniel_T VFP VFP [id number] [address] [place] [address] 03:12:00 03:12:00 [id number] Family Practic e 2021-01-18 2021-01-18 Travel 1.2.840.1 1.2.031.432 3465 [id number] Methodi 00:00:00 00:00:[address] 3.430.2.7 0.2.7.3.698 Ho spita .3.490054 084.8 l .8 2020-12-21 2020-12-21 Telephone [place], 1.2.840.1 [id number] 2100 [id number] Methodi 00:00:00 00:00:[address] [place] 3.430.2.7 Hospit a .3.888487 l .8 2020-12-15 2020-12-15 Outpatient Travis_T VFP VFP [id number] 3-20 Village 02:24:00 02:24:00 [id number] Family Practic e 2020-12-14 2020-12-14 Office Rojo, 1.2.840.1 [id number] Methodi 08:47:49 09:15:[place] [address] [place] 3.430.2.7 Hospit a .3.083749 l .8 2020-12-13 2020-12-13 Hospital [place], 1.2.840.1 [id number] Methodi 06:39:00 09:16:00 [place] [address] [place] 3.430.2.7 Hospit a .3.394079 l .8 2020-12-13 2020-12-13 Surgery [place], 1.2.840.1 [id number] Methodi 08:15:00 09:00:[address] [place] 3.430.2.7 Hospit a .3.663399 l .8 2020-12-13 2020-12-13 Anesthesia Vargas, 1.2.840.1 [id number] Methodi 08:09:00 08:42:00 Event Derek 52809.1.[address] [place] 3.430.2.7 Hospi ta .3.598719 l .8 2020-12-13 2020-12-13 Travel 1.2.840.1 1.2.505.153 9179 [id number] Methodi 00:00:00 00:00:[address] 3.430.2.7 0.2.7.3.698 Ho spita .3.399784 084.8 l .8 2020-12-12 2020-12-12 Telephone Rojo, 1.2.840.1 [id number] [id number] Methodi 00:00:00 00:00:[address] [place] 3.430.2.7 Hospit a .3.749416 l .8 2020-12-08 2020-12-08 Outpatient Daniel_T VFP VFP [id number] 20 [facility] 10:38:00 10:38:00 [id number] Family Practic e 2020-12-06 2020-12-06 Outpatient Daniel_T VFP VFP [id number] [address] [place] [address] 05:49:00 05:49:00 [id number] Family Practic e 2020-12-06 2020-12-06 Sal[place]ador VFP [place] - [id number] V illage 00:00:00 00:00:00 [facility] [place], Medical - Practi nisreen NICOLE: [id number] VM_HOU_Shavaughn e Shadow [facility], [address], [place] [address] , Ph. 2020-11-12 2020-11-12 Office Rojo, 1.2.840.1 [id number] Methodi 09:50:22 11:30:[place] [address] [place] 3.430.2.7 Hospit a .3.404335 l .8 2020-11-12 2020-11-12 Travel 1.2.840.1 1.2.601.658 2940 [id number] Methodi 00:00:00 00:00:[address] 3.430.2.7 0.2.7.3.698 Ho spita .3.182857 084.8 l .8 2020-10-30 2020-10-30 Travel 1.2.840.1 1.2.550.049 1782 [id number] Methodi 00:00:00 00:00:[address] 3.430.2.7 0.2.7.3.698 Ho spita .3.946619 084.8 l .8 2020-10-29 2020-10-29 Telephone , 1.2.840.1 [id number] 2100 [id number] Methodi 00:00:00 00:00:[address] [place] 3.430.2.7 Hospit a .3.723784 l .8 2020-10-10 2020-10-10 Outpatient Daniel_T VFP VFP [id number] [address] [place] [address] 09:31:00 09:31:00 [id number] Family Practic e 2020-10-09 2020-10-09 Outpatient Daniel_T VFP VFP [id number] [address] [place] [address] 05:34:00 05:34:00 [id number] Family Practic e 2020-10-09 2020-10-09 Sal[place]ador VFP [place] - [id number] V illage 00:00:00 00:00:00 [facility] Family Frairemelissa Medical - Prackaylee nielson MD: [id number] VM_MARISOL_Tu contreras Shadow [facility], [address] [address] , Ph. 2020-09-08 2020-09-08 Outpatient Daniel_T VFP VFP [id number] [address] [place] [address] 07:26:00 07:26:00 [id number] Family Practic e 2020-09-05 2020-09-05 Outpatient Daniel_T VFP VFP [id number] [address] [place] [address] 02:22:00 02:22:00 [id number] Family Practic e 2020-09-05 2020-09-05 Sal[place]ador VFP [place] - [id number] V illage 00:00:00 00:00:00 [facility] Family RoblesAnatoly - Prackaylee nielson MD: [id number] VM_MARISOL_Tu e Shadow ow [facility], [address], [place] [address] , Ph. 2020-08-30 2020-08-30 Outpatient Daniel_T VFP VFP [id number] [facility] 04:05:00 04:05:00 [id number] Family Practic e 2020-05-28 2020-05-28 Outpatient , [facility] [id number] 040 [place] 00:00:00 00:00:[address] DO [address] 2020-05-17 2020-05-17 Outpatient , [facility] 284 [id number] 409 [place] 00:00:00 00:00:[address] DO [address] 2020-04-26 2020-04-26 Outpatient Mavis [facility] [id number] [id number] [facility] 14:10:00 14:10:00 Edmund 16 2020-04-19 2020-04-19 Outpatient [facility] [id number] 340 [place] 00:00:00 00:00:[address] 2020-03-26 2020-03-26 Outpatient , [facility] [id number] 604 [place] 00:00:00 00:00:00 DO [address] 2020-01-24 2020-01-24 Outpatient 3 Edmund Gamble [facility] V[facility] [id number] [facility] 10:30:00 23:59:[facility] 2020-01-24 2020-01-24 Outpatient 3 Edmund Gamble [facility] [id number] St. 10:30:00 10:30:00 Mavis Edmund 2019 817 [facility] 2018-10-18 2018-10-18 Outpatient [facility] 25 [id number] Common 13:47:00 13:47:00 t [facility] [address] [facility] 2018-09-23 2018-09-23 Outpatient [facility] [id number] Common 08:45:00 08:45:00 t [facility] [address] [facility] 2018-08-04 2018-08-04 Outpatient [facility] [id number] Common 08:30:00 08:30:00 t [facility] it Road [facility] 2018-03-11 2018-03-11 Outpatient [facility] 22 [id number] Common 10:51:00 10:51:00 t [facility] it [address] [facility] Results Test Description Test Time Test Comments Results Result Comments Source HEPATITIS B SURFACE ANTIBODY 2021-11-04 17:11:26 Test Item Value Reference Range Interpretation Comme nts HEPATITIS B SURFACE ANTIBODY (BEAKER) (test code = 647) 1140.4 mIU/ mL <8.0 H Display Maker ID - RMOperator ID - RMOperator ID - RMOperator ID - RMOperator ID - RMOperator ID - RMHEPATITIS B CORE ANTIBODY, [id number] 16:31:12 Test Item Value Reference Range Interpretation Comments HEPATITIS B CORE TOTAL ANTIBODY Reactive Nonreactive A (BEAKER) (test code = 497) Display Maker ID - RMOperator ID - RMOperator ID - RMHEPATITIS B SURFACE ANTIGEN 2021-11-04 15:04:06 Test Item Value Reference Range Interpretation Comments HEPATITIS B SURFACE ANTIGEN (2) Nonreactive Nonreactive (BEAKER) (test code = 2585) Specimen is considered negative for HBsAg.HEPATITIS B SURFACE [id number] 21:39:47 Test Item Value Reference Range Interpretation Comments HEPATITIS B SURFACE ANTIBODY 1187.5 mIU/mL <8.0 H (BEAKER) (test code = 647) Display Maker ID - BSOperator ID - BSHEPATITIS B CORE ANTIBODY, [id number] 21:39:42 Test Item Value Reference Range Interpretation Comments HEPATITIS B CORE TOTAL ANTIBODY Reactive Nonreactive A (BEAKER) (test code = 497) Display Maker ID - BSOperator ID - BSOperator ID - BSHEPATITIS B SURFACE ANTIGEN 2021-11-01 20:57:29 Test Item Value Reference Range Interpretation Comments HEPATITIS B SURFACE ANTIGEN (2) Nonreactive Nonreactive (BEAKER) (test code = 2585) Specimen is considered negative for HBsAg.Hemoglobin A1c measurement device [id number] 13:22:43 Test Item Value Reference Range Interpretation Comments Hemoglobin A1C Fingerstick: (test code 5.4 = Hemoglobin A1C Fingerstick:) [facility] [id number] 13:19:40 Test Item Value Reference Range Interpretation Comments Blood Glucose: mg/dl (test code = Blood 100 Glucose: mg/dl) [facility] [id number] 10:24:11 Test Item Value Reference Range Interpretation Comments Hemoglobin A1C Fingerstick: (test code 6.4 = Hemoglobin A1C Fingerstick:) [facility]/volume] in Capillary [id number] 10:23:38 Test Item Value Reference Range Interpretation Comments Blood Glucose: mg/dl (test code = Blood 180 Glucose: mg/dl) [facility] [id number] 12:53:31 Test Item Value Reference Range Interpretation Comments POC glucose (test code 112 mg/dL 65-99 H Opera tor Name: = 37402-8) KROGNI Device ID: [id number] able: [facility] Notified law reporter Interpretation Abnormal (test code = 46064-9) [facility] [id number] 12:53:31 Test Item Value Reference Range Interpretation Comments POC glucose (test code 112 mg/dL 65-99 H Opera tor Name: = 79430-8) KROGNI Device ID: [id number] able: [facility] Notified law reporter Interpretation Abnormal (test code = 07563-0) [facility] [id number] 11:58:15 Test Item Value Reference Range Interpretation Comments Glucose POC (test 121 mg/dL 70-115 H If you con assistant cook your code = Glucose POC) patient critically ill, the Marshal-Accu Check Infrom II meter should not be used for Glucose determination. Draw a venous Glucose and send to the main Lab for analysis. AFB CULTURE + [id number] 17:59:00 Test Item Value Reference Range Interpretation Comments CULTURE (BEAKER) (test No acid-fast bacilli code = 1095) isolated in 42 days AFB SMEAR (BEAKER) No acid fast bacilli (test code = 994) seen AFB CULTURE + [id number] 17:58:00 Test Item Value Reference Range Interpretation Comments CULTURE (BEAKER) (test No acid-fast bacilli code = 1095) isolated in 42 days AFB SMEAR (BEAKER) No acid fast bacilli (test code = 994) seen AFB CULTURE + [id number] 17:58:00 Test Item Value Reference Range Interpretation Comments CULTURE (BEAKER) (test No acid-fast bacilli code = 1095) isolated in 42 days AFB SMEAR (BEAKER) No acid fast bacilli (test code = 994) seen
[2022-01-08] MEDS ORDERED: NA CHLORIDE 0.9% 250 ML ONE (22:22)
[2022-01-08 22:34] LABS: Absolute Lymphocytes (CBC) 2.7 K/uL (0.7-4.9); Hematocrit 32.4 % (39.6-49.0); Lymphocytes % 26.3 % (15.3-44.8); MCV 88.6 fL (80-100); MPV 7.4 fL (7.6-11.3); RBC Red Blood Cell Count 3.66 M/uL (4.33-5.43)
[2022-01-08 22:45] LABS: Potassium 5.4 mmol/L (3.5-5.1)
--- NOTE | 2022-01-08 22:51 | EDPHYS ---
Physician Documentation [facility] Name: Chalo Harry Age: 56 yrs Sex: Male : 1965 Arrival Date: 01/08/2022 Time: 20:45 Bed 7 Private MD: ED Physician Lanre Mart HPI: 01/08 21:02 This 56 yrs old Male presents to ER via EMS with complaints of generalized rn weakness. 21:02 EMS reports brought patient in for orthostatic hypotension and generalized weakness. rn Onset was yesterday. Seen in ER yesterday for same complaint, no acute findings so sent home. Reports sitting down and started falling asleep with feeling of generalized weakness. EMS reports systolic BP of 80s when standing, improved to 120s when placed in stretcher. Pt feels a little better. Reports long hx of orthostatic hypotension, has been on and off of midodrine, took first pill of atenolol today and not sure if that caused his hypotension. Denies headache/cough/sob/chest pain/abd pain/vomiting/diarrhea/rash.. Onset: The symptoms/episode began/occurred yesterday. Severity of symptoms: At their worst the symptoms were moderate in the emergency department the symptoms have improved. The patient has experienced similar episodes in the past. The patient has been recently seen by a physician: The patient has been recently seen at the [facility] Emergency Department. Historical: - Allergies: 20:50 No Known Allergies; vc1 - Home Meds: 20:50 None [Active]; vc1 - PMHx: 20:50 AIDS; allergies; Diabetes - NIDDM; Dialysis; High Cholesterol; Hypertension; vc1 - PSHx: 20:50 R chest dialysis access; vc1 - Immunization history:: Adult Immunizations up to date, Client reports receiving the 2nd dose of the Covid vaccine. - Social history:: Smoking status: Patient denies any tobacco usage or history of. - Family history:: not pertinent. - Hospitalizations: : No recent hospitalization is reported. ROS: 21:02 Constitutional: Negative for fever, chills, and weight loss, Eyes: Negative for injury, rn pain, redness, and discharge, Neck: Negative for injury, pain, and swelling, Cardiovascular: Negative for chest pain, palpitations, and edema, Respiratory: Negative for shortness of breath, cough, wheezing, and pleuritic chest pain, Abdomen/GI: Negative for abdominal pain, nausea, vomiting, diarrhea, and constipation, Back: Negative for injury and pain, MS/Extremity: Negative for injury and deformity, Skin: Negative for injury, rash, and discoloration, Neuro: Negative for headache, numbness, tingling, and seizure. Exam: 21:02 Constitutional: This is a well developed, well nourished patient who is awake, alert, rn and in no acute distress. Head/Face: Normocephalic, atraumatic. Cardiovascular: Regular rate and rhythm. No pulse deficits. Respiratory: Speaking full sentences, unlabored. No increased work of breathing, no retractions or nasal flaring. Abdomen/GI: Soft, non-tender Skin: Warm, dry MS/ Extremity: Pulses equal, no cyanosis. Neuro: Awake and alert, GCS 15, oriented to person, place, time, and situation. Cranial nerves II-XII grossly intact. Motor strength 5/5 in all extremities. Sensory grossly intact. Cerebellar exam normal. 22:25 ECG was reviewed by the Attending Physician. rn Vital Signs: 20:52 BP 106 / 57; Pulse 83; Resp 14; Temp 98.7(O); Pulse Ox 98% ; Weight 94.8 kg; Height 5 vc1 ft. 11 in. (180.34 cm); Pain 0/10; 20:55 Weight 94.8 kg; vc1 22:18 Pulse 81; Resp 17; Pulse Ox 97% ; vc1 22:48 BP 124 / 66; Pulse 74; rn 23:12 BP 119 / 69; Pulse 74; Resp 11; Pulse Ox 98% ; vc1 20:55 Body Mass Index 29.15 (94.80 kg, 180.34 cm) vc1 MDM: 20:47 Patient medically screened. rn 22:48 Differential Diagnosis orthostatic hypotension, ESRD, electrolyte disorder. Data rn reviewed: vital signs, nurses notes, old medical records, lab test result(s), EKG, and as a result, I will discharge patient. Counseling: I had a detailed discussion with the patient and/or guardian regarding: the historical points, exam findings, and any diagnostic results supporting the discharge/admit diagnosis, lab results, radiology results, the need for outpatient follow up, to return to the emergency department if symptoms worsen or persist or if there are any questions or concerns that arise at home. Response to treatment: the patient's symptoms have markedly improved after treatment, and as a result, I will discharge patient. Special discussion: I discussed with the patient/guardian in detail that at this point there is no indication for admission to the hospital. It is understood, however, that if the symptoms persist or worsen the patient needs to return immediately for re-evaluation. ED course: No new findings on labs, improvement of symptoms and BP. Will dc home. . 23:29 ED course: Talked to patient and family member at length, plan is to f/u with his cvt rn doctor for further recommendations. Would hold his new atenolol until cleared by nephrology. . 01/08 20:49 Order name: CBC with Diff; Complete Time: 22:48 rn 01/08 20:49 Order name: Basic Metabolic Panel; Complete Time: 22:48 rn 01/08 20:49 Order name: IV Start; Complete Time: 22:17 rn 01/08 20:49 Order name: EKG; Complete Time: 20:50 rn 01/08 20:49 Order name: EKG - Nurse/Tech; Complete Time: 22:17 rn 01/08 20:49 Order name: Cardiac monitoring; Complete Time: 21:00 rn 01/08 20:49 Order name: O2 Sat Monitoring; Complete Time: 21:00 rn EC:25 Rate is 75 beats/min. Rhythm is regular. QRS [place] is Normal. NC interval is normal. QRS rn interval is normal. QT interval is normal. No Q waves. T waves are Normal. No ST changes noted. Clinical impression: Normal ECG. Interpreted by me. Reviewed by me. Administered Medications: 22:17 Drug: NS 0.9% 250 ml Route: IV; Rate: bolus; Site: right antecubital; vc1 23:13 Follow up: IV Status: Completed infusion; IV Intake: 250ml vc1 Disposition Summary: 01/08/22 22:51 Discharge Ordered Location: Home rn Problem: an ongoing problem rn Symptoms: have improved rn Condition: Stable rn Diagnosis - Orthostatic hypotension rn - End stage renal disease rn Followup: rn - With: Private Physician - When: As needed - Reason: Recheck today's complaints, Re-evaluation by your physician Discharge Instructions: - Discharge Summary Sheet rn - Orthostatic Hypotension rn - employment law attorney - End-Stage Kidney Disease rn Forms: - Medication Reconciliation Form rn - Thank You Letter rn - Antibiotic learning officer - Prescription Opioid Use rn Signatures: Dispatcher [employer] Lanre Golden MD MD rn Calcote, Vanessa RN RN vc1
--- NOTE | 2022-01-08 22:51 | ER ---
Nurse's Notes [facility] Name: Chalo Harry Age: 56 yrs Sex: Male : 1965 Arrival Date: 01/08/2022 Time: 20:45 Bed 7 Private MD: Diagnosis: Orthostatic hypotension;End stage renal disease Presentation: 01/08 20:45 Chief complaint: EMS states: "His blood pressure has been dropping at home when he vc1 stands up. He was here just a few days ago for the same thing but they couldn't find anything wrong. His significant other says he's been lethargic.". Coronavirus screen: Vaccine status: Patient reports receiving the 2nd dose of the covid vaccine. QR Wild At this time, the client does not indicate any symptoms associated with coronavirus-19. Ebola Screen: No symptoms or risks identified at this time. Risk Assessment: Do you want to hurt yourself or someone else? Patient reports no desire to harm self or others. Onset of symptoms was January 08, 2022. 20:45 Method Of Arrival: EMS: [facility] vc1 20:45 Acuity: KESHA 4 vc1 20:55 Initial Sepsis Screen: Does the patient meet any 2 criteria? No. Patient's initial vc1 sepsis screen is negative. Does the patient have a suspected source of infection? No. Patient's initial sepsis screen is negative. Triage Assessment: 20:51 General: Appears in no apparent distress. Behavior is calm, cooperative, appropriate vc1 for age. Pain: Denies pain. EENT: No deficits noted. Neuro: Reports dizziness, When he stands. Cardiovascular: Capillary refill < 3 seconds Patient's skin is warm and dry. Respiratory: Airway is patent Respiratory effort is even, unlabored, Respiratory pattern is regular, symmetrical. GI: No deficits noted. : No signs and/or symptoms were reported regarding the genitourinary system. Derm: No deficits noted. Musculoskeletal: No deficits noted. Historical: - Allergies: 20:50 No Known Allergies; vc1 - Home Meds: 20:50 None [Active]; vc1 - PMHx: 20:50 AIDS; allergies; Diabetes - NIDDM; Dialysis; High Cholesterol; Hypertension; vc1 - PSHx: 20:50 R chest dialysis access; vc1 - Immunization history:: Adult Immunizations up to date, Client reports receiving the 2nd dose of the Covid vaccine. - Social history:: Smoking status: Patient denies any tobacco usage or history of. - Family history:: not pertinent. - Hospitalizations: : No recent hospitalization is reported. Screenin:49 Abuse screen: Denies threats or abuse. Nutritional screening: No deficits noted. vc1 Tuberculosis screening: No symptoms or risk factors identified. Fall Risk No fall in past 12 months (0 pts). Secondary diagnosis (15 points) Orthostatic hypotension. IV access (20 points). Ambulatory Aid- None/Bed Rest/Nurse Assist (0 pts). Gait- Impaired (20 pts.). Mental Status- Oriented to own ability (0 pts). Total Padron Fall Scale indicates Low Risk Score (25-44 pts). Fall prevention measures have been instituted. Side Rails Up X 2 Frequent Obs/Assesments occuring. Assessment: 21:00 Reassessment: See triage assessment. vc1 22:00 Reassessment: No changes from previously documented assessment. Patient and/or family vc1 updated on plan of care and expected duration. Pain level reassessed. 22:45 Reassessment: Creatinine 8.12, MD notified. bb 23:12 Reassessment: Patient and/or family updated on plan of care and expected duration. Pain vc1 level reassessed. Patient is alert, oriented x 3, equal unlabored respirations, skin warm/dry/pink. Patient denies pain at this time. Patient states feeling better. Patient states symptoms have improved. Vital Signs: 20:52 BP 106 / 57; Pulse 83; Resp 14; Temp 98.7(O); Pulse Ox 98% ; Weight 94.8 kg; Height 5 vc1 ft. 11 in. (180.34 cm); Pain 0/10; 20:55 Weight 94.8 kg; vc1 22:18 Pulse 81; Resp 17; Pulse Ox 97% ; vc1 22:48 BP 124 / 66; Pulse 74; rn 23:12 BP 119 / 69; Pulse 74; Resp 11; Pulse Ox 98% ; vc1 20:55 Body Mass Index 29.15 (94.80 kg, 180.34 cm) vc1 ED Course: 20:45 Patient arrived in ED. vc1 20:47 Lanre Mart MD is Attending Physician. rn 20:49 Triage completed. vc1 20:55 Arm band placed on left wrist. vc1 20:56 Patient has correct armband on for positive identification. Bed in low position. Call vc1 light in reach. Client placed on continuous cardiac and pulse oximetry monitoring. NIBP monitoring applied. 21:35 Missed attempt(s): 22 gauge in right forearm. vc1 21:46 Missed attempt(s): 22 gauge in left hand. kl 22:05 Initial lab(s) drawn, by me, sent to lab. Inserted saline lock: 18 gauge in right bb antecubital area, using aseptic technique. Blood collected. 22:17 Marina Power, RN is Primary Nurse. vc1 23:11 No provider procedures requiring assistance completed. IV discontinued, intact, vc1 bleeding controlled, No redness/swelling at site. Pressure dressing applied. Administered Medications: 22:17 Drug: NS 0.9% 250 ml Route: IV; Rate: bolus; Site: right antecubital; vc1 23:13 Follow up: IV Status: Completed infusion; IV Intake: 250ml vc1 Medication: 20:56 VIS not applicable for this client. vc1 Intake: 23:13 IV: 250ml; Total: 250ml. vc1 Outcome: 22:51 Discharge ordered by . rn 23:11 Discharged to home via wheelchair. vc1 23:11 Condition: good 23:11 Discharge instructions given to patient, Instructed on discharge instructions, follow up and referral plans. Demonstrated understanding of instructions, follow-up care. 23:41 Patient left the ED. vc1 Signatures: Hanh Irby RN RN kl Ballard, Brenda, RN RN bb Nieto, Roman, MD MD rn Calcote, Vanessa, RN RN vc1
[2022-01-09 00:43] VITALS: TEMP 98.7
[2022-01-09 01:05] VITALS: BP 119/69; O2SAT 98
--- NOTE | 2022-01-09 10:32 | EKG ---
Test Date: 2022-01-08 Test Time: 22:23:09 Shelter Director: RAYSA MEASUREMENT RESULTS: Intervals: Rate: 75 SD: 180 QRSD: 90 QT: 384 QTc: 428 [place]: P: 52 SD: 180 QRS: 50 T: 54 INTERPRETIVE STATEMENTS: Normal sinus rhythm Normal ECG Compared to ECG 01/07/2022 01:29:48 Myocardial infarct finding no longer present Electronically Signed On 01-09-22 10:31:19 CDT by Harpreet Mauro
== END 2022-01-08 23:41 | disposition home or self-care (01) ==
LOC: ER 20:39
DX: I95.1 Orthostatic hypotension (principal); E11.22 Type 2 diabetes mellitus with diabetic chronic kidney disease; I12.0 Hypertensive chronic kidney disease with stage 5 chronic kidney disease or end stage renal disease; N18.6 End stage renal disease; Z99.2 Dependence on renal dialysis; Z21 Asymptomatic human immunodeficiency virus [HIV] infection status
CPT/HCPCS: 85025; 80048; 36415; J7050; 93005

== ENCOUNTER 2022-08-28 06:33 | Emergency (ER) | payer BC ==
--- OUTSIDE RECORDS SUMMARY | 2022-08-28 06:39 | XMS REPORT | Continuity of Care Document ---
:1965 Author Organization [facility] t Address [address] [place] [address] [place] [id number] Care Team Providers Name Role Phone Sharpless Primary Care Physician Sahra Tong Anavella Attending Clinician Unava ilable [id number] Attending Clinician Unavailable Edmund Gamble Attending Clinician Unavailable Jac NICOLE, Anup Attending Clinician Franki NICOLE, Leonora Oquendo Attending Clinician [phone] Chelsea Ding Attending Clinician Naun NICOLE, Abdulkadir Keating Attending Clinician Richelle Ramirez RN Attending Clinician Unavailable Alexandra Rojo MD Attending Clinician Gumaro NICOLE, Linda Joseph Attending Clinician [phone] Saad Ocampo NP Attending Clinician Claudia Attending Clinician Unavailable Derek Kaye MD Attending Clinician [phone] Edmund Gamble Attending Clinician Unavailable Edmund Gamble Attending Clinician Unavailable HILDA BURKETT Attending Clinician Unavailable Ran, Dale, Anav Admitting Clinician Unavailable [id number] Admitting Clinician Unavailable MD ANUP WRIGHT Admitting Clinician Unavailable MD LEONORA ESTRADA Admitting Clinician Unavailabl e Claudia Admitting Clinician Unavailable ALEXANDRA ROJO Admitting Clinician Unavailable Edmund Gamble Admitting Clinician Unavailable HILDA BURKETT Admitting Clinician Unavailable Payers Payer Name Policy Type Policy Number Effective Date Expiration Date S shireen BCTP BCTP [id number] [place] [id number] 2019 00:00:00 [place] Problems Condition Condition Condition Status Onset Resolution Last Treating Co mments Source Name Details Category Date Date Treatment Clinician Date Clot Clot Disease Active 2021-06 Overview: Method i -[address] 00:00: g of this Hospita 00 note l might be different from the original. AT THE CHEST CATHETER SITE PER PT. 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 Met hodi renal renal 0-11 st disease disease 00:00: Hospita 00 l Neuropathy Neuropathy Problem Active [facility] 3-29 [...] l ion ion Tinea Tinea Problem Active [facility] rena Pedjordan 12-06 Family 00:00: Practic 00 e Hypoalbumi Hypoalbumi Problem Active [facility] nemia nemia 12-06 Family 00:00: Practic 00 e Hypocalcem Hypocalcem Problem Active [facility] ill[facility] ia ia 12-06 Family 00:00: Practic 00 e Morbid Morbid Problem Active [facility] obesity Obesity 12-06 Family 00:00: Practic 00 e Anemia in Anemia in Problem Active Rodrigue martineze chronic Chronic 12-06 Family kidney Kidney 00:00: Practic disease Disease 00 e Proteinuri Proteinuri Problem Active [facility] ill[facility] a a 12-06 Family 00:00: Practic 00 e Amputated Amputated Problem Active Rodrigue armstrong toe Toe 12-06 Family 00:00: Practic 00 e Obesity Obesity Problem Active [facility] 5-04 Family 00:00: Practic 00 e Cellulitis [...] 2 Type 2 Problem Active [facility] diabetes Diabetes 3-31 Family mellitus Mellitus 00:00: Practi c 00 e Hyperlipid Hyperlipid Problem Active [facility] illage emia emia 3- Family 00:00: Practic 00 e Essential Essential Problem Active Rodrigue armstrong hypertensi Hypertensi 3-31 Fa dary on on 00:00: Practic 00 e Seasonal Seasonal Problem Active Nik burnett allergy Allergy 3-31 Family 00:00: Practic 00 e Chronic Chronic Problem Active [facility] kidney Kidney 3-31 Family disease Disease 00:00: Practic 00 e 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 tis, left tis, left 00:00: [facility] christian 00 Center Essential Essential Disease Recurre 2015-[address] hypertensi hypertensi nce 08-04 Traci kes on on 00:00: Medical 00 Center HIV HIV Disease Recurre 2015-[address] disease disease [facility]ce [facility] 00 Ida Foot Foot Disease Active 2015-[address] abscess, abscess, 08-04 [facility] left left 00:00: Medical 00 Ida Sepsis Sepsis Disease Recurre 2015-[address] nce 08-03 [facility] 00:[facility]: Medical 00 Ida 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 - [facility] without without St complicati complicati 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 Sp lluvia ciency ciency - CHI virus virus St infection) infection) [facility] Mixed Mixed Problem Active Common hyperlipid hyperlipid Sp lluvia emia emia - [facility] Allergies, Adverse Reactions, Alerts Allergy Allergy Status Severity Reaction(s) Onset Inactive Treating Comm ents Source Name Type Date Date Clinician Pollen Propensi Active Other (See 2021-06 Seasonal- M ethodi Extracts ty to Comments) 0-[address] adverse 00:00: nose Hospita reaction 00 watery l s to eyes drug No Known DA Active U [facility] Drug 3-18 Allergie 00:00: s 00 No Known DA Active U [facility] Drug 3- Allergie 00:00: s 00 No Known DA Active U 2019-06 [facility] Drug 1-18 Allergie 00:00: s 00 No Known Drug Active [facility] Family History Family Member Diagnosis Comments Start Date Stop Date Source Natural father Diabetes [facility] Natural father Cancer [facility] Natural father Cancer [facility] Natural father Diabetes [facility] Natural mother COPD [facility] Natural mother Diabetes [facility] Natural mother Diabetes [facility] Natural sister Diabetes [facility] Social History Social Habit Start Date Stop Date Quantity Comments Source History of Current smoker Muslim tobacco use Hospital History SDMO Muslim Alcohol Std Hospital Drinks History SDMO Muslim Alcohol Binge Hospital Alcohol intake 2022-08-25 2022-08-25 Ex-drinker Muslim 00:00:00 00:00:00 (finding) Hospital Alcohol Comment 2022-08-25 2022-08-25 once since Muslim 00:00:00 00:00:00 08/2021 Hospital Tobacco use and 2022-03-06 2022-03-06 Smokeless tobacco Nc thodist exposure 00:00:00 00:00:00 non-user Hospital Tobacco Comment 2022-03-06 2022-03-06 WAS A [facility] [facility] 00:00:00 00:00:00 SMOKER PRIOR Hospital History SDMO 2020-05-28 2020-05-28 3 Muslim Alcohol Frequency 00:00:00 00:00:00 Hospita l Sex [birth year] At [birth year] Muslim 00:00:00 00:00:00 Hospital Smoking Status Start Date Stop Date Source Never Smoker [facility] landis Ex-smoker 2022-03-06 00:00:00 2022-03-06 Muslim Ho spital 00:00:00 Occasional tobacco smoker 2020-03-26 00:00:00 [facility] tobacco smoker 2016-06-01 00:00:00 [facility] Medications Ordered Filled Start Stop Current Ordering Indication Dosage Frequency Signature Comments Components Source Medication Medication Date Date Medication? Clinician (SIG) Name Name furosemide Yes 40mg QD Take 2 Metho di (LASIX) 20 3-[address] mg tablet 14:31: (40 mg Hospit a 52 total) by l mouth daily. 1.5 tab montelukast Yes 10mg QD Take 1 Meth shekhar (SINGULAIR) 3-20 tablet (10 st 10 mg 14:31: mg total) Hospita tablet 52 by mouth l nightly. loratadine 0 Yes Take by Meth shekhar (CLARITIN 3-[address] ORAL) 14:31: needed. Hospita 52 l midodrine 0 Yes 5mg Take 1 Method i (PROAMATINE 3-20 tablet (5 st ) 5 MG 14:31: mg total) Hospit a tablet 52 by mouth l as needed. dolutegravi 0 Yes QD Take by Met hodi r (Tivicay) 3-[address] 10 mg 14:31: daily. Hospita tablet 26 l dulaglutide 0 Yes Q7D Inject Meth shekhar (TRULICITY) 3-[address] 1.5 mg/0.5 14:31: skin once Ho spita mL 26 a week. l subcutaneou s pen cholecalcif 0 Yes 2000U QD Take 1 Met baljit ryan, 3-[address] vitamin D3, 14:31: (2,000 Hosp allen 50 mcg 26 Units l (2,000 total) by unit) mouth capsule daily. capsule docusate 0 Yes 200mg QD Take 2 Method i sodium 3-[address] (COLACE) 14:31: (200 mg Hospit a 100 MG 26 total) by l capsule mouth daily. carvediloL Yes 12.5mg Q.5D Take 1 Met hodi (COREG) 3-[address] 12.5 MG 14:26: (12.5 mg Hospit a tablet 52 total) by l mouth 2 (two) times a day with meals. Per patient, not taking regularly because BP drops calcium Yes QD Chew 2 Methodi carbonate 3-[address] (TUMS) 200 14:25: (1,000 mg Ho spita mg calcium 40 of Calcium l (500 mg) Carbonate chewable total) tablet daily. atorvastati Yes 40mg QD Take 40 mg Methodi n calcium 3-[address] (ATORVASTAT 14:25: daily. Hosp allen IN ORAL) 40 l lisinopriL 2021-06 Yes 20mg QD Take 1 Metho di (PRINIVIL) 2-17 tablet (20 st 20 mg 00:00: mg total) Hospita tablet 00 by mouth l daily. atenoloL 2021-06 No Methodi (TENORMIN) 0-18 10-28 st 50 MG 00:00: 00:00 Hospita tablet 00 :00 l acetaminoph 2021-06- No 1{tbl} Q6H Take 1 M ethodi en-codeine 0-03 03-[address] (TYLENOL 00:00: 00:00 mouth Hospita WITH 00 :00 every 6 l CODEINE #3) (six) 300-30 mg hours as per tablet needed. gabapentin 0 Yes 300mg QD Take 1 Meth shekhar (NEURONTIN) 9-[address] 300 mg 00:00: (300 mg Hospita capsule 00 total) by l mouth daily. Eliquis 5 0 Yes 5mg Take 1 Method i mg tablet 8-24 tablet (5 st 00:00: mg total) Hospita 00 by mouth l take as directed. dolutegravi 0 Yes Take by Met hodi r (Tivicay) 7-[address] 10 mg 16:08: Hospita tablet 47 l furosemide 2020-0 Yes 20mg Q.5D Take 20 mg M ethodi (LASIX) 20 7-[address] mg tablet 16:08: (two) Hospita 47 times a l day. montelukast 0 Yes 10mg QD Take 10 mg Methodi (SINGULAIR) 7-[address] 10 mg 16:08: nightly. Hospita tablet 47 l carvediloL 2020-0 Yes 12.5mg Q.5D Take 12.5 Methodi (COREG) 7-[address] 12.5 MG 16:08: mouth 2 Hospita tablet 47 (two) l times a day with meals. dolutegravi 0 Yes Take by Met hodi r (Tivicay) 7-[address] 10 mg 16:08: Hospita tablet 47 l furosemide 2020-0 Yes 20mg Q.5D Take 20 mg M ethodi (LASIX) 20 7-[address] mg tablet 16:08: (two) Hospita 47 times a l day. montelukast 0 Yes 10mg QD Take 10 mg Methodi (SINGULAIR) 7-[address] 10 mg 16:08: nightly. Hospita tablet 47 l carvediloL 2021-0 Yes 12.5mg Q.5D Take 12.5 Methodi (COREG) 7-[address] 12.5 MG 16:08: mouth 2 Hospita tablet 47 (two) l times a day with meals. Niagiorgio Davilaspan 2018- No [place] 1 tablet Common 09-23 Konstantin at bedtime Spirit 00:00: 00:00 - CHI 00 :00 [facility] Ananda Kelleyxiga 2018- No [place] 1 Comm on 09-23 Konstantin Spirit 00:00: 00:00 - CHI 00 :00 [facility] darunavir-c Yes 1{tbl} QD Take 1 Me thodi obicistat 4-[address] (PREZCOBIX) 00:00: mouth Hospi ta 800-150 00 daily. l mg-mg tablet liraglutide Yes INJECT 1.2 [...] a 800-150 00 l mg-mg tablet liraglutide 2021- No INJECT 1.2 Methodi (VICTOZA) 4-08 10-[address] 0.6 mg/0.1 00:00: 00:00 SUBCUTANEO Hospita mL (18 mg/3 00 :00 USLY EVERY l mL) pen DAY injector collagenase 2015-06 Yes 30g QD Apply 30 [...] mg 14:45: daily. Medical tablet 45 Center Singulair Singulair Yes [place] 1 tablet Common Konstantin Spirit - [facility] atorvastati atorvastati No atorvastat [facility] n 40 mg n 40 mg in [...] DAILY DAILY DAILY carvedilol carvedilol No carvedilol [facility] 12.5 mg 12.5 mg 12.5 mg Family tablet TAKE tablet TAKE tablet Practic 1 TABLET BY 1 TABLET BY TAKE 1 e MOUTH TWICE MOUTH TWICE TABLET BY DAILY DAILY MOUTH TWICE DAILY fluticasone fluticasone No fluticason [facility] propionate propionate e Fam haylee 50 50 propionate Practic mcg/actuati mcg/actuati 50 e on nasal on nasal mcg/actuat spray,suspe spray,suspe ion nasal nsion nsion spray,susp SPRAYS SPRAYS ension TWICE IEN TWICE IEN SPRAYS QHS QHS TWICE IEN QHS FreeStyle FreeStyle No FreeStyle [facility] Lien 14 Lien 14 Lien 14 Fam haylee Day [facility] Practic USE DEVICE USE DEVICE USE DEVICE e DIRECTED DIRECTED DIRECTED FreeStyle FreeStyle No FreeStyle [place] Lien 2 Lien 2 Lein 2 Family Sensor kit Sensor kit Sensor kit Practic USE DAILY USE DAILY USE DAILY e DIRECTED DIRECTED BUT CHANGE BUT CHANGE DIRECTED EVERY 14 EVERY 14 BUT CHANGE DAYS DAYS EVERY 14 DAYS furosemide furosemide No furosemide [facility] 40 mg 40 mg 40 mg Family [...] days. for 90 days. [facility] 10 mg Family tablet TAKE tablet TAKE tablet Practic 1 TABLET BY 1 TABLET BY TAKE 1 e MOUTH EVERY MOUTH EVERY TABLET BY DAY DAY MOUTH EVERY DAY NovoFine NovoFine No NovoFine Rodrigue patti Plus 32 Plus 32 Plus 32 Family gauge x gauge x gauge x Practi c /6" needle 6" needle 06/13" e U SC QD UTD U SC QD UTD needle U SC QD UTD Prezcobix Prezcobix No Prezcobix [facility] 800 mg-150 800 mg-150 800 mg-150 Family [...] 90 days. us route for 90 days. acetaminoph acetaminoph No acetaminop [facility] en 300 en 300 hen 300 Family mg-codeine mg-codeine mg-codeine Practic 30 mg 30 mg 30 mg e tablet TAKE tablet TAKE tablet 1 TABLET BY 1 TABLET BY TAKE 1 MOUTH EVERY MOUTH EVERY TABLET BY 6 HOURS 6 HOURS MOUTH NEEDED NEEDED EVERY 6 HOURS NEEDED amlodipine amlodipine No amlodipine [facility] 5 mg tablet 5 mg tablet 5 mg F amily TAKE 1 TAKE 1 tablet Practic TABLET BY TABLET BY TAKE 1 e MOUTH DAILY MOUTH DAILY TABLET BY MOUTH DAILY atenolol 50 atenolol 50 No atenolol [facility] mg tablet mg tablet 50 mg Fami ly tablet Practic e atorvastati atorvastati No atorvastat [facility] n 40 mg n 40 mg in 40 mg Famil y tablet TAKE tablet TAKE tablet Practic 1 TABLET BY 1 TABLET BY TAKE 1 e MOUTH EVERY MOUTH EVERY TABLET BY NIGHT AT NIGHT AT MOUTH BEDTIME BEDTIME EVERY NIGHT AT BEDTIME baclofen 10 baclofen 10 No baclofen Village mg tablet mg tablet 10 mg Fami ly tablet Practic e BD Nelida 2nd BD Nelida 2nd No BD Nelida [facility] Gen Pen Gen Pen 2nd Gen Family Needle 32 Needle 32 Pen Needle Practic gauge x gauge x 32 gauge x e " USE " USE " USE DAILY DAILY DAILY benzonatate benzonatate No benzonatat [facility] 100 mg 100 mg e 100 mg Family capsule capsule capsule Practi c TAKE 2 TAKE 2 TAKE 2 e CAPSULES BY CAPSULES BY CAPSULES MOUTH THREE MOUTH THREE BY MOUTH TIMES DAILY TIMES DAILY THREE NEEDED NEEDED TIMES FOR COUGH FOR COUGH DAILY NEEDED FOR COUGH calcitriol calcitriol No calcitriol [facility] 0.25 mcg 0.25 mcg 0.25 mcg Fam haylee capsule capsule capsule Practi c TAKE 1 TAKE 1 TAKE 1 e CAPSULE BY CAPSULE BY CAPSULE BY MOUTH DAILY MOUTH DAILY MOUTH DAILY carvedilol carvedilol No carvedilol [facility] 12.5 mg 12.5 mg 12.5 mg Family tablet TAKE tablet TAKE tablet Practic 1 TABLET BY 1 TABLET BY TAKE 1 e MOUTH TWICE MOUTH TWICE TABLET BY DAILY DAILY MOUTH TWICE DAILY cholecalcif cholecalcif No cholecalci [facility] ryan ryan ferol Family (vitamin (vitamin (vitamin Pra ctic D3) 125 mcg D3) 125 mcg D3) 125 e (5,000 (5,000 mcg (5,000 unit) unit) unit) capsule capsule capsule TAKE 1 TAKE 1 TAKE 1 TABLET BY TABLET BY TABLET BY MOUTH DAILY MOUTH DAILY MOUTH DAILY ciprofloxac ciprofloxac No ciprofloxa [facility] in 250 mg in 250 mg swetha 250 mg Family tablet tablet tablet Practic e docusate docusate No docusate [facility] patti sodium 100 sodium 100 sodium 100 Family mg capsule mg capsule mg capsule Practic TAKE 1 TO 4 TAKE 1 TO 4 TAKE 1 TO e CAPSULE BY CAPSULE BY 4 CAPSULE MOUTH DAILY MOUTH DAILY BY MOUTH DAILY Eliquis 5 Eliquis 5 No Eliquis 5 Village mg tablet mg tablet mg tablet Family TAKE 1 TAKE 1 TAKE 1 Practic TABLET BY TABLET BY TABLET BY e MOUTH TWICE MOUTH TWICE MOUTH DAILY DAILY TWICE DAILY fluticasone fluticasone No fluticason [facility] propionate propionate e Fam haylee 50 50 propionate Practic mcg/actuati mcg/actuati 50 e on nasal on nasal mcg/actuat spray,suspe spray,suspe ion nasal nsion nsion spray,susp SPRAYS SPRAYS ension TWICE IEN TWICE IEN SPRAYS QHS QHS TWICE IEN QHS FreeStyle FreeStyle No FreeStyle [facility] Lien 14 Lien 14 Lien 14 Fam haylee Day [facility] [employer] [facility] Practic USE DEVICE USE DEVICE USE DEVICE e DIRECTED DIRECTED DIRECTED FreeStyle FreeStyle No FreeStyle [place] Lien 2 Lien 2 Lien 2 Family Sensor kit Sensor kit Sensor kit Practic USE USE USE e DIRECTED DIRECTED DIRECTED DAILY BUT DAILY BUT DAILY BUT CHANGE CHANGE CHANGE EVERY 14 EVERY 14 EVERY 14 DAYS DAYS DAYS furosemide furosemide No furosemide [facility] 40 mg 40 mg 40 mg Family tablet TAKE tablet TAKE tablet Practic 1 TABLET BY 1 TABLET BY TAKE 1 e MOUTH EVERY MOUTH EVERY TABLET BY DAY DAY MOUTH EVERY DAY gabapentin gabapentin No gabapentin [facility] 300 mg 300 mg 300 mg Family capsule capsule capsule Practi c e hydrocodone hydrocodone No hydrocodon [facility] 5 5 e 5 Family mg-acetamin mg-acetamin mg-acetami Practic ophen 325 ophen 325 nophen 325 e mg tablet mg tablet mg tablet hydrocortis hydrocortis No hydrocorti [facility] one 10 mg one 10 mg sone 10 mg Family tablet TAKE tablet TAKE tablet Practic 2 TABLETS 2 TABLETS TAKE 2 e BY MOUTH BY MOUTH TABLETS BY DAILY IN DAILY IN MOUTH THE MORNING THE MORNING DAILY IN AND TAKE 1 AND TAKE 1 THE TABLET BY TABLET BY MORNING MOUTH DAILY MOUTH DAILY AND TAKE 1 IN THE IN THE TABLET BY AFTERNOON AFTERNOON MOUTH DAILY IN THE AFTERNOON lactulose lactulose No lactulose [facility] 10 gram/15 10 gram/15 10 gram/15 Family mL oral mL oral mL oral Practi c solution solution solution e TAKE 30 ML TAKE 30 ML TAKE 30 ML BY MOUTH BY MOUTH BY MOUTH DAILY DAILY DAILY NEEDED FOR NEEDED FOR NEEDED FOR CONSTIPATIO CONSTIPATIO CONSTIPATI N N ON lisinopril lisinopril No lisinopril [facility] 20 mg 20 mg 20 mg Family tablet TAKE tablet TAKE tablet Practic 1 TABLET BY 1 TABLET BY TAKE 1 e MOUTH DAILY MOUTH DAILY TABLET BY MOUTH DAILY melatonin 3 melatonin 3 No melatonin [facility] mg mg 3 mg Family disintegrat disintegrat disintegra Practic ing tablet ing tablet ting e TAKE 2 TAKE 2 tablet TABLET BY TABLET BY TAKE 2 MOUTH EVERY MOUTH EVERY TABLET BY NIGHT AT NIGHT AT MOUTH BEDTIME BEDTIME EVERY NEEDED FOR NEEDED FOR NIGHT AT INSOMNIA INSOMNIA BEDTIME NEEDED FOR INSOMNIA Metanx Metanx No 1capsul BID Metanx Villag [...] 90 days. 90 days. for 90 days. midodrine 5 midodrine 5 No midodrine [facility] mg tablet mg tablet 5 mg Famil y TAKE 1 TAKE 1 tablet Practic TABLET BY TABLET BY TAKE 1 e MOUTH THREE MOUTH THREE TABLET BY TIMES DAILY TIMES DAILY MOUTH THREE TIMES DAILY montelukast montelukast [facility] 10 mg 10 mg t [...] QD UTD needle U SC QD UTD ondansetron ondansetron No [facility] 4 mg 4 mg n 4 mg Family disintegrat disintegrat disintegra Practic ing tablet ing tablet ting e DISSOLVE 1 DISSOLVE 1 tablet TABLET ON TABLET ON DISSOLVE 1 THE TONGUE THE TONGUE TABLET ON EVERY 8 EVERY 8 THE TONGUE HOURS HOURS EVERY 8 NEEDED NEEDED HOURS NEEDED ondansetron ondansetron No [facility] HCl 4 mg HCl 4 mg n HCl 4 mg F amily tablet TAKE tablet TAKE tablet Practic 1 TABLET BY 1 TABLET BY TAKE 1 e MOUTH EVERY MOUTH EVERY TABLET BY DAY DAY MOUTH NEEDED FOR NEEDED FOR EVERY DAY FORNAUSEA FORNAUSEA NEEDED AND AND FOR VOMITING VOMITING FORNAUSEA AND VOMITING polyethylen [facility] e glycol ne glycol Fa dary 3350 17 3350 17 3350 17 Practi c gram/dose gram/dose gram/dose e oral powder oral powder oral TAKE 17 TAKE 17 powder GRAMS BY GRAMS BY TAKE 17 MOUTH DAILY MOUTH DAILY GRAMS BY NEEDED NEEDED MOUTH FOR FOR DAILY CONSTIPATIO CONSTIPATIO NEEDED FOR N N CONSTIPATI ON Prezcobix Prezcobix No Prezcobix [facility] 800 mg-150 800 mg-150 800 mg-150 Family mg tablet mg tablet mg tablet Practic TAKE 1 TAKE 1 TAKE 1 e TABLET BY TABLET BY TABLET BY MOUTH EVERY MOUTH EVERY MOUTH DAY DAY EVERY DAY [facility] 0.8 mg 0.8 mg 0.8 mg Family tablet TAKE tablet TAKE tablet Practic 1 TABLET BY 1 TABLET BY TAKE 1 e MOUTH DAILY MOUTH DAILY TABLET BY MOUTH DAILY ReynaDae Reyes [facility] Rx 1 mg-60 Rx 1 mg-60 Rx 1 mg-60 Family mg-300 mcg mg-300 mcg mg-300 mcg Practic tablet TAKE tablet TAKE tablet e 1 TABLET BY 1 TABLET BY TAKE 1 MOUTH DAILY MOUTH DAILY TABLET BY MOUTH DAILY sevelamer sevelamer No sevelamer [facility] carbonate carbonate carbonate Family 800 mg 800 mg 800 mg Practic tablet TAKE tablet TAKE tablet e 3 TABLETS 3 TABLETS TAKE 3 BY MOUTH BY MOUTH TABLETS BY THREE TIMES THREE TIMES MOUTH DAILY WITH DAILY WITH THREE MEALS MEALS TIMES DAILY WITH MEALS sodium sodium No sodium [facility] bicarbonate bicarbonate bicarbonat Family 325 mg 325 mg e 325 mg Practic tablet TAKE tablet TAKE tablet e 6 TABLETS 6 TABLETS TAKE 6 BY MOUTH BY MOUTH TABLETS BY EVERY 8 EVERY 8 MOUTH HOURS HOURS EVERY 8 HOURS Soliqua Soliqua No Soliqua Villag e 100/33 [...] S pirit MOUTH - CHI TWICE A [facility] Immunizations Ordered Immunization Filled Immunization Date Status Commen ts Source Name Name pneumococcal pneumococcal 2021-10-31 Completed [facility] Fa dary polysaccharide PPV23 polysaccharide PPV23 00:00:00 Practice - ML - ML influenza, influenza, 2021-05-08 Completed [facility] Family injectable, injectable, 00:00:00 Practice quadrivalent quadrivalent influenza, influenza, 2021-05-08 Completed [facility] Family injectable, injectable, 00:00:00 Practice quadrivalent quadrivalent PFIZER COVID-19 MRNA 2020-10-12 Completed Meth odist VACCINATION 00:00:00 Hospital MODERNA COVID-19 MRNA 2020-10-12 Completed Met hodist VACCINATION 00:00:00 Hospital MODERNA COVID-19 MRNA 2020-10-12 Completed Met hodist VACCINATION 00:00:00 Hospital COVID-19, mRNA, COVID-19, mRNA, 2020-10-12 Completed Vill age Family LNP-S, PF, 30 mcg/0.3 LNP-S, PF, 30 00:00:00 Practice mL dose mcg/0.3 mL dose (Pfizer-BioNTech) - ([place] 100e-BioNTech) - ML ML COVID-19, mRNA, COVID-19, mRNA, 2020-10-11 Completed Vill age Family LNP-S, PF, 100 LNP-S, PF, 100 00:00:00 Practi ce mcg/0.5 mL dose mcg/0.5 mL dose (Moderna) (Moderna) PFIZER COVID-19 MRNA 2020-09-12 Completed Meth odist [facility]ACCINATION [facility] Non-US Vaccine Non-US Vaccine 2020-09-12 Completed [facility] Family COVID-19 PS COVID-19 PS 00:00:00 Practice (EpiVacCorona) (EpiVacCorona) COVID-19, mRNA, COVID-19, mRNA, 2020-09-12 Completed Vill age Family LNP-S, PF, 30 mcg/0.3 LNP-S, PF, 30 00:00:00 Practice mL dose mcg/0.3 mL dose (Pfizer-BioNTech) - ([place] 100e-BioNTech) - ML ML Non-US Vaccine Non-US Vaccine 2020-09-12 Completed [facility] Family COVID-19 PS COVID-19 PS 00:00:00 Practice (EpiVacCorona) (EpiVacCorona) Influenza, 2018-06-08 Completed [facility] Quadrivalent 00:00:00 Hospital Influenza, 2018-06-08 Completed [facility] Quadrivalent 00:00:00 Hospital Influenza, 2018-06-08 Completed [facility] Quadrivalent 00:00:00 Hospital influenza, influenza, 2018-06-08 Completed [facility] Family injectable, injectable, 00:00:00 Practice quadrivalent quadrivalent influenza, influenza, 2018-06-08 Completed [facility] Family injectable, injectable, 00:00:00 Practice quadrivalent quadrivalent Vital Signs Vital Name Observation Time Observation Value Comments Source BP Diastolic 2022-04-21 00:00:00 79 mm[Hg] [facility] Height 2022-04-21 00:00:00 71 [in_i] [facility] BMI (Body Mass 2022-04-21 00:00:00 30.4 kg/m2 Vill[facility] e Family Index) Practice BP Systolic 2022-04-21 00:00:00 133 mm[Hg] [facility] Body Weight 2022-04-21 00:00:00 218 [lb_av] [facility] BP Diastolic 2021-09-03 00:00:00 81 mm[Hg] [facility] Height 2021-09-03 00:00:00 71 [in_i] [facility] BMI (Body Mass 2021-09-03 00:00:00 33.3 [...] Family Practice Height 2020-12-06 00:00:00 71 [in_i] [facility] BMI (Body Mass 2020-12-06 00:00:00 34.4 kg/m2 [facility] BP Systolic 2020-12-06 00:00:00 119 mm[Hg] [facility] Body Weight 2020-12-06 00:00:00 246.4 [lb_av] [facility] BP Diastolic 2020-10-09 00:00:00 78 mm[Hg] [facility] Height 2020-10-09 00:00:00 71 [in_i] [facility] BMI (Body Mass 2020-10-09 00:00:00 33.9 kg/m2 [facility] e Family Index) Practice BP Systolic 2020-10-09 00:00:00 124 mm[Hg] [facility] Body Weight 2020-10-09 00:00:00 243.4 [lb_av] [facility] BP Diastolic 2020-09-05 00:00:00 91 mm[Hg] [facility] Height 2020-09-05 00:00:00 71 [in_i] [facility] BMI (Body Mass 2020-09-05 00:00:00 35 kg/m2 [facility] BP Systolic 2020-09-05 00:00:00 163 mm[Hg] [facility] Body Weight 2020-09-05 00:00:00 251 [lb_av] [facility] Height/Length 2021-06-25 12:42:11 180.3 cm Measured Weight Dosing 2021-06-25 12:42:11 118 kg Height/Length 2021-06-25 11:56:08 180.3 cm Measured Weight Dosing 2021-06-25 11:56:08 118 kg Height/Length 2020-01-24 12:24:25 Measured Weight Dosing 2020-01-24 12:24:25 Body temperature 2022-08-25 19:23:00 37 Dawn [facility] Respiratory rate 2022-08-25 19:23:00 16 /min [facility] Body height 2022-08-25 19:23:00 180.3 cm [facility] Body weight 2022-08-25 19:23:00 97.523 kg [facility] BMI 2022-08-25 19:23:00 29.99 kg/m2 [facility] Oxygen saturation in 2022-08-25 19:23:00 99 /min [facility] Arterial blood by Pulse oximetry Systolic blood 2022-08-25 19:23:00 177 mm[Hg] [facility] pressure Diastolic blood 2022-08-25 19:23:00 83 mm[Hg] [facility] pressure Heart rate 2022-08-25 19:23:00 92 /min [facility] Systolic blood 2020-12-13 13:45:00 139 mm[Hg] [facility] pressure Diastolic blood 2020-12-13 13:45:00 81 mm[Hg] [facility] pressure Heart rate 2020-12-13 13:45:00 95 /min [facility] Body temperature 2020-12-13 13:45:00 37.28 Dawn [facility] Respiratory rate 2020-12-13 13:45:00 20 /min [facility] Oxygen saturation in 2020-12-13 13:45:00 98 /min [facility] Arterial blood by Pulse oximetry Body height 2020-12-13 13:04:00 180.3 cm [facility] Body weight 2020-12-13 13:04:00 108.047 kg [facility] BMI 2020-12-13 13:04:00 33.22 kg/m2 [facility] 02 Sat by Pulse 2020-09-06 16:51:46 98 /min Oximetry Body Mass Index 2020-09-06 16:51:46 34.9 Height 2020-09-06 16:51:46 180.34\\S\\71 Pulse Rate 2020-09-06 16:51:46 98 /min Respiratory Rate 2020-09-06 16:51:46 16 /min Temperature 2020-09-06 16:51:46 36.2\\S\\97.2 Weight 2020-09-06 16:51:46 627700.092\\S\\4000 02 Sat by Pulse 2020-08-27 18:48:23 98 /min Oximetry Body Mass Index 2020-08-27 18:48:23 34.9 Height 2020-08-27 18:48:23 180.34\\S\\71 Pulse Rate 2020-08-27 18:48:23 98 /min Respiratory Rate 2020-08-27 18:48:23 16 /min Temperature 2020-08-27 18:48:23 36.2\\S\\97.2 Weight 2020-08-27 18:48:23 964490.092\\S\\4000 Height 2020-08-23 22:20:59 180.34\\S\\71 Pulse Rate 2020-08-23 22:20:59 98 /min Respiratory Rate 2020-08-23 22:20:59 16 /min Temperature 2020-08-23 22:20:59 36.2\\S\\97.2 Weight 2020-08-23 22:20:59 750463.092\\S\\4000 02 Sat by Pulse 2020-08-23 22:20:59 98 /min Oximetry Body Mass Index 2020-08-23 22:20:59 34.9 02 Sat by Pulse 2020-08-23 15:54:12 98 /min Oximetry Body Mass Index 2020-08-23 15:54:12 34.9 Height 2020-08-23 15:54:12 180.34\\S\\71 Pulse Rate 2020-08-23 15:54:12 98 /min Respiratory Rate 2020-08-23 15:54:12 16 /min Temperature 2020-08-23 15:54:12 36.2\\S\\97.2 Weight 2020-08-23 15:54:12 354201.092\\S\\4000 02 Sat by Pulse 2020-08-23 13:01:04 99 /min Oximetry Body Mass Index 2020-08-23 13:01:04 34.9 Height 2020-08-23 13:01:04 180.34\\S\\71 Pulse Rate 2020-08-23 13:01:04 91 /min Respiratory Rate 2020-08-23 13:01:04 18 /min Temperature 2020-08-23 13:01:04 36.8\\S\\98.2 Weight 2020-08-23 13:01:04 248611.092\\S\\4000 WEIGHT 2020-08-23 12:59:00 113.354357 kg HEIGHT 2020-08-23 12:59:00 180.34 cm Procedures Procedure Date / Time Performing Source Performed Clinician XR CHEST 2 VW 2022-08-25 20:58:35 Anup Wright spital COVID-19 QUALITATIVE 2022-08-25 19:51[facility] WITH [facility]ATELET AND 2022-08-25 19:41:00 Radha Wrightta [facility] DIFFERENTIAL HEMOGLOBIN A1C 2022-08-25 19:41:00 Zafar Estrada TYPE AND SCREEN 2022-08-25 19:41:00 Zafar Estrada PROTHROMBIN TIME WITH 2022-08-25 19:41:00 Anup Wright [facility] INR PARTIAL THROMBOPLASTIN 2022-08-25 19:41:00 Arielle Wright [facility] TIME (PTT) ECG PRE/POST OP 2022-08-25 19:24:26 Anup Wright spital OR FL < 1 HOUR 2022-05-06 16:15:00 Anup Wright spital POC GLUCOSE 2022-05-06 16:08:00 Anup Wright spital VENOGRAM, UPPER 2022-05-06 14:13:00 Anup Wright spital EXTREMITY ESTIMATED GFR 2022-05-06 14:08:00 Anup Wright spital POC PANEL 2022-05-06 14:08:00 Anup Wright spital PROTHROMBIN TIME WITH 2022-05-06 14:05:00 Jac Uttam [facility] INR PARTIAL THROMBOPLASTIN 2022-05-06 14:05:00 Radha [facility]tam [facility] TIME (PTT) BASIC METABOLIC PANEL 2022-05-06 14:05:00 Radha Wrighttam [facility] ESTIMATED GFR 2022-05-06 14:05:00 Anup Wright spital ECG PRE/POST OP 2022-04-30 19:57:15 Anup Wrightist Ho spital COVID-19 QUALITATIVE 2022-04-30 18:40:00 [facility] RT-PCR CBC WITH PLATELET AND 2022-04-30 18:40:00 [facility] DIFFERENTIAL TYPE AND SCREEN 2022-04-30 18:40:00 Jac [facility] Muslim janessatal HEMOGLOBIN A1C 2022-04-30 18:40:00 Zafar Estrada. POC GLUCOSE 2022-04-07 14:41:00 Jac Mteulogio Muslim janessatal REMOVAL, CATHETER, 2022-04-07 12:41:00 Jac [facility], PERITONEAL ESTIMATED GFR 2022-04-07 12:12:00 Jac Mteulogio Zafar Nj spital POC PANEL 2022-04-07 12:12:00 Jac Mteulogio Zafar mayorga BASIC METABOLIC PANEL 2022-04-07 12:04:00 [facility] PROTHROMBIN TIME WITH 2022-04-07 12:04:[address] [facility] INR Leonora J. PARTIAL THROMBOPLASTIN 2022-04-07 12:04:00 Paresh Estrada [facility] TIME (PTT) Leonora J. ESTIMATED GFR 2022-04-07 12:04:00 Jac Mteulogio Zafar riddletal COVID-19 QUALITATIVE 2022-04-04 21:28:00 [facility] Leonora J. CBC WITH PLATELET AND 2022-04-04 21:28:00 Jac [facility] DIFFERENTIAL HEMOGLOBIN A1C 2022-04-04 21:28:00 Zafar Estrada. TYPE AND SCREEN 2022-04-04 21:28:00 Zafar Estrada. ECG PRE/POST OP 2022-04-04 20:47:33 Anup Wrighttal POC GLUCOSE 2022-03-18 17:07:00 Jac Mteulogio Zafar Nj spimami ME AN ELECTIVE 2022-03-18 15:40[facility], CATHETER, FOR 2022-03-18 15:28:00 Anup Wright [facility] PERITONEAL DIALYSIS ESTIMATED GFR 2022-03-18 13:50:00 Jac [facility] Zafar riddletal POC PANEL 2022-03-18 13:50:00 Jac [facility] Zafar mayorga PARTIAL THROMBOPLASTIN 2022-03-18 13:45[facility] Leonora J. PROTHROMBIN TIME WITH 2022-03-18 [facility] BASIC METABOLIC PANEL 2022-03-18 13:45:[facility] ESTIMATED GFR 2022-03-18 13:45:00 Zafar Estrada janessatal Leonora J. CBC WITH PLATELET AND 2022-03-17 21:08[facility] Leon[facility] J. PROTHROMBIN TIME WITH 2022-03-17 21:08:00 [facility] Leon[facility] J. PARTIAL THROMBOPLASTIN 2022-03-17 21:08:00 [facility] ([facility]TT[facility] Leonora J. TYPE AND SCREEN 2022-03-17 21:08:00 Zafar Estrada. HEMOGLOBIN A1C 2022-03-17 21:08:00 Zafar Estrada spital Leonora J. COVID-19 QUALITATIVE 2022-03-17 20:51:00 [facility] Leonora Fajardo. ME AN ELECTIVE 2022-03-07 12:53:00 Brendon [facility] ENDOTRACHEAL AIRWAY INSERTION, CATHETER, 2022-03-07 12:40:00 Jac, [facility] INTRAPERITONEAL, LAPAROSCOPIC ESTIMATED GFR 2022-03-07 12:16:00 Jac Mtjesi mayorga POC PANEL 2022-03-07 12:16:00 Jac [facility] Zafar mayorga ABO AND RH CONFIRMATION 2022-03-07 12:10:00 [facility] BY PROTOCOL BASIC METABOLIC PANEL 2022-03-07 12:10:[address] [facility] Leonora Oquendo ESTIMATED GFR 2022-03-07 12:10:00 Zafar Estrada XR CHEST 2 VW 2022-03-06 19:59:09 Jac [facility] Zafar mayorga COVID-19 QUALITATIVE 2022-03-06 19:08:00 [facility], [facility] RT-PCR CBC WITH PLATELET AND 2022-03-06 18:58:00 [facility] DIFFERENTIAL PROTHROMBIN TIME WITH 2022-03-06 18:58:00 [facility] INR PARTIAL THROMBOPLASTIN 2022-03-06 18:58:00 [facility] TIME (PTT) TYPE AND SCREEN 2022-03-06 18:58:00 Zafar Estrada HEMOGLOBIN A1C 2022-03-06 18:58:00 Zafar Estrada ECG PRE/POST OP 2022-03-06 18:20:34 Jac [facility] Zafar mayorga [id number] 2021-11-23 00:00:00 [facility] HEPATITIS B SURFACE 2021-11-04 03:28:[address] [facility] Medical ANTIGEN Center HEPATITIS B SURFACE 2021-11-04 03:28:[address] [facility] Medical ANTIBODY Center HEPATITIS B CORE 2021-11-04 03:28:00 [facility] ANTIBODY, TOTAL Center HEPATITIS B SURFACE 2021-11-01 05:27:00 [facility] ANTIGEN Center HEPATITIS B SURFACE 2021-11-01 05:27:00 [facility] ANTIBODY Center HEPATITIS B CORE 2021-11-01 05:27:00 [facility] ANTIBODY, TOTAL Center YAG CAPSULOTOMY - OD - 2021-03-22 15:51:45 Alexandra Rojo [facility] RIGHT EYE Tovar Unlisted Px Accessory 2021-03-08 00:00:00 [facility] Sinus PHACOEMULSIFICATION, 2020-12-13 13:09:00 [facility] WITH IOL [place] IMPLANTATION POC GLUCOSE 2020-12-13 12:52:00 Alexandra Rojoist Ho spital [place] CORNEAL TOPOGRAPHY ATLAS 2020-11-12 15:46:10 Alexandra Rojo [facility] - OU - BOTH EYES [place] IOL BIOMETRY - OU - BOTH 2020-11-12 15:46:06 Alexandra Rojo [facility] EYES [place] Cataract Surgery [facility] Plan of Care Planned Activity Planned Date Details Comments Source Future Scheduled 2022-08-27 HEPATITIS B VACCINES [facility] Test 05:55:05 (1 of 3 - 3-dose series) [code = HEPATITIS B VACCINES (1 of 3 - 3-dose series)] Future Scheduled 2022-08-27 Pneumococcal Vaccine: [facility] Test 05:55:05 Pediatrics (0 to 5 Years) and At-Risk Patients (6 to 64 Years) (1 - PCV) [code = Pneumococcal Vaccine: Pediatrics (0 to 5 Years) and At-Risk Patients (6 to 64 Years) (1 - PCV)] Future Scheduled 2022-08-27 DIABETIC FOOT EXAM [facility] Test 05:55:05 [code = DIABETIC FOOT EXAM] Future Scheduled 2022-08-27 Hepatitis C screening [facility] Test 05:55:05 (procedure) [code = 375781364] Future Scheduled 2022-08-27 SHINGLES VACCINES (1 [facility] Test 05:55:05 of 2) [code = SHINGLES VACCINES (1 of 2)] Future Scheduled 2022-08-27 COLONOSCOPY SCREENING [facility] Test 05:55:05 [code = COLONOSCOPY SCREENING] Future Scheduled 2022-08-27 COVID-19 VACCINE (3 - [facility] Test 05:55:05 Pfizer risk series) [code = COVID-19 VACCINE (3 - Pfizer risk series)] Future Scheduled 2022-08-27 INFLUENZA VACCINE [facility] Test 05:55:05 [code = INFLUENZA VACCINE] Future Scheduled 2022-08-27 DIABETES: RETINAL EYE [facility] Test 05:55:05 EXAM [code = DIABETES: RETINAL EYE EXAM] Diagnostic Test 2022-04-21 glucose, fingerstick, [facility] Pending 00:00:00 blood [code = glucose, Pract ice fingerstick, blood] Diagnostic Test 2022-04-21 hemoglobin A1C, [facility] Pending 00:00:00 fingerstick [code = Practice hemoglobin A1C, fingerstick] Future Scheduled 2021-07-09 COLONOSCOPY SCREENING [facility] Test 14:18:19 [code = COLONOSCOPY SCREENING] Future Scheduled 2021-07-09 SHINGLES VACCINES (#1) [facility] Test 14:18:19 [code = SHINGLES VACCINES (#1)] Future Scheduled 2021-07-09 COVID-19 VACCINE (2 - [facility] Test 14:18:19 Moderna risk 4-dose series) [code = COVID-19 VACCINE (2 - Moderna risk 4-dose series)] Future Scheduled 2021-07-09 INFLUENZA VACCINE [facility] Test 14:18:19 [code = INFLUENZA VACCINE] Future Scheduled 2021-07-09 DIABETES: RETINAL EYE [facility] Test 14:18:19 EXAM [code = DIABETES: RETINAL EYE EXAM] Future Scheduled 2021-07-09 DIABETIC FOOT EXAM [facility] Test 14:18:19 [code = DIABETIC FOOT EXAM] Future Scheduled 2021-07-09 Hepatitis C screening [facility] Test 14:18:19 (procedure) [code = 185505361] Future Scheduled 2021-07-09 COLONOSCOPY SCREENING [facility] Test 14:18:19 [code = COLONOSCOPY SCREENING] Future Scheduled 2021-07-09 SHINGLES VACCINES (#1) [facility] Test 14:18:19 [code = SHINGLES VACCINES (#1)] Future Scheduled 2021-07-09 COVID-19 VACCINE (2 - [facility] Test 14:18:19 Moderna risk 4-dose series) [code = COVID-19 VACCINE (2 - Moderna risk 4-dose series)] Future Scheduled 2021-07-09 INFLUENZA VACCINE [facility] Test 14:18:19 [code = INFLUENZA VACCINE] Future Scheduled 2021-07-09 DIABETES: RETINAL EYE [facility] Test 14:18:19 EXAM [code = DIABETES: RETINAL EYE EXAM] Future Scheduled 2021-07-09 DIABETIC FOOT EXAM [facility] Test 14:18:19 [code = DIABETIC FOOT EXAM] Future Scheduled 2021-07-09 Hepatitis C screening [facility] Test 14:18:19 (procedure) [code = 535574723] Future Appointment 2022-08-29 Anup Wright MD, [facility] 11:00:[address] [place] [address]; [address], [place] [address] Future Appointment 2022-10-20 Salbador Robles, [address] [place] [address] 14:00:[address]; Practice [address] [address] Future Appointment 2022-10-18 Salbador Robles, [address] [place] [address] 00:00:[address]; Practice [address], [place] [address] Future Appointment 2022-08-29 Anup Wright MD, [facility] 11:00:[address] [place] [address]; [address], [place] [id number] Future Appointment 2022-08-29 Chelsea Raygoza [facility], [facility] 11:00:[address] [place] [address]; [address], [place] [address] Procedure 2022-08-29 REVISION, [facility] 16:00:00 ARTERIOVENOUS GRAFT, WITH ANGIOGRAPHY Encounters Start End Encounter Admission Attending Care Care Encounter Source Date/Time Date/Time Type Type Clinicians Facility Department ID 2021-11-21 Outpatient 3 [facility] ENCPL CRD [id number] [facility] 09:15:09 [facility] [place] 2021-11-20 Outpatient 3 [id number] ENC[facility] REF [id number] [facility] 08:42:00 0615 [facility] [place] 2020-08-23 Inpatient [facility] [id number] [address] [place] [address] 12:30:00 Edmund 15 2022-08-25 2022-08-25 Hospital Jac, 1.2.840.1 [id number] Methodi 15:32:34 23:59:00 Encounter Uttam 66835.1.[address] 3.430.2.7 Hospit a .3.850480 l .8 2022-08-25 2022-08-25 Pre-Admiss Jac, 1.2.840.1 [id number] 2 [id number] Methodi 14:00:00 15:00:00 ion Uttam 85227.1.[address] Testing 3.430.2.7 Hospit a .3.110706 l .8 2022-08-25 2022-08-25 Outpatient JAC, [place] [id number] [place] 00:00:00 00:00:00 UTTAM [address] 2022-08-25 2022-08-25 Travel 1.2.840.1 1.2.752.987 [id number] Methodi 00:00:00 00:00:[address] 3.430.2.7 0.2.7.3.698 Ho spita .3.007991 084.8 l .8 2022-08-25 2022-08-25 Outpatient JAC, [facility] [id number] [place] 00:00:00 00:00:00 UTTAM [address] 2022-08-22 2022-08-22 Travel 1.2.840.1 1.2.372.252 [id number] Methodi 00:00:00 00:00:[address] 3.430.2.7 0.2.7.3.698 Ho spita .3.148887 084.8 l .8 2022-04-04 2022-06-11 Pre-Admiss Jac, 1.2.840.1 [id number] Methodi 16:30:00 00:38:28 ion Uttam 50002.1.[address] Testing 3.430.2.7 Hospit a .3.098059 l .8 2022-05-06 2022-05-06 Hospital Jac, 1.2.840.1 [id number] Methodi 06:35:00 11:50:00 Encounter Uttam 98385.1.[address] 3.430.2.7 Hospit a .3.337012 l .8 2022-05-06 2022-05-06 Surgery Jac, 1.2.840.1 [id number] Methodi 08:05:00 10:10:[address] 3.430.2.7 Hospit a .3.376103 l .8 2022-05-06 2022-05-06 Anesthesia Leonora Estrada. 1.2.840.1 [id number] Methodi 08:13:00 10:08:00 Event Chelsea Raygoza 78699.1.[address] 3.430.2.7 Hospit a .3.398420 l .8 2022-05-06 2022-05-06 Outpatient JAC, [facility] 021 [id number] [place] 00:00:00 00:00:00 UTTAM [address] 2022-04-30 2022-04-30 Pre-Admiss Jac, 1.2.840.1 [id number] Methodi 12:30:00 13:30:00 ion Uttam 45900.1.[address] Testing 3.430.2.7 Hospit a .3.662958 l .8 2022-04-30 2022-04-30 Travel 1.2.840.1 1.2.318.161 [id number] Methodi 00:00:00 00:00:[address] 3.430.2.7 0.2.7.3.698 Ho spita .3.745402 084.8 l .8 2022-04-30 2022-04-30 Outpatient JAC, [facility] [id number] Hayden 00:00:00 00:00:00 UTTAM [address] 2022-04-21 2022-04-21 Salbador P [place] - [id number] V illage 00:00:00 00:00:00 Terry [facility] TravisAnatoly torres - Leonid nielson MD: [id number] [place] - e Shadow VM_HOU_Parthad [address], [address], [place] [address] , Ph. 2022-04-07 2022-04-07 Hospital Jac, 1.2.840.1 [id number] Methodi 06:12:00 10:17:00 Encounter Uttam 98549.1.[address] 3.430.2.7 Hospit a .3.965993 l .8 2022-04-07 2022-04-07 Surgery Jac, 1.2.840.1 [id number] Methodi 07:45:00 09:20:[address] 3.430.2.7 Hospit a .3.659752 l .8 2022-04-07 2022-04-07 Anesthesia Abdulkadir Magallon 1.2.840.1 [id number] Methodi 07:42:00 08:58:00 Event IdalmisChelsea wade 30023.1.[address] 3.430.2.7 Hospit a .3.100776 l .8 2022-04-07 2022-04-07 Outpatient JAC, [facility] 021 [id number] [place]den 00:00:00 00:00:00 UTTAM [address] 2022-04-04 2022-04-04 Travel 1.2.840.1 1.2.621.992 [id number] Methodi 00:00:00 00:00:[address] 3.430.2.7 0.2.7.3.698 Ho spita .3.395646 084.8 l .8 2022-04-04 2022-04-04 Outpatient JAC, [facility] [id number] Hayden 00:00:00 00:00:00 UTTAM [address] 2022-04-03 2022-04-03 Telephone [place], 1.2.840.1 [id number] Methodi 00:00:00 00:00:[address] 3.430.2.7 Hospit a .3.744873 l .8 2022-04-01 2022-04-01 Travel 1.2.840.1 1.2.970.395 [id number] [id number] Methodi 00:00:00 00:00:[address] 3.430.2.7 0.2.7.3.698 Ho spita .3.307087 084.8 l .8 2022-03-24 2022-03-24 [facility] 1.2.840.1 [id number] Methodi 10:00:00 11:11:39 Visit Alexandra 61470.1.[address] [place] 3.430.2.7 Hospit a .3.351143 l .8 2022-03-24 2022-03-24 Travel 1.2.840.1 1.2.291.792 [id number] Methodi 00:00:00 00:00:[address] 3.430.2.7 0.2.7.3.698 Ho spita .3.496875 084.8 l .8 2022-03-24 2022-03-24 [facility] [id number] Hayden 00:00:00 00:00:00 ALEXANDRA [address] 2022-03-18 2022-03-18 [facility] 1.2.840.1 [id number] Methodi 08:12:00 13:17:00 Encounter Anup 29755.1.[address] 3.430.2.7 Hospit a .3.024971 l .8 2022-03-18 2022-03-18 Anesthesia Leonora Estrada 1.2.840.1 [id number] Methodi 10:29:00 12:05:00 Event Chelsea Raygoza 31421.1.[address] 3.430.2.7 Hospit a .3.764630 l .8 2022-03-18 2022-03-18 Surgery Jac, 1.2.840.1 [id number] Methodi 10:25:00 12:00:[address] 3.430.2.7 Hospit a .3.536905 l .8 2022-03-18 2022-03-18 Outpatient JAC, [facility] 021 [id number] [place] 00:00:00 00:00:00 UTTAM [address] 2022-03-17 2022-03-17 Pre-Admiss Jac, 1.2.840.1 [id number] 2 [id number] Methodi 15:30:00 16:30:00 ion Uttam 35440.1.[address] Testing 3.430.2.7 Hospit a .3.435025 l .8 2022-03-17 2022-03-17 Travel 1.2.840.1 1.2.267.297 4511 [id number] Methodi 00:00:00 00:00:[address] 3.430.2.7 0.2.7.3.698 Ho spita .3.816419 084.8 l .8 2022-03-17 2022-03-17 Outpatient JAC, [facility] [id number] Hayden 00:00:00 00:00:00 UTTAM [address] 2022-03-07 2022-03-07 Hospital Jac, 1.2.840.1 [id number] Methodi 06:08:00 11:49:00 Encounter Uttam 95498.1.[address] 3.430.2.7 Hospit a .3.745513 l .8 2022-03-07 2022-03-07 Surgery Jac, 1.2.840.1 [id number] Methodi 08:00:00 09:50:[address] 3.430.2.7 Hospit a .3.930650 l .8 2022-03-07 2022-03-07 Anesthesia Linda Naik 1.2.840. 1 [id number] Methodi 07:41:00 09:22:00 Event Saad Ocampo 20078.1.[address] 3.430.2.7 Hospit a .3.003092 l .8 2022-03-07 2022-03-07 Outpatient JAC, [facility] 021 [id number] Hayden 00:00:00 00:00:00 UTTAM [address] 2022-03-06 2022-03-06 [facility], 1.2.840.1 [id number] 856 [id number] Methodi 14:47:12 23:59:00 Encounter Uttam 24622.1.[address] 3.430.2.7 Hospit a .3.274519 l .8 2022-03-06 2022-03-06 Pre-Admiss Jac, 1.2.840.1 [id number] 2 [id number] Methodi 13:30:00 14:30:00 ion Uttam 24936.1.[address] Testing 3.430.2.7 Hospit a .3.089241 l .8 2022-03-06 2022-03-06 Travel 1.2.840.1 1.2.862.121 6556 [id number] Methodi 00:00:00 00:00:[address] 3.430.2.7 0.2.7.3.698 Ho spita .3.559989 084.8 l .8 2022-03-06 2022-03-06 Outpatient JAC, [facility] [id number] Hayden 00:00:00 00:00:00 UTTAM [address] 2022-03-06 2022-03-06 Outpatient JAC, [facility] [id number] Hayden 00:00:00 00:00:00 UTTAM [address] 2022-03-04 2022-03-04 Travel 1.2.840.1 1.2.974.996 7314 [id number] Methodi 00:00:00 00:00:[address] 3.430.2.7 0.2.7.3.698 Ho spita .3.117266 084.8 l .8 2022-02-14 2022-02-14 Travel 1.2.840.1 1.2.808.973 9840 735312 Methodi 00:00:00 00:00:[address] 3.430.2.7 0.2.7.3.698 Ho spita .3.003851 084.8 l .8 2022-01-21 2022-01-21 Travel 1.2.840.1 1.2.983.191 9210 107398 Methodi 00:00:00 00:00:[address] 3.430.2.7 0.2.7.3.698 Ho spita .3.307340 084.8 l .8 2021-12-19 2021-12-19 Outpatient Daniel_T VFP VFP [id number] [address] [place] [address] 00:00:00 00:00:00 [id number] Family [facility] e 2021-11-23 2021-11-29 Inpatient 3 [facility] ENC OT 5735 [employer] 02:29:00 13:20:00 brant 0618 [facility] itation Scotty d 2021-11-04 2021-11-[address] [facility] [id number] 00:00:00 00:00:00 [facility] 2021-11-01 2021-11-01 [facility] [id number] 00:00:00 00:00:00 [facility] 2021-09-09 2021-09-09 Outpatient Daniel_T VFP VFP [id number] [address] [place] [address] 02:52:00 02:52:00 [id number] Family Practic e 2021-09-03 2021-09-03 Salbador Robles_T VFP [place] - [id number] 0 Village 00:00:00 00:00:00 [facility] [id number] Family RoblesAnatoly - Prackaylee nielson MD: [id number] VM_HOU_Shad e Shadow [facility], [address] [address] , Ph. 2021-08-14 2021-08-14 Outpatient Daniel_T VFP VFP [id number] 08-25 [facility] 10:35:00 10:35:00 [id number] Family Practic e 2021-06-14 2021-06-14 Outpatient Daniel_T VFP VFP [id number] 08-25 [facility] 08:21:00 08:21:00 [id number] Family Practic e 2021-05-30 2021-05-30 Salbador Robles_T VFP [place] - [id number] 0 [facility] 00:00:00 00:00:00 [facility] [id number] Family RoblesAnatoly - Leonid nielson MD: [id number] VM_HOU_Shad e Shadow ow [facility], [address], [place] [address] , Ph. 2021-03-22 2021-03-22 Procedure [place], 1.2.840.1 [id number] Methodi 09:57:39 10:52:50 visit Alexandra 07062.1.[address] [place] 3.430.2.7 Hospit a .3.417367 l .8 2021-03-22 2021-03-22 Travel 1.2.840.1 1.2.381.351 2394 [id number] Methodi 00:00:00 00:00:[address] 3.430.2.7 0.2.7.3.698 Ho spita .3.524127 084.8 l .8 2021-03-15 2021-03-15 Outpatient Daniel_T VFP VFP [id number] 08-25 [facility] 06:40:00 06:40:00 [id number] Family Practic e 2021-03-13 2021-03-13 Salbador Robles_T VFP [place] - [id number] 0 Village 00:00:00 00:00:00 [facility] [id number] Family RoblesAnatoly - Leonid nielson MD: [id number] VM_HOU_Shad e Shadow ow [address], [address], [place] [address] , Ph. 2021-01-25 2021-01-25 Telephone [place], 1.2.840.1 [id number] [id number] Methodi 00:00:00 00:00:[address] [place] 3.430.2.7 Hospit a .3.594936 l .8 2021-01-18 2021-01-18 Office [place], 1.2.840.1 [id number] 0921 Methodi 09:20:01 10:06:50 Visit Alexandra 16787.1.[address] [place] 3.430.2.7 Hospit a .3.141043 l .8 2021-01-18 2021-01-18 Outpatient Travis_T VFP VFP [id number] [address] [place] [address] 03:12:00 03:12:00 [id number] Family Mehran contreras 2021-01-18 2021-01-18 Travel 1.2.840.1 1.2.330.363 9851 [id number] Methodi 00:00:00 00:00:[address] 3.430.2.7 0.2.7.3.698 Ho spita .3.174813 084.8 l .8 2020-12-21 2020-12-21 Telephone [place], 1.2.840.1 [id number] 2099 [id number] Methodi 00:00:00 00:00:[address] [place] 3.430.2.7 Hospit a .3.396842 l .8 2020-12-15 2020-12-15 Outpatient Junoel_T VFP VFP [id number] [address] [place] [address] 02:24:00 02:24:00 [id number] Family Practic e 2020-12-14 2020-12-14 Office [place], 1.2.840.1 [id number] Methodi 08:47:49 09:15:43 Visit Alexandra 05635.1.[address] [place] 3.430.2.7 Hospit a .3.261509 l .8 2020-12-13 2020-12-13 Hospital [place], 1.2.840.1 [id number] 61037 Methodi 06:39:00 09:16:00 Encounter Alexandra 12591.1.[address] [place] 3.430.2.7 Hospit a .3.335542 l .8 2020-12-13 2020-12-13 Surgery [place], 1.2.840.1 [id number] Methodi 08:15:00 09:00:[address] [place] 3.430.2.7 Hospit a .3.692056 l .8 2020-12-13 2020-12-13 Anesthesia Varg[place], 1.2.840.1 [id number] Methodi 08:09:00 08:42:00 Event Derek 16352.1.[address] [place] 3.430.2.7 Hospi ta .3.155572 l .8 2020-12-13 2020-12-13 Travel 1.2.840.1 1.2.758.709 4874 [id number] Methodi 00:00:00 00:00:[address] 3.430.2.7 0.2.7.3.698 Ho spita .3.706066 084.8 l .8 2020-12-12 2020-12-12 Telephone [place], 1.2.840.1 [id number] 2100 [id number] Methodi 00:00:00 00:00:[address] [place] 3.430.2.7 Hospit a .3.850808 l .8 2020-12-08 2020-12-08 Outpatient Travis_T VFP VFP [id number] 20 [facility] 10:38:00 10:38:00 [id number] Family Mehran contreras 2020-12-06 2020-12-06 Salbador Robles_T VFP [place] - [id number] 0 Village 00:00:00 00:00:00 [facility] [id number] Family Robles Anatoly - Leonid nielson MD: [id number] VM_HOU_Shad e Shadow ow [address] [facility], [address], [place] [address] , Ph. 2020-11-12 2020-11-12 Office [place], 1.2.840.1 [id number] Methodi 09:50:22 11:30:10 Visit Alexandra 95214.1.[address] [place] 3.430.2.7 Hospit a .3.102414 l .8 2020-11-12 2020-11-12 Travel 1.2.840.1 1.2.947.101 3128 [id number] Methodi 00:00:00 00:00:[address] 3.430.2.7 0.2.7.3.698 Ho spita .3.118974 084.8 l .8 2020-10-30 2020-10-30 Travel 1.2.840.1 1.2.633.924 7780 [id number] Methodi 00:00:00 00:00:[address] 3.430.2.7 0.2.7.3.698 Ho spita .3.294016 084.8 l .8 2020-10-29 2020-10-29 Telephone [place], 1.2.840.1 [id number] 2099 [id number] Methodi 00:00:00 00:00:[address] [place] 3.430.2.7 Hospit a .3.465527 l .8 2020-10-10 2020-10-10 Outpatient Travis_T VFP VFP [id number] 20 [facility] 09:31:00 09:31:00 [id number] Family Mehran contreras 2020-10-09 2020-10-09 Salbador Robles_T VFP [place] - [id number] 0 [facility] 00:00:00 00:00:00 [facility] [id number] Family Robles Anatoly - Leonid nielson MD: [id number] VM_HOU_Shad e Shadow ow [address] [facility], [address] [place] [address] , Ph. 2020-09-08 2020-09-08 Outpatient Travis_T VFP VFP [id number] 3-20 [facility] 07:26:00 07:26:00 [id number] Family Mehran e 2020-09-05 2020-09-05 Salbador Robles_T VFP [place] - [id number] 0 [facility] 00:00:00 00:00:00 [facility] [id number] Family Robles Anatoly nielson MD: [id number] VM_HOU_Shad e Shadow ow [address] [facility], [address] [address] , Ph. 2020-08-30 2020-08-30 Outpatient Travis_T VFP VFP [id number] 3-20 [facility] 04:05:00 04:05:00 [id number] Family Laurent e 2020-08-23 2020-08-23 Outpatient [facility] [id number] [facility] 11:22:00 11:22:00 15 2020-05-28 2020-05-28 Outpatient [facility] [id number] [place] 00:00:00 00:00:00 ALEXANDRA [address] 2020-05-17 2020-05-17 Outpatient [facility] [id number] 409 [place] 00:00:00 00:00:00 ALEXANDRA [address] 2020-04-26 2020-04-26 Outpatient Mavis [facility] [id number] [facility] 14:10:00 14:10:00 Edmund 16 2020-04-26 2020-04-26 Outpatient [facility] [id number] [facility] 11:18:00 11:18:00 16 2020-04-19 2020-04-19 Outpatient [facility] [id number] 340 [place] 00:00:00 00:00:[address] 2020-03-26 2020-03-26 Outpatient , [facility] [id number] 604 [place] 00:00:00 00:00:00 ALEXANDRA Dale [facility] 2020-01-24 2020-01-24 Outpatient 3 Edmund Gamble [facility] [id number] St. 10:30:00 23:59:00 [facility] 2020-01-24 2020-01-24 Outpatient 3 Mavis [facility] VANDANA [id number] St. 10:30:00 10:30:00 [facility]2019 817 [facility] 2018-10-18 2018-10-18 [facility] [id number] Common 13:47:00 13:47:00 [facility] 2018-09-23 2018-09-23 [facility] [id number] Common 08:45:00 08:45:[address] [facility] [address] [facility] 2018-08-04 2018-08-04 [facility] 24 [id number] Common 08:30:00 08:30:00 t [facility] Road [facility] it Road [facility] 2018-03-11 2018-03-11 Out[facility] [id number] Common 10:51:00 10:51:[address] [facility] [address] [facility] Results Test Description Test Time Test Comments Results Result Comments Source ECG Pre/Post Op 2022-08-26 00:42:04 Test Item Value Reference Range Interpretation Comme nts Ventricular rate (test code = 253) 89 Atrial rate (test code = 255) 89 ME interval (test code = 266) 176 QRSD interval (test code = 260) 100 QT interval (test code = 264) 374 QTC interval (test code = 265) 455 P axis 1 (test code = 267) 43 QRS axis 1 (test code = 268) 27 T wave axis (test code = 270) 57 EKG impression (test code = 273) Normal sinus rhythm-Possible Anter ior infarct , age undetermined-Abnormal ECG-In automated comparison with ECG of 30-APR-2022 13:57,-Questionable change in QRS duration-Borderline criteria for Anterior infarct are now present- [facility] [Presence] in Respiratory specimen by TU with probe [id number] 21:06:33 Test Item Value Reference Range Interpretation Comments SARS-CoV-2 (COVID-19) RNA Not detected [Presence] in Respiratory specimen by TU with probe detection (test code = 29629-9) Whether patient is employed in a Unknown healthcare setting (test code = 55537-6) Whether the patient has symptoms Unknown related to condition of interest (test code = 94041-0) Whether the patient was Unknown hospitalized for condition of interest (test code = 82144-5) Whether the patient was admitted Unknown to intensive care unit (ICU) for condition of interest (test code = 97349-0) Whether patient resides in a Unknown congregate care setting (test code = 32648-6) status (test code = Unknown 29817-6) Date and time of symptom onset Unknown (test code = 98920-7) [facility] [id number] 16:10:00 Test Item Value Reference Range Interpretation Comments POC glucose (test 79 mg/dL 65-99 Paper Maker N zain: Pedro code = 46019-1) EricDemaria de jesuse I D: [id number] able: RN Notified [facility] [id number] 14:10:01 Test Item Value Reference Range Interpretation Comments POC sodium (test code = 140 mmol/L 824-918 8643-0) POC potassium (test 5.6 mmol/L 3.5-5.0 H code = 6298-4) POC glucose (test code 78 mg/dL 65-99 = 2339-0) POC creatinine (test 9.0 mg/dl 0.7-1.2 H Operato r Name: code = 14078-2) Paul Clemente ID : [id number] POC hemoglobin (test 12.2 g/dL 14.0-18.0 L code = 718-7) POC hematocrit (test 36 % 41-51 L code = 4544-3) Lab Interpretation Abnormal (test code = 80563-7) [facility] [id number] 14:10:00 Test Item Value Reference Range Interpretation Comments Estimated GFR (test 6 mL/min/1.73 m2 Tom rea Units code = 59710-8) Interpretati onG1 >=90 Normal or highG 2 60-89 Mildly decrease dG3a 45-59 Mildly to moderately decr pnogeZ4b 30-44 Moderatel y to severely decrea sedG4 15-29 Severely decreasedG5 <15 Kidney failureThe eGFR was calculated katia coelho the Chronic Kidney Disease Epidemiology Collaboration ( CKD-EPI) equation. Interpretation is based on recommendati ons of the National dney [facility]-Kidn ey Disease Outcome s Quality Initiat dimitris (NKF-KDOQI) pub lished in 2013. Lab Interpretation Abnormal (test code = 33382-8) [facility] RNA [Presence] in Respiratory specimen by TU with probe [id number] 22:17:29 Test Item Value Reference Range Interpretation Comments SARS-CoV-2 (COVID-19) RNA Not detected [Presence] in Respiratory specimen by TU with probe detection (test code = 88624-8) Whether patient is employed in a Unknown healthcare setting (test code = 38759-4) Whether the patient has symptoms Unknown related to condition of interest (test code = 92769-9) Whether the patient was Unknown hospitalized for condition of interest (test code = 39734-1) Whether the patient was admitted Unknown to intensive care unit (ICU) for condition of interest (test code = 05192-9) Whether patient resides in a Unknown congregate care setting (test code = 29961-3) status (test code = Unknown 60151-0) Date and time of symptom onset Unknown (test code = 49036-9) [facility] device panel 2022-04-21 14:32:46 Test Item Value Reference Range Interpretation Comments Hemoglobin A1c/Hemoglobin.total in 6.0 % 5.7-6.4 Blood (test code = 4548-4) [facility]/volume] in Capillary [id number] 14:31:51 Test Item Value Reference Range Interpretation Comments Blood Glucose: mg/dl (test code = Blood 148 Glucose: mg/dl) [facility] RNA [Presence] in Respiratory specimen by TU with probe [id number] 23:26:26 Test Item Value Reference Range Interpretation Comments SARS-CoV-2 (COVID-19) RNA Not detected [Presence] in Respiratory specimen by TU with probe detection (test code = 32497-1) Whether patient is employed in a Unknown healthcare setting (test code = 13218-5) Whether the patient has symptoms Unknown related to condition of interest (test code = 39971-6) Whether the patient was Unknown hospitalized for condition of interest (test code = 23411-5) Whether the patient was admitted Unknown to intensive care unit (ICU) for condition of interest (test code = 64546-8) Whether patient resides in a Unknown congregate care setting (test code = 04627-3) status (test code = Unknown 05288-2) Date and time of symptom onset Unknown (test code = 74068-8) [facility]-CoV-2 (COVID-19) RNA [Presence] in Respiratory specimen by TU with probe [id number] 00:19:06 Test Item Value Reference Range Interpretation Comments SARS-CoV-2 (COVID-19) RNA Not detected [Presence] in Respiratory specimen by TU with probe detection (test code = 11107-5) Whether patient is employed in a Unknown healthcare setting (test code = 95926-7) Whether the patient has symptoms Unknown related to condition of interest (test code = 63926-2) Whether the patient was Unknown hospitalized for condition of interest (test code = 54202-5) Whether the patient was admitted Unknown to intensive care unit (ICU) for condition of interest (test code = 45202-7) Whether patient resides in a Unknown congregate care setting (test code = 69623-1) status (test code = Unknown 04399-4) Date and time of symptom onset Unknown (test code = 84355-4) [facility]-CoV-2 (COVID-19) RNA [Presence] in Respiratory specimen by TU with probe [id number] 23:23:48 Test Item Value Reference Range Interpretation Comments SARS-CoV-2 (COVID-19) RNA Not detected [Presence] in Respiratory specimen by TU with probe detection (test code = 89648-1) Whether patient is employed in a Unknown healthcare setting (test code = 24140-5) Whether the patient has symptoms Unknown related to condition of interest (test code = 19864-7) Whether the patient was Unknown hospitalized for condition of interest (test code = 18479-4) Whether the patient was admitted Unknown to intensive care unit (ICU) for condition of interest (test code = 97928-0) Whether patient resides in a Unknown congregate care setting (test code = 19404-3) status (test code = Unknown 42658-8) Date and time of symptom onset Unknown (test code = 80930-5) [facility] surface [id number] 17:11:26 Test Item Value Reference Range Interpretation Comments Hep B S Ab (test code 1140.4 See_Comment H [Auto mated = 76154-4) message] The system which generated this result transmitted reference range : <8.0 mIU/mL. e reference range was not used to interpret this result as normal/abnormal . TRINY (test code = TRINY) Paper Maker ID - RMOperator ID - RMOperator ID - RMOperator ID - RMOperator ID - RMOperator ID - RM Lab Interpretation Abnormal (test code = 40980-4) [facility] [id number] 17:11:26 Test Item Value Reference Range Interpretation Comments HEPATITIS B SURFACE ANTIBODY 1140.4 mIU/mL <8.0 H (BEAKER) (test code = 647) Paper Maker ID - RMOperator ID - RMOperator ID - RMOperator ID - RMOperator ID - RMOperator ID - RMHepatitis B core antibody, [id number] 16:31:12 Test Item Value Reference Range Interpretation Comments Hep B Core Total Ab (test Reactive Nonreactive A code = 96194-2) TRINY (test code = TRINY) Paper Maker ID - RMOperator ID - RMOperator ID - RM Lab Interpretation (test Abnormal code = 74732-9) [facility] CORE ANTIBODY, [id number] 16:31:12 Test Item Value Reference Range Interpretation Comments HEPATITIS B CORE TOTAL ANTIBODY Reactive Nonreactive A (BEAKER) (test code = 497) Paper Maker ID - RMOperator ID - RMOperator ID - RMHepatitis B surface antigen 2021-11-04 15:04:06 Test Item Value Reference Range Interpretation Comments Hepatitis B surface Nonreactive Nonreactive antigen (test code = 5195-3) TRINY (test code = TRINY) Specimen is considered negative for HBsAg. Lab Interpretation (test Normal code = 57790-8) [facility] SURFACE [id number] 15:04:06 Test Item Value Reference Range Interpretation Comments HEPATITIS B SURFACE ANTIGEN (2) Nonreactive Nonreactive (BEAKER) (test code = 2585) Specimen is considered negative for HBsAg.HEPATITIS B SURFACE [id number] 21:39:47 Test Item Value Reference Range Interpretation Comments HEPATITIS B SURFACE ANTIBODY 1187.5 mIU/mL <8.0 H (BEAKER) (test code = 647) Paper Maker ID - BSOperator ID - BSHEPATITIS B CORE ANTIBODY, [id number] 21:39:42 Test Item Value Reference Range Interpretation Comments HEPATITIS B CORE TOTAL ANTIBODY Reactive Nonreactive A (BEAKER) (test code = 497) Paper Maker ID - BSOperator ID - BSOperator ID - BSHEPATITIS B SURFACE ANTIGEN 2021-11-01 20:57:29 Test Item Value Reference Range Interpretation Comments HEPATITIS B SURFACE ANTIGEN (2) Nonreactive Nonreactive (BEAKER) (test code = 2585) Specimen is considered negative for HBsAg.Hemoglobin A1c measurement device [id number] 13:22:43 Test Item Value Reference Range Interpretation Comments Hemoglobin A1C Fingerstick: (test code 5.4 = Hemoglobin A1C Fingerstick:) [facility] [[facility]/volume] in Capillary [id number] 13:19:40 Test Item Value Reference Range Interpretation Comments Blood Glucose: mg/dl (test code = Blood 100 Glucose: mg/dl) [facility] HospitalHem[facility] A1c measurement device [id number] 10:24:11 Test Item Value Reference Range Interpretation Comments Hemoglobin A1C Fingerstick: (test code 6.4 = Hemoglobin A1C Fingerstick:) [facility] [Mass/volume] in Capillary [id number] 10:23:38 Test Item Value Reference Range Interpretation Comments Blood Glucose: mg/dl (test code = Blood 180 Glucose: mg/dl) [facility] [id number] 12:53:31 Test Item Value Reference Range Interpretation Comments POC glucose (test code 112 mg/dL 65-99 H Opera tor Name: = 21148-9) Dilan Quick Device ID: [id number] able: [facility] Notified television specialist Interpretation Abnormal (test code = 37628-7) [facility] [id number] 12:53:31 Test Item Value Reference Range Interpretation Comments POC glucose (test code 112 mg/dL 65-99 H Opera tor Name: = 52396-8) Dilan Ynes Device ID: [id number] able: [facility] Notified television specialist Interpretation Abnormal (test code = 12486-7) [facility] [id number] 12:49:00 Test Item Value Reference Range Interpretation Comments Glucose Fingerstick 284 mg/dL 70-115 SNUFF MAKER LULY (test code = WGLUC) Dwayne singleton RN or Glucose [id number] 14:16:00 Test Item Value Reference Range Interpretation Comments Glucose Fingerstick 143 mg/dL 70-115 SNUFF MAKER Eryn (test code = WGLUC) POC [id number] 11:58:15 Test Item Value Reference Range Interpretation Comments Glucose POC (test 121 mg/dL 70-115 H If you con histology supervisor your code = Glucose POC) patient critically ill, the Marshal-Accu Check Infrom II meter should not be used for Glucose determination. Draw a venous Glucose and send to the main Lab for analysis. AFB CULTURE + [id number] 17:59:00 Test Item Value Reference Range Interpretation Comments CULTURE (BEAKER) (test No acid-fast bacilli code = 1095) isolated in 42 days AFB SMEAR (BEAKER) No acid fast bacilli (test code = 994) seen AFB CULTURE + [id number] 17:58:00 Test Item Value Reference Range Interpretation Comments CULTURE (BEAKER) (test No acid-fast bacilli code = 1095) isolated in 42 days AFB SMEAR (BEAKER) No acid fast bacilli (test code = 994) seen AFB CULTURE + [id number] 17:58:00 Test Item Value Reference Range Interpretation Comments CULTURE (BEAKER) (test No acid-fast bacilli code = 1095) isolated in 42 days AFB SMEAR (BEAKER) No acid fast bacilli (test code = 994) seen
[2022-08-28] MEDS ORDERED: MUPIROCIN 2% OINT 22GM TUBE TOP ONE (07:44)
--- NOTE | 2022-08-28 08:47 | ER ---
Nurse's Notes [facility] Name: Chalo Harry Age: 56 yrs Sex: Male : 1965 Arrival Date: 08/28/2022 Time: 06:40 Bed 19 Private MD: Diagnosis: Cellulitis of left toe Presentation: 08/28 07:11 Chief complaint: Patient states: he was cutting his toe nails a couple weeks ago when kc6 he cut his left great toe and got a piece of skin. stated it has been bothering him ever since and would like to get it checked out. Coronavirus screen: Vaccine status: Patient reports receiving the 2nd dose of the covid vaccine. At this time, the client does not indicate any symptoms associated with coronavirus-19. Ebola Screen: No symptoms or risks identified at this time. Initial Sepsis Screen: Does the patient meet any 2 criteria? No. Patient's initial sepsis screen is negative. Does the patient have a suspected source of infection? No. Patient's initial sepsis screen is negative. Risk Assessment: Do you want to hurt yourself or someone else? Patient reports no desire to harm self or others. Onset of symptoms was August 28, 2022. 07:11 Method Of Arrival: Ambulatory [facility] 07:11 Acuity: KESHA 3 kc6 Triage Assessment: 07:13 General: Appears in no apparent distress. comfortable, Behavior is calm, cooperative, kc6 appropriate for age. Pain: Denies pain. Quality of pain is described as throbbing. EENT: No signs and/or symptoms were reported regarding the EENT system. Neuro: Solo Agitation-Sedation Scale (RASS): 0 - Alert and Calm Level of Consciousness is awake, alert, obeys commands, Oriented to person, place, time, situation, Appropriate for age. Cardiovascular: Capillary refill < 3 seconds. Respiratory: Airway is patent Trachea midline Respiratory effort is even, unlabored, Respiratory pattern is regular, symmetrical. GI: No signs and/or symptoms were reported involving the gastrointestinal system. : No signs and/or symptoms were reported regarding the genitourinary system. Derm: Skin is pink, warm \T\ dry. Wound noted left first toe Wound is covered with gauze dressing without redness, swelling, or drainage. Musculoskeletal: No signs and/or symptoms reported regarding the musculoskeletal system. Circulation, motion, and sensation intact. Capillary refill < 3 seconds, Range of motion: intact in all extremities. Historical: - Allergies: 07:13 No Known Allergies; kc6 - PMHx: 07:13 AIDS; allergies; Diabetes - NIDDM; Dialysis; M W F; High Cholesterol; Hypertension; kc6 - PSHx: 07:13 R chest dialysis access; kc6 - Immunization history:: Client reports receiving the 2nd dose of the Covid vaccine, Flu vaccine is up to date. - Social history:: Smoking status: Patient denies any tobacco usage or history of. Screenin:15 [facility] ED Fall Risk Assessment (Adult) History of falling in the last 3 months, kc6 including since admission No falls in past 3 months (0 pts) Confusion or Disorientation No (0 pts) Intoxicated or Sedated No (0 pts) Impaired Gait No (0 pts) Mobility Assist Device Used Yes (1 pt) Altered Elimination No (0 pt) Score/Fall Risk Level 0 - 2 = Low Risk Oriented to surroundings, Maintained a safe environment, Educated pt \T\ family on fall prevention, incl call for assistance when getting out of bed, Assessed \T\ reinforced patient's understanding of fall precautions, Hourly rounding (assess needs \T\ fall precautionary measures) done. Abuse screen: Denies threats or abuse. Denies injuries from another. Nutritional screening: No deficits noted. Tuberculosis screening: No symptoms or risk factors identified. Assessment: 07:15 Reassessment: please see triage assessment. [facility] Vital Signs: 07:11 BP 171 / 83; Pulse 94; Resp 18 S; Temp 98.3(O); Pulse Ox 100% on R/A; Weight 98.88 kg kc6 (R); Height 5 ft. 11 in. (R); 07:11 Body Mass Index 30.40 (98.88 kg, 180.34 cm) [facility] ED Course: 06:40 Patient arrived in ED. es 07:06 Yesenia Maria, ZORAIDA is Primary Nurse. kc6 07:11 Torsten Mullen MD is Attending Physician. jr11 07:13 Triage completed. kc6 07:13 Arm band placed on. kc6 07:15 Patient has correct armband on for positive identification. Bed in low position. Call kc light in reach. Side rails up X 1. 07:54 No provider procedures requiring assistance completed. Patient did not have IV access kc6 during this emergency room visit. Administered Medications: 07:44 Drug: Mupirocin Topical Ointment 2 % 1 application {Note: left great toe.} Route: kc6 Topical; Site: affected area; 07:54 Follow up: Response: No adverse reaction kc6 Medication: 07:54 VIS not applicable for this client. kc6 Outcome: 07:47 Discharge ordered by . jose 07:54 Discharged to home ambulatory. kc6 07:54 Condition: stable 07:54 Discharge instructions given to patient, Instructed on discharge instructions, follow up and referral plans. medication usage, Demonstrated understanding of instructions, follow-up care, medications, Prescriptions given X 1. 07:54 Patient left the ED. kc6 Signatures: Keya Rosen Jose, MD MD jr11 Yesenia Maria RN RN kc6
--- NOTE | 2022-08-28 08:48 | EDPHYS ---
Physician Documentation [facility] Name: Chalo Harry Age: 56 yrs Sex: Male : 1965 Arrival Date: 08/28/2022 Time: 06:40 Bed 19 Private MD: ED Physician Torsten Mullen HPI: 08/28 07:44 Patient is a 56-year-old diabetic with an recent A1c of around 5, states his glucose is jr11 well controlled however he has problems with infection before. Patient is concerned from a left toe swelling by the nail, he has not a few days ago the nail matrix was bleeding, yesterday he noted some erythema and edema so he came to get it checked out. Patient states his vaccinations are up-to-date, patient is otherwise at baseline denies any other complaints. Review of system otherwise negative.. Historical: - Allergies: 07:13 No Known Allergies; kc6 - PMHx: 07:13 AIDS; allergies; Diabetes - NIDDM; Dialysis; M W F; High Cholesterol; Hypertension; kc6 - PSHx: 07:13 R chest dialysis access; kc6 - Immunization history:: Client reports receiving the 2nd dose of the Covid vaccine, Flu vaccine is up to date. - Social history:: Smoking status: Patient denies any tobacco usage or history of. ROS: 07:44 All other systems are negative. jr11 Exam: 07:44 Constitutional: This is a well developed, well nourished patient who is awake, alert, jr11 and in no acute distress. Head/Face: Normocephalic, atraumatic. Eyes: Extra-ocular motions intact. Lids and lashes normal. Conjunctiva and sclera are non-icteric and not injected. Cornea within normal limits. Periorbital areas with no swelling, redness, or edema. Chest/axilla: Normal chest wall appearance and motion. Nontender with no deformity. No lesions are appreciated. Cardiovascular: Regular rate and rhythm with a normal S1 and S2. No gallops, murmurs, or rubs. Normal PMI, no JVD. No pulse deficits. Respiratory: Lungs have equal breath sounds bilaterally, clear to auscultation and percussion. No rales, rhonchi or wheezes noted. No increased work of breathing, no retractions or nasal flaring. Abdomen/GI: Soft, non-tender, with normal bowel sounds. No distension or tympany. No guarding or rebound. No evidence of tenderness throughout. Skin: slight erythema to medial aspect L toe nailbed proximal. no streating to proximal toe. N/V intact distally Vital Signs: 07:11 BP 171 / 83; Pulse 94; Resp 18 S; Temp 98.3(O); Pulse Ox 100% on R/A; Weight 98.88 kg kc6 (R); Height 5 ft. 11 in. (R); 07:11 Body Mass Index 30.40 (98.88 kg, 180.34 cm) 6 MDM: 07:36 Patient medically screened. [facility] 07:44 Data reviewed: vital signs. I considered the following discharge prescriptions or jr11 medication management in the emergency department ABX ordered . Test considered but Not performed: X-ray: no trauma. Administered Medications: 07:44 Drug: Mupirocin Topical Ointment 2 % 1 application {Note: left great toe.} Route: kc6 Topical; Site: affected area; 07:54 Follow up: Response: No adverse reaction kc Disposition Summary: 08/28/22 07:47 Discharge Ordered Location: Home [facility] Condition: Stable [facility] Diagnosis - Cellulitis of left toe jr11 Discharge Instructions: - Discharge Summary Sheet jr11 - Cellulitis, Adult jr Forms: - Medication Reconciliation Form jr11 - Thank You Letter jr11 - Antibiotic Education jr11 - Prescription Opioid Use jr11 Prescriptions: - Cephalexin 500 mg Oral Capsule - take 1 capsule by ORAL route every 8 hours for 10 days; 30 capsule; Refills: 0, jr11 Product Selection Permitted Signatures: Torsten Mullen MD MD jr11 Yesenia Maria RN RN kc6
[2022-08-28 14:29] VITALS: BP 171/83; TEMP 98.3; O2SAT 100
== END 2022-08-28 07:54 | disposition home or self-care (01) ==
LOC: ER 06:33
DX: L03.032 Cellulitis of left toe (principal)
CPT/HCPCS: 99283

== ENCOUNTER 2022-12-03 06:21 | Day surgery (SDC) | payer BC ==
[2022-12-03] MEDS ORDERED: NA CHLORIDE 0.9% 500 ML ONE (07:06)
[2022-12-03] MEDS ORDERED: LIDOCAINE 1% MPF 5 ML VIAL ONE (08:00)
[2022-12-03] MEDS ORDERED: propofoL 200 MG/20 ML VIAL IV ONE ×2 (08:00)
[2022-12-03 09:30] VITALS: BP 136/82; TEMP 97.8; O2SAT 98
== END 2022-12-03 09:28 | disposition home or self-care (01) ==
LOC: OR 06:21
PROVIDERS: ATTEND Internal Medicine Gastroenterology
PROC: 0DBM8ZX Excision of Descending Colon, Via Natural or Artificial Opening Endoscopic, Diagnostic (ICD-10-PCS; 2022-12-03)
PROC: 0DB68ZX Excision of Stomach, Via Natural or Artificial Opening Endoscopic, Diagnostic (ICD-10-PCS; principal; 2022-12-03 07:30)
PROC: 0DB78ZX Excision of Stomach, Pylorus, Via Natural or Artificial Opening Endoscopic, Diagnostic (ICD-10-PCS; 2022-12-03 07:30)
DX: R19.4 Change in bowel habit (principal); K59.00 Constipation, unspecified; R14.0 Abdominal distension (gaseous); K63.5 Polyp of colon; K29.50 Unspecified chronic gastritis without bleeding; K64.8 Other hemorrhoids; R14.2 Eructation; K30 Functional dyspepsia; K29.70 Gastritis, unspecified, without bleeding; D12.4 Benign neoplasm of descending colon; Z80.0 Family history of malignant neoplasm of digestive organs
CPT/HCPCS: 36415; 88312; 84132; 82947 ×2; 88305; 43239; 45380; J2704 ×2; J2001; J7040

== ENCOUNTER 2023-02-16 06:48 | Inpatient (IN) | payer BC ==
--- OUTSIDE RECORDS SUMMARY | 2023-02-16 06:55 | XMS REPORT | Continuity of Care Document ---
:1965 Author Organization [facility] t Address [address] [place] [address] [place] [id number] Care Team Providers Name Role Phone Sharpless Primary Care Physician Sahra Tong Anavella Attending Clinician Unajulio ilable [id number] Attending Clinician Unavailable Edmund Gamble Attending Clinician Unavailable Jac NICOLE, [facility] Attending Clinician Abdulkadir Magallon MD Attending Clinician Chelsea Ding Attending Clinician Claudia Attending Clinician Unavailable Moody NICOLE, William Nunez Attending Clinician [phone] Franki NICOLE, Leonora Oquendo Attending Clinician [phone] James CONWAY, Richelle Attending Clinician Unavailable Alexandra Rojo MD Attending Clinician Gumaro NICOLE, Linda Joseph Attending Clinician [phone] Damaris HUMPHRIES, Saad Attending Clinician Vargas NICOLE, Derek Jaramillo Attending Clinician [phone] Edmund Gamble Attending Clinician Unavailable Edmund Gamble Attending Clinician Unavailable KWADWOHILDA Stuart Attending Clinician Unavailable Dale Tong Anav Admitting Clinician Unavailable [id number] Admitting Clinician Unavailable ANUP WRIGHT Admitting Clinician Unavailable Travis_Lupe Admitting Clinician Unavailable MD LEONORA ESTRADA Admitting Clinician Unavailabl ALEXANDRA Sharma Admitting Clinician Unavailable Edmund Gamble Admitting Clinician Unavailable KWADWO, HILDA CANDELARIA Admitting Clinician Unavailable Payers Payer Name Policy Type Policy Number Effective Date Expiration Date S [facility] [place]P [place] [id number] [place] [id number] 2019 00:[place]:00 [place] Problems Condition Condition Condition Status Onset Resolution Last Treating Co mments Source Name Details Category Date Date Treatment Clinician Date Clot Clot Disease Active 2021-06 Overview: Method i 06-[address] 00:00: g of this Hospita 00 note l might be different from the original. AT THE CHEST CATHETER SITE PER PT. 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 00:00: Hospit a with with 00 l stable 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, eyes, without without long-term long-term current current use of use of insulin insulin Tinea Tinea Problem Active [facility] pedis Pedis 12-06 Family 00:00: Practic 00 e Hypoalbumi Hypoalbumi Problem Active [facility] nemia nemia 12-06 Family 00:00: Practic 00 e Hypocalcem Hypocalcem Problem Active [facility] illage ia ia 12-06 Family 00:00: Practic 00 e Morbid Morbid Problem Active [facility] obesity Obesity 12-06 Family 00:00: Practic 00 e Anemia in Anemia in Problem Active Rodrigue armstrong chronic Chronic 12-06 Family kidney Kidney 00:00: Practic disease Disease 00 e Proteinuri Proteinuri Problem Active [facility] a a 12-06 Family 00:00: Practic 00 e Amputated Amputated Problem Active Rodrigue armstrong toe Toe 12-06 Family 00:00: Practic 00 e Obesity Obesity Problem Active [facility] 5-04 Family 00:00: Practic 00 e Cellulitis [...] Mellitus Type 2 Type 2 Problem Active [facility] diabetes Diabetes 3-31 Family mellitus Mellitus 00:00: Practi c 00 e Hyperlipid Hyperlipid Problem Active [facility] illage emia emia 09-05 Family 00:00: Practic 00 e Essential Essential Problem Active Rodrigue armstrong hypertensi Hypertensi 3-31 Fa dary on on 00:00: Practic 00 e Seasonal Seasonal Problem Active Zaragoza ge allergy Allergy 3- Family 00:00: Practic 00 e Chronic Chronic Problem Active 2021-0 [facility] kidney Kidney 3-31 Family disease Disease 00:00: Practic 00 e 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 00:00: Practic virus Virus e infection Infection Toe Toe Disease Recurre 2015-[address] osteomyeli osteomyeli nce 08-04 [facility] tis, left tis, left 00:00: Medi christian 00 Center Essential Essential Disease Recurre 2015-[address] hypertensi hypertensi nce 08-04 [facility] on on 00:00: Medical 00 Center HIV HIV Disease Recurre 2015-[address] disease disease nce 08-04 kes 00:00: Medical 00 [place] Foot Foot Disease Active 2015-[address] abscess, abscess, 08-04 [facility] left left 00:00: Medical 00 Center Sepsis Sepsis Disease Recurre 2015-[address] [facility]ce 08[facility]03 [facility] [place] 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 - [facility]I without without St complicati complicati [facility] on, on, Medical without without Center long-term long-term current current use of use of insulin insulin Chronic Chronic Problem Active Common kidney kidney Spirit disease, disease, - CHI unspecifie unspecifie St d CKD d CKD [facility] stage stage [facility] Essential Essential Problem Active Com mon (primary) (primary) Spir it hypertensi hypertensi - CHI on on [facility] 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 Sp lluvia ciency ciency - CHI virus virus St infection) infection) [facility] Mixed Mixed Problem Active Common hyperlipid hyperlipid Sp lluvia emia emia - CHI [facility] Allergies, Adverse Reactions, Alerts Allergy Allergy Status Severity Reaction(s) Onset Inactive Treating Comm ents Source Name Type Date Date Clinician Pollen Propensi Active Other (See 2021-06 Seasonal- M ethodi Extracts ty to Comments) 0-[address] adverse 00:00: nose Hospita reaction 00 watery l s to eyes drug No Known DA Active U [facility] Drug 3-18 Allergie 00:00: s 00 No Known DA Active U [facility] Drug 3-17 Allergie 00:00: s 00 No Known DA Active U 2019-06 [facility] Drug 1-18 Allergie 00:00: s 00 No Known Drug Active [facility] Family History Family Member Diagnosis Comments Start Date Stop Date Source Natural father Cancer [facility] Natural father Diabetes [facility] Natural father Cancer [facility] Natural father Diabetes [facility] Natural mother Diabetes [facility] Natural mother Hypertension [facility] Natural mother Diabetes [facility] Natural mother COPD [facility] Natural sister Diabetes [facility] Social History Social Habit Start Date Stop Date Quantity Comments Source History of tobacco Cigarette Smoker [facility] use Hospital History SDAL [facility] Alcohol Std Drinks Hospit al History SDAL [facility] B[facility] Gender identity [facility] Sexual orientation [facility] History of Social 2022-10-30 2022-10-[address] function 00:00:00 00:00:00 Hospital Alcohol intake 2022-09-06 2022-09-06 Current drinker CHARY caal Lucollin 00:00:00 00:00:00 of [facility] (finding) Tobacco use and 2022-03-06 2022-03-06 Smokeless [facility] exposure 00:00:00 00:00:00 tobacco non-user Hospital Tobacco Comment 2022-03-06 2022-03-06 WAS A SOCIAL [facility] 00:00:00 00:00:00 SMOKER PRIOR Hospital History SDOH 2020-05-28 2020-05-28 3 [facility] Alcohol Frequency 00:00:00 00:00:00 Hospita l Alcohol Comment 2016-06-01 2016-06-01 socially [facility] Levy kes 00:00:00 00:00:00 Medical Center Sex Assigned At [birth year] [facility] kes 00:00:00 00:00:00 Medical Center Smoking Status Start Date Stop Date Source Never Smoker [facility] Ex-smoker 2022-03-06 00:00:00 2022-03-06 [facility] spital 00:00:00 Occasional tobacco smoker 2020-03-26 00:00:00 [facility] Light tobacco smoker 2016-06-01 00:00:00 [facility] Medications Ordered Filled Start Stop Current Ordering Indication Dosage Frequency Signature Comments Components Source Medication Medication Date Date Medication? Clinician (SIG) Name Name dolutegravi 2023-0 Yes QD Take by Met hodi r (Tivicay) 5-[address] 10 mg 17:40: daily. Hospita tablet 38 l furosemide 3-0 Yes 40mg QD Take 2 Metho di (LASIX) 20 5-[address] mg tablet 17:40: (40 mg Hospit a 38 total) by l mouth daily. 1.5 tab montelukast 3-0 Yes 10mg QD Take 1 Meth shekhar (SINGULAIR) 5-24 tablet (10 st 10 mg 17:40: mg total) Hospita tablet 38 by mouth l nightly. carvediloL 2022-0 Yes 12.5mg Q.5D Take 1 Met hodi (COREG) 5-[address] 12.5 MG 17:40: (12.5 mg Hospit a tablet 38 total) by l mouth 2 (two) times a day with meals. Per patient, not taking regularly because BP drops dulaglutide 2022-0 Yes .75mg Q7D Inject Met hodi (TRULICITY) 5-[address] 1.5 mg/0.5 17:40: (0.75 mg Hos lu mL 38 total) l subcutaneou under the s pen skin once a week. cholecalcif 2022-0 Yes 2000U QD Take 1 Met hodi ryan, 5-[address] vitamin D3, 17:40: (2,000 Hosp allen 50 mcg 38 Units l (2,000 total) by unit) mouth capsule daily. capsule docusate 2022-0 Yes 200mg QD Take 2 Method i sodium 5-[address] (COLACE) 17:40: (200 mg Hospit a 100 MG 38 total) by l capsule mouth daily. calcium 2022-0 Yes QD Chew 2 Methodi carbonate 5-[address] (TUMS) 200 17:40: (1,000 mg Ho spita mg calcium 38 of Calcium l (500 mg) Carbonate chewable total) tablet daily. NEEDED atorvastati 3-0 Yes 40mg QD Take 40 mg Methodi n calcium 5-[address] (ATORVASTAT 17:40: daily. Hosp allen IN ORAL) 38 l midodrine 3-0 Yes 5mg Take 1 Method i (PROAMATINE 5-24 tablet (5 st ) 5 MG 17:40: mg total) Hospit a tablet 38 by mouth l as needed. loratadine 2022-0 3- No Take by Met smiley (CLARITIN 5-22 05-[address] ORAL) 16:19: 00:00 needed. Hospita 37 :00 l furosemide 2023-0 Yes 40mg QD Take 2 Metho di (LASIX) 20 3-[address] mg tablet 14:31: (40 mg Hospit a 52 total) by l mouth daily. 1.5 tab montelukast 2022-0 Yes 10mg QD Take 1 Meth shekhar (SINGULAIR) 3-20 tablet (10 st 10 mg 14:31: mg total) Hospita tablet 52 by mouth l nightly. loratadine 2022-0 Yes Take by Meth shekhar (CLARITIN 3-[address] ORAL) 14:31: needed. Hospita 52 l midodrine 2022-0 Yes 5mg Take 1 Method i (PROAMATINE 3-20 tablet (5 st ) 5 MG 14:31: mg total) Hospit a tablet 52 by mouth l as needed. dolutegravi 2022-0 Yes QD Take by Met baljit r (Tivicay) 3-[address] 10 mg 14:31: daily. Hospita tablet 26 l dulaglutide 2022-0 Yes Q7D Inject Meth shekhar (TRULICITY) 3-[address] 1.5 mg/0.5 14:31: skin once Ho spita mL 26 a week. l subcutaneou s pen cholecalcif 2022-0 Yes 2000U QD Take 1 Met baljit ryan, 3-[address] vitamin D3, 14:31: (2,000 Hosp [facility]en 50 mcg 26 Units l (2,000 total) by unit) mouth capsule daily. capsule docusate 2022-0 Yes 200mg QD Take 2 Method i sodium 3-[address] (COLACE) 14:31: (200 mg Hospit a 100 MG 26 total) by l capsule mouth daily. carvediloL 3-0 Yes 12.5mg Q.5D Take 1 Met baljit (COREG) 3-[address] 12.5 MG 14:26: (12.5 mg Hospit a tablet 52 total) by l mouth 2 (two) times a day with meals. Per patient, not taking regularly because BP drops calcium 2023-0 Yes QD Chew 2 Methodi carbonate 3-[address] (TUMS) 200 14:25: (1,000 mg Ho spita mg calcium 40 of Calcium l (500 mg) Carbonate chewable total) tablet daily. atorvastati 0 Yes 40mg QD Take 40 mg Methodi n calcium 3-[address] (ATORVASTAT 14:25: daily. Hosp allen IN ORAL) 40 l lisinopriL 2021-06 Yes 20mg QD Take 1 Metho di (PRINIVIL) 2-17 tablet (20 st 20 mg 00:00: mg total) Hospita tablet 00 by mouth l daily. lisinopriL 2021-06- No 20mg QD Take 1 Meth shekhar (PRINIVIL) 2-17 05-22 tablet (20 st 20 mg 00:00: 00:00 mg total) Hospit a tablet 00 :00 by mouth l daily. atenoloL 2021-06- No [facility] (TENORMIN) 0-18 10-28 st 50 MG 00:00: 00:00 Hospita tablet 00 :00 l atenoloL 2021-06- No Method[facility] (TENORMIN) 0-18 10-28 st 50 MG 00:00: 00:00 Hospita tablet 00 :00 l acetaminoph 2021-06- No 1{tbl} Q6H Take 1 M ethodi en-codeine 0-03 03-[address] (TYLENOL 00:00: 00:00 mouth Hospita WITH 00 :00 every 6 l CODEINE #3) (six) 300-30 mg hours as per tablet needed. acetaminoph 2021-06- No 1{tbl} Q6H Take 1 M ethodi en-codeine 0-03 03-[address] (TYLENOL 00:00: 00:00 mouth Hospita WITH 00 :00 every 6 l CODEINE #3) (six) 300-30 mg hours as per tablet needed. gabapentin Yes 300mg QD Take 1 Meth shekhar (NEURONTIN) 9-[address] 300 mg 00:00: (300 mg Hospita capsule 00 total) by l mouth daily. gabapentin Yes 300mg QD Take 1 Meth shekhar (NEURONTIN) 9-[address] 300 mg 00:00: (300 mg Hospita capsule 00 total) by l mouth daily. Eliquis 5 0 Yes 5mg Take 1 Method i mg tablet 8-24 tablet (5 st 00:00: mg total) Hospita 00 by mouth l take as directed. Eliquis 5 2021-0 3- No 5mg Take 1 Metho di mg tablet 8-24 05-22 tablet (5 st 00:00: 00:00 mg total) Hospita 00 :00 by mouth l take as directed. dolutegravi 0 Yes Take by Met hodi r (Tivicay) 7-[address] 10 mg 16:08: Hospita tablet 47 l furosemide 2020-0 Yes 20mg Q.5D Take 20 mg M ethodi (LASIX) 20 7-[address] mg tablet 16:08: (two) Hospita 47 times a l day. montelukast 2020-0 Yes 10mg QD Take 10 mg Methodi [...] Hospita 47 times a l day. montelukast 2020-0 Yes 10mg QD Take 10 mg Methodi (SINGULAIR) 7-[address] 10 mg 16:08: nightly. Hospita tablet 47 l carvediloL 1-0 Yes 12.5mg Q.5D Take 12.5 Methodi (COREG) 7-[address] 12.5 MG 16:08: mouth 2 Hospita tablet 47 (two) l times a day with meals. Corbin Alaniz 2019-0 2019- No [place] 1 tablet Common 4-18 10-15 Konstantin at bedtime Spirit 00:00: 00:00 - CHI 00 :00 [facility] Ananda Malave 0 2019- No [place] 1 Comm on 09-23 Konstantin Spirit 00:00: 00:00 - CHI 00 :00 [facility] darunavir-c Yes 1{tbl} QD Take 1 Me [...] Hospit a 800-150 00 l mg-mg tablet darunavir-c Yes 1{tbl} QD Take 1 Me thodi obicistat 4-[address] (PREZCOBIX) 00:00: mouth Hospi ta 800-150 00 daily. l mg-mg tablet liraglutide 2021- No INJECT 1.2 Methodi (VICTOZA) 4-08 10-[address] 0.6 mg/0.1 00:00: 00:00 SUBCUTANEO Hospita mL (18 mg/3 00 :00 USLY EVERY l mL) pen DAY injector liraglutide 2021- No INJECT 1.2 Method[facility] (VICTOZA) [...] DAILY DAILY DAILY carvedilol carvedilol No carvedilol [facility] 12.5 mg 12.5 mg 12.5 mg Family tablet TAKE tablet TAKE tablet Practic 1 TABLET BY 1 TABLET BY TAKE 1 e MOUTH TWICE MOUTH TWICE TABLET BY DAILY DAILY MOUTH TWICE DAILY fluticasone fluticasone [facility] propionate propionate e Fam haylee 50 50 propionate Practic mcg/actuati mcg/actuati 50 e on nasal on nasal mcg/actuat spray,suspe spray,suspe ion nasal nsion nsion spray,susp SPRAYS SPRAYS ension TWICE IEN TWICE IEN SPRAYS QHS QHS TWICE IEN QHS FreeStyle FreeStyle No FreeStyle [place] Lien 14 Lien 14 Lien 14 Fam haylee Day [place] Practic USE DEVICE USE DEVICE USE DEVICE e DIRECTED DIRECTED DIRECTED FreeStyle FreeStyle No FreeStyle [facility] Lien 2 Lien 2 Lien 2 [facility] Sensor kit Sensor kit Sensor kit Practic USE DAILY USE DAILY USE DAILY e DIRECTED DIRECTED BUT CHANGE BUT CHANGE DIRECTED EVERY 14 EVERY 14 BUT CHANGE DAYS DAYS EVERY 14 DAYS furosemide furosemide No furosemide [facility] 40 mg 40 mg 40 mg Family [...] days. for 90 days. montelukast [facility] 10 mg t 10 mg [...] SC QD UTD Prezcobix Prezcobix No Prezcobix [place] 800 mg-150 800 mg-150 800 mg-150 Family [...] 6 HOURS NEEDED amlodipine amlodipine No amlodipine [facility] 5 mg tablet 5 mg tablet 5 mg F amily TAKE 1 TAKE 1 tablet Practic TABLET BY TABLET BY TAKE 1 e MOUTH DAILY MOUTH DAILY TABLET BY MOUTH DAILY atenolol 50 atenolol 50 No atenolol [facility] mg tablet mg tablet 50 mg Fami ly tablet Practic e atorvastati atorvastati No atorvastat [facility] n 40 mg n 40 mg in [...] " USE " USE DAILY DAILY DAILY Victoza Victoza Yes [place] inject Commo n Konstantin under the Spirit skin 1.2mg - CHI daily [facility] benzonatate benzonatate No benzonatat [facility] 100 mg 100 mg e 100 mg Family capsule capsule capsule Practi c TAKE 2 TAKE 2 TAKE 2 e CAPSULES BY CAPSULES BY CAPSULES MOUTH THREE MOUTH THREE BY MOUTH TIMES DAILY TIMES DAILY THREE NEEDED NEEDED TIMES FOR COUGH FOR COUGH DAILY NEEDED FOR COUGH calcitriol calcitriol No calcitriol [facility] 0.25 mcg 0.25 mcg 0.25 mcg Fam haylee capsule capsule capsule Practi c TAKE 1 TAKE 1 TAKE 1 e CAPSULE BY CAPSULE BY CAPSULE BY MOUTH DAILY MOUTH DAILY MOUTH DAILY carvedilol carvedilol No carvedilol [facility] 12.5 mg 12.5 mg 12.5 mg Family tablet TAKE tablet TAKE tablet Practic 1 TABLET BY 1 TABLET BY TAKE 1 e MOUTH TWICE MOUTH TWICE TABLET BY DAILY DAILY MOUTH TWICE DAILY cholecalcif cholecalcif No cholecalci [facility] ryan ryan ferdevin Family (vitamin (vitamin (vitamin Pra ctic D3) 125 mcg D3) 125 mcg D3) 125 e (5,000 (5,000 mcg (5,000 unit) unit) unit) capsule capsule capsule TAKE 1 TAKE 1 TAKE 1 TABLET BY TABLET BY TABLET BY MOUTH DAILY MOUTH DAILY MOUTH DAILY ciprofloxac ciprofloxac No ciprofloxa [place] in 250 mg in 250 mg swetha 250 mg Family tablet tablet tablet Practic e docusate docusate No docusate Rodrigue patti sodium 100 sodium 100 sodium 100 [...] DAILY TWICE DAILY fluticasone fluticasone No fluticason [place] propionate propionate e Fam haylee 50 50 propionate Practic mcg/actuati mcg/actuati 50 e on nasal on nasal mcg/actuat spray,suspe spray,suspe ion nasal nsion nsion spray,susp SPRAYS SPRAYS ension TWICE IEN TWICE IEN SPRAYS QHS QHS TWICE IEN QHS FreeStyle FreeStyle No FreeStyle [place] Lien 14 Lien 14 Lien 14 Fam haylee Day [place] Practic USE DEVICE USE DEVICE USE DEVICE e DIRECTED DIRECTED DIRECTED FreeStyle FreeStyle No FreeStyle [facility] Lien 2 Lien 2 Lien 2 Family Sensor kit Sensor kit Sensor kit Practic USE USE USE e DIRECTED DIRECTED DIRECTED DAILY BUT DAILY BUT DAILY BUT CHANGE CHANGE CHANGE EVERY 14 EVERY 14 EVERY 14 DAYS DAYS DAYS BD Pen BD Pen Yes [place] USE Common Needle Nelida Needle Nelida Konstantin DIRECTED Spirit U/F U/F - [facility] furosemide furosemide No furosemide [facility] 40 mg 40 mg 40 mg Family tablet TAKE tablet TAKE tablet Practic 1 TABLET BY 1 TABLET BY TAKE 1 e MOUTH EVERY MOUTH EVERY TABLET BY DAY DAY MOUTH EVERY DAY gabapentin gabapentin No gabapentin [facility] 300 mg 300 mg 300 mg Family capsule capsule capsule Practi c e hydrocodone hydrocodone No hydrocodon [facility] 5 5 e 5 Family mg-acetamin mg-acetamin mg-acetami Practic ophen 325 ophen 325 nophen 325 e mg tablet mg tablet mg tablet hydrocortis hydrocortis No hydrocorti [place] one 10 mg one 10 mg sone [...] IN THE AFTERNOON lactulose lactulose No lactulose [facility] 10 gram/15 10 gram/15 10 gram/15 Family mL oral mL oral mL oral Practi c solution solution solution e TAKE 30 ML TAKE 30 ML TAKE 30 ML BY MOUTH BY MOUTH BY MOUTH DAILY DAILY DAILY NEEDED FOR NEEDED FOR NEEDED FOR CONSTIPATIO CONSTIPATIO CONSTIPATI N N ON lisinopril lisinopril No lisinopril [facility] 20 mg 20 mg 20 mg Family [...] days. midodrine 5 midodrine 5 No midodrine [facility] mg tablet mg tablet 5 mg Famil y TAKE 1 TAKE 1 tablet Practic TABLET BY TABLET BY TAKE 1 e MOUTH THREE MOUTH THREE TABLET BY TIMES DAILY TIMES DAILY MOUTH THREE TIMES DAILY montelukast montelukast No montelukas [facility] 10 mg 10 mg t 10 mg Family tablet TAKE tablet TAKE tablet Practic 1 TABLET BY 1 TABLET BY TAKE 1 e MOUTH EVERY MOUTH EVERY TABLET BY DAY DAY MOUTH EVERY DAY Metoprolol Metoprolol Yes [place] TAKE 1 Common Tartrate Tartrate Konstantin TABLET BY S pirit MOUTH - CHI TWICE A DAY [facility] NovoFine NovoFine No NovoFine Rodrigue patti Plus 32 Plus 32 Plus 32 Family gauge x gauge x gauge x Practi c 06/13" needle 06/13" needle 06/13" e U SC QD UTD U SC QD UTD needle U SC QD UTD ondansetron ondansetron No [facility] 4 mg 4 mg n 4 mg Family disintegrat disintegrat disintegra Practic ing tablet ing tablet ting e DISSOLVE 1 DISSOLVE 1 tablet TABLET ON TABLET ON DISSOLVE 1 THE TONGUE THE TONGUE TABLET ON EVERY 8 EVERY 8 THE TONGUE HOURS HOURS EVERY 8 NEEDED NEEDED HOURS NEEDED ondansetron ondansetron No [facility] HCl 4 mg HCl 4 mg n HCl 4 mg F amily tablet TAKE tablet TAKE tablet Practic 1 TABLET BY 1 TABLET BY TAKE 1 e MOUTH EVERY MOUTH EVERY TABLET BY DAY DAY MOUTH NEEDED FOR NEEDED FOR EVERY DAY FORNAUSEA FORNAUSEA NEEDED AND AND FOR VOMITING VOMITING FORNAUSEA AND VOMITING polyethylen polyethylen No polyethyle [facility] e glycol e glycol ne glycol Fa dary 3350 17 3350 17 3350 17 Practi c gram/dose gram/dose gram/dose e oral powder oral powder oral TAKE 17 TAKE 17 powder GRAMS BY GRAMS BY TAKE 17 MOUTH DAILY MOUTH DAILY GRAMS BY NEEDED NEEDED MOUTH FOR FOR DAILY CONSTIPATIO CONSTIPATIO NEEDED FOR N N CONSTIPATI ON Prezcobix Prezcobix Prezcobix [facility] 800 mg-150 800 mg-150 800 mg-150 Family mg tablet mg tablet mg tablet Practic TAKE 1 TAKE 1 TAKE 1 e TABLET BY TABLET BY TABLET BY MOUTH EVERY MOUTH EVERY MOUTH DAY DAY EVERY DAY [facility] 0.8 mg 0.8 mg 0.8 mg Family tablet TAKE tablet TAKE tablet Practic 1 TABLET BY 1 TABLET BY TAKE 1 e MOUTH DAILY MOUTH DAILY TABLET BY MOUTH DAILY [facility] Rx 1 mg-60 Rx 1 mg-60 Rx 1 mg-60 Family mg-300 mcg mg-300 mcg mg-300 mcg Practic tablet TAKE tablet TAKE tablet e 1 TABLET BY 1 TABLET BY TAKE 1 MOUTH DAILY MOUTH DAILY TABLET BY MOUTH 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 [facility] carbonate carbonate carbonate Family 800 mg 800 mg 800 mg Practic tablet TAKE tablet TAKE tablet e 3 TABLETS 3 TABLETS TAKE 3 BY MOUTH BY MOUTH TABLETS BY THREE TIMES THREE TIMES MOUTH DAILY WITH DAILY WITH THREE MEALS MEALS TIMES DAILY WITH MEALS sodium sodium sodium [facility] bicarbonate bicarbonate bicarbonat [facility] 325 mg 325 mg e 325 mg [...] s insulin us insulin pen pen pen Singulair Singulair Yes [place] 1 tablet Common Konstantin [facility] - [facility] Tivicay 50 Tivicay 50 No [place]ic[place] 50 [...] 90 days. us route for 90 days. amlodipine amlodipine No amlodipine [place] 5 mg tablet 5 mg tablet 5 mg F amily TAKE 1 TAKE 1 tablet Practic TABLET BY TABLET BY TAKE 1 e MOUTH DAILY MOUTH DAILY TABLET BY MOUTH DAILY atenolol 50 atenolol 50 No atenolol [place] mg tablet mg tablet 50 mg Fami ly tablet Practic e atorvastati atorvastati No atorvastat [place] n 40 [...] " USE " USE DAILY DAILY DAILY calcitriol calcitriol No calcitriol [place] 0.25 mcg 0.25 mcg 0.25 mcg Fam haylee capsule capsule capsule Practi c TAKE 1 TAKE 1 TAKE 1 e CAPSULE BY CAPSULE BY CAPSULE BY MOUTH DAILY MOUTH DAILY MOUTH DAILY carvedilol carvedilol No carvedilol [facility] 12.5 mg 12.5 mg 12.5 mg Family tablet TAKE tablet TAKE tablet Practic 1 TABLET BY 1 TABLET BY TAKE 1 e MOUTH TWICE MOUTH TWICE TABLET BY DAILY DAILY MOUTH TWICE DAILY cephalexin cephalexin No cephalexin [facility] 500 mg 500 mg 500 mg Family capsule capsule capsule Practi c TAKE 1 TAKE 1 TAKE 1 e CAPSULE BY CAPSULE BY CAPSULE BY MOUTH EVERY MOUTH EVERY MOUTH 8 HOURS FOR 8 HOURS FOR EVERY 8 10 DAYS 10 DAYS HOURS FOR 10 DAYS cholecalcif cholecalcif No cholecalci [facility] ryan ryan ferol Family (vitamin (vitamin (vitamin Pra ctic D3) 125 mcg D3) 125 mcg D3) 125 e (5,000 (5,000 mcg (5,000 unit) unit) unit) capsule capsule capsule TAKE 1 TAKE 1 TAKE 1 TABLET BY TABLET BY TABLET BY MOUTH DAILY MOUTH DAILY MOUTH DAILY docusate docusate No docusate Rodrigue patti sodium 100 sodium 100 sodium 100 [...] DAILY TWICE DAILY fluticasone fluticasone No fl[place] propionate propionate e Fam haylee 50 50 propionate Practic mcg/actuati mcg/actuati 50 e on nasal on nasal mcg/actuat spray,suspe spray,suspe ion nasal nsion nsion spray,susp SPRAYS SPRAYS ension TWICE IEN TWICE IEN SPRAYS QHS QHS TWICE IEN QHS FreeStyle FreeStyle No FreeStyle [facility] Lien 14 Lien 14 Lien 14 Fam haylee Day [place] Practic USE DEVICE USE DEVICE USE DEVICE e DIRECTED DIRECTED DIRECTED FreeStyle FreeStyle No FreeStyle [facility] Lien 2 Lien 2 Lien 2 Family Sensor kit Sensor kit Sensor kit Practic USE USE USE e DIRECTED DIRECTED DIRECTED DAILY BUT DAILY BUT DAILY BUT CHANGE CHANGE CHANGE EVERY 14 EVERY 14 EVERY 14 DAYS DAYS DAYS FreeStyle FreeStyle No FreeStyle [facility] Lien 3 Lien 3 Lien 3 Family Sensor Sensor Sensor Practic device USE device USE device USE e DIRECTED DIRECTED TO MEASURE TO MEASURE DIRECTED BLOOD BLOOD TO MEASURE GLUCOSE GLUCOSE BLOOD GLUCOSE furosemide furosemide No furosemide [facility] 40 mg 40 mg 40 mg Family tablet TAKE tablet TAKE tablet Practic 1 TABLET BY 1 TABLET BY TAKE 1 e MOUTH EVERY MOUTH EVERY TABLET BY DAY DAY MOUTH EVERY DAY gabapentin gabapentin No gabapentin [facility] 300 mg 300 mg 300 mg Family capsule capsule capsule Practi c e hydrocodone hydrocodone No hydrocodon [facility] 5 5 e 5 Family mg-acetamin mg-acetamin mg-acetami Practic ophen 325 ophen 325 nophen 325 e mg tablet mg tablet mg tablet hydrocortis hydrocortis No hydrocorti [facility] one 10 mg one 10 mg sone [...] IN THE AFTERNOON lactulose lactulose No lactulose [facility] 10 gram/15 10 gram/15 10 gram/15 Family mL oral mL oral mL oral Practi c solution solution solution e TAKE 30 ML TAKE 30 ML TAKE 30 ML BY MOUTH BY MOUTH BY MOUTH DAILY DAILY DAILY NEEDED FOR NEEDED FOR NEEDED FOR CONSTIPATIO CONSTIPATIO CONSTIPATI N N ON lisinopril lisinopril No lisinopril [facility] 20 mg 20 mg 20 mg Family [...] DAILY MOUTH THREE TIMES DAILY montelukast [facility] mg t 10 mg [...] U SC QD UTD ondansetron ondansetron No [facility] 4 mg 4 mg n 4 mg Family disintegrat disintegrat disintegra Practic ing tablet ing tablet ting e DISSOLVE 1 DISSOLVE 1 tablet TABLET ON TABLET ON DISSOLVE 1 THE TONGUE THE TONGUE TABLET ON EVERY 8 EVERY 8 THE TONGUE HOURS HOURS EVERY 8 NEEDED NEEDED HOURS NEEDED ondansetron ondansetron No [facility] HCl 4 mg HCl 4 mg n HCl 4 mg F amily tablet TAKE tablet TAKE tablet Practic 1 TABLET BY 1 TABLET BY TAKE 1 e MOUTH EVERY MOUTH EVERY TABLET BY DAY DAY MOUTH NEEDED FOR NEEDED FOR EVERY DAY FORNAUSEA FORNAUSEA NEEDED AND AND FOR VOMITING VOMITING FORNAUSEA AND VOMITING polyethylen polyethylen No polyethyle [facility] e glycol e glycol ne glycol Fa dary 3350 17 3350 17 3350 17 Practi c gram/dose gram/dose gram/dose e oral powder oral powder oral TAKE 17 TAKE 17 powder GRAMS BY GRAMS BY TAKE 17 MOUTH DAILY MOUTH DAILY GRAMS BY NEEDED NEEDED MOUTH FOR FOR DAILY CONSTIPATIO CONSTIPATIO NEEDED FOR N N CONSTIPATI ON Prezcobix Prezcobix No Prezcobix [facility] 800 mg-150 800 mg-150 800 mg-150 Family mg tablet mg tablet mg tablet Practic TAKE 1 TAKE 1 TAKE 1 e TABLET BY TABLET BY TABLET BY MOUTH EVERY MOUTH EVERY MOUTH DAY DAY EVERY DAY Amy Reyes [facility] 0.8 mg 0.8 mg 0.8 mg Family tablet TAKE tablet TAKE tablet Practic 1 TABLET BY 1 TABLET BY TAKE 1 e MOUTH DAILY MOUTH DAILY TABLET BY MOUTH DAILY Amy Reyes No Amy [facility] Rx 1 mg-60 Rx 1 mg-60 Rx 1 mg-60 Family mg-300 mcg mg-300 mcg mg-300 mcg Practic tablet TAKE tablet TAKE tablet e 1 TABLET BY 1 TABLET BY TAKE 1 MOUTH DAILY MOUTH DAILY TABLET BY MOUTH DAILY sevelamer sevelamer No sevelamer [facility] carbonate carbonate carbonate Family 800 mg 800 mg 800 mg Practic tablet TAKE tablet TAKE tablet e 3 TABLETS 3 TABLETS TAKE 3 BY MOUTH BY MOUTH TABLETS BY THREE TIMES THREE TIMES MOUTH DAILY WITH DAILY WITH THREE MEALS MEALS TIMES DAILY WITH MEALS sodium sodium No sodium [facility] bicarbonate bicarbonate bicarbonat Family 325 mg 325 mg e 325 mg Practic tablet TAKE tablet TAKE tablet e 6 TABLETS 6 TABLETS TAKE 6 BY MOUTH BY MOUTH TABLETS BY EVERY 8 EVERY 8 MOUTH HOURS HOURS EVERY 8 HOURS Soliqua Soliqua No Alfredo [facility] 100/33 100 100/33 100 100/33 [...] EVERY MOUTH DAY DAY EVERY DAY Trulicity Trulicity No .75mg [facility]W [facility] 0.75 mg/0.5 0.75 mg/0.5 0.75 F amily mL mL mg/0.5 mL Practic subcutaneou subcutaneou subcutaneo e s pen s pen us pen injector injector injector Inject 0.75 Inject 0.75 Inject mg every mg every 0.75 mg week by week by every week subcutaneou subcutaneou by s route for s route for subcutaneo 30 days. 30 days. us route for 30 days. Trulicity Trulicity [facility] 1.5 mg/0.5 1.5 mg/0.5 1.5 mg/0.5 Family mL mL mL Practic subcutaneou subcutaneou subcutaneo e s pen s pen us pen injector injector injector Inject 1.5 Inject 1.5 Inject 1.5 mg every mg every mg every week by week by week by subcutaneou subcutaneou subcutaneo s route for s route for us route 30 days. 30 days. for 30 days. Trulicity 3 Trulicity 3 No Trulicity [facility] mg/0.5 mL mg/0.5 mL 3 mg/0.5 F amily subcutaneou subcutaneou mL P ractic s pen s pen subcutaneo e injector injector us pen INJECT 3 MG INJECT 3 MG injector SUBCUTANEOU SUBCUTANEOU INJECT 3 SLY ONCE A SLY ONCE A MG WEEK FOR 90 WEEK FOR 90 SUBCUTANEO DAYS DAYS USLY ONCE A WEEK FOR 90 DAYS Immunizations Ordered Immunization Filled Immunization Date Status Commen ts Source Name Name pneumococcal pneumococcal 2021-10-31 Completed [facility] polysaccharide PPV23 polysaccharide PPV23 00:00:00 Practice - ML - ML pneumococcal pneumococcal 2021-10-31 Completed [facility] polysaccharide PPV23 polysaccharide PPV23 00:00:00 Practice - ML - ML influenza, influenza, 2021-05-[address] [facility] injectable, injectable, 00:00:00 Practice quadrivalent quadrivalent influenza, influenza, 2021-05-[address] [facility] injectable, injectable, 00:00:00 Practice quadrivalent quadrivalent influenza, influenza, 2021-05-[address] [facility] injectable, injectable, 00:00:00 Practice quadrivalent quadrivalent PFIZER COVID-19 MRNA 2020-10-12 Completed [facility]ACCIN[facility] 00:00:00 [facility] MODERNA COVID-19 MRNA 2020-10-12 Completed [facility] 00:00:00 Hospital MODERNA COVID-19 MRNA 2020-10-12 Completed [facility]ACC[facility] 00:00:00 Hospital PFIZER COVID-19 MRNA 2020-10-12 Completed [facility] 00:00:00 Hospital COVID-19, mRNA, COVID-19, mRNA, 2020-10-12 Completed [facility] LNP-S, PF, 30 mcg/0.3 LNP-S, PF, 30 00:00:00 Practice mL dose mcg/0.3 mL dose (Pfizer-BioNTech) - (Pfizer-BioNTech) - ML ML COVID-19, mRNA, COVID-19, mRNA, 2020-10-12 Completed [facility] LNP-S, PF, 30 mcg/0.3 LNP-S, PF, 30 00:00:00 Practice mL dose mcg/0.3 mL dose (Pfizer-BioNTech) - (Pfizer-BioNTech) - ML ML COVID-19, mRNA, COVID-19, mRNA, 2020-10-11 Completed [facility] LNP-S, PF, 100 LNP-S, PF, 100 00:00:00 Practi ce mcg/0.5 mL dose mcg/0.5 mL dose (Moderna) (Moderna) PFIZER COVID-19 MRNA 2020-09-12 Completed [facility] 00:00:00 Hospital PFIZER COVID-19 MRNA 2020-09-12 Completed [facility] 00:00:00 Hospital Non-US Vaccine Non-US Vaccine 2020-09-12 Completed [facility] COVID-19 PS COVID-19 PS 00:00:00 Practice (EpiVacCorona) (EpiVacCorona) COVID-19, mRNA, COVID-19, mRNA, 2020-09-12 Completed [facility] LNP-S, PF, 30 mcg/0.3 LNP-S, PF, 30 00:00:00 Practice mL dose mcg/0.3 mL dose (Pfizer-BioNTech) - (Pfizer-BioNTech) - ML ML Non-US Vaccine Non-US Vaccine 2020-09-12 Completed [facility] COVID-19 PS COVID-19 PS 00:00:00 Practice (EpiVacCorona) (EpiVacCorona) COVID-19, mRNA, COVID-19, mRNA, 2020-09-12 Completed [facility] LNP-S, PF, 30 mcg/0.3 LNP-S, PF, 30 00:00:00 Practice mL dose mcg/0.3 mL dose (Pfizer-BioNTech) - (Pfizer-BioNTech) - ML ML Non-US Vaccine Non-US Vaccine 2020-09-12 Completed [facility] COVID-19 PS COVID-19 PS 00:00:00 Practice (EpiVacCorona) (EpiVacCorona) Influenza, 2018-06-08 Completed [facility] Influenza, 2018-06-08 Completed [facility] 00:[facility]:00 Hospital Influenza, 2018-06-08 Completed [facility] 00:00:00 Hospital Influenza, 2018-06-08 Completed [facility] 00:00:00 Hospital influenza, influenza, 2018-06-08 Completed [facility] Family injectable, injectable, 00:00:00 Practice quadrivalent quadrivalent influenza, influenza, 2018-06-08 Completed [facility] Family injectable, injectable, 00:00:00 Practice quadrivalent quadrivalent influenza, influenza, 2018-06-[address] [facility] injectable, injectable, 00:00:00 Practice quadrivalent quadrivalent Vital Signs Vital Name Observation Time Observation Value Comments Source BP Diastolic 2022-10-20 00:00:00 73 mm[Hg] [facility] Height 2022-10-20 00:00:00 71 [in_i] [facility] BMI (Body Mass 2022-10-20 00:00:00 32.1 kg/m2 [facility] BP Systolic 2022-10-20 00:00:00 159 mm[Hg] [facility] Body Weight 2022-10-20 00:00:00 230 [lb_av] [facility] BP Diastolic 2022-04-21 00:00:00 79 mm[Hg] [facility] Height 2022-04-21 00:00:00 71 [in_i] [facility] BMI (Body Mass 2022-04-21 00:00:00 30.4 kg/m2 [facility] BP Systolic 2022-04-21 00:00:00 133 mm[Hg] [facility] Body Weight 2022-04-21 00:00:00 218 [lb_av] [facility] BP Diastolic 2021-09-03 00:00:00 81 mm[Hg] [facility] Height 2021-09-03 00:00:00 71 [in_i] [facility] BMI (Body Mass 2021-09-03 00:00:00 33.3 kg/m2 [facility] BP Systolic 2021-09-03 00:00:00 151 mm[Hg] [facility] Body Weight 2021-09-03 00:00:00 239 [lb_av] [facility] Height 2021-05-30 00:00:00 71 [in_i] [facility] BMI (Body Mass 2021-05-30 00:00:00 [...] Family Practice Height 2020-12-06 00:00:00 71 [in_i] [facility] BMI (Body Mass 2020-12-06 00:00:00 [...] 2020-01-24 12:24:25 Measured Weight Dosing 2020-01-24 12:24:25 Heart rate 2022-10-29 22:15:00 84 /min [facility] Respiratory rate 2022-10-29 22:15:00 15 /min [facility] Oxygen saturation in 2022-10-29 22:15:00 95 /min [facility] Arterial blood by Pulse oximetry Systolic blood 2022-10-29 22:09:00 156 mm[Hg] Method [facility] Hospital pressure Diastolic blood 2022-10-29 22:09:00 74 mm[Hg] [facility] pressure Body temperature 2022-10-29 22:09:00 36.72 [facility] Body height 2022-10-27 21:37:00 177.8 cm [facility] Body weight 2022-10-27 21:37:00 104.645 kg [facility] BMI 2022-10-27 21:37:00 33.10 kg/m2 [facility] Systolic blood 2022-08-25 19:23:00 177 mm[Hg] Method [facility] pressure Diastolic blood 2022-08-25 19:23:00 83 mm[Hg] [facility] pressure Heart rate 2022-08-25 19:23:00 92 /min [facility] Body temperature 2022-08-25 19:23:00 37 [facility] Respiratory rate 2022-08-25 19:23:00 16 /min [facility] Body height 2022-08-25 19:23:00 180.3 cm [facility] Body weight 2022-08-25 19:23:00 97.523 kg [facility] BMI 2022-08-25 19:23:00 29.99 kg/m2 [facility] Oxygen saturation in 2022-08-25 19:23:00 99 /min [facility] Arterial blood by Pulse oximetry Systolic blood 2020-12-13 13:45:00 139 mm[Hg] Method [facility] Hospital pressure Diastolic blood 2020-12-13 13:45:00 81 mm[Hg] [facility] pressure Heart rate 2020-12-13 13:45:00 95 /min [facility] Body temperature 2020-12-13 13:45:00 37.28 [facility] Respiratory rate 2020-12-13 13:45:00 20 /min [facility] Oxygen saturation in 2020-12-13 13:45:00 98 /min [facility] Arterial blood by Pulse oximetry Body height 2020-12-13 13:04:00 180.3 cm [facility] Body weight 2020-12-13 13:04:00 108.047 kg [facility] BMI 2020-12-13 13:04:00 33.22 kg/m2 [facility] 02 Sat by Pulse 2020-09-06 16:51:46 98 /min Oximetry Body Mass Index 2020-09-06 16:51:46 34.9 Height 2020-09-06 16:51:46 180.34\\S\\71 Pulse Rate 2020-09-06 16:51:46 98 /min Respiratory Rate 2020-09-06 16:51:46 16 /min Temperature 2020-09-06 16:51:46 36.2\\S\\97.2 Weight 2020-09-06 16:51:46 085680.092\\S\\4000 02 Sat by Pulse 2020-08-27 18:48:23 98 /min Oximetry Body Mass Index 2020-08-27 18:48:23 34.9 Height 2020-08-27 18:48:23 180.34\\S\\71 Pulse Rate 2020-08-27 18:48:23 98 /min Respiratory Rate 2020-08-27 18:48:23 16 /min Temperature 2020-08-27 18:48:23 36.2\\S\\97.2 Weight 2020-08-27 18:48:23 931232.092\\S\\4000 02 Sat by Pulse 2020-08-23 22:20:59 98 /min Oximetry Body Mass Index 2020-08-23 22:20:59 34.9 Height 2020-08-23 22:20:59 180.34\\S\\71 Pulse Rate 2020-08-23 22:20:59 98 /min Respiratory Rate 2020-08-23 22:20:59 16 /min Temperature 2020-08-23 22:20:59 36.2\\S\\97.2 Weight 2020-08-23 22:20:59 736586.092\\S\\4000 02 Sat by Pulse 2020-08-23 15:54:12 98 /min Oximetry Body Mass Index 2020-08-23 15:54:12 34.9 Height 2020-08-23 15:54:12 180.34\\S\\71 Pulse Rate 2020-08-23 15:54:12 98 /min Respiratory Rate 2020-08-23 15:54:12 16 /min Temperature 2020-08-23 15:54:12 36.2\\S\\97.2 Weight 2020-08-23 15:54:12 722640.092\\S\\4000 02 Sat by Pulse 2020-08-23 13:01:04 99 /min Oximetry Body Mass Index 2020-08-23 13:01:04 34.9 Height 2020-08-23 13:01:04 180.34\\S\\71 Pulse Rate 2020-08-23 13:01:04 91 /min Respiratory Rate 2020-08-23 13:01:04 18 /min Temperature 2020-08-23 13:01:04 36.8\\S\\98.2 Weight 2020-08-23 13:01:04 764909.092\\S\\4000 WEIGHT 2020-08-23 12:59:00 113.432433 kg HEIGHT 2020-08-23 12:59:00 180.34 cm Procedures Procedure Date / Time Performing Source Performed Clinician REMOVAL, TUNNELED 2022-10-29 [facility]ODIALYS[facility] ESTIMATED GFR 2022-10-29 18:46[facility] POC PANEL 2022-10-29 18:46:00 Jac [facility] Clem mayorga ABO/RH 2022-10-29 18:39:00 Zafar Estrada tierra Oquendo BASIC METABOLIC PANEL 2022-10-29 18:39:00 [facility] ESTIMATED GFR 2022-10-29 18:39:00 Jac, Anup Nj spital CBC WITH PLATELET AND 2022-10-27 21:42:00 Jac, [facility] DIFFERENTIAL HEMOGLOBIN A1C 2022-10-27 21:42:00 Zafar Estrada TYPE AND SCREEN 2022-10-27 21:42:00 Zafar Estrada PROTHROMBIN TIME WITH 2022-10-27 21:42:00 Jac [facility] INR PARTIAL THROMBOPLASTIN 2022-10-27 21:42[facility] PRE/POST OP 2022-10-27 21:02:05 Anup Wright spital [place] < 1 HOUR 2022-08-29 21:15:00 Jac, Arielle Zafar Nj spital AK AN ELECTIVE 2022-08-29 19:07:00 Hang Carr spital SUPRAGLOTTIC AIRWAY Victorino REVISION, ARTERIOVENOUS 2022-08-29 18:29:00 Jac, [facility] GRAFT, WITH ANGIOGRAPHY ESTIMATED GFR 2022-08-29 17:18:00 Anup Wright spital POC PANEL 2022-08-29 17:18:00 Jac, Wyjesi Nj spital ESTIMATED GFR 2022-08-29 16:31:00 Arielle Wright Zafar Nj spital REVISION, ARTERIOVENOUS 2022-08-29 16:00:00 Jac, [facility] GRAFT, WITH ANGIOGRAPHY XR CHEST 2 VW 2022-08-25 20:58:35 Jac, Anup Nj spital COVID-19 QUALITATIVE 2022-08-25 19:51:00 [facility] CBC WITH PLATELET AND 2022-08-25 19:41:00 Jac, [facility] DIFFERENTIAL HEMOGLOBIN A1C 2022-08-25 19:41:00 Zafar Estrada TYPE AND SCREEN 2022-08-25 19:41:00 Zafar Estrada PROTHROMBIN TIME WITH 2022-08-25 19:41:00 [facility] 2022-08-25 19:41:00 Jac, [facility] TIME (PTT) ECG PRE/POST OP 2022-08-25 19:24:26 Jac, Anup Nj spital [place] < 1 HOUR 2022-05-06 16:15:00 Jac, Radhataraman Nj spital POC GLUCOSE 2022-05-06 16:08:00 Jac, Anup Nj spital VENOGRAM, UPPER 2022-05-06 14:13:00 JacAnup rhoades spital EXTREMITY ESTIMATED GFR 2022-05-06 14:08:00 Anup Wright spital POC PANEL 2022-05-06 14:08:00 Radha Wrighttaraman Nj spital PROTHROMBIN TIME WITH 2022-05-06 14:05:00 [facility] PART[facility] 2022-05-06 14:05:00 Jac, [facility] TIME (PTT) BASIC METABOLIC PANEL 2022-05-06 14:05:00 [facility] ESTIM[facility] GFR 2022-05-06 14:05:00 Anup Wright spital ECG PRE/POST OP 2022-04-30 19:57:15 Radha Wrighttaraman Nj spital COVID-19 QUALITATIVE 2022-04-30 18:40:00 [facility] WITH PLATELET AND 2022-04-30 18:40:00 Jac, [facility] DIFFERENTIAL TYPE AND SCREEN 2022-04-30 18:40:00 Anup Wright spital HEMOGLOBIN A1C 2022-04-30 18:40:00 Zafar Estrada POC GLUCOSE 2022-04-07 14:41:00 Anup Wright spital REMOVAL, CATHETER, 2022-04-07 12:41:00 Jac [facility] DIALYSIS, PERITONEAL ESTIMATED GFR 2022-04-07 12:12:00 Anup Wright spital POC PANEL 2022-04-07 12:12:00 Anup Wright BASIC METABOLIC PANEL 2022-04-07 12:04:00 [facility] PROTHROMBIN TIME WITH 2022-04-07 12:04:00 Franki [facility] INR Leonora J. PARTIAL THROMBOPLASTIN 2022-04-07 12:04:00 Frank[facility] TIME (PTT) Leonora Oquendo ESTIMATED GFR 2022-04-07 12:04:00 Jac [facility] Zafar mayorga COVID-19 QUALITATIVE 2022-04-04 21:28:00 Franki [facility] RT-PCR Leonora Oquendo CBC WITH PLATELET AND 2022-04-04 21:28:00 Jac [facility] DIFFERENTIAL HEMOGLOBIN A1C 2022-04-04 21:28:00 Zafar Estrada TYPE AND SCREEN 2022-04-04 21:28:00 Zafar Estrada ECG PRE/POST OP 2022-04-04 20:47:33 Jac Wyeulogio Zafar riddletal POC GLUCOSE 2022-03-18 17:07:00 Jac Wyeulogio Zafar mayorga [place] AN ELECTIVE 2022-03-18 15:40:00 Arpita Olivas [facility] ENDOTRACHEAL AIRWAY INSERTION, CATHETER, FOR 2022-03-18 15:28:00 [facility] ESTIMATED GFR 2022-03-18 13:50:00 Anup Wright spital POC PANEL 2022-03-18 13:50:00 Jac [facility] Zafar Nj spital PARTIAL THROMBOPLASTIN 2022-03-18 13:45:00 Franki [facility] TIME (PTT) Leonora Oquendo PROTHROMBIN TIME WITH 2022-03-18 [facility]:45[facility] Oquendo BASIC METABOLIC PANEL 2022-03-18 13:45:00 [facility] J. ESTIMATED GFR 2022-03-18 13:45:00 Zafar Estrada. CBC WITH PLATELET AND 2022-03-17 21:08:00 [facility] DIFFERENTIAL Leonorawalter Fajardo. PROTHROMBIN TIME WITH 2022-03-17 21:08:00 [facility] Leonora Fajardo. PARTIAL THROMBOPLASTIN 2022-03-17 [facility]:08[facility]00 [facility] Leonoar Fajardo. TYPE AND SCREEN 2022-03-17 21:08:00 Zafar Estrada HEMOGLOBIN A1C 2022-03-17 21:08:00 Zafar Estrada COVID-19 QUALITATIVE 2022-03-17 20:51:00 [facility] Leonora Oquendo [place] AN ELECTIVE 2022-03-07 12:53:00 Arpita Olivas [facility] ENDOTRACHEAL AIRWAY INSERTION, CATHETER, 2022-03-07 12:40:00 [facility] INTRAPERITONEAL, LAPAROSCOPIC ESTIMATED GFR 2022-03-07 12:16:00 [facility] Clem mayorga POC PANEL 2022-03-07 12:16:00 Jac [facility] Clem mayorga ABO AND RH CONFIRMATION 2022-03-07 12:10:00 [facility] BY PROTOCOL BASIC METABOLIC PANEL 2022-03-07 12:10:00 [facility] Leonorawalter Fajardo. ESTIMATED GFR 2022-03-07 12:10:00 Zafar Estrada. XR CHEST 2 VW 2022-03-06 19:59:09 Jac Wyeulogio Zafar mayorga COVID-19 QUALITATIVE 2022-03-06 19:08:00 [facility] RT-PCR CBC WITH PLATELET AND 2022-03-06 18:58:00 [facility] DIFFERENTIAL PROTHROMBIN TIME WITH 2022-03-06 18:58:00 [facility] INR PARTIAL THROMBOPLASTIN 2022-03-06 18:58:00 [facility] TIME (PTT) TYPE AND SCREEN 2022-03-06 18:58:00 Zafar Estrada HEMOGLOBIN A1C 2022-03-06 18:58:00 Zafar Estrada ECG PRE/POST OP 2022-03-06 18:20:34 Jac [facility] Zafar mayorga [id number] 2021-11-23 00:00:00 [facility] HEPATITIS B SURFACE 2021-11-04 03:28:00 [facility] ANTIGEN Center HEPATITIS B SURFACE 2021-11-04 03:28:00 [facility] Medical ANTIBODY Center HEPATITIS B CORE 2021-11-04 03:28:00 [facility] s Medical ANTIBODY, TOTAL Center HEPATITIS B SURFACE 2021-11-01 05:27:00 [facility] Medical ANTIGEN Center HEPATITIS B SURFACE 2021-11-01 05:27:00 [facility] Medical ANTIBODY Center HEPATITIS B CORE 2021-11-01 05:27:00 [facility] s [facility] ANTIBODY, TOTAL Center YAG CAPSULOTOMY - OD - 2021-03-22 15:51:45 [facility] RIGHT EYE Tovar Unlisted Px Accessory 2021-03-08 00:00:00 Danielito diane [facility] Sinus PHACOEMULSIFICATION, 2020-12-13 13:09:00 [facility] CATARACT, WITH IOL Tovar IMPLANTATION POC GLUCOSE 2020-12-13 12:52:00 [facility] Zafar Tovar CORNEAL TOPOGRAPHY ATLAS 2020-11-12 15:46:10 Alexandra Rojo [facility] - OU - BOTH EYES [place] IOL BIOMETRY - OU - BOTH 2020-11-12 15:46:06 Alexandra Rojo [facility] EYES Tovar Cataract Surgery [facility] Plan of Care Planned Activity Planned Date Details Comments Source Future Scheduled Test 2023-02-12 Scre[facility] 01:08:33 malignant neoplasm of colon (procedure) [code = [id number]] Future Scheduled Test 2023-02-12 [facility] 01:08:33 malignant neoplasm of colon (procedure) [code = [id number]] Future Scheduled Test 2023-02-12 HEPATITIS B VACCINES [facility] 01:08:33 (1 of 3 - 3-dose series) [code = HEPATITIS B VACCINES (1 of 3 - 3-dose series)] Future Scheduled Test 2023-02-[facility] 01:08:33 malignant neoplasm of colon (procedure) [code = 221199373] Future Scheduled Test 2023-02-12 Pneumococcal Vaccine: [facility] 01:08:33 Pediatrics (0 to 5 Years) and At-Risk Patients (6 to 64 Years) (1 - PCV) [code = Pneumococcal Vaccine: Pediatrics (0 to 5 Years) and At-Risk Patients (6 to 64 Years) (1 - PCV)] Future Scheduled Test 2023-02-12 DIABETIC FOOT EXAM [facility] 01:08:33 [code = DIABETIC FOOT EXAM] Future Scheduled Test 2023-02-12 Hepatitis C screening [facility] 01:08:33 (procedure) [code = 470708027] Future Scheduled Test 2023-02-12 SHINGLES VACCINES (1 [facility] 01:08:33 of 2) [code = SHINGLES VACCINES (1 of 2)] Future Scheduled Test 2023-02-[address] [facility] 01:08:33 malignant neoplasm of colon (procedure) [code = 992715252] Future Scheduled Test 2023-02-12 [facility] 01:08:33 malignant neoplasm of colon (procedure) [code = 751635815] Future Scheduled Test 2023-02-12 COVID-19 VACCINE (3 - [facility] 01:08:33 Pfizer risk series) [code = COVID-19 VACCINE (3 - Pfizer risk series)] Future Scheduled Test 2023-02-12 INFLUENZA VACCINE [facility] 01:08:33 (#1) [code = INFLUENZA VACCINE (#1)] Future Scheduled Test 2023-02-12 DIABETES: RETINAL EYE [facility] 01:08:33 EXAM [code = DIABETES: RETINAL EYE EXAM] Diagnostic Test 2022-10-20 glucose, fingerstick, [facility] 00:00:00 blood [code = Practice glucose, fingerstick, blood] Diagnostic Test 2022-10-20 hemoglobin A1C, [facility] Pending 00:00:00 fingerstick [code = Practice hemoglobin A1C, fingerstick] Diagnostic Test 2022-10-20 PTH (parathyroid [facility] 00:00:00 hormone), intact, Practice serum or plasma [code = PTH (parathyroid hormone), intact, serum or plasma] Future Scheduled Test 2022-08-27 HEPATITIS B VACCINES [facility] 05:55:05 (1 of 3 - 3-dose series) [code = HEPATITIS B VACCINES (1 of 3 - 3-dose series)] Future Scheduled Test 2022-08-27 Pneumococcal Vaccine: [facility] 05:55:05 Pediatrics (0 to 5 Years) and At-Risk Patients (6 to 64 Years) (1 - PCV) [code = Pneumococcal Vaccine: Pediatrics (0 to 5 Years) and At-Risk Patients (6 to 64 Years) (1 - PCV)] Future Scheduled Test 2022-08-27 DIABETIC FOOT EXAM [facility] 05:55:05 [code = DIABETIC FOOT EXAM] Future Scheduled Test 2022-08-27 Hepatitis C screening [facility] 05:55:05 (procedure) [code = 570682411] Future Scheduled Test 2022-08-27 SHINGLES VACCINES (1 [facility] 05:55:05 of 2) [code = SHINGLES VACCINES (1 of 2)] Future Scheduled Test 2022-08-27 COLONOSCOPY SCREENING [facility] 05:55:05 [code = COLONOSCOPY SCREENING] Future Scheduled Test 2022-08-27 COVID-19 VACCINE (3 - [facility] 05:55:05 Pfizer risk series) [code = COVID-19 VACCINE (3 - Pfizer risk series)] Future Scheduled Test 2022-08-27 INFLUENZA VACCINE [facility] 05:55:05 [code = INFLUENZA VACCINE] Future Scheduled Test 2022-08-27 DIABETES: RETINAL EYE [facility] 05:55:05 EXAM [code = DIABETES: RETINAL EYE EXAM] Future Scheduled Test 2021-07-09 COLONOSCOPY SCREENING [facility] 14:18:19 [code = COLONOSCOPY SCREENING] Future Scheduled Test 2021-07-09 SHINGLES VACCINES [facility] 14:18:19 (#1) [code = SHINGLES VACCINES (#1)] Future Scheduled Test 2021-07-09 COVID-19 VACCINE ([address] [place] [address] 14:18:19 Moderna risk 4-dose series) [code = COVID-19 VACCINE (2 - Moderna risk 4-dose series)] Future Scheduled Test 2021-07-09 INFLUENZA VACCINE [facility] 14:18:19 [code = INFLUENZA VACCINE] Future Scheduled Test 2021-07-09 DIABETES: RETINAL EYE [facility] 14:18:19 EXAM [code = DIABETES: RETINAL EYE EXAM] Future Scheduled Test 2021-07-09 DIABETIC FOOT EXAM [facility] 14:18:19 [code = DIABETIC FOOT EXAM] Future Scheduled Test 2021-07-09 Hepatitis C screening [facility] 14:18:19 (procedure) [code = 588521074] Future Scheduled Test 2021-07-09 COLONOSCOPY SCREENING [facility] 14:18:19 [code = COLONOSCOPY SCREENING] Future Scheduled Test 2021-07-09 SHINGLES VACCINES [facility] 14:18:19 (#1) [code = SHINGLES VACCINES (#1)] Future Scheduled Test 2021-07-09 COVID-19 VACCINE ([address] [place] [address] 14:18:19 Moderna risk 4-dose series) [code = COVID-19 VACCINE (2 - Moderna risk 4-dose series)] Future Scheduled Test 2021-07-09 INFLUENZA VACCINE [facility] 14:18:19 [code = INFLUENZA VACCINE] Future Scheduled Test 2021-07-09 DIABETES: RETINAL EYE [facility] 14:18:19 EXAM [code = DIABETES: RETINAL EYE EXAM] Future Scheduled Test 2021-07-09 DIABETIC FOOT EXAM [facility] 14:18:19 [code = DIABETIC FOOT EXAM] Future Scheduled Test 2021-07-09 Hepatitis C screening [facility] 14:18:19 (procedure) [code = 798892905] Future Appointment 2023-04-22 Salbador Robles [facility] 00:00:[address] Practice [address], [place] [address] Future Appointment 2023-04-20 [facility] 14:30:[address]; Practice [address], [place] [address] Encounters Start End Encounter Admission Attending Care Care Encounter Source Date/Time Date/Time Type Type Clinicians Facility Department ID 2021-11-21 Outpatient 3 [facility] ENCPL CRD [id number] [facility] 09:15:09 hez, 0616 [facility] [place] 2021-11-20 Outpatient 3 [id number] ENCPL REF [id number] [facility] 08:42:00 0615 [facility] [place] 2020-08-23 Inpatient [facility] [id number] [facility] 12:30:00 Edmund 15 2022-10-29 2022-10-29 Hospital Jac, 1.2.840.1 [id number] Methodi 12:26:00 17:40:00 Encounter Uttam 13182.1.[address] 3.430.2.7 Hospit a .3.467057 l .8 2022-10-29 2022-10-29 Surgery [facility], 1.2.840.1 [id number] 2100 [id number] Methodi 15:10:00 16:30:[address] 3.430.2.7 Hospit a .3.635866 l .8 2022-10-29 2022-10-29 Anesthesia Abdulkadir Magallon 1.2.840.1 [id number] Methodi 15:22:00 15:48:00 Event Chelsea Raygoza 69475.1.[address] 3.430.2.7 Hospit a .3.860641 l .8 2022-10-29 2022-10-29 Outpatient [facility] 021 [id number] [id number] [place] 00:00:00 00:00:00 UTTAM [address] 2022-10-27 2022-10-27 Pre-Admiss Jac, 1.2.840.1 [id number] 2 [id number] Methodi 16:30:00 17:30:00 ion Uttam 38744.1.[address] Testing 3.430.2.7 Hospit a .3.235022 l .8 2022-10-27 2022-10-27 Travel 1.2.840.1 1.2.111.703 8050 224596 Methodi 00:00:00 00:00:[address] 3.430.2.7 0.2.7.3.698 Ho spita .3.753914 084.8 l .8 2022-10-27 2022-10-27 Outpatient JAC, [facility] [id number] Deweese 00:00:00 00:00:00 UTTAM [address] 2022-10-20 2022-10-20 Outpatient Daniel_T VFP VFP 790377 [address] [place] [address] 00:00:00 00:00:00 [id number] Family Practic e 2022-10-20 2022-10-20 Outpatient Daniel_T VFP VFP 858503 [address] [place] [address] 00:00:00 00:00:00 [id number] Family Practic e 2022-10-20 2022-10-20 Outpatient Daniel_T VFP VFP 764594 [address] [place] [address] 00:00:00 00:00:00 [id number] Family Practic e 2022-10-20 2022-10-20 Salbador VFP [place] - [id number] V illage 00:00:00 00:00:00 [facility] Family RoblesAnatoly - Prackaylee nielson MD: [id number] [place] - e Shadow _[facility], [address], [place] [address] , Ph. 2022-08-29 2022-08-29 Hospital Jac, 1.2.840.1 [id number] 219 [id number] Methodi 11:13:00 17:30:00 Encounter Uttam 88403.1.[address] 3.430.2.7 Hospit a .3.360910 l .8 2022-08-29 2022-08-29 Surgery Jac, 1.2.840.1 [id number] 2100 [id number] Methodi 14:43:00 16:58:[address] 3.430.2.7 Hospit a .3.668612 l .8 2022-08-29 2022-08-29 Anesthesia William Uriostegui 1.2.840.1 [id number] Methodi 13:29:00 15:34:00 Event Chelsea Raygoza 96120.1.[address] 3.430.2.7 Hospit a .3.608176 l .8 2022-08-29 2022-08-29 Outpatient JAC, [facility] 021 [id number] 72047 Deweese 00:00:00 00:00:00 UTTAM [address] 2022-08-25 2022-08-25 Hospital Jac, 1.2.840.1 [id number] 396 [id number] Methodi 15:32:34 23:59:00 Encounter Uttam 76449.1.[address] 3.430.2.7 Hospit a .3.898688 l .8 2022-08-25 2022-08-25 Pre-Admiss Jac, 1.2.840.1 [id number] 2 [id number] Methodi 14:00:00 15:00:00 ion Uttam 62836.1.[address] Testing 3.430.2.7 Hospit a .3.016279 l .8 2022-08-25 2022-08-25 Travel 1.2.840.1 1.2.449.725 5132 544791 Methodi 00:00:00 00:00:[address] 3.430.2.7 0.2.7.3.698 Ho spita .3.540757 084.8 l .8 2022-08-25 2022-08-25 Pre-Admiss JAC, 1.2.840.1 [id number] 2 [id number] [place] 00:00:00 00:00:00 ion UTTAM 64344.1.1 566 [address] shekhar Testing 3.430.2.7 st .3.465389 .8 2022-08-25 2022-08-25 Hospital JAC, 1.2.840.1 [id number] 029 [id number] [place] 00:00:00 00:00:00 Encounter UTTAM 96718.1.1 [address] .3.151933 .8 2022-08-25 2022-08-25 Travel 1.2.840.1 1.2.324.888 9715 [id number] Methodi 00:00:00 00:00:[address] 3.430.2.7 0.2.7.3.698 Ho spita .3.434942 084.8 l .8 2022-08-22 2022-08-22 Travel 1.2.840.1 1.2.938.637 3928 303188 Methodi 00:00:00 00:00:[address] 3.430.2.7 0.2.7.3.698 Ho spita .3.650761 084.8 l .8 2022-08-22 2022-08-22 Travel 1.2.840.1 1.2.242.973 0547 421302 Methodi 00:00:00 00:00:[address] 3.430.2.7 0.2.7.3.698 Ho spita .3.751217 084.8 l .8 2022-04-04 2022-06-11 Pre-Admiss Jac, 1.2.840.1 [id number] 2 [id number] Methodi 16:30:00 00:38:28 ion Uttam 79123.1.[address] Testing 3.430.2.7 Hospit a .3.631544 l .8 2022-04-04 2022-06-11 Pre-Admiss Jac, 1.2.840.1 [id number] 2 [id number] Methodi 16:30:00 00:38:28 ion Uttam 67280.1.[address] Testing 3.430.2.7 Hospit a .3.618560 l .8 2022-05-06 2022-05-06 [facility] Jac, 1.2.840.1 [id number] 484 [id number] Methodi 06:35:00 11:50:00 Encounter Uttam 96844.1.[address] 3.430.2.7 Hospit a .3.690957 l .8 2022-05-06 2022-05-06 [facility], 1.2.840.1 [id number] 914 [id number] Methodi 06:35:00 11:50:00 Encounter Uttam 23910.1.[address] 3.430.2.7 Hospit a .3.945784 l .8 2022-05-06 2022-05-06 Surgery [facility], 1.2.840.1 [id number] 2099 [id number] Methodi 08:05:00 10:10:[address] 3.430.2.7 Hospit a .3.924030 l .8 2022-05-06 2022-05-06 Surgery [facility], 1.2.840.1 [id number] 2099 [id number] Methodi 08:05:00 10:10:[address] 3.430.2.7 Hospit a .3.216099 l .8 2022-05-06 2022-05-06 Anesthesia Leonora Estrada. 1.2.840.1 [id number] Methodi 08:13:00 10:08:00 Event Chelsea Raygoza 73601.1.[address] 3.430.2.7 Hospit a .3.367390 l .8 2022-05-06 2022-05-06 Anesthesia Leonora Estrada 1.2.840.1 [id number] Methodi 08:13:00 10:08:00 Event Chelsea Raygoza 42285.1.[address] 3.430.2.7 Hospit a .3.457003 l .8 2022-04-30 2022-04-30 Pre-Admiss Jac, 1.2.840.1 [id number] 2 [id number] Methodi 12:30:00 13:30:00 ion Uttam 86564.1.[address] Testing 3.430.2.7 Hospit a .3.031986 l .8 2022-04-30 2022-04-30 Pre-Admiss Jac, 1.2.840.1 [id number] 2 [id number] Methodi 12:30:00 13:30:00 ion Uttam 33576.1.[address] Testing 3.430.2.7 Hospit a .3.295458 l .8 2022-04-30 2022-04-30 Travel 1.2.840.1 1.2.422.542 5724 428583 Methodi 00:00:00 00:00:[address] 3.430.2.7 0.2.7.3.698 Ho spita .3.183188 084.8 l .8 2022-04-30 2022-04-30 Travel 1.2.840.1 1.2.817.583 6570 274507 Methodi 00:00:00 00:00:[address] 3.430.2.7 0.2.7.3.698 Ho spita .3.197216 084.8 l .8 2022-04-21 2022-04-21 [facility] [place] - [id number] V illage 00:00:00 00:00:00 Terry [facility] Anatoly Lee - Leonid nielson MD: [id number] [place] - e Shadow [facility], [address], [place] [address] , Ph. 2022-04-07 2022-04-07 Hospital Jac, 1.2.840.1 [id number] 221 [id number] Methodi 06:12:00 10:17:00 Encounter Uttam 83795.1.[address] 3.430.2.7 Hospit a .3.168781 l .8 2022-04-07 2022-04-07 Hospital Jac, 1.2.840.1 [id number] 958 [id number] Methodi 06:12:00 10:17:00 Encounter Uttam 00131.1.[address] 3.430.2.7 Hospit a .3.656857 l .8 2022-04-07 2022-04-07 Surgery Jac, 1.2.840.1 [id number] 2099 735228 Methodi 07:45:00 09:20:[address] 3.430.2.7 Hospit a .3.885914 l .8 2022-04-07 2022-04-07 Surgery Jac, 1.2.840.1 [id number] 2099 138800 Methodi 07:45:00 09:20:[address] 3.430.2.7 Hospit a .3.341740 l .8 2022-04-07 2022-04-07 Anesthesia Abdulkadir Magallon 1.2.840.1 [id number] Methodi 07:42:00 08:58:00 Event Idalmis, Chelsea 20367.1.[address] 3.430.2.7 Hospit a .3.062804 l .8 2022-04-07 2022-04-07 Anesthesia Abdulkadir Magallon 1.2.840.1 [id number] Methodi 07:42:00 08:58:00 Event Idalmis, Chelsea 54327.1.[address] 3.430.2.7 Hospit a .3.234293 l .8 2022-04-04 2022-04-04 Travel 1.2.840.1 1.2.010.368 0284 956588 Methodi 00:00:00 00:00:[address] 3.430.2.7 0.2.7.3.698 Ho spita .3.674174 084.8 l .8 2022-04-04 2022-04-04 Travel 1.2.840.1 1.2.988.142 5128 365133 Methodi 00:00:00 00:00:[address] 3.430.2.7 0.2.7.3.698 Ho spita .3.312435 084.8 l .8 2022-04-03 2022-04-03 Telephone James, 1.2.840.1 [id number] 2099 [id number] Methodi 00:00:00 00:00:[address] 3.430.2.7 Hospit a .3.883487 l .8 2022-04-03 2022-04-03 Telephone Ramirez, 1.2.840.1 [id number] 2099 [id number] Methodi 00:00:00 00:00:[address] 3.430.2.7 Hospit a .3.590082 l .8 2022-04-01 2022-04-01 Travel 1.2.840.1 1.2.581.939 1324 873392 Methodi 00:00:00 00:00:[address] 3.430.2.7 0.2.7.3.698 Ho spita .3.287963 084.8 l .8 2022-04-01 2022-04-01 Travel 1.2.840.1 1.2.827.133 7759 044437 Methodi 00:00:00 00:00:[address] 3.430.2.7 0.2.7.3.698 Ho spita .3.168339 084.8 l .8 2022-03-24 2022-03-24 Office Rojo, 1.2.840.1 [id number] 771181 3114 Methodi 10:00:00 11:11:39 Visit Alexandra 10081.1.[address] [place] 3.430.2.7 Hospit a .3.196209 l .8 2022-03-24 2022-03-24 Office Rojo, 1.2.840.1 [id number] [id number] 5837 Methodi 10:00:00 11:11:39 Visit Alexandra 15619.1.[address] [place] 3.430.2.7 Hospit a .3.854860 l .8 2022-03-24 2022-03-24 Travel 1.2.840.1 1.2.222.329 3964 802145 Methodi 00:00:00 00:00:[address] 3.430.2.7 0.2.7.3.698 Ho spita .3.060872 084.8 l .8 2022-03-24 2022-03-24 Travel 1.2.840.1 1.2.298.835 6157 650194 Methodi 00:00:00 00:00:[address] 3.430.2.7 0.2.7.3.698 Ho spita .3.735629 084.8 l .8 2022-03-18 2022-03-18 [facility], 1.2.840.1 [id number] 451 [id number] Methodi 08:12:00 13:17:00 Encounter Radhatam 09708.1.[address] 3.430.2.7 Hospit a .3.632837 l .8 2022-03-18 2022-03-18 [facility], 1.2.840.1 [id number] 809 [id number] Methodi 08:12:00 13:17:00 Encounter Uttam 36472.1.[address] 3.430.2.7 Hospit a .3.251876 l .8 2022-03-18 2022-03-18 Anesthesia Leonora Estrada. 1.2.840.1 [id number] Methodi 10:29:00 12:05:00 Event Chelsea Raygoza 03833.1.[address] 3.430.2.7 Hospit a .3.599221 l .8 2022-03-18 2022-03-18 Anesthesia FrankiLeonora jeanBing 1.2.840.1 [id number] Methodi 10:29:00 12:05:00 Event Chelsea Raygoza 24368.1.[address] 3.430.2.7 Hospit a .3.275311 l .8 2022-03-18 2022-03-18 Surgery Jac, 1.2.840.1 [id number] 2100 [id number] Methodi 10:25:00 12:00:[address] 3.430.2.7 Hospit a .3.489497 l .8 2022-03-18 2022-03-18 Surgery Jac, 1.2.840.1 [id number] 2099 299949 Methodi 10:25:00 12:00:[address] 3.430.2.7 Hospit a .3.111012 l .8 2022-03-17 2022-03-17 Pre-Admiss Jac, 1.2.840.1 [id number] 2 [id number] Methodi 15:30:00 16:30:00 ion Uttam 52970.1.[address] Testing 3.430.2.7 Hospit a .3.931778 l .8 2022-03-17 2022-03-17 Pre-Admiss Jac, 1.2.840.1 [id number] 2 [id number] Methodi 15:30:00 16:30:00 ion Uttam 45430.1.[address] Testing 3.430.2.7 Hospit a .3.967057 l .8 2022-03-17 2022-03-17 Travel 1.2.840.1 1.2.447.532 4243 982676 Methodi 00:00:00 00:00:[address] 3.430.2.7 0.2.7.3.698 Ho spita .3.328887 084.8 l .8 2022-03-17 2022-03-17 Travel 1.2.840.1 1.2.777.827 8645 164306 Methodi 00:00:00 00:00:[address] 3.430.2.7 0.2.7.3.698 Ho spita .3.093430 084.8 l .8 2022-03-07 2022-03-07 Hospital Jac, 1.2.840.1 [id number] 113 [id number] Methodi 06:08:00 11:49:00 Encounter Uttam 99862.1.[address] 3.430.2.7 Hospit a .3.736573 l .8 2022-03-07 2022-03-07 Hospital Jac, 1.2.840.1 [id number] 145 [id number] Methodi 06:08:00 11:49:00 Encounter Uttam 86925.1.[address] 3.430.2.7 Hospit a .3.625557 l .8 2022-03-07 2022-03-07 Surgery Jac, 1.2.840.1 [id number] 2099 309413 Methodi 08:00:00 09:50:[address] 3.430.2.7 Hospit a .3.501475 l .8 2022-03-07 2022-03-07 Surgery Jac, 1.2.840.1 [id number] 2100 952496 Methodi 08:00:00 09:50:[address] 3.430.2.7 Hospit a .3.768762 l .8 2022-03-07 2022-03-07 Anesthesia Linda Naik 1.2.840. 1 [id number] Methodi 07:41:00 09:22:00 Event Saad Ocampo 57974.1.[address] 3.430.2.7 Hospit a .3.572932 l .8 2022-03-07 2022-03-07 Anesthesia Linda Naik 1.2.840. 1 [id number] Methodi 07:41:00 09:22:00 Event Saad Ocampo 27463.1.[address] 3.430.2.7 Hospit a .3.732629 l .8 2022-03-06 2022-03-06 Hospital Jac, 1.2.840.1 [id number] 434 [id number] Methodi 14:47:12 23:59:00 Encounter Uttam 23715.1.[address] 3.430.2.7 Hospit a .3.698904 l .8 2022-03-06 2022-03-06 Hospital Jac, 1.2.840.1 [id number] 277 [id number] Methodi 14:47:12 23:59:00 Encounter Uttam 65507.1.[address] 3.430.2.7 Hospit a .3.796960 l .8 2022-03-06 2022-03-06 Pre-Admiss Jac, 1.2.840.1 [id number] 2 [id number] Methodi 13:30:00 14:30:00 ion Uttam 79624.1.[address] Testing 3.430.2.7 Hospit a .3.211589 l .8 2022-03-06 2022-03-06 Pre-Admiss Jac, 1.2.840.1 [id number] 2 [id number] Methodi 13:30:00 14:30:00 ion Uttam 07049.1.[address] Testing 3.430.2.7 Hospit a .3.324065 l .8 2022-03-06 2022-03-06 Travel 1.2.840.1 1.2.846.069 9155 454147 Methodi 00:00:00 00:00:[address] 3.430.2.7 0.2.7.3.698 Ho spita .3.333173 084.8 l .8 2022-03-06 2022-03-06 Travel 1.2.840.1 1.2.890.756 5338 646678 Methodi 00:00:00 00:00:[address] 3.430.2.7 0.2.7.3.698 Ho spita .3.025296 084.8 l .8 2022-03-04 2022-03-04 Travel 1.2.840.1 1.2.057.604 5702 542872 Methodi 00:00:00 00:00:[address] 3.430.2.7 0.2.7.3.698 Ho spita .3.139382 084.8 l .8 2022-03-04 2022-03-04 Travel 1.2.840.1 1.2.315.260 5549 192123 Methodi 00:00:00 00:00:[address] 3.430.2.7 0.2.7.3.698 Ho spita .3.078628 084.8 l .8 2022-02-14 2022-02-14 Travel 1.2.840.1 1.2.150.336 0082 229862 Methodi 00:00:00 00:00:[address] 3.430.2.7 0.2.7.3.698 Ho spita .3.002787 084.8 l .8 2022-01-21 2022-01-21 Travel 1.2.840.1 1.2.242.654 6218 833200 Methodi 00:00:00 00:00:[address] 3.430.2.7 0.2.7.3.698 Ho spita .3.875032 084.8 l .8 2021-12-19 2021-12-19 Clifton Robles_T VFP VFP [id number] 3-20 [facility] 00:00:00 00:00:00 [id number] Family Practic e 2021-11-23 2021-11-29 Inpatient 3 [facility] ENCPL OT 5735 [employer] 02:29:00 13:20:00 brant, 0618 ss [facility] Scotty d 2021-11-04 2021-11-[address] [facility] [id number] [address] [facility]:00[facility]00 [facility]00[facility] 2021-11-01 2021-11-[address] [facility] [id number] [address] 00:00[facility]00 00:00:00 [facility] 2021-09-09 2021-09-09 Outpatient Daniel_T VFP VFP [id number] - [facility] 02:52:00 02:52:00 [id number] Family Practic e 2021-09-03 2021-09-03 Salbador Daniel_T VFP [place] - [id number] 0 [facility] 00:00:00 00:00:00 [facility] [id number] Anatoly Robles - Leonid nielson MD: [id number] MITA_Sky stuart Shadow [facility] [employer] [facility], [address] [address] , Ph. 2021-08-14 2021-08-14 Outpatient Daniel_T VFP VFP [id number] 3-20 [facility] 10:35:00 10:35:00 [id number] Family Practic e 2021-06-14 2021-06-14 Outpatient Daniel_T VFP VFP [id number] -20 [facility] 08:21:00 08:21:00 [id number] Family Practic e 2021-05-30 2021-05-30 Salbador Daniel_T VFP [place] - [id number] 0 [facility] 00:00:00 00:00:00 [facility] [id number] Anatoly Robles MD: [id number] José Miguel stuart Shadow [facility] [employer] [address], [address] [address] , Ph. 2021-03-22 2021-03-22 Procedure Rojo, 1.2.840.1 [id number] 2100 649386 Methodi 09:57:39 10:52:50 visit Alexandra 95359.1.[address] [place] 3.430.2.7 Hospit a .3.541796 l .8 2021-03-22 2021-03-22 Travel 1.2.840.1 1.2.824.713 7302 664087 Methodi 00:00:00 00:00:[address] 3.430.2.7 0.2.7.3.698 Ho spita .3.522748 084.8 l .8 2021-03-15 2021-03-15 Outpatient Daniel_T VFP VFP [id number] [address] [place] [address] 06:40:00 06:40:00 [id number] Family Mehran stuart 2021-03-13 2021-03-13 Salbadorgareth Robles_T VFP [place] - [id number] 0 [facility] 00:00:00 00:00:00 [facility] [id number] Family RoblesAnatoly - Prackaylee nielson MD: [id number] VM_HOU_Shavaughn e [facility], [address], [place] [address] , Ph. 2021-01-25 2021-01-25 Telephone , 1.2.840.1 [id number] 2100 988151 Methodi 00:00:00 00:00:[address] [place] 3.430.2.7 Hospit a .3.857352 l .8 2021-01-18 2021-01-18 Office Rojo, 1.2.840.1 [id number] 0929 Methodi 09:20:01 10:06:50 Visit Alexandra 05969.1.[address] [place] 3.430.2.7 Hospit a .3.185674 l .8 2021-01-18 2021-01-18 Outpatient Daniel_T VFP VFP [id number] [address] [place] [address] 03:12:00 03:12:00 [id number] Family Mehran stuart 2021-01-18 2021-01-18 Travel 1.2.840.1 1.2.943.950 4894 [id number] Methodi 00:00:00 00:00:[address] 3.430.2.7 0.2.7.3.698 Ho spita .3.028028 084.8 l .8 2020-12-21 2020-12-21 Telephone [place], 1.2.840.1 [id number] 2099 394375 Methodi 00:00:00 00:00:[address] [place] 3.430.2.7 Hospit a .3.800645 l .8 2020-12-15 2020-12-15 Outpatient Travis_T VFP VFP [id number] 08-25 [facility] 02:24:00 02:24:00 [id number] [facility] e 2020-12-14 2020-12-14 Office [place], 1.2.840.1 [id number] 4403 Methodi 08:47:49 09:15:43 Visit Alexandra 77017.1.[address] [place] 3.430.2.7 Hospit a .3.579053 l .8 2020-12-13 2020-12-13 [facility], 1.2.840.1 [id number] 14360 37988 Methodi 06:39:00 09:16:00 Encounter Alexanrda 79903.1.[address] [place] 3.430.2.7 Hospit a .3.856320 l .8 2020-12-13 2020-12-13 Surgery [place] [facility], 1.2.840.1 [id number] 407914 1316 Methodi 08:15:00 09:00:[address] [place] 3.430.2.7 Hospit a .3.242396 l .8 2020-12-13 2020-12-13 Anesthesia Vargas, 1.2.840.1 [id number] 21 [id number] Methodi 08:09:00 08:42:00 Event Derek 21125.1.[address] [place] 3.430.2.7 Hospi ta .3.522123 l .8 2020-12-13 2020-12-13 Travel 1.2.840.1 1.2.885.532 3176 [id number] Methodi 00:00:00 00:00:[address] 3.430.2.7 0.2.7.3.698 Ho spita .3.381401 084.8 l .8 2020-12-12 2020-12-12 Telephone Rojo, 1.2.840.1 [id number] 2099 [id number] Methodi 00:00:00 00:00:[address] [place] 3.430.2.7 Hospit a .3.866083 l .8 2020-12-08 2020-12-08 Outpatient Daniel_T VFP VFP [id number] 3-20 [facility] 10:38:00 10:38:00 [id number] Family Mehran stuart 2020-12-06 2020-12-06 Salbador Travis_T VFP [place] - [id number] 0 [facility] 00:00:00 00:00:00 [facility] [id number] Family Robles, Medical - Prackaylee nielson MD: [id number] VM_CLEMU_Tu e [facility], [address], [place] [address] , Ph. 2020-11-12 2020-11-12 Office Orjo, 1.2.840.1 [id number] Methodi 09:50:22 11:30:10 Visit Alexandra 77309.1.[address] T[facility] 3.430.2.7 Hospit a .3.366645 l .8 2020-11-12 2020-11-12 Travel 1.2.840.1 1.2.678.827 [id number] Methodi 00:00:00 00:00:[address] 3.430.2.7 0.2.7.3.698 Ho spita .3.359973 084.8 l .8 2020-10-30 2020-10-30 Travel 1.2.840.1 1.2.233.839 [id number] [id number] Methodi 00:00:00 00:00:[address] 3.430.2.7 0.2.7.3.698 Ho spita .3.116412 084.8 l .8 2020-10-29 2020-10-29 Telephone , 1.2.840.1 [id number] Methodi 00:00:00 00:00:[address] Tovar 3.430.2.7 Hospit a .3.969107 l .8 2020-10-10 2020-10-10 Outpatient Daniel_T VFP VFP [id number] [address] [place] [address] 09:31:00 09:31:00 [id number] Family Practic e 2020-10-09 2020-10-09 Salbador Junoel_T VFP [place] - [id number] 0 [facility] 00:00:00 00:00:00 [facility] [id number] [facility] - Practi c MD: [id number] VM_MARISOL_Tu e [facility] [address], [place] [address] , Ph. 2020-09-08 2020-09-08 Outpatient Daniel_T VFP VFP [id number] [address] [place] [address] 07:26:00 07:26:00 [id number] Family Practic e 2020-09-05 2020-09-05 Salbador Junoel_T VFP [place] - [id number] [facility] 00:00:00 00:00:00 [facility] [id number] [facility] - Practi c MD: [id number] VM_CLEMU_Shavaughn e Shadow ow [facility], [address], [place] [address] , Ph. 2020-08-30 2020-08-30 Outpatient Daniel_T VFP VFP [id number] [address] [place] [address] 04:05:00 04:05:00 [id number] Family Mehran e 2020-08-23 2020-08-23 Outpatient [facility] [id number] [facility] 11:22:00 11:22:00 15 2020-05-28 2020-05-28 Outpatient ROJO, [facility] [id number] [place] 00:00:00 00:00:00 ALEXANDRA [address] 2020-05-17 2020-05-17 Outpatient ROJO, [facility] 303 [id number] 409 [place] 00:00:00 00:00:00 ALEXANDRA [address] 2020-04-26 2020-04-26 Outpatient [facility] [id number] [facility] 14:10:00 14:10:00 Edmund 16 2020-04-26 2020-04-26 Outpatient [facility] [id number] [facility] 11:18:00 11:18:00 16 2020-04-19 2020-04-19 Outpatient [facility] [id number] [place] 00:00:00 00:00:[address] 2020-03-26 2020-03-26 Outpatient , [facility] [id number] 604 [place] 00:00:00 00:00:00 ALEXANDRA [address] 2020-01-24 2020-01-24 Outpatient 3 Mavis Edmund [facility] [id number] St. 10:30:00 23:59:00 [facility] 2020-01-24 2020-01-24 Outpatient 3 Mavis Edmund [facility] [id number] St. 10:30:00 10:30:00 [facility] 817 [facility] 2018-10-18 2018-10-18 [facility] [id number] Common 13:47:00 13:47:00 [facility] 2018-09-23 2018-09-23 [facility] [id number] Common 08:45:00 08:45:00 [facility] 2018-08-04 2018-08-04 [facility] [id number] Common 08:30:00 08:30:00 [facility] 2018-03-11 2018-03-11 [facility] [id number] Common 10:51:00 10:51:00 [facility] Family [facility] Results Test Description Test Time Test Comments Results Result Comments Source ECG Pre/Post Op 2022-10-31 12:13:19 Test Item Value Reference Range Interpretation Comme nts Ventricular rate (test code = 253) 85 Atrial rate (test code = 255) 85 AK interval (test code = 266) 172 QRSD interval (test code = 260) 86 QT interval (test code = 264) 386 QTC interval (test code = 265) 459 P axis 1 (test code = 267) 53 QRS axis 1 (test code = 268) 12 T wave axis (test code = 270) 64 EKG impression (test code = 273) Normal sinus rhythm-Possible Left atrial enlargement-Septal infarct (cited on or before 25-AUG-2022)-Abnormal ECG-In automated comparison with ECG of 25-AUG-2022 14:24,-Questionable change in initial forces of Anteroseptal leads- [facility] [id number] 18:48:01 Test Item Value Reference Range Interpretation Comments POC sodium (test code = 137 mmol/L 086-827 7527-0) POC potassium (test 3.6 mmol/L 3.5-5.0 code = 6298-4) POC glucose (test code 78 mg/dL 65-99 = 2339-0) POC creatinine (test 5.8 mg/dl 0.7-1.2 H Operato r Name: Axel code = 44465-9) Steph ID: [id number] POC hemoglobin (test 10.9 g/dL 14.0-18.0 L code = 718-7) POC hematocrit (test 32 % 41-51 L code = 4544-3) Lab Interpretation Abnormal (test code = 22709-5) [facility] [id number] 18:48:00 Test Item Value Reference Range Interpretation Comments Estimated GFR (test 10 mL/min/1.73 m2 A Caterg ory Units code = 39000-1) Interpretati onG1 >=90 Normal or highG 2 60-89 Mildly decrease dG3a 45-59 Mildly to moderately decr yrztxJ3i 30-44 Moderatel y to severely decrea sedG4 15-29 Severely decreasedG5 <15 Kidney failureThe eGFR was calculated katia coelho the Chronic Kidney Disease Epidemiology Collaboration ( CKD-EPI) equation. Interpretation is based on recommendati ons of the [facility]-Kidn ey Disease Outcome s Quality Initiat dimitris ([facility]-KDOQI) pub lished in 2013. Lab Interpretation Abnormal (test code = 33173-8) [facility] A[facility] measurement device [id number] 14:40:51 Test Item Value Reference Range Interpretation Comments Hemoglobin A1c/Hemoglobin.total in 5.9 % 4.0-6.4 Blood (test code = 4548-4) [facility]/volume] in Capillary [id number] 14:40:39 Test Item Value Reference Range Interpretation Comments Blood Glucose: mg/dl (test code = Blood 99 Glucose: mg/dl) [facility] Pre/Post [id number] 00:42:04 Test Item Value Reference Range Interpretation Comments Ventricular rate (test 89 code = 253) Atrial rate (test code 89 = 255) AK interval (test code 176 = 266) QRSD interval (test 100 code = 260) QT interval (test code 374 = 264) QTC interval (test code 455 = 265) P axis 1 (test code = 43 267) QRS axis 1 (test code = 27 268) T wave axis (test code 57 = 270) EKG impression (test Normal sinus code = 273) rhythm-Possible Anterior infarct , age undetermined-Abnormal ECG-In automated comparison with ECG of 30-APR-2022 13:57,-Questionable change in QRS duration-Borderline criteria for Anterior infarct are now present- [facility] [Presence] in Respiratory specimen by TU with probe [id number] 21:06:33 Test Item Value Reference Range Interpretation Comments SARS-CoV-2 (COVID-19) RNA Not detected [Presence] in Respiratory specimen by TU with probe detection (test code = 38656-2) Whether patient is employed in a Unknown healthcare setting (test code = 65463-8) Whether the patient has symptoms Unknown related to condition of interest (test code = 52795-5) Whether the patient was Unknown hospitalized for condition of interest (test code = 18877-6) Whether the patient was admitted Unknown to intensive care unit (ICU) for condition of interest (test code = 98801-3) Whether patient resides in a Unknown congregate care setting (test code = 27348-2) status (test code = Unknown 36068-7) Date and time of symptom onset Unknown (test code = 30090-2) [facility] [id number] 16:10:00 Test Item Value Reference Range Interpretation Comments POC glucose (test 79 mg/dL 65-99 Private Sector Executive N zain: Pedro code = 08658-7) EricDevice I D: [id number] able: RN Notified [facility] [id number] 16:10:00 Test Item Value Reference Range Interpretation Comments POC glucose (test 79 mg/dL 65-99 Private Sector Executive N zain: Pedro code = 75784-0) EricDevice I D: [id number] able: RN Notified [facility] [id number] 14:10:01 Test Item Value Reference Range Interpretation Comments POC sodium (test code = 140 mmol/L 641-004 5893-0) POC potassium (test 5.6 mmol/L 3.5-5.0 H code = 6298-4) POC glucose (test code 78 mg/dL 65-99 = 2339-0) POC creatinine (test 9.0 mg/dl 0.7-1.2 H Operato r Name: code = 82400-7) Paul Clemente ID : [id number] POC hemoglobin (test 12.2 g/dL 14.0-18.0 L code = 718-7) POC hematocrit (test 36 % 41-51 L code = 4544-3) Lab Interpretation Abnormal (test code = 71304-6) [facility] [id number] 14:10:00 Test Item Value Reference Range Interpretation Comments Estimated GFR (test 6 mL/min/1.73 m2 A Caterg ory Units code = 40728-3) Interpretati onG1 >=90 Normal or highG 2 60-89 Mildly decrease dG3a 45-59 Mildly to moderately decr tfpgkJ9q 30-44 Moderatel y to severely decrea sedG4 15-29 Severely decreasedG5 <15 Kidney failureThe eGFR was calculated katia coelho the Chronic Kidney Disease Epidemiology Collaboration ( CKD-EPI) equation. Interpretation is based on recommendati ons of the [facility]-Kidn ey Disease Outcome s Quality Initiat dimitris ([facility]-KDOQI) pub [facility] in 2013. Lab Interpretation Abnormal (test code = 38673-6) [facility] RNA [Presence] in Respiratory specimen by TU with probe [id number] 22:17:29 Test Item Value Reference Range Interpretation Comments SARS-CoV-2 (COVID-19) RNA Not detected [Presence] in Respiratory specimen by TU with probe detection (test code = 57528-5) Whether patient is employed in a Unknown healthcare setting (test code = 50690-1) Whether the patient has symptoms Unknown related to condition of interest (test code = 80201-1) Whether the patient was Unknown hospitalized for condition of interest (test code = 11652-1) Whether the patient was admitted Unknown to intensive care unit (ICU) for condition of interest (test code = 86053-5) Whether patient resides in a Unknown congregate care setting (test code = 35693-0) status (test code = Unknown 04151-8) Date and time of symptom onset Unknown (test code = 97734-5) [facility] A1c measurement device panel 2022-04-21 14:32:46 Test Item Value Reference Range Interpretation Comments Hemoglobin A1c/Hemoglobin.total in 6.0 % 5.7-6.4 Blood (test code = 4548-4) [facility] HospitalGlucose [Mass/volume] in Capillary [id number] 14:31:51 Test Item Value Reference Range Interpretation Comments Blood Glucose: mg/dl (test code = Blood 148 Glucose: mg/dl) [facility] RNA [Presence] in Respiratory specimen by TU with probe [id number] 23:26:26 Test Item Value Reference Range Interpretation Comments SARS-CoV-2 (COVID-19) RNA Not detected [Presence] in Respiratory specimen by TU with probe detection (test code = 68195-4) Whether patient is employed in a Unknown healthcare setting (test code = 33683-9) Whether the patient has symptoms Unknown related to condition of interest (test code = 44048-5) Whether the patient was Unknown hospitalized for condition of interest (test code = 63202-1) Whether the patient was admitted Unknown to intensive care unit (ICU) for condition of interest (test code = 66134-9) Whether patient resides in a Unknown congregate care setting (test code = 23391-3) status (test code = Unknown 57306-7) Date and time of symptom onset Unknown (test code = 20161-3) [facility]-CoV-2 (COVID-19) RNA [Presence] in Respiratory specimen by TU with probe [id number] 00:19:06 Test Item Value Reference Range Interpretation Comments SARS-CoV-2 (COVID-19) RNA Not detected [Presence] in Respiratory specimen by TU with probe detection (test code = 26028-0) Whether patient is employed in a Unknown healthcare setting (test code = 61326-1) Whether the patient has symptoms Unknown related to condition of interest (test code = 50069-9) Whether the patient was Unknown hospitalized for condition of interest (test code = 37169-5) Whether the patient was admitted Unknown to intensive care unit (ICU) for condition of interest (test code = 50453-3) Whether patient resides in a Unknown congregate care setting (test code = 21985-1) status (test code = Unknown 59873-7) Date and time of symptom onset Unknown (test code = 65498-9) [facility]-CoV-2 (COVID-19) RNA [Presence] in Respiratory specimen by TU with probe [id number] 23:23:48 Test Item Value Reference Range Interpretation Comments SARS-CoV-2 (COVID-19) RNA Not detected [Presence] in Respiratory specimen by TU with probe detection (test code = 45536-8) Whether patient is employed in a Unknown healthcare setting (test code = 47078-6) Whether the patient has symptoms Unknown related to condition of interest (test code = 10725-1) Whether the patient was Unknown hospitalized for condition of interest (test code = 26433-2) Whether the patient was admitted Unknown to intensive care unit (ICU) for condition of interest (test code = 02820-3) Whether patient resides in a Unknown congregate care setting (test code = 00173-6) status (test code = Unknown 85042-2) Date and time of symptom onset Unknown (test code = 95821-1) [facility]ENTERHepatitis B surface [id number] 17:11:26 Test Item Value Reference Range Interpretation Comments Hep B S Ab (test code 1140.4 See_Comment H [Auto mated = 82989-4) message] The system which generated this result transmitted reference range : <8.0 mIU/mL. Th e reference range was not used to interpret this result as normal/abnormal . TRIYN (test code = TRINY) Private Sector Executive ID - RMOperator ID - RMOperator ID - RMOperator ID - RMOperator ID - RMOperator ID - RM Lab Interpretation Abnormal (test code = 05770-2) [facility] [id number] 17:11:26 Test Item Value Reference Range Interpretation Comments HEPATITIS B SURFACE ANTIBODY 1140.4 mIU/mL <8.0 H (BEAKER) (test code = 647) Private Sector Executive ID - RMOperator ID - RMOperator ID - RMOperator ID - RMOperator ID - RMOperator ID - RMHepatitis B core antibody, [id number] 16:31:12 Test Item Value Reference Range Interpretation Comments Hep B Core Total Ab (test Reactive Nonreactive A code = 44736-2) TRINY (test code = TRINY) Private Sector Executive ID - RMOperator ID - RMOperator ID - RM Lab Interpretation (test Abnormal code = 28811-9) [facility] CORE ANTIBODY, [id number] 16:31:12 Test Item Value Reference Range Interpretation Comments HEPATITIS B CORE TOTAL ANTIBODY Reactive Nonreactive A (BEAKER) (test code = 497) Private Sector Executive ID - RMOperator ID - RMOperator ID - RMHepatitis B surface antigen 2021-11-04 15:04:06 Test Item Value Reference Range Interpretation Comments Hepatitis B surface Nonreactive Nonreactive antigen (test code = 5195-3) TRINY (test code = TRINY) Specimen is considered negative for HBsAg. Lab Interpretation (test Normal code = 88999-4) [facility] SURFACE [id number] 15:04:06 Test Item Value Reference Range Interpretation Comments HEPATITIS B SURFACE ANTIGEN (2) Nonreactive Nonreactive (BEAKER) (test code = 2585) Specimen is considered negative for HBsAg.HEPATITIS B SURFACE [id number] 21:39:47 Test Item Value Reference Range Interpretation Comments HEPATITIS B SURFACE ANTIBODY 1187.5 mIU/mL <8.0 H (BEAKER) (test code = 647) Private Sector Executive ID - BSOperator ID - BSHEPATITIS B CORE ANTIBODY, [id number] 21:39:42 Test Item Value Reference Range Interpretation Comments HEPATITIS B CORE TOTAL ANTIBODY Reactive Nonreactive A (BEAKER) (test code = 497) Private Sector Executive ID - BSOperator ID - BSOperator ID - BSHEPATITIS B SURFACE ANTIGEN 2021-11-01 20:57:29 Test Item Value Reference Range Interpretation Comments HEPATITIS B SURFACE ANTIGEN (2) Nonreactive Nonreactive (BEAKER) (test code = 2585) Specimen is considered negative for HBsAg.Hemoglobin A1c measurement device [id number] 13:22:43 Test Item Value Reference Range Interpretation Comments Hemoglobin A1C Fingerstick: (test code 5.4 = Hemoglobin A1C Fingerstick:) [facility] HospitalGlucose [Mass/volume] in Capillary [id number] 13:19:40 Test Item Value Reference Range Interpretation Comments Blood Glucose: mg/dl (test code = Blood 100 Glucose: mg/dl) [facility] HospitalHemoglobin A1c measurement device [id number] 10:24:11 Test Item Value Reference Range Interpretation Comments Hemoglobin A1C Fingerstick: (test code 6.4 = Hemoglobin A1C Fingerstick:) [facility] HospitalGlucose [Mass/volume] in Capillary [id number] 10:23:38 Test Item Value Reference Range Interpretation Comments Blood Glucose: mg/dl (test code = Blood 180 Glucose: mg/dl) [facility] HospitalPO [id number] 12:53:31 Test Item Value Reference Range Interpretation Comments POC glucose (test code 112 mg/dL 65-99 H Opera tor Name: = 15373-6Elsa Quick Device ID: [id number] able: TMH Notified strategic alliances manager Interpretation Abnormal (test code = 45837-6) [facility] [id number] 12:53:31 Test Item Value Reference Range Interpretation Comments POC glucose (test code 112 mg/dL 65-99 H Opera tor Name: = 22128-4) Dilan Quick Device ID: [id number] able: TMH Notified strategic alliances manager Interpretation Abnormal (test code = 99495-6) [facility] [id number] 12:49:00 Test Item Value Reference Range Interpretation Comments Glucose Fingerstick 284 mg/dL 70-115 CAMPGROUND CARETAKER LULY (test code = WGLUC) Dwayne singleton RN or Glucose [id number] 14:16:00 Test Item Value Reference Range Interpretation Comments Glucose Fingerstick 143 mg/dL 70-115 CAMPGROUND CARETAKER Eryn (test code = WGLUC) POC [id number] 11:58:15 Test Item Value Reference Range Interpretation Comments Glucose POC (test 121 mg/dL 70-115 H If you con sheet music salesperson your code = Glucose POC) patient critically ill, the Marshal-Accu Check Infrom II meter should not be used for Glucose determination. Draw a venous Glucose and send to the main Lab for analysis. AFB CULTURE + [id number] 17:59:00 Test Item Value Reference Range Interpretation Comments CULTURE (BEAKER) (test No acid-fast bacilli code = 1095) isolated in 42 days AFB SMEAR (BEAKER) No acid fast bacilli (test code = 994) seen AFB CULTURE + [id number] 17:58:00 Test Item Value Reference Range Interpretation Comments CULTURE (BEAKER) (test No acid-fast bacilli code = 1095) isolated in 42 days AFB SMEAR (BEAKER) No acid fast bacilli (test code = 994) seen AFB CULTURE + [id number] 17:58:00 Test Item Value Reference Range Interpretation Comments CULTURE (BEAKER) (test No acid-fast bacilli code = 1095) isolated in 42 days AFB SMEAR (BEAKER) No acid fast bacilli (test code = 994) seen
[2023-02-16 07:59] LABS: Absolute Lymphocytes (CBC) 0.9 K/uL (0.7-4.9); Hematocrit 26.4 % (39.6-49.0); Lymphocytes % 24.1 % (15.3-44.8); MCV 81.9 fL (80-100); MPV 7.6 fL (7.6-11.3); Platelets 106 thou/uL (152-406); RBC Red Blood Cell Count 3.22 M/uL (4.33-5.43)
[2023-02-16 08:02] LABS: Protime INR 1.44
--- NOTE | 2023-02-16 08:13 | RAD REPORT ---
EXAM DESCRIPTION: RAD - Chest Single View - 02/16/2023 7:59 am CLINICAL HISTORY: FEVER COMPARISON: Chest Single View dated 01/06/2022; Chest Single View dated 11/22/2021; Chest Single View d ated 11/21/2021; Chest Single View dated 11/19/2021; Fluoroscopy <1 Hour dated 11/22/2021 FINDINGS: Lines: None. Lungs: Increased prominence of the pulmonary vasculature. Pleural: No significant pleural effusions or pneumothorax. Cardiac: Cardiomegaly. Mediastinum: Within normal limits. Bones: No acute fractures. Other: None IMPRESSION: Findings most consistent with vascular congestion. No alveolar edema. No consolidative p neumonia.
[2023-02-16] MEDS ORDERED: ACETAMINOPHEN 500 MG TAB ONE (08:20)
[2023-02-16 08:28] LABS: Albumin 3.2 g/dL (3.4-5.0); Bilirubin Total 0.8 mg/dL (0.2-1.0); Potassium 4.3 mEq/L (3.5-5.1); Protein, Total 7.2 g/dL (6.4-8.2)
--- NOTE | 2023-02-16 11:06 | ER ---
Nurse's Notes [facility] Name: Chalo Harry Age: 57 yrs Sex: Male : 1965 Arrival Date: 02/16/2023 Time: 06:48 Bed 16 Private MD: Diagnosis: SARS-associated coronavirus as the cause of diseases classified elsewhere;Fever, unspecified;End stage renal disease Presentation: 02/16 07:01 Chief complaint: Patient states: "on Thursday I lost hearing to my right ear". Pt reports aa5 body aches, fatigue that began yesterday. Pt states "I was going to dialysis today and they wouldn't let me in because I am sick". 07:01 Coronavirus screen: fever. Ebola Screen: Patient denies travel to an Ebola-affected [facility] area in the 21 days before illness onset. Initial Sepsis Screen: Does the patient meet any 2 criteria? Temp <36.0*C (96.8*F)) or > 38.3*C (100.9*F). HR > 90 bpm. Yes Does the patient have a suspected source of infection? No. Patient's initial sepsis screen is negative. Risk Assessment: Do you want to hurt yourself or someone else? Patient reports no desire to harm self or others. Onset of symptoms was February 2023. 07:01 Acuity: KESHA 3 aa5 07:01 Method Of Arrival: Ambulatory aa5 Historical: - Allergies: 07:05 No Known Allergies; aa5 - PMHx: 07:01 AIDS; allergies; Diabetes - NIDDM; Dialysis; M W F; High Cholesterol; Hypertension; aa5 - PSHx: 07:01 R chest dialysis access; aa5 - Immunization history:: Adult Immunizations unknown. - Social history:: Smoking status: Patient denies any tobacco usage or history of. Screenin:21 [facility] ED Fall Risk Assessment (Adult) History of falling in the last 3 months, db including since admission No falls in past 3 months (0 pts) Confusion or Disorientation No (0 pts) Intoxicated or Sedated No (0 pts) Impaired Gait No (0 pts) Mobility Assist Device Used No (0 pt) Altered Elimination No (0 pt) Score/Fall Risk Level 0 - 2 = Low Risk Oriented to surroundings, Maintained a safe environment. Abuse screen: Denies threats or abuse. Denies injuries from another. Nutritional screening: No deficits noted. Tuberculosis screening: No symptoms or risk factors identified. Assessment: 07:18 Reassessment: Patient appears in no apparent distress at this time. Patient and/or db family updated on plan of care and expected duration. Pain level reassessed. Patient is alert, oriented x 3, equal unlabored respirations, skin warm/dry/pink. ear congestion started Riaz, fever started yesterday. General: Appears in no apparent distress. comfortable, Behavior is calm, cooperative. Pain: Complains of pain in right ear. Neuro: Level of Consciousness is awake, alert, obeys commands, Oriented to person, place, time, situation. Respiratory: Airway is patent Respiratory effort is even, unlabored, Respiratory pattern is regular, symmetrical. 07:20 Reassessment: CODE SEPSIS CALLED FOR PT. db 08:33 Reassessment: Patient appears in no apparent distress at this time. Patient and/or db family updated on plan of care and expected duration. Pain level reassessed. Patient is alert, oriented x 3, equal unlabored respirations, skin warm/dry/pink. General: Appears in no apparent distress. comfortable, Behavior is calm, cooperative. 08:54 Reassessment: Patient appears in no apparent distress at this time. Patient and/or db family updated on plan of care and expected duration. Pain level reassessed. Patient is alert, oriented x 3, equal unlabored respirations, skin warm/dry/pink. 10:08 Reassessment: Patient appears in no apparent distress at this time. Patient and/or db family updated on plan of care and expected duration. Pain level reassessed. Patient is alert, oriented x 3, equal unlabored respirations, skin warm/dry/pink. General: Appears in no apparent distress. comfortable, Behavior is calm, cooperative. 10:30 Reassessment: Patient appears in no apparent distress at this time. Patient and/or db family updated on plan of care and expected duration. Pain level reassessed. Patient is alert, oriented x 3, equal unlabored respirations, skin warm/dry/pink. 12:30 Reassessment: Patient appears in no apparent distress at this time. Patient and/or db family updated on plan of care and expected duration. Pain level reassessed. SLEEPING. 13:42 Reassessment: CALLED NURSE TO GIVE REPORT. NURSE STATES IS NOT READY AND WILL CALL BACK.db 14:00 Reassessment: REPORT CALLED TO ZORAIDA GONZALES ON 4TH FLOOR PT TO 412. db Vital Signs: 07:01 BP 143 / 85; Pulse 110; Resp 24 S; Temp 102.8(O); Pulse Ox 95% on R/A; Weight 99.79 kg aa5 (R); Height 5 ft. 9 in. (R); 07:15 BP 146 / 90; Pulse 104; Resp 20; Pulse Ox 96% on R/A; db 08:00 BP 134 / 87; Pulse 95; Resp 16; Pulse Ox 95% on R/A; db 08:30 BP 121 / 74; Pulse 98; Resp 16; Pulse Ox 95% on R/A; db 09:00 BP 115 / 71; Pulse 98; Resp 16; Pulse Ox 95% on R/A; db 10:00 BP 126 / 78; Pulse 95; Resp 16; Temp 99.8(O); Pulse Ox 100% on R/A; db 10:30 BP 140 / 89; Pulse 94; Resp 16; Pulse Ox 100% on R/A; db 11:00 BP 143 / 91; Pulse 94; Resp 16; Pulse Ox 100% ; db 12:00 BP 151 / 99; Pulse 94; Resp 16; Pulse Ox 99% on R/A; db 13:23 BP 150 / 89; Pulse 101; Temp 100.5; Pulse Ox 99% ; db 07:01 Body Mass Index 32.49 (99.79 kg, 175.26 cm) aa5 Vitals: 10:30 Cardiac Rhythm Assessment Regular Sinus rhythm. db ED Course: 06:51 Patient arrived in ED. mr 07:01 Ananth Farnsworth DO is Attending Physician. ms3 07:01 Arm band placed on. aa5 07:04 Triage completed. aa5 07:08 Yamel Ballard, RN is Primary Nurse. db 07:10 Primary Nurse role handed off by Yamel Ballard, ZORAIDA bd 07:21 Patient has correct armband on for positive identification. Bed in low position. Call db light in reach. Side rails up X 1. Client placed on continuous cardiac and pulse oximetry monitoring. NIBP monitoring applied. Pillow given. 07:30 First set of blood cultures drawn by me. db 07:30 Missed attempt(s): 20 gauge in right forearm. db 07:45 Initial lab(s) drawn, by me, sent to lab. Second set of blood cultures drawn by me. db Inserted saline lock: 22 gauge in right forearm, using aseptic technique. Blood collected. 07:51 Yamel Ballard, RN is Primary Nurse. db 08:01 Chest Single View XRAY In Process Unspecified. EDMS 11:04 Chalo Knutson is Hospitalizing Provider. ms3 14:11 Provided Education on: ADMISSION. db 14:11 No provider procedures requiring assistance completed. Patient admitted, IV remains in db place. Administered Medications: 08:11 Drug: Acetaminophen PO 1000 mg Route: PO; db 14:12 Follow up: Response: No adverse reaction db Medication: 14:11 VIS not applicable for this client. db Outcome: 11:05 Decision to Hospitalize by Provider. ms3 14:11 Admitted to ER Hold. Please see Physihome for further documentation. db 14:11 Admitted to Med/surg accompanied by nurse, room 412. 14:11 Condition: stable 14:11 Discharge instructions given to patient, Instructed on discharge instructions. 14:26 Patient left the ED. db Signatures: Dispatcher [employer] EDMS Leticia Herman Mary mr Lula Hussein, RN RN aa5 Ananth Farnsworth DO DO ms3 Yamel Ballard, RN RN db Corrections: (The following items were deleted from the chart) 07:05 07:01 Initial Sepsis Screen: Does the patient meet any 2 criteria? Temp <36.0*C aa5 (96.8*F)) or > 38.3*C (100.9*F). Does the patient have a suspected source of infection? No. Patient's initial sepsis screen is negative. aa5 07:06 07:01 Pulse 110bpm; Resp 24bpm; Spontaneous; Pulse Ox 95% RA; Temp 102.8F Oral; 99.79 aa5 kg Reported; Height 5 ft. 9 in. Reported; BMI: 32.4; aa5
--- NOTE | 2023-02-16 11:06 | EDPHYS ---
Physician Documentation [facility] Name: Chalo Harry Age: 57 yrs Sex: Male : 1965 Arrival Date: 02/16/2023 Time: 06:48 Bed 16 Private MD: ED Physician Ananth Farnsworth HPI: 02/16 07:55 This 57 yrs old Male presents to ER via Ambulatory with complaints of Fever, ms3 Hearing loss. 07:55 57-year-old male with past medical history of HIV,, diabetes, end-stage renal disease, ms3 hypertension, hyperlipidemia presents for decreased hearing in his right ear that began Thursday. Patient states 2 PM yesterday he developed a fever. Patient denies nausea, vomiting, abdominal pain. Patient endorses body aches.. Historical: - Allergies: 07:05 No Known Allergies; aa5 - PMHx: 07:01 AIDS; allergies; Diabetes - NIDDM; Dialysis; M W F; High Cholesterol; Hypertension; aa5 - PSHx: 07:01 R chest dialysis access; aa5 - Immunization history:: Adult Immunizations unknown. - Social history:: Smoking status: Patient denies any tobacco usage or history of. ROS: 07:55 Neck: Negative for injury, pain, and swelling, Cardiovascular: Negative for chest pain, ms3 and palpitations. Respiratory: Negative for shortness of breath, cough, wheezing, and pleuritic chest pain, Abdomen/GI: Negative for abdominal pain, nausea, vomiting, diarrhea, and constipation, MS/Extremity: Negative for injury and deformity. 07:55 Skin: Negative for injury, rash, and discoloration. 07:55 Constitutional: Positive for body aches, chills, fever. 07:55 ENT: Positive for hearing loss. 07:55 All other systems are negative. Exam: 07:55 Constitutional: This is a well developed, well nourished patient who is awake, alert, ms3 and in no acute distress. Head/Face: Normocephalic, atraumatic. Neck: Trachea midline, no cervical lymphadenopathy. Supple, full range of motion without nuchal rigidity, or vertebral point tenderness. No Meningismus. Chest/axilla: Normal chest wall appearance and motion. Nontender with no deformity. Cardiovascular: Regular rate and rhythm with a normal S1 and S2. No gallops, murmurs, or rubs. Normal PMI, no JVD. No pulse deficits. 07:55 ENT: TM's: fluid levels, on the right, Blood visualized on TM. No active bleeding. 08:46 ECG was reviewed by the Attending Physician. ms3 Vital Signs: 07:01 BP 143 / 85; Pulse 110; Resp 24 S; Temp 102.8(O); Pulse Ox 95% on R/A; Weight 99.79 kg aa5 (R); Height 5 ft. 9 in. (R); 07:15 BP 146 / 90; Pulse 104; Resp 20; Pulse Ox 96% on R/A; db 08:00 BP 134 / 87; Pulse 95; Resp 16; Pulse Ox 95% on R/A; db 08:30 BP 121 / 74; Pulse 98; Resp 16; Pulse Ox 95% on R/A; db 09:00 BP 115 / 71; Pulse 98; Resp 16; Pulse Ox 95% on R/A; db 10:00 BP 126 / 78; Pulse 95; Resp 16; Temp 99.8(O); Pulse Ox 100% on R/A; db 10:30 BP 140 / 89; Pulse 94; Resp 16; Pulse Ox 100% on R/A; db 11:00 BP 143 / 91; Pulse 94; Resp 16; Pulse Ox 100% ; db 12:00 BP 151 / 99; Pulse 94; Resp 16; Pulse Ox 99% on R/A; db 13:23 BP 150 / 89; Pulse 101; Temp 100.5; Pulse Ox 99% ; db 07:01 Body Mass Index 32.49 (99.79 kg, 175.26 cm) aa5 MDM: 07:21 Patient medically screened. ms3 08:00 Differential diagnosis: viral Infection, bacterial infection, URI, pneumonia UTI. ms3 11:05 Data reviewed: vital signs, nurses notes, and as a result, I will admit patient. ms3 Consideration of Admission/Observation Patient was admitted/placed on observation. Management of patient was discussed with the following: Hospitalist: YANDEL Guadarrama, on behalf of Dr Knutson. Cullet Trucker: Discussed case with Dr Gutierres and he would like the patient placed in observation. I considered the following discharge prescriptions or medication management in the emergency department Medications were administered in the Emergency Department. See MAR. Independent interpretation of the following test(s) in the Emergency Department X-Ray: My interpretation is CXR images reviewed by me negative.. 02/16 07:22 Order name: Blood Culture Adult (2) ms3 02/16 07:22 Order name: CBC with Diff; Complete Time: 08:16 ms3 02/16 07:22 Order name: CMP; Complete Time: 08:44 ms3 02/16 07:22 Order name: Lactate w/ 2H reflex if indic.; Complete Time: 08:44 ms3 02/16 07:22 Order name: Protime (+inr); Complete Time: 08:16 ms3 02/16 07:22 Order name: Ptt, Activated; Complete Time: 08:16 ms3 02/16 07:22 Order name: Urinalysis w/ reflexes ms3 02/16 07:22 Order name: Flu; Complete Time: 09:13 ms3 02/16 07:22 Order name: COVID-19 SARS RT PCR; Complete Time: 10:58 ms3 02/16 13:02 Order name: Magnesium EDMS 02/16 13:02 Order name: Phosphorus EDMS 02/16 13:02 Order name: Urinalysis w/ reflexes EDMS 02/16 13:02 Order name: Basic Metabolic Panel EDMS 02/16 13:02 Order name: Basic Metabolic Panel EDMS 02/16 13:02 Order name: CBC with Automated Diff EDMS 02/16 13:02 Order name: CBC with Automated Diff EDMS 02/16 13:02 Order name: Lipid Profile EDMS 02/16 13:02 Order name: Lipid Profile EDMS 02/16 13:04 Order name: Hemoglobin A1c EDMS 02/16 07:22 Order name: Chest Single View XRAY; Complete Time: 08:16 ms3 02/16 07:22 Order name: EKG; Complete Time: 07:23 ms3 02/16 13:02 Order name: CONS Physician Consult EDMS 02/16 13:02 Order name: Renal EDMS 02/16 07:22 Order name: Accucheck; Complete Time: 08:32 ms3 02/16 07:22 Order name: Cardiac monitoring; Complete Time: 08:32 ms3 02/16 07:22 Order name: EKG - Nurse/Tech; Complete Time: 08:32 ms3 02/16 07:22 Order name: IV Saline Lock - Large Bore; Complete Time: 08:32 ms3 02/16 07:22 Order name: Labs collected and sent; Complete Time: 08:32 ms3 02/16 07:22 Order name: O2 Per Protocol; Complete Time: 08:32 ms3 02/16 07:22 Order name: O2 Sat Monitoring; Complete Time: 08:32 ms3 02/16 07:22 Order name: Vital Signs; Complete Time: 08:32 ms3 02/16 10:05 Order name: Vital Signs; Complete Time: 10:09 ms3 EC:46 Rate is 100 beats/min. Rhythm is regular. QRS [place] is Normal. IN interval is normal. ms3 QRS interval is normal. QT interval is normal. Clinical impression: Sinus tachycardia. Interpreted by me. Reviewed by me. Administered Medications: 08:11 Drug: Acetaminophen PO 1000 mg Route: PO; db 14:12 Follow up: Response: No adverse reaction db Disposition Summary: 02/16/23 11:05 Hospitalization Ordered Hospitalization Status: Observation ms3 Provider: Chalo Knutson ms3 Location: Telemetry/MedSurg (observation) ms3 Condition: Stable ms3 Problem: new ms3 Symptoms: are unchanged ms3 Bed/Room Type: Standard ms3 Room Assignment: 412(02/16/23 13:30) bd Diagnosis - SARS-associated coronavirus as the cause of diseases classified elsewhere ms3 - Fever, unspecified ms3 - End stage renal disease ms3 Forms: - Medication Reconciliation Form ms3 - SBAR form ms3 - Leadership Thank You Letter ms3 Signatures: Dispatcher [employer] EDLeticia Parr Audri, RN RN aa5 Ananth Farnsworth DO DO ms3 Yamel Ballard RN RN db Corrections: (The following items were deleted from the chart) 13:30 11:05 ms3 bd
[2023-02-16] MEDS ORDERED: HYDROCODONE/APAP 5/325 MG TAB PO PRN (12:53)
[2023-02-16] MEDS ORDERED: ONDANSETRON 4 MG/2 ML VIAL IV PRN (12:59)
--- NOTE | 2023-02-16 13:04 | P.HP ---
Certification for Inpatient Patient admitted to: Inpatient With expected LOS: >2 Midnights Patient will require the following post-hospital care: None Practitioner: I am a practitioner with admitting privileges, knowledge of patient current condition, hospital course, and medical plan of care. Services: Services provided to patient in accordance with Admission requirements found in Title 42 Section 412.3 of the Code of Federal Regulations Patient History Date of Service: 02/16/23 Reason for admission: Fever History of Present Illness: Patient is a 57-year-old male with a past medical history significant for DM 2, ESRD hyperlipidemia, hypertension, HIV who presents with complaint of fever and decreased hearing on the right ear. Patient reported that he has been having tinnitus in the ears for the past couple of years and patient follows up with an outpatient ENT MD. Patient reported that 2 days ago he started having decreased hearing in the right ear. Patient reported associated signs and symptoms of chills, loss of appetite and bilateral lower extremity swelling. Patient reported that he was started on a new HIV medication last week. Patient denies any other signs and symptoms. Symptoms are aggravated or relieved by nothing. Patient decided to present to the hospital for medical evaluation. Allergies No Known Allergies Allergy (Verified 12/03/22 07:33) Home Medications: Montelukast Sodium 10 mg PO DAILY 10/31/21 Darunavir/Cobicistat [Prezcobix 800 mg-150 mg Tablet] 1 each PO DAILY 11/15/21 Dolutegravir Sodium [Tivicay] 50 mg PO DAILY 11/15/21 Atorvastatin Calcium 40 mg PO DAILY 12/01/22 Dulaglutide [Trulicity] 0.75 mg SQ SEECOM 12/01/22 Furosemide [Lasix] 40 mg PO DAILY 12/01/22 Gabapentin 300 mg PO TID 12/01/22 - Past Medical/Surgical History Diabetic: Yes -: HTN -: HIV -: Diabetes type 2insulin-dependent -: ESRD -: Domenic. 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 Psychosocial/ Personal History: Patient lives at home with family - Family History Father -: Diabetes, Cancer Notes: colon cancer Mother -: Lung disease, Diabetes Notes: COPD Sister -: Diabetes - Social History Smoking Status: Never smoker Alcohol use: No CD- Drugs: No Caffeine use: No Place of Residence: Home Review of Systems General: Chills, Other (Loss of appetite.) Eyes: Unremarkable ENT: Other (Right hearing impairment) Respiratory: As per HPI Cardiovascular: Unremarkable Gastrointestinal: Unremarkable Genitourinary: Unremarkable Musculoskeletal: Other (BLE swelling ) Integumentary: Unremarkable Neurological: Unremarkable Lymphatics: Unremarkable Physical Examination - Physical Exam General: Alert, In no apparent distress, Oriented x3, Cooperative HEENT: Atraumatic, PERRLA, Mucous membr. moist/pink, EOMI, Sclerae nonicteric Neck: Supple, 2+ carotid pulse no bruit, No LAD, Without JVD or thyroid abnormality Respiratory: Diminished Cardiovascular: Regular rate/rhythm, Normal S1 S2 Capillary refill: <2 Seconds Gastrointestinal: Normal bowel sounds, Soft and benign, No tenderness Musculoskeletal: No tenderness, Other (BLE swelling ) Integumentary: No rashes, No significant lesion, No tenderness/swelling Neurological: Normal speech, Normal tone, Normal affect Lymphatics: No axilla or inguinal lymphadenopathy - Studies Laboratory Data (last 24 hrs) 02/16/23 02/16/23 02/16/23 07:45 07:45 07:45 WBC 3.70 L Hgb 8.7 L Hct 26.4 L Plt Count 106 L PT 15.8 H INR 1.44 APTT 38.9 H Sodium 136 Potassium 4.3 BUN 76 H Creatinine 10.40 H Glucose 117 H Total Bilirubin 0.8 AST 26 ALT 25 Alkaline Phosphatase 74 Microbiology Data (last 24 hrs): 02/16/23 08:20 Nasopharnyx Influenza Type A Antigen Screen - Final 02/16/23 08:20 Nasopharnyx Influenza Type B Antigen Screen - Final Assessment and Plan - Plan --COVID-19 infection. Chest x-ray indicates Findings most consistent with vascular congestion. No alveolar edema. No consolidative pneumonia. infectious disease MD consulted. Further management per infectious disease MD. --Right ear hearing impairment. Patient reports longstanding tinnitus. Patient follows up with an outpatient ENT MD. Continue supportive care. --DM2 With neuropathy. BS monitoring with sliding scale insulin. Continue gabapentin for his neuropathy. --ESRD. Nephrology consulted. We will await further recommendations. --Hyperlipidemia. Continue statin. --HIV. Continue home medications. --Hypertension. Poorly controlled. Continue medications and labetalol as needed. --Anemia of chronic disease. H&H stable. We will continue to monitor hemoglobin and transfuse if less than 7.0. --DVT prophylaxis with heparin subQ Discharge Plan: Home Plan to discharge in: Greater than 2 days - Advance Directives Does patient have a Living Will: No Does patient have a Durable POA for Healthcare: No - Code Status/Comfort Care Code Status Assessed: Yes Comfort Measures: Palliative Care Critical Care: No
[2023-02-16] MEDS: ACETAMINOPHEN 325 MG TABLET PO PRN ×2 (13:49→21:20)
[2023-02-16] MEDS ORDERED: ACETAMINOPHEN 325 MG TABLET ONE (14:00)
[2023-02-16 14:06] VITALS: BMI 32.5
[2023-02-16 14:34] LABS: Phosphorus 5.2 mg/dL (2.5-4.9)
[2023-02-16 14:35] LABS: Magnesium 2.6 mg/dL (1.6-2.4)
[2023-02-16] MEDS: INSULIN -REGULAR HUMAN 50 UNIT/0.5 ML ML SQ SCH ×2 (16:30→21:00)
[2023-02-16] MEDS ORDERED: LABETALOL 20 MG/4ML SYRINGE IV PRN (17:45)
[2023-02-16 18:43] LABS: Specific Gravity 1.014 (1.005-1.030); Urine Bacteria None Seen /HPF (<20); Urine Bilirubin NEGATIVE (Negative); Urine Blood 2+ (Negative); Urine Clarity Clear (Clear); Urine Color Light-Yellow (Yellow); Urine Glucose 2+ (Negative); Urine Mucus Slight /HPF (None Seen); Urine Protein 3+ (Negative); Urine Urobilinogen Normal (Normal); Urine pH 6.5 (5.0-7.0)
[2023-02-16] MEDS: HEPARIN 5000 UNIT/ML 1 ML VIAL SQ SCH (21:20)
--- NOTE | 2023-02-17 03:16 | CON ---
Date of Consultation: 02/16/2023 Chief Complaint: Fever. History: The patient is a 57-year-old man with past medical history significant for diabetic kidney disease and end-stage renal disease, on hemodialysis Thursday, Thursday, and Thursday. He has history o f hyperlipidemia, hypertension, and HIV. He presented to the D[facility] Center. Although due to high- grade fever, he was referred to emergency room and COVID test was done and it was positive. The lavonne ent is admitted for cough, weak, and pneumonia. Chest x-ray showed some interstitial markings and va scular congestion. The patient was complaining of some tinnitus in the ear over couple years. It is chronic. Followup was done with ENT physician previously for tinnitus. The patient developed decre ased hearing over the last 2 days in the right the ear. The patient was evaluated by ER physician fo r tinnitus and some hearing impairment. Review of Systems: General: Denies chest pain or palpitations Eyes: Denies vision changes. Ears, Nose, mouth, and Throat: Complains of tinnitus and decreased hearing. Respiratory: Has some shortness of breath with activities, although at rest he denies shortness of b reath. No hemoptysis. No cough. GI: Denies nausea or vomiting. : Denies dysuria or hematuria. All other systems reviewed and all are negative. Past Medical History: Diabetes mellitus, hypertension, HIV, end-stage renal disease, renal osteodyst rophy, anemia, CKD, obesity, amputation of the left foot 4 digit, and bilateral eyes surgeries. Family History: Father, diabetes mellitus and cancer. His father had colon cancer. Mother had lung disease and diabetes. Mother had COPD. Sister has diabetes. Physical Examination: General: The patient is awake, alert, follows commands. Eyes: Anicteric sclerae. EOMI. Ears, Nose, Mouth, and Throat: Oral mucosa moist. No pallor. Neck: Supple. No bruits. Lungs: Few crackles at bases. Heart: S1 and S2. No pericardial friction rub. Abdomen: Soft and benign. Extremities: Minimal edema. Lab Work: Hemoglobin 8.7. WBC is pending. Platelet count is 105. Sodium 136, potassium 4.3, BUN 7 6, creatinine 10.4, glucose 117, total bilirubin 0.8, AST 26, ALT 25, AP 74. Impression And Plan: 1.COVID infection. Chest x-ray showed increased vascular congestion most findings consistent with v ascular congestion and there is no alveolar pulmonary edema, no consolidation. The patient will have dialysis as soon as possible. Continue dialysis 3 times per week. Monitor fluid balance and advanc e ultrafiltration for volume control. 2.Diabetes mellitus with neuropathy. Monitor blood glucose. Continue insulin sliding scale. Darshana nue gabapentin for peripheral neuropathy. 3.Hyperlipidemia. Continue statin. 4.Human immunodeficiency virus. Medication per Primary Team. 5.Hypertension, poorly controlled. Advance blood pressure medication. The patient is on labetalol as needed. EB/MODL Voice ID: [id number] Report ID: [id number]
[2023-02-17] MEDS: ACETAMINOPHEN 325 MG TABLET PO PRN ×2 (04:38→18:24)
[2023-02-17 05:21] LABS: Absolute Lymphocytes (CBC) 2.4 K/uL (0.7-4.9); Hematocrit 28.4 % (39.6-49.0); Lymphocytes % 45.9 % (15.3-44.8); MCV 82.1 fL (80-100); MPV 7.8 fL (7.6-11.3); Platelets 79 thou/uL (152-406); RBC Red Blood Cell Count 3.46 M/uL (4.33-5.43)
[2023-02-17 05:46] LABS: Potassium 5.2 mEq/L (3.5-5.1)
[2023-02-17 06:26] LABS: Blood Morphology Comment NOT SEEN (NOT SEEN); Platelet Estimate ADEQ
--- NOTE | 2023-02-17 07:20 | P.PN ---
Date of Service: 02/17/23 Subjective: Breathing okay on room air poor appetite ambulates with cane independently denies any other symptoms beyond not feeling well when having fever febrile overnight ROS: 10 point ROS as noted above, otherwise negative Physical Exam: GEN: Alert, oriented, NAD HEENT: Normal conjunctiva, sclera anicteric CV: Regular rate and rhythm, no edema Pulm: Nonlabored respirations on room air, diminished at bases b/l ABD: Soft, nontender, nondistended Integumentary: No rashes Neuro: Normal speech, normal affect vitals reviewed Problem List: Fever COVID-19 infection h/o HIV (diagnosed ~8yrs ago) ESRD Right ear hearing impairment Hyperlipidemia IDDM2 with Neuropathy Hypertension Anemia of chronic disease Fever COVID-19 infection HIV CXR(02/16): vascular congestion. No alveolar edema. No consolidative pneumonia. ID consulted Tylenol for fever Continue home ART medications Tivicay and Prezcobix empiric antibiotics given history of HIV, fever f/u cultures check CD4 count ESRD. Nephrology consulted. Dialysis today Right ear hearing impairment. Patient reports longstanding tinnitus. Patient follows up with an outpatient ENT Continue supportive care. Hyperlipidemia. Continue statin. IDDM2 With neuropathy. SSI. Continue gabapentin for his neuropathy. Hypertension. Continue medications and labetalol as needed. Anemia of chronic disease. H&H stable. VTE: Heparin sq Code: Full Dispo: Home, ~2 days
[2023-02-17] MEDS: INSULIN -REGULAR HUMAN 50 UNIT/0.5 ML ML SQ SCH ×4 (07:30→20:50)
--- NOTE | 2023-02-17 09:01 | P.CNS ---
Date of Consult: 02/17/23 Reason for Consult: COVID infection, HIV Chief Complaint: Fever History of Present Illness: Patient is a 57-year-old male with a past medical history of diabetes type 2, end-stage renal disease, HIV, hypertension who presented to the ED with complaints of fever, chills, BLE swelling and decreased hearing in the right ear. It is reported that he has been seeing an ENT as outpatient for tinnitus. Of note patient reports he was recently started on new HIV medication, Biktarvy, last week. COVID-19 positive. ID consulted. Allergies No Known Allergies Allergy (Verified 12/03/22 07:33) Home medications list reviewed: Yes Home Medications: Montelukast Sodium 10 mg PO DAILY 10/31/21 Atorvastatin Calcium 40 mg PO DAILY 12/01/22 Furosemide [Lasix] 40 mg PO DAILY 12/01/22 Gabapentin 300 mg PO TID 12/01/22 Bictegrav/Emtricit/Tenofov Ala [Biktarvy 50-200-25 mg Tablet] 1 tab PO DAILY 02/17/23 Omeprazole 10 mg PO DAILY 02/17/23 - Past Medical/Surgical History Diabetic: Yes -: HTN -: HIV -: Diabetes type 2insulin-dependent -: ESRD -: Domenic. 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 Psychosocial/ Personal History: Patient lives at home with family - Family History Father Medical History: Diabetes, Cancer Notes: colon cancer Mother Medical History: Lung disease, Diabetes Notes: COPD Sister Medical History: Diabetes - Social History Smoking Status: Current some day smoker Alcohol use: No CD- Drugs: No Caffeine use: No Place of Residence: Home Review of Systems 10-point ROS is otherwise unremarkable General: Unremarkable Respiratory: Unremarkable Cardiovascular: Other (BLE edema) Gastrointestinal: Unremarkable Physical Examination Temp Pulse Resp BP Pulse Ox 98.6 F 95 H 20 146/82 H 97 02/17/23 05:38 02/17/23 04:00 02/17/23 04:00 02/17/23 04:00 02/17/23 04:00 General: Alert, In no apparent distress, Oriented x3 HEENT: Atraumatic, Normocephalic, Mucous membr. moist/pink Neck: Supple, JVD not distended Respiratory: Clear to auscultation bilaterally, Normal air movement (on room air) Cardiovascular: Normal S1 S2, Edema (BLE edema) Gastrointestinal: Normal bowel sounds, No tenderness Musculoskeletal: No clubbing Integumentary: No rashes Neurological: Normal speech, Normal tone, Normal affect Laboratory data reviewed Microbiology data reviewed Imagings Data: Reviewed Conclusions/Impression: Problem list COVID-19 infection HIV ESRD Diabetes mellitus type 2 Hypertension Hyperlipidemia Anemia of chronic disease Mild PCM COVID positive - Denies any cough, shortness of breath, chest pain or palpitations - No headache. No nausea, vomiting, abdominal pain or diarrhea. No congestion, runny nose. HIV - Continue home ART medication Biktarvy ESRD - BUN 91, creatinine 12.1 - HD usually on MWF. Last dialysis reported Tuesday 02/13. - Nephrology consulted Recommendations Patient with fever 24 hour tmax 102.9 F. - Obtain CD4 and viral load - Start patient on empiric Rocephin and Azithromycin - Monitor fever trends. PRN tylenol. - Renally dose medications. Nephrology also on case. Case discussed with Juan Luis Pichardo
[2023-02-17] MEDS: HEPARIN 5000 UNIT/ML 1 ML VIAL SQ SCH ×2 (09:09→20:27)
[2023-02-17] MEDS: FOLIC ACID 1 MG TABLET PO SCH (09:09)
--- NOTE | 2023-02-17 15:32 | PN ---
Date of Progress Note: 02/17/2023 Subjective: Patient was admitted with COVID pneumonia, fever. The patient was started on treatment. No hypoxemia. Objective: Vital Signs: Blood pressure 144/88, pulse of 87, afebrile. Chest: Clear to auscultation. Heart: S1, S2 regular. Abdomen: Soft. No organomegaly. Extremities: Trace edema. Neurologic: Alert. No focality. Laboratory Data: Hemoglobin 9.3, sodium 133, potassium 5.2, bicarb 21, BUN 91, creatinine 12, calciu m 8.2. Current Medications: The patient on, includes: 1.Tylenol. 2.Labetalol. 3.Epogen. 4.Folic acid. Assessment And Plan: 1.End-stage renal disease. Normal volume. We will continue the patient on dialysis TTS. 2.Hypertension, controlled, optimal. Continue current treatment. 3.Hyperkalemia. Patient is going to be dialyzed on low potassium bath. 4.Hyponatremia secondary to renal failure. Will be corrected with the dialysis. PALMER Voice ID: [id number] Report ID: [id number]
[2023-02-17] MEDS: [UNRECOGNIZED DRUG - OTHER] PO SCH (17:30)
[2023-02-17] MEDS: AZITHROMYCIN IV 500 MG in NA CHLORIDE 0.9% 250 ML IVPB SCH (18:28)
[2023-02-17] MEDS: GABAPENTIN 300 MG CAP PO SCH (20:27)
[2023-02-17] MEDS: CEFTRIAXONE 1,000 MG in NA CHLORIDE 0.9% 50 ML IVPB SCH (20:27)
[2023-02-17] MEDS ORDERED: ATORVASTATIN 40 MG TAB PO SCH (21:00)
[2023-02-17] MEDS ORDERED: EPOETIN 4,000 UNIT/ML VIAL IV SCH (23:45)
[2023-02-18] MEDS: INSULIN -REGULAR HUMAN 50 UNIT/0.5 ML ML SQ SCH ×4 (07:30→21:00)
--- NOTE | 2023-02-18 07:41 | P.PN ---
Date of Service: 02/18/23 Subjective: Diarrhea started ~10 am today 4 episodes so far 100.5 temp this morning denies abd cramping, no abd pain ROS: 10 point ROS as noted above, otherwise negative Physical Exam: GEN: Alert, oriented, NAD HEENT: Normal conjunctiva, sclera anicteric CV: Regular rate and rhythm, no edema Pulm: Nonlabored respirations on room air, diminished at bases b/l ABD: Soft, nontender, mildly distended Integumentary: No rashes Neuro: Normal speech, normal affect vitals reviewed Problem List: Fever COVID-19 infection h/o HIV (diagnosed ~8yrs ago) Elevated LFTs ESRD Right ear hearing impairment Hyperlipidemia IDDM2 with Neuropathy Hypertension Anemia of chronic disease Fever COVID-19 infection HIV CXR(02/16): vascular congestion. No alveolar edema. No consolidative pneumonia. blood cx: NGTD ID consulted Tylenol for fever Continue home ART medications continue empiric rocephin / azithromycin (02/17-) given history of HIV, fever f/u cultures check CD4 count - pending Elevated LFTs AST/ALT 25 -> 1000 (02/18) unclear etiology; developed in last 2 days on review of medications, patient may be taking too much gabapentin timing of rise, may be in line with reaction due to biktarvy which was started ~9 days ago vs possibly secondary rocephin induced hepatitis will discuss with ID and pharmacy liver u/s (02/18): ordered ESRD. Nephrology consulted. Dialysis tomorrow 02/19 per nephro Right ear hearing impairment. Patient reports longstanding tinnitus. Patient follows up with an outpatient ENT Continue supportive care. Hyperlipidemia. Continue statin. IDDM2 With neuropathy. SSI. Continue gabapentin for his neuropathy. Hypertension. Continue medications and labetalol as needed. Anemia of chronic disease. H&H stable. VTE: Heparin sq Code: Full Dispo: Home, ~2 days
[2023-02-18] MEDS: MONTELUKAST 10 MG TAB PO SCH (09:00)
[2023-02-18] MEDS: [UNRECOGNIZED DRUG - OTHER] PO SCH (09:00)
[2023-02-18] MEDS: AZITHROMYCIN IV 500 MG in NA CHLORIDE 0.9% 250 ML IVPB SCH (09:11)
[2023-02-18] MEDS: HEPARIN 5000 UNIT/ML 1 ML VIAL SQ SCH ×2 (09:11→21:55)
[2023-02-18] MEDS: FOLIC ACID 1 MG TABLET PO SCH (09:11)
[2023-02-18 09:12] LABS: Absolute Lymphocytes (CBC) 1.6 K/uL (0.7-4.9); Lymphocytes % 38.8 % (15.3-44.8); MCV 81.9 fL (80-100); MPV 7.8 fL (7.6-11.3); Platelets 80 thou/uL (152-406); RBC Red Blood Cell Count 3.54 M/uL (4.33-5.43)
[2023-02-18] MEDS: CEFTRIAXONE 1,000 MG in NA CHLORIDE 0.9% 50 ML IVPB SCH (09:12)
[2023-02-18 10:11] LABS: Bilirubin Total 0.9 mg/dL (0.2-1.0); C-Reactive Protein 86.8 mg/L (<3.00); Magnesium 2.4 mg/dL (1.6-2.4); Potassium 4.4 mEq/L (3.5-5.1)
--- NOTE | 2023-02-18 13:35 | PN ---
Date of Progress Note: 02/18/2023 Subjective: The patient was admitted with COVID pneumonia, fever. The patient had HIV. The patient has been on dialysis, tolerating the dialysis very well. Had session yesterday for 3 L, tolerated. The patient developed diarrhea today. Physical Examination: Vital Signs: Blood pressure 134/74, pulse of 89, T-max 100.5. Chest: Clear to auscultation. Heart: S1, S2. Regular. Abdomen: Soft, nontender. Extremities: No edema. Neurologic: Alert. No focality. Laboratory Data: The patient had CD4 of 861 as outpatient. WBC 4, hemoglobin 9.7. Sodium 136, pota ssium 4.4, bicarb 24, BUN 71, creatinine 9.8, calcium 8.5. Current Medications: The patient on include; 1.Azithromycin. 2.Ceftriaxone. 3.Epogen. 4.Atorvastatin. 5.Tylenol. 6.Gabapentin. 7.Folic acid. 8.Insulin. 9.Singulair. Assessment And Plan: 1.End-stage renal disease, stable. I am going to continue the patient on dialysis. I will arrange for dialysis tomorrow and we will continue to monitor the patient. 2.Hypertension, controlled, optimal. Continue current treatment. 3.Human immunodeficiency virus, stable. CD4 count on the target. Follow up with ID. 4.COVID pneumonia as by primary. 5.Fever, possible secondary to COVID. PALMER Voice ID: [id number] Report ID: [id number]
--- NOTE | 2023-02-18 15:03 | EKG ---
Test Date: 2023-02-16 Test Time: 08:17:35 Financial Developer: TIESHA MEASUREMENT RESULTS: Intervals: Rate: 100 NC: 162 QRSD: 92 QT: 352 QTc: 454 [place]: P: NC: 162 QRS: 86 T: 56 INTERPRETIVE STATEMENTS: Normal sinus rhythm Normal ECG Compared to ECG 01/08/2022 22:23:09 No significant changes Electronically Signed On 02-18-23 14:56:47 CDT by Slade Louie
--- NOTE | 2023-02-18 17:55 | P.PN ---
Date of Service: 02/18/23 Chief Complaint: Fever Subjective: Patient seen and examined at bedside. he denies any new or worsening complaints. no acute events reported overnight. Physical Examination Temp Pulse Resp BP Pulse Ox 99.1 F 88 18 121/73 95 02/18/23 16:00 02/18/23 16:00 02/18/23 16:00 02/18/23 16:00 02/18/23 16:00 General: Alert, In no apparent distress, Oriented x3 HEENT: Atraumatic, Normocephalic, Mucous membr. moist/pink Neck: Supple, JVD not distended Respiratory: Clear to auscultation bilaterally, Normal air movement. Cardiovascular: Normal S1 S2. BLE edema. Gastrointestinal: Normal bowel sounds, No tenderness Musculoskeletal: No clubbing Integumentary: No rashes Neurological: Normal speech, Normal tone, Normal affect Laboratory data reviewed Microbiology data reviewed Imagings Data: Reviewed Medications List: Reviewed Assessment and Plan Problem list COVID-19 infection HIV ESRD Diabetes mellitus type 2 Hypertension Hyperlipidemia Anemia of chronic disease Mild PCM COVID positive - Denies any cough, shortness of breath, chest pain or palpitations - No headache. No nausea, vomiting, abdominal pain or diarrhea. No congestion, runny nose. HIV - Continue home ART medication Biktarvy - Patient reports viral load undetectable - CD4 reportedly ~800s - sent out lab for CD4 and viral load on 02/17. ESRD - Nephrology consulted Recommendations 24 hour tmax 100.2 F. - Continue current antibiotics for now. - f/u liver US result - Monitor fever trends. PRN tylenol. - Renally dose medications. Nephrology also on case. Case discussed with Juan Luis Pichardo
--- NOTE | 2023-02-18 22:00 | RAD REPORT ---
EXAM DESCRIPTION: US - Liver Only - 02/18/2023 5:05 pm CLINICAL HISTORY: elevated LFTS COMPARISON: Abdomen Pelvis Wo Contrast dated 02/18/2023 TECHNIQUE: Sonographic grayscale and color flow images of the upper abdomen were obtained. FINDINGS: Liver demonstrates homogeneous echotexture and normal echogenicity. No focal lesions. Hepa topetal flow appreciated in the main portal vein. The liver demonstrates no findings of intrahepatic biliary dilatation. Spleen is normal in size, measuring 10.5 centimeter in long axis. The gallbladder demonstrates numerous layering shadowing stones. An ovoid anechoic cystic structure e mbedded within the anti dependent gallbladder wall measuring 1.7 x 1.3 x 0.5 cm, may represent a wall diverticulum. The common bile duct is normal measuring 6 mm. IMPRESSION: Cholelithiasis. No evidence of acute cholecystitis. Cystic structure embedded within the gallbladder wall, may represent a wall diverticulum.
--- NOTE | 2023-02-18 22:29 | RAD REPORT ---
EXAM DESCRIPTION: CT - Abdomen Pelvis Wo Contrast - 02/18/2023 6:12 pm CLINICAL HISTORY: fever, covid, diarrhea, elevated LFTs, h/o HIV COMPARISON: Stone Protocol dated 10/30/2021; Biopsy Renal dated 10/23/2016; Chest Single View dated 04/2023 TECHNIQUE: Thin cut axial CT imaging of the abdomen and pelvis was performed without IV contrast. Mu ltiplanar reformats were generated and reviewed. All CT scans are performed using dose optimization technique as appropriate and may include automated exposure control or mA/KV adjustment according to patient size. FINDINGS: Small layering bilateral pleural effusions. Patchy bibasilar airspace opacities slightly m ore pronounced on the right could reflect atelectasis or airspace disease. The liver, spleen, and pancreas show no suspicious findings. Gallbladder shows mildly hyperdense slud ge and small stones. Symmetric renal contour, without suspicious parenchymal findings within limits of noncontrast techniq ue, apart from stable ill-defined small cortical hypoattenuating lesions suggestive of cysts. . No ev idence of radiopaque calculi or hydroureteronephrosis. No dilated bowel loops or bowel wall thickening. No free air, localized collections, or inflammatory stranding. No hernia, mass or bulky lymphadenopathy. The urinary bladder is decompressed limiting ximena luation, however there is pronounced diffuse wall thickening. . No suspicious bony findings. Mild free ascites. Mild diffuse body wall edema. IMPRESSION: Diffuse wall thickening of the urinary bladder which may relate to nondistention or ongo ing cystitis. Please correlate with urinalysis results. Mild free ascites. There is also body wall edema and small layering pleural effusions. Findings are n onspecific but could relate to volume overload. Gallbladder sludge and small calculi.
[2023-02-19 04:43] LABS: Absolute Lymphocytes (CBC) 2.3 K/uL (0.7-4.9); Hematocrit 27.5 % (39.6-49.0); Lymphocytes % 55.8 % (15.3-44.8); MCV 81.5 fL (80-100); MPV 8.3 fL (7.6-11.3); Platelets 72 thou/uL (152-406); RBC Red Blood Cell Count 3.37 M/uL (4.33-5.43)
[2023-02-19 05:26] LABS: Albumin 2.8 g/dL (3.4-5.0); Bilirubin Total 0.7 mg/dL (0.2-1.0); Magnesium 2.5 mg/dL (1.6-2.4); Phosphorus 5.7 mg/dL (2.5-4.9); Potassium 4.3 mEq/L (3.5-5.1); Protein, Total 6.7 g/dL (6.4-8.2)
[2023-02-19] MEDS: INSULIN -REGULAR HUMAN 50 UNIT/0.5 ML ML SQ SCH ×4 (07:30→20:51)
--- NOTE | 2023-02-19 07:44 | P.PN ---
Date of Service: 02/19/23 Subjective: Feeling a little better today no acute events overnight no diarrhea since yesterday afebrile no abdominal pain ROS: 10 point ROS as noted above, otherwise negative Physical Exam: GEN: Alert, oriented, NAD HEENT: Normal conjunctiva, sclera anicteric CV: Regular rate and rhythm, trace pedal edema Pulm: Nonlabored respirations on room air, diminished at bases b/l, clear ABD: Soft, nontender, mildly distended Integumentary: No rashes, no lesions Neuro: Normal speech, normal affect vitals reviewed Problem List: Fever COVID-19 infection h/o HIV (diagnosed ~8yrs ago) Elevated LFTs Cholelithiasis ESRD Right ear hearing impairment Hyperlipidemia IDDM2 with Neuropathy Hypertension Anemia of chronic disease Fever COVID-19 infection h/o HIV CXR(02/16): vascular congestion. No alveolar edema. No consolidative pneumonia. blood cx: NGTD ID consulted Tylenol for fever Continue home ART medications rocephin / azithromycin (02/17-02/19) DC d/t concern for rocephin induced hepatitis f/u cultures check CD4 count - pending reports was 800s recently Elevated LFTs / transaminitis unclear etiology, cholelithiasis / choledocholithiasis vs HIV hepatitis vs medication side effect, r/o hepatitis CT abdomen (02/18): Diffuse wall thickening of the urinary bladder which may relate to nondistention or ongoing cystitis. Mild free ascites. There is also body wall edema and small layering pleural effusions. Findings are nonspecific but could relate to volume overload. liver u/s (02/18): Cholelithiasis. No evidence of acute cholecystitis. Cystic structure embedded within the gallbladder wall, may represent a wall diverticulum. AST/ALT minimally changed/improved, still in 900s; were normal on admission; total bili normal nontender / asymptomatic given significant amount of stones in gallbladder, elevated LFTs, and low likelihood of other causes will check MRCP if MRCP positive, will need to be transferred to tertiary care center; do not have GI / ERCP available unclear etiology; developed in last 2 days on review of medications, patient may be taking too much gabapentin Rocephin DCd 02/19 will discuss with ID and pharmacy ESRD. Nephrology consulted. Dialysis today Right ear hearing impairment. Patient reports longstanding tinnitus. Patient follows up with an outpatient ENT Continue supportive care. Hyperlipidemia. Continue statin. IDDM2 With neuropathy. SSI. Continue gabapentin for his neuropathy - renally dosed Hypertension. Continue medications and labetalol as needed. Anemia of chronic disease. H&H stable. VTE: Heparin sq Code: Full Dispo: Home, ~2 days pending improvement of LFTs, fever, MRCP
[2023-02-19] MEDS: [UNRECOGNIZED DRUG - OTHER] PO SCH (10:24)
[2023-02-19] MEDS: FOLIC ACID 1 MG TABLET PO SCH (10:25)
[2023-02-19] MEDS: AZITHROMYCIN IV 500 MG in NA CHLORIDE 0.9% 250 ML IVPB SCH (10:31)
[2023-02-19] MEDS: HEPARIN 5000 UNIT/ML 1 ML VIAL SQ SCH ×2 (10:31→20:51)
[2023-02-19] MEDS: CEFTRIAXONE 1,000 MG in NA CHLORIDE 0.9% 50 ML IVPB SCH (10:32)
[2023-02-19] MEDS: MONTELUKAST 10 MG TAB PO SCH (11:09)
--- NOTE | 2023-02-19 14:14 | PN ---
Date of Progress Note: 02/19/2023 Subjective: The patient was admitted to the hospital with COVID. The patient started developing fev er and elevation in his LFT. Physical Examination: Vital Signs: Blood pressure 127/72, pulse of 81, T-max of 100.5. Chest: Clear to auscultation. Heart: S1, S2. Regular. Abdomen: Soft. Nontender. Extremity: No edema. Neuro: Alert. No focality. Laboratory Data: Hemoglobin 9.2. Sodium 136, potassium 4.3, bicarb 23, BUN 83, creatinine 11.3, christian cium 8.4, phosphorus 5.7, magnesium 2.5. Current Medications: The patient on include; 1.Epogen. 2.Atorvastatin. 3.Labetalol. 4.Gabapentin. 5.HIV medication. Assessment And Plans: 1.End-stage renal disease. Normal volume. We will continue dialysis TTS. Due for dialysis today. 2.Hypertension, controlled, optimal. Continue current medication. 3.Secondary hyperparathyroidism, stable. 4.COVID. Continue supportive care. 5.Elevation in transaminases, possible drugs induced. Ceftriaxone has been discontinued. We will f ollow up with primary. 6.HIV. Continue current treatment. We will follow up with ID and primary. TREMAYNE/SHELBY Voice ID: [id number] Report ID: [id number]
--- NOTE | 2023-02-19 16:30 | P.PN ---
Date of Service: 02/19/23 Chief Complaint: Fever Subjective: Patient seen and examined at bedside. No acute events reported overnight. No cough, shortness of breath, chest pain or palpitations. Physical Examination Temp Pulse Resp BP Pulse Ox 99.4 F 81 16 127/72 98 02/19/23 12:00 02/19/23 12:00 02/19/23 12:00 02/19/23 12:00 02/19/23 12:00 General: Alert, In no apparent distress, Oriented x3 HEENT: Atraumatic, Normocephalic, Mucous membr. moist/pink Neck: Supple, JVD not distended Respiratory: Clear to auscultation bilaterally, Normal air movement. Cardiovascular: Normal S1 S2. BLE edema. Gastrointestinal: Normal bowel sounds, No tenderness Musculoskeletal: No clubbing Integumentary: No rashes Neurological: Normal speech, Normal tone, Normal affect Laboratory data reviewed Microbiology data - Blood cultures 02/16: No growth to date - Influenza A&B negative 02/16 Imagings Data: - Liver US 02/18: "Cholelithiasis. No evidence of acute cholecystitis. Cystic structure embedded within the gallbladder wall, may represent a wall diverticulum. " - CT abdomen pelvis: "Diffuse wall thickening of the urinary bladder which may relate to nondistention or ongoing cystitis. Please correlate with urinalysis results. Mild free ascites. There is also body wall edema and small layering pleural effusions. Findings are nonspecific but could relate to volume overload. Gallbladder sludge and small calculi." Medications List: Reviewed Assessment and Plan Problem list COVID-19 infection HIV ESRD Diabetes mellitus type 2 Hypertension Hyperlipidemia thrombocytopenia Anemia of chronic disease Mild PCM COVID positive - Denies any cough, shortness of breath, chest pain or palpitations - No headache. No nausea, vomiting, abdominal pain or diarrhea. No congestion, runny nose. - On azithromycin HIV - Continue home ART medication Biktarvy - Patient reports viral load undetectable. CD4 reportedly ~800s - sent out lab for CD4 and viral load on 02/17. ESRD on HD - BUN 83, Cr 11.3 - Nephrology on case Transaminitis - AST 912, ALT 954 - Liver US 02/18: "Cholelithiasis. No evidence of acute cholecystitis. Cystic structure embedded within the gallbladder wall, may represent a wall diverticulum. " - CT abdomen pelvis: "Diffuse wall thickening of the urinary bladder which may relate to nondistention or ongoing cystitis. Please correlate with urinalysis results. Mild free ascites. There is also body wall edema and small layering pleural effusions. Findings are nonspecific but could relate to volume overload. Gallbladder sludge and small calculi." Recommendations Discontinue rocephin and continue to monitor LFTs. - Continue Azithromycin PO. - Monitor fever trends. PRN tylenol. - Renally dose medications. Nephrology also on case. - hepatitis panel pending. - follow up with HIV CD4 and viral load Case discussed with Ranulfo Pichardo.
--- NOTE | 2023-02-19 19:03 | RAD REPORT ---
EXAM DESCRIPTION: MRI - Cholangiogram - 02/19/2023 6:55 pm CLINICAL HISTORY: elevated LFTs, stones Abdominal pain COMPARISON: Abdomen Pelvis Wo Contrast dated 02/18/2023; Liver Only dated 02/18/2023 FINDINGS: Three-dimensional MRCP was performed using maximum intensity projection reconstruction on the same work station. No intrahepatic biliary tree dilatation is seen. 5 mm filling defect in the common duct inferiorly li krystina common duct stone. The pancreatic duct is not pathologically dilated. Extensive cholelithiasis. Mild ascites noted. Small bilateral pleural effusions. IMPRESSION: Findings are suspicious for choledocholithiasis as detailed. Extensive cholelithiasis.
[2023-02-19] MEDS: GABAPENTIN 300 MG CAP PO SCH (20:51)
[2023-02-19 20:56] VITALS: O2SAT 98
[2023-02-19 21:50] VITALS: BP 145/75; TEMP 98.1
[2023-02-20] MEDS ORDERED: PIPER TAZO 3.375 GM in NA CHLORIDE 0.9% 100 ML IV SCH (01:00)
[2023-02-20 03:07] LABS: Absolute Lymphocytes (CBC) 2.4 K/uL (0.7-4.9); Hematocrit 30.6 % (39.6-49.0); Lymphocytes % 47.2 % (15.3-44.8); MCV 81.5 fL (80-100); MPV 8.6 fL (7.6-11.3); Platelets 76 thou/uL (152-406); RBC Red Blood Cell Count 3.76 M/uL (4.33-5.43)
--- NOTE | 2023-02-20 03:33 | P.DS ---
Admission Date: 02/16/23 Discharge Date: 02/20/23 Disposition: TRANSFER TO [facility] Comment: [facility] Discharge Condition: FAIR Reason for Admission: Fever Procedures: Abdominal ultrasound 02/18/2023 FINDINGS: Liver demonstrates homogeneous echotexture and normal echogenicity. No focal lesions. Hepatopetal flow appreciated in the main portal vein. The liver demonstrates no findings of intrahepatic biliary dilatation. Spleen is normal in size, measuring 10.5 centimeter in long axis. The gallbladder demonstrates numerous layering shadowing stones. An ovoid anechoic cystic structure embedded within the anti dependent gallbladder wall measuring 1.7 x 1.3 x 0.5 cm, may represent a wall diverticulum. The common bile duct is normal measuring 6 mm. IMPRESSION: Cholelithiasis. No evidence of acute cholecystitis. Cystic structure embedded within the gallbladder wall, may represent a wall diverticulum. CT abdomen pelvis 02/18/2023 FINDINGS: Small layering bilateral pleural effusions. Patchy bibasilar airspace opacities slightly more pronounced on the right could reflect atelectasis or airspace disease. The liver, spleen, and pancreas show no suspicious findings. Gallbladder shows mildly hyperdense sludge and small stones. Symmetric renal contour, without suspicious parenchymal findings within limits of noncontrast technique, apart from stable ill-defined small cortical hypoattenuating lesions suggestive of cysts. . No evidence of radiopaque calculi or hydroureteronephrosis. No dilated bowel loops or bowel wall thickening. No free air, localized collections, or inflammatory stranding. No hernia, mass or bulky lymphadenopathy. The urinary bladder is decompressed limiting evaluation, however there is pronounced diffuse wall thickening. . No suspicious bony findings. Mild free ascites. Mild diffuse body wall edema. IMPRESSION: Diffuse wall thickening of the urinary bladder which may relate to nondistention or ongoing cystitis. Please correlate with urinalysis results. Mild free ascites. There is also body wall edema and small layering pleural effusions. Findings are nonspecific but could relate to volume overload. Gallbladder sludge and small calculi. MRCP 02/19/2023 FINDINGS: Three-dimensional MRCP was performed using maximum intensity projection reconstruction on the same work station. No intrahepatic biliary tree dilatation is seen. 5 mm filling defect in the common duct inferiorly likely common duct stone. The pancreatic duct is not pathologically dilated. Extensive cholelithiasis. Mild ascites noted. Small bilateral pleural effusions. IMPRESSION: Findings are suspicious for choledocholithiasis as detailed. Extensive cholelithiasis. Chest x-ray 02/16/2023 FINDINGS: Lines: None. Lungs: Increased prominence of the pulmonary vasculature. Pleural: No significant pleural effusions or pneumothorax. Cardiac: Cardiomegaly. Mediastinum: Within normal limits. Bones: No acute fractures. Other: None IMPRESSION: Findings most consistent with vascular congestion. No alveolar edema. No consolidative pneumonia. Brief History of Present Illness: HPI Patient is a 57-year-old male with a past medical history significant for DM 2, ESRD hyperlipidemia, hypertension, HIV who presents with complaint of fever and decreased hearing on the right ear. Patient reported that he has been having tinnitus in the ears for the past couple of years and patient follows up with an outpatient ENT MD. Patient reported that 2 days ago he started having decreased hearing in the right ear. Patient reported associated signs and symptoms of chills, loss of appetite and bilateral lower extremity swelling. Patient reported that he was started on a new HIV medication last week. Patient denies any other signs and symptoms. Symptoms are aggravated or relieved by nothing. Patient decided to present to the hospital for medical evaluation. Hospital Course: Patient was admitted for fever with history of HIV, COVID-19 positive. He subsequently developed markedly elevated LFTs ultrasound was performed which revealed cholelithiasis with no evidence of acute cholecystitis. CT abdomen pelvis was performed which revealed diffuse wall thickening of the urinary bladder which may relate to nondistention or ongoing cystitis. Mild free ascites. There is also body wall edema and layering pleural effusions. Findings are nonspecific but could relate to volume overload. Additionally MRCP was performed on 02/19/2023 which revealed suspected choledocholithiasis. As we do not have a GI physician capable of performing ERCP patient was transferred to [facility] for further management of his suspected choledocholithiasis. Vital Signs/Physical Exam: Temp Pulse Resp BP Pulse Ox 98.1 F 90 18 145/75 H 95 02/19/23 20:00 02/19/23 20:00 02/19/23 20:00 02/19/23 20:00 02/19/23 20:00 General: Alert, In no apparent distress, Oriented x3 HEENT: Atraumatic, PERRLA, EOMI Neck: Supple, JVD not distended Respiratory: Clear to auscultation bilaterally, Normal air movement Cardiovascular: Regular rate/rhythm, Normal S1 S2 Gastrointestinal: Normal bowel sounds, No tenderness Musculoskeletal: No tenderness Integumentary: No rashes Neurological: Normal speech, Normal tone, Normal affect Lymphatics: No axilla or inguinal lymphadenopathy Laboratory Data at Discharge: WBC 5.10 thou/uL (4.3-10.9) 02/20/23 01:56 Hgb 10.1 g/dL (13.6-17.9) L D 02/20/23 01:56 Hct 30.6 % (39.6-49.0) L 02/20/23 01:56 Plt Count 76 thou/uL (152-406) L 02/20/23 01:56 PT 15.8 SECONDS (9.5-12.5) H 02/16/23 07:45 INR 1.44 02/16/23 07:45 APTT 38.9 SECONDS (24.3-36.9) H 02/16/23 07:45 Sodium 136 mEq/L (136-145) 02/19/23 03:20 Potassium 4.3 mEq/L (3.5-5.1) 02/19/23 03:20 BUN 83 mg/dL (7-18) H 02/19/23 03:20 Creatinine 11.30 mg/dL (0.70-1.30) H 02/19/23 03:20 Glucose 86 mg/dL (74-106) 02/19/23 03:20 Phosphorus 5.7 mg/dL (2.5-4.9) H 02/19/23 03:20 Magnesium 2.5 mg/dL (1.6-2.4) H 02/19/23 03:20 Total Bilirubin 0.7 mg/dL (0.2-1.0) 02/19/23 03:20 AST 912 U/L (15-37) H 02/19/23 03:20 ALT 954 U/L (16-61) H 02/19/23 03:20 Alkaline Phosphatase 72 U/L (45-117) 02/19/23 03:20 Triglycerides 70 mg/dL (<150) 02/17/23 04:44 Cholesterol 89 mg/dL (<200) 02/17/23 04:44 HDL Cholesterol 47 mg/dL (40-60) 02/17/23 04:44 Cholesterol/HDL Ratio 1.89 02/17/23 04:44 Home Medications: Montelukast Sodium 10 mg PO DAILY 10/31/21 Atorvastatin Calcium 40 mg PO DAILY 12/01/22 Furosemide [Lasix] 40 mg PO DAILY 12/01/22 Gabapentin 300 mg PO TID 12/01/22 Bictegrav/Emtricit/Tenofov Ala [Biktarvy 50-200-25 mg Tablet] 1 tab PO DAILY 02/17/23 Omeprazole 10 mg PO DAILY 02/17/23 Diet: NPO Followup: Bentley Puri MD [Primary Care Provider] - Time spent managing pt's care (in minutes): 30
[2023-02-20 03:48] LABS: Albumin 3.1 g/dL (3.4-5.0); Bilirubin Total 0.7 mg/dL (0.2-1.0); C-Reactive Protein 67.1 mg/L (<3.00); Potassium 3.7 mEq/L (3.5-5.1); Protein, Total 7.5 g/dL (6.4-8.2)
== END 2023-02-20 04:25 | disposition short-term general hospital (02) | DRG 177 ==
LOC: ER 06:48 → ERHOLD 12:51 → 4TH 14:06
PROVIDERS: ADMIT Internal Medicine; ATTEND Hospitalist
PROC: 5A1D70Z Performance of Urinary Filtration, Intermittent, Less than 6 Hours Per Day (ICD-10-PCS; principal; 2023-02-16)
DX: U07.1 COVID-19 (principal); J12.82 Pneumonia due to coronavirus disease 2019; N18.6 End stage renal disease; I12.0 Hypertensive chronic kidney disease with stage 5 chronic kidney disease or end stage renal disease; E44.1 Mild protein-calorie malnutrition; E87.1 Hypo-osmolality and hyponatremia; N25.81 Secondary hyperparathyroidism of renal origin; R18.8 Other ascites; E11.22 Type 2 diabetes mellitus with diabetic chronic kidney disease; E11.40 Type 2 diabetes mellitus with diabetic neuropathy, unspecified; D63.1 Anemia in chronic kidney disease; D63.8 Anemia in other chronic diseases classified elsewhere; H93.11 Tinnitus, right ear; H91.91 Unspecified hearing loss, right ear; E78.00 Pure hypercholesterolemia, unspecified; D69.6 Thrombocytopenia, unspecified; E87.5 Hyperkalemia; K80.20 Calculus of gallbladder without cholecystitis without obstruction; K80.50 Calculus of bile duct without cholangitis or cholecystitis without obstruction; F17.200 Nicotine dependence, unspecified, uncomplicated; R74.01 Elevation of levels of liver transaminase levels; R79.89 Other specified abnormal findings of blood chemistry; Z21 Asymptomatic human immunodeficiency virus [HIV] infection status; Z99.2 Dependence on renal dialysis; Z68.32 Body mass index [BMI] 32.0-32.9, adult; Z89.422 Acquired absence of other left toe(s); Z79.899 Other long term (current) drug therapy
CPT/HCPCS: 36415; 71045; 74176; 74181; 76705; 80048; 80053; 80061; 81001; 82947; 83036; 83605; 83735; 84100; 84145; 85025; 85610; 85730; 86140; 86361; 87040; 87635; 87804; 90935; 93005; 99285; J0696; J1644; J2543; J7050; Q5105

== ENCOUNTER 2024-02-19 06:40 | Day surgery (SDC) | payer BC ==
[2024-02-16 14:13] LABS: Absolute Eosinophils 0.3 K/uL (0-0.5); Absolute Lymphocytes (CBC) 1.1 K/uL (0.7-4.9); Absolute Monocytes 0.6 K/uL (0.1-1.3); Absolute Neutrophil 2.4 K/uL (1.8-8.0); Eosinophils % 7.6 % (0-4.4); Hemoglobin 10.6 g/dL (13.6-17.9); Lymphocytes % 24.6 % (15.3-44.8); MCH 30.5 pg (27.0-35.0); MCHC 33.1 g/dL (32.0-36.0); Monocytes % 12.9 % (3.3-12.3); Neutrophils % 53.9 % (41.7-73.7); Platelets 196 thou/uL (152-406); RBC Red Blood Cell Count 3.48 M/uL (4.33-5.43); Red Cell Distribution Width 15.5 % (12.1-15.2)
--- NOTE | 2024-02-16 14:13 | RAD REPORT ---
EXAM DESCRIPTION: RAD - Chest Pa And Lat (2 Views) - 02/16/2024 2:07 pm CLINICAL HISTORY: PRE OP Chest pain. COMPARISON: Chest Pa And Lat (2 Views) dated 08/14/2023; Chest Pa And Lat (2 Views) dated 03/25/2023; Chest Single View dated 02/16/2023; Chest Single View dated 01/06/2022 FINDINGS: Mild pulmonary edema. Small bilateral pleural effusions. The heart is moderately enlarged. No displaced fractures. IMPRESSION: Mild to moderate CHF versus volume overload pattern.
[2024-02-16 14:49] LABS: PT Prothrombin Time 14.6 SECONDS (9.4-12.5); PTT, Activated Partial Thromb 39.6 SECONDS (24.3-36.9); Protime INR 1.31
--- NOTE | 2024-02-16 16:52 | EKG ---
Test Date: 2024-02-16 Test Time: 13:55:29 [employer] Trader: RENETTA MEASUREMENT RESULTS: Intervals: Rate: 101 FL: 188 QRSD: 102 QT: 360 QTc: 466 [place]: P: 73 FL: 188 QRS: 20 T: 28 INTERPRETIVE STATEMENTS: Sinus tachycardia Possible Left atrial enlargement Nonspecific ST and T wave abnormality Abnormal ECG Compared to ECG 02/16/2023 08:17:35 ST (T wave) deviation now present Sinus rhythm no longer present Electronically Signed On 02-16-24 16:52:11 CDT by Slade Louie
[2024-02-19] MEDS ORDERED: NA CHLORIDE 0.9% 500 ML ONE (06:54)
[2024-02-19] MEDS ORDERED: ATROPINE SULF 1 MG/10 ML SYR IV ONE (06:58)
[2024-02-19] MEDS ORDERED: HEPARIN 10,000 UNIT/10 ML VIAL IV ONE (06:58)
[2024-02-19] MEDS ORDERED: VERAPAMIL HCL 10 MG/4 ML VIAL IV ONE (06:58)
[2024-02-19] MEDS ORDERED: LIDOCAINE 1% 20 ML MDV ONE (06:58)
[2024-02-19] MEDS ORDERED: HEPA 1000U/500MLS 1,000 UNIT/500 ML BAG IV ONE ×2 (06:58→07:56)
[2024-02-19] MEDS ORDERED: MIDAZOLAM HCL 2 MG/2 ML INJ ONE (06:58)
[2024-02-19] MEDS ORDERED: FENTANYL CITR 100 MCG/2 ML ONE (06:59)
[2024-02-19] MEDS ORDERED: HEPARIN 5000 UNIT/ML 1 ML VIAL ONE (06:59)
[2024-02-19] MEDS ORDERED: CLOPIDOGREL 75 MG TABLET ONE (06:59)
[2024-02-19] MEDS ORDERED: TICAGRELOR 90 MG TABLET PO ONE (06:59)
[2024-02-19] MEDS ORDERED: NITROGLYCERIN/D5W 50 MG/250 ML BTL IV ONE (07:00)
[2024-02-19] MEDS ORDERED: ASPIRIN 325 MG TAB ONE (07:00)
[2024-02-19 11:04] VITALS: BP 174/55; O2SAT 100
--- NOTE | 2024-02-23 13:24 | OP ---
Date of Procedure: 02/19/2024 Surgeon: Rafael Kwong Procedure Performed: Selective coronary angiogram. Complications: None. Estimated Blood Loss: Less than 50 cc. Sedation Time: 20 minutes with 1 of Versed and 25 of fentanyl. Access: Right common femoral artery, that was closed by Angio-Seal. Description Of Procedure: After risks, and benefits, and alternatives were explained to patient, pat ient agreed to proceed with the procedure and signed informed consent. The patient was brought back to the pathology laboratory technologist, prepped and draped in a sterile fashion. Time-out was performed. Sedation was admi nistered. Next, the right common femoral artery 6-Wolof sheath was obtained and the JL4 catheter wa s advanced over the J-wire for selective angiogram of the left coronary system that was later exchang ed with a JR4 catheter for the right coronary angiogram. That catheter was used for the WILLARD shot. At the end of procedure, catheter was removed over a J-wire. The sheath was removed. Angio-Seal yenifer lied. Hemostasis achieved. The patient was moved back to recovery in stable condition. Indication For Procedure: Chest pain. Abnormal stress test. Findings: 1.Left main normal. 2.LAD; diffuse calcified proximal 40% disease, mid calcified 70% disease, followed by short normal s egments, then another mid 80% disease and mid to distal mild luminal irregularities. 3.D1; large, mild luminal irregularities. 4.Left circ; mild luminal irregularities. 5.RCA; proximal mild luminal irregularities, then mid 70% disease, then mild luminal irregularities. 6.Left subclavian/WILLARD patent. Assessment And Plan: Significant LAD/RCA disease, heavily calcified. Plan will be to evaluate for CABG as an outpatient. DEGROOT/MODL Voice ID: [id number] Report ID: [id number]
== END 2024-02-19 11:30 | disposition home or self-care (01) ==
LOC: CCL 06:40
PROVIDERS: ATTEND Internal Medicine Interventional Cardiology
PROC: B2111ZZ Fluoroscopy of Multiple Coronary Arteries using Low Osmolar Contrast (ICD-10-PCS; principal; 2024-02-19)
DX: I25.10 Atherosclerotic heart disease of native coronary artery without angina pectoris (principal); I70.223 Atherosclerosis of native arteries of extremities with rest pain, bilateral legs; I12.0 Hypertensive chronic kidney disease with stage 5 chronic kidney disease or end stage renal disease; E11.22 Type 2 diabetes mellitus with diabetic chronic kidney disease; N18.6 End stage renal disease; Z99.2 Dependence on renal dialysis; E78.2 Mixed hyperlipidemia; Z87.891 Personal history of nicotine dependence; Z79.84 Long term (current) use of oral hypoglycemic drugs; Z79.899 Other long term (current) drug therapy; Z01.810 Encounter for preprocedural cardiovascular examination
CPT/HCPCS: 93005; 85025; 80048; 36415; 85610; 85730; 71046; 93454; J1644; J2001; J2250; J3010; J7040; J0461

== ENCOUNTER 2024-04-03 22:35 | Emergency (ER) | payer BC, SELFPAY ==
--- NOTE | 2024-04-03 23:13 | ER ---
Nurse's Notes [facility] Name: Cahlo Harry Age: 58 yrs Sex: Male : 1965 Arrival Date: 04/03/2024 Time: 22:35 Bed 5 Private MD: Diagnosis: Blister (nonthermal) of foot Presentation: 04/03 22:57 Chief complaint: Patient states: I went and got a pedicure today and now my toes are vc1 black and swollen. Coronavirus screen: Client denies travel out of the [place] in the last 14 days. At this time, the client does not indicate any symptoms associated with coronavirus-19. Ebola Screen: Patient negative for fever greater than or equal to 101.5 degrees Fahrenheit, and additional compatible Ebola Virus Disease symptoms Patient denies exposure to infectious person. Patient denies travel to an Ebola-affected area in the 21 days before illness onset. No symptoms or risks identified at this time. Initial Sepsis Screen: Does the patient meet any 2 criteria? No. Patient's initial sepsis screen is negative. Does the patient have a suspected source of infection? No. Patient's initial sepsis screen is negative. Risk Assessment: Do you want to hurt yourself or someone else? Patient reports no desire to harm self or others. Onset of symptoms was April 03, 2024. 22:57 Method Of Arrival: Ambulatory vc1 22:57 Acuity: KESHA 3 vc1 Triage Assessment: 23:04 General: Appears in no apparent distress. Behavior is calm, cooperative, appropriate vc1 for age. 23:05 Pain: Denies pain. EENT: No deficits noted. No signs and/or symptoms were reported vc1 regarding the EENT system. Neuro: Level of Consciousness is awake, alert, obeys commands, Oriented to person, place, time, situation, Appropriate for age. Cardiovascular: No deficits noted. Respiratory: Airway is patent Respiratory effort is even, unlabored, Respiratory pattern is regular, symmetrical, Breath sounds are clear bilaterally. GI: No deficits noted. No signs and/or symptoms were reported involving the gastrointestinal system. : No deficits noted. No signs and/or symptoms were reported regarding the genitourinary system. Derm: Skin has blisters on right toes and left 2nd digit. Musculoskeletal: No deficits noted. No signs and/or symptoms reported regarding the musculoskeletal system. Historical: - Allergies: 23:00 No Known Allergies; vc1 - PMHx: 23:00 AIDS; allergies; Diabetes - NIDDM; Dialysis; M W F; High Cholesterol; Hypertension; vc1 - PSHx: 23:00 R chest dialysis access; left upper arm fistula; vc1 - Immunization history:: Adult Immunizations up to date. - Infectious Disease History:: Denies. - Social history:: Smoking status: Patient denies any tobacco usage or history of. Screenin:02 [facility] ED Fall Risk Assessment (Adult) History of falling in the last 3 months, vc1 including since admission No falls in past 3 months (0 pts) Confusion or Disorientation No (0 pts) Intoxicated or Sedated No (0 pts) Impaired Gait No (0 pts) Mobility Assist Device Used Yes (1 pt) Altered Elimination No (0 pt) Score/Fall Risk Level 0 - 2 = Low Risk Oriented to surroundings, Maintained a safe environment, Educated pt \T\ family on fall prevention, incl call for assistance when getting out of bed. Abuse screen: Denies threats or abuse. Nutritional screening: No deficits noted. Tuberculosis screening: No symptoms or risk factors identified. Assessment: 23:23 Reassessment: no change from triage assessment. bm8 Vital Signs: 22:57 BP 184 / 96; Pulse 104; Resp 18; Temp 98.3; Pulse Ox 97% ; Weight 108.86 kg; Height 5 vc1 ft. 9 in. ; Pain 0/10; 23:24 BP 176 / 91; Pulse 98; Resp 18; Temp 98.3; Pulse Ox 98% on R/A; Pain 0/10; bm8 22:57 Body Mass Index 35.44 (108.86 kg, 175.26 cm) vc1 22:57 Pain Scale: Adult vc1 23:24 Pain Scale: Adult bm8 Aneta Coma Score: 23:24 Eye Response: spontaneous(4). Motor Response: obeys commands(6). Verbal Response: bm8 oriented(5). Total: 15. ED Course: 22:42 Patient arrived in ED. gm2 22:43 Jose C Alfaro FNP-C is [facility]. dr5 22:43 Lanre Mart MD is Attending Physician. dr5 23:00 Triage completed. vc1 23:02 Arm band placed on left wrist. vc1 23:03 Patient has correct armband on for positive identification. Bed in low position. Call vc1 light in reach. youth nutritional monitor on. Pulse ox on. NIBP on. 23:[address], RN is Primary Nurse. bm8 23:24 Provided Education on: post er care, follow up with pcp. bm8 23:24 No provider procedures requiring assistance completed. Patient did not have IV access bm8 during this emergency room visit. Patient maintains SpO2 saturation greater than 95% on room air. Administered Medications: No medications were administered Medication: 23:04 VIS not applicable for this client. vc1 Outcome: 23:12 Discharge ordered by . dr5 23:24 Discharged to home ambulatory, bm8 23:24 Condition: stable 23:24 Discharge instructions given to patient, family, Instructed on discharge instructions, follow up and referral plans. medication usage, safety practices, Demonstrated understanding of instructions, follow-up care, medications, Prescriptions given X 2, 23:26 Patient left the ED. bm8 Signatures: Marina Power RN RN vc1 Pam Muñoz [address], RN RN bm8 Jose C Alfaro, PANELBOARD OPERATOR-C PANELBOARD OPERATOR-Cdr5 Corrections: (The following items were deleted from the chart) 23:08 23:04 General: Appears vc1 vc1
--- NOTE | 2024-04-03 23:13 | EDPHYS ---
Physician Documentation [facility] Name: Chalo Harry Age: 58 yrs Sex: Male : 1965 Arrival Date: 04/03/2024 Time: 22:35 Bed 5 Private MD: ED Physician Lanre Mart HPI: 04/04 00:09 This 58 yrs old Male presents to ER via Ambulatory with complaints of Foot dr5 Pain, pt is a diabetic and dialysis pt. had pedicure today and now his toes are swollen. 00:09 The complaints affect the right first toe, right second toe, right third toe, left dr5 first toe, left second toe, left third toe, left fourth toe and left fifth toe. Context: The problem was sustained , while getting a pedicure today. Pt was getting pedicure this afternoon and noticed the water was hot. Developed blisters after completion of pedicure.. Historical: - Allergies: 04/03 23:00 No Known Allergies; vc1 - PMHx: 23:00 AIDS; allergies; Diabetes - NIDDM; Dialysis; M W F; High Cholesterol; Hypertension; vc1 - PSHx: 23:00 R chest dialysis access; left upper arm fistula; vc1 - Immunization history:: Adult Immunizations up to date. - Infectious Disease History:: Denies. - Social history:: Smoking status: Patient denies any tobacco usage or history of. ROS: 04/04 00:09 Constitutional: as per hpi dr5 Exam: 00:09 Constitutional: This is a well developed, well nourished patient who is awake, alert, dr5 and in no acute distress. Head/Face: Normocephalic, atraumatic. Neck: Trachea midline, no thyromegaly or masses palpated, and no cervical lymphadenopathy. Supple, full range of motion without nuchal rigidity, or vertebral point tenderness. No Meningismus. 00:09 Cardiovascular: Dialysis shunt: in the left bicep, with palpable thrill, with auscultated bruit, with no erythema, with no edema, no bleeding noted 00:09 Respiratory: Exam negative for 00:09 Abdomen/GI: Exam negative for 00:09 Skin: Blisters noted to every toe. No surrounding cellulitis noted. . 00:09 Neuro: Exam negative for acute changes, Vital Signs: 04/03 22:57 BP 184 / 96; Pulse 104; Resp 18; Temp 98.3; Pulse Ox 97% ; Weight 108.86 kg; Height 5 vc1 ft. 9 in. ; Pain 0/10; 23:24 BP 176 / 91; Pulse 98; Resp 18; Temp 98.3; Pulse Ox 98% on R/A; Pain 0/10; bm8 22:57 Body Mass Index 35.44 (108.86 kg, 175.26 cm) vc1 22:57 Pain Scale: Adult vc1 23:24 Pain Scale: Adult bm8 Aneta Coma Score: 23:24 Eye Response: spontaneous(4). Motor Response: obeys commands(6). Verbal Response: bm8 oriented(5). Total: 15. MDM: 22:44 Medical Screening Exam initiated dr5 04/04 00:09 Differential diagnosis: contusion, abrasion, Cellulitis. Data reviewed: vital signs, dr5 nurses notes. Care significantly affected by the following chronic conditions: Diabetes, Hypertension, HIV/ AIDS, Dialysis (MWF), Hyperlipidemia. Care significantly affected by the following Social Determinants of Health: Poor access to healthcare and/or lack of insurance, Poor access to transportation. 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 ED course: Patient has dialysis on Thursday morning at 0500 at [facility]. Will cover for cellulitis with Keflex / Bactrim. Recommended patient to not get pedicures unless by medical staff - preferably podiatry. Patient agrees with plan. Follow up with Podiatry this week.. Administered Medications: No medications were administered Disposition: 01:14 Co-signature as Attending Physician, Lanre Mart MD I reviewed the patient's care rn provided by the Advanced Practice Provider and agree with the diagnosis and treatment plan. Disposition Summary: 04/03/24 23:12 Discharge Ordered Notes: Location: Home dr5 Condition: Stable dr5 Diagnosis - Blister (nonthermal) of foot dr5 Followup: dr5 - With: Emergency Department - When: As needed - Reason: Worsening of condition Followup: dr5 - With: Private Physician - When: 1 - 2 days - Reason: Recheck today's complaints, Continuance of care, Re-evaluation by your physician Discharge Instructions: - Discharge Summary Sheet dr5 - Diabetic Neuropathy dr5 - Foot Care, Adult dr5 Forms: - Medication Reconciliation Form dr5 - Antibiotic Education dr5 - Patient Portal Instructions dr5 - Leadership Thank You Letter dr5 Prescriptions: - Cephalexin 500 mg Oral Capsule - take 1 capsule ORAL route every 6 hours for 10 days; 40 capsule; Refills: 0, dr5 Product Selection Permitted - Bactrim DS 800-160 mg Oral Tablet - take 1 tablet ORAL route every 12 hours for 7 days; 14 tablet; Refills: 0, dr5 Product Selection Permitted Signatures: Lanre Mart MD MD rn Calcote, Vanessa, RN RN vc1 Jose C Alfaro, PRINTER ASSISTANT-C PRINTER ASSISTANT-Cdr5
[2024-04-04 05:10] VITALS: TEMP 98.3
[2024-04-04 05:11] VITALS: BP 176/91; O2SAT 98
== END 2024-04-03 23:26 | disposition home or self-care (01) ==
LOC: ER 22:35
DX: S90.829A Blister (nonthermal), unspecified foot, initial encounter (principal); E11.9 Type 2 diabetes mellitus without complications; I10 Essential (primary) hypertension; Z99.2 Dependence on renal dialysis; E78.00 Pure hypercholesterolemia, unspecified
CPT/HCPCS: 99284